=== PATIENT | female | born 1945 | race Caucasian/White ===

== ENCOUNTER 2020-10-12 06:35 | Emergency (ER) | payer MEDICARE, SELFPAY ==
--- NOTE | ~2020-10-12 | CT_ITS ---
EXAMINATION: CT OF THE HEAD WITHOUT CONTRAST CT OF THE CERVICAL SPINE WITHOUT CONTRAST CLINICAL INFORMATION: Fall.. COMPARISON: None. TECHNIQUE: Contiguous axial imaging was performed from the skullbase to vertex without intravenous administration of contrast. Coronal reformations of the head were obtained. Contiguous axial imaging was then performed from the skull base down to the thoracic inlet. Coronal and sagittal reformations of the cervical spine were obtained. DLP: CT scan of the head: 641 mGy-cm. CT scan of the neck: 309 mGy-cm. FINDINGS: CT scan of the head: There is no evidence of acute intracranial hemorrhage or territorial infarction. No abnormal mass-effect or midline shift is seen. [place] to white matter differentiation is well preserved. No extra-axial fluid collections are identified. The ventricles and sulci are mildly enlarged. There is mild periventricular and deep white matter low-attenuation seen, consistent with ischemic small vessel disease. There is a small hypodensity in the left midbrain, most consistent with a dilated CSF space versus less likely an old lacunar infarction.. Nasal septal deviation to the left side is seen. The osseous structures and soft tissues are normal. The mastoid air cells and visualized portions of the paranasal sinuses are well-aerated. CT scan of the cervical spine: Normal alignment is seen with no evidence of acute fracture or dislocation. Craniocervical junction and atlantoaxial articulations are intact with advanced degenerative spurring, sclerosis, cystic change and ligamentous calcification seen. Prevertebral soft tissues are normal in thickness. There is moderate degenerative disc disease at the C5-6 level with disc space narrowing, vertebral endplate sclerosis and spurring and small posterior disc osteophyte complex projecting into the thecal sac without causing significant spinal stenosis. Small posterior disc osteophyte complexes are also seen projecting into the thecal sac at the C3-4 and C4-5 levels without significant spinal stenosis. Mild diffuse degenerative disc disease is seen at other cervical levels. Moderate left-sided and mild right-sided facet arthropathy is seen throughout the cervical spine. The included soft tissues of the neck and lung apices are unremarkable. CT/CT cervical spine wo con IMPRESSION: CT scan of the head: No acute intracranial pathology. Mild involutional changes and findings of ischemic small vessel disease. There is likely a prominent CSF space versus an old lacunar infarction in the left midbrain. CT scan of the cervical spine: No evidence of cervical spine fracture or malalignment. Diffuse degenerative changes in the cervical spine.
--- NOTE | ~2020-10-12 | XR_ITS ---
EXAMINATION: CHEST AND RIGHT HIP WITH PELVIS CLINICAL INFORMATION: Fall. Pain. COMPARISON: None TECHNIQUE: Chest one view. AP pelvis and right hip 3 views. FINDINGS: Chest: The lungs are well-expanded and clear of acute process. The heart size and pulmonary vascularity is normal AP pelvis and right hip: There is a intramedullary femoral rae and hip nail stabilizing old healed femoral neck fracture. Hypertrophic bony changes are seen around the right hip joint. The hardware appears intact. The left hip appears unremarkable. SI joints are symmetrical and normal. No gross bony abnormality seen. No acute fracture or dislocation. XR/XR hip RT w [id number] IMPRESSION: Unremarkable chest exam. Old healed right hip fracture with intramedullary femoral rae and hip nail. No acute fractures seen. The heart is a hypertrophic bony changes adjacent to the right femoral neck and lateral to hip joint.
--- NOTE | ~2020-10-12 | XR_ITS ---
EXAMINATION: CHEST AND RIGHT HIP WITH PELVIS CLINICAL INFORMATION: Fall. Pain. COMPARISON: None TECHNIQUE: Chest one view. AP pelvis and right hip 3 views. FINDINGS: Chest: The lungs are well-expanded and clear of acute process. The heart size and pulmonary vascularity is normal AP pelvis and right hip: There is a intramedullary femoral rae and hip nail stabilizing old healed femoral neck fracture. Hypertrophic bony changes are seen around the right hip joint. The hardware appears intact. The left hip appears unremarkable. SI joints are symmetrical and normal. No gross bony abnormality seen. No acute fracture or dislocation. XR/XR chest 1V IMPRESSION: Unremarkable chest exam. Old healed right hip fracture with intramedullary femoral rae and hip nail. No acute fractures seen. The heart is a hypertrophic bony changes adjacent to the right femoral neck and lateral to hip joint.
--- NOTE | 2020-10-12 06:40 | ECG_ITS ---
Test Reason : FALL Blood Pressure : / mmHG Vent. Rate : 068 BPM Atrial Rate : 068 BPM P-R Int : 128 ms QRS Dur : 118 ms QT Int : 438 ms P-R-T Axes : 025 -42 032 degrees QTc Int : 465 ms Normal sinus rhythm Left axis deviation Incomplete right bundle branch block Septal infarct , age undetermined Abnormal ECG No previous ECGs available Referred By: Tyesha Morris Electronically Signed By:Maximilian Lizarraga
[2020-10-12 06:41] VITALS: BP 177/53; PULSE 80; RESP 22; TEMP 36.4; O2SAT 99; BMI 28.8
--- NOTE | 2020-10-12 06:41 | ED.FALL ---
HPI - Fall General Chief Complaint: Fall Stated Complaint: FALL W/RIGHT LEG PAIN Time Seen by Provider: 10/12/20 06:40 Source: patient and EMS Mode of arrival: EMS Limitations: other (dementia - some slight confusion) History of Present Illness HPI Narrative: 75 yo female with hx of HTN, dementia, overactive bladder, chronic L leg wounds, PE on eliquis comes from assisted living facility after being found down by staff - she c/o R hip pain (hx of prior fx) no other injuries, states thinks she was dreaming about being in a spooky house running away from it with her friend. complaint: fall Onset (ago): unknown Fall from: standing Fall witnessed: no Place fall occurred: [facility] Loss of consciousness: unsure Prolonged down time: unclear Symptoms prior to fall: none Context: other (unsure) Location of injury - extremities: right: lower leg Severity: mild Quality: dull and aching Associated symptoms (after fall): denies Related Data Home Medications Medication Instructions Recorded Confirmed acetaminophen 650 mg PO Q6H PRN 10/12/20 10/12/20 apixaban [Eliquis] 5 mg PO BID 10/12/20 10/12/20 atorvastatin 20 mg PO BEDTIME 10/12/20 10/12/20 cholecalciferol (vitamin D3) 25 mcg PO DAILY 10/12/20 10/12/20 [Vitamin D3] donepezil 10 mg PO BEDTIME 10/12/20 10/12/20 gabapentin 100 mg PO BEDTIME 10/12/20 10/12/20 insulin glargine [Lantus Solostar 43 unit SUBCUT DAILY 10/12/20 10/12/20 U-100 Insulin] lidocaine HCl 1 appl TOPICAL QID 10/12/20 10/12/20 lisinopril 1 tab PO DAILY 10/12/20 10/12/20 metformin 1,000 mg PO DAILY@1700 10/12/20 10/12/20 oxybutynin chloride 1 tab PO DAILY 10/12/20 10/12/20 pioglitazone 1 tab PO DAILY 10/12/20 10/12/20 polyethylene glycol 3350 17 g PO DAILY 10/12/20 10/12/20 sennosides [senna] 17.2 mg PO BEDTIME 10/12/20 10/12/20 Allergies Allergy/AdvReac Type Severity Reaction Status Date / Time aluminum sulfate Allergy Unknown Uncoded 10/12/20 06:41 Review of Systems Review of Systems: Constitutional : No Fever, No Chills ENT/Mouth : No Ear Pain, No Hoarseness, No sore throat Eyes: No Eye Pain, No Swelling, No Redness, No Foreign Body Cardiovascular : No Chest Pain, No SOB Respiratory : No Cough, No Dyspnea Gastrointestinal : No Nausea, No Vomiting, No Diarrhea, No abdominal Pain Genitourinary : No Dysuria, No Hematuria Musculoskeletal : positive joint pain, No Myalgias, No Joint Swelling Skin : No Skin lacerations, No rash Neuro : No Weakness, No Numbness, No Loss of Consciousness, No Dizziness, No Headache Psych : No Anxiety/Panic, No Depression Heme/Lymph: no easy bruising, no Lymphadenopathy Endocrine : No Polyuria, No Polydipsia All other systems reviewed and are negative [facility] Past Medical History Attestation statement: The following information was validated with the patient. Medical History Dementia HTN (hypertension) Overactive bladder Pulmonary embolism with acute cor pulmonale Social History Social History (Updated 10/12/20 @ 06:48 by Tyesha Morris DO) Housing: Assisted Living Facility Patient Tobacco Use Status: Former Tobacco user Use of substances other than those prescribed or required for medical reasons: No Advance Directives: Yes Advance Directives on File: Yes Advance Directives Date on File: 10/12/20 Physical Exam Vital Signs: Vital Signs: Last Vital Signs Temp 97.6 F 10/12/20 06:41 Pulse 78 10/12/20 13:00 Resp 16 10/12/20 13:00 BP 136/43 L 10/12/20 07:52 Pulse Ox 96 10/12/20 13:00 Body Mass Index 28.8 Appearance: Alert. Oriented X2. No acute distress. Eyes: Pupils equal, round and reactive to light. ENT: Pharynx normal. Neck: Normal inspection. Neck supple. CVS: Normal heart rate and rhythm. Pulses normal. Respiratory: No respiratory distress. Breath sounds normal. Abdomen: Soft and non-tender. : superficial shallow ulcer no abscess noted on left inner labia Skin: Skin warm and dry. Normal skin color. Normal skin turgor. Extremities: trace to 1+ pitting lower extremity edema. No calf ttp . L calf chronic healing ulcer dressings are unkempt no signs of infection, pain with ROM of R hip Neuro: Oriented X 2. No motor deficit. No sensory deficit. Course Course Course Narrative: baseline H 9.0 from [facility] records repeat trop flat, will ordered PT/CM for patient given safety concerns for fall risk Patient placed in physician observation at 1150am. The indication for observation is that the patient needs more time to see PT/CM for safe discharge. At this time the patient is well developed well nourished, lungs clear, CV RRR, abd nontender, neuro is intac at baseline. signed out overnight pending placement MDM - Fall MDM Narrative Medical decision making narrative: 75 yo female with hx of HTN, dementia, overactive bladder, chronic L leg wounds, PE on eliquis comes from assisted living facility after being found down by staff - she c/o R hip pain (hx of prior fx) no other injuries at this time, labs, UA, CXR, CT head/neck given eliquis, unsure etiology of fall may need repeat troponins as well and discussion with CM given she is in [facility]. Dispo per results and findings. Lab Data Result diagrams: 10/12/20 08:02 10/12/20 08:02 Labs: Lab Results 10/12/20 10/12/20 10/12/20 Range/Units 06:54 06:55 08:02 WBC 6.8 (4.8-10.8) X10*3/uL RBC 3.17 L (4.20-5.50) X10*6/uL Hgb 9.0 L (12.0-16.0) g/dl Hct 27.9 L (37-47) % MCV 88.0 (80-98) fL MCH 28.4 (27.0-33.0) pg MCHC 32.3 (31.0-35.0) g/dl RDW 14.5 (11.0-16.0) % Plt Count 229 (160-400) X10*3/uL MPV 9.8 (9.4-12.3) fL Immature Gran % (Auto) 0.3 (0.0-0.4) % Neut % (Auto) 76.4 H (45-73) % Lymph % (Auto) 11.3 L (20-40) % [place] % (Auto) 10.4 (2-11) % Eos % (Auto) 1.2 (0-4) % Baso % (Auto) 0.4 (0-2) % Lymph # (Auto) 0.8 L (1.2-4.9) X10*3/uL [place] # (Auto) 0.7 (0.1-1.2) X10*3/uL Eos # (Auto) 0.1 (0.0-0.4) X10*3/uL Baso # (Auto) 0.0 (0.0-0.2) X10*3/uL Abs Immat Gran (auto) 0.02 (0.00-0.03) X10*3/uL Absolute Neuts (auto) 5.2 (2.0-8.3) X10*3/uL Absolute Nucleated RBC 0.000 (0.0-0.012) X10*3/uL Nucleated RBC % (auto) 0.0 (0.0-0.2) /100WBC PT (9.9-13.0) SEC INR (0.9-1.1) APTT (24.1-38.0) SEC Sodium (135-145) mmol/L Potassium (3.3-5.1) mmol/L Chloride (96-108) mmol/L Carbon Dioxide (22-29) mmol/L Anion Gap (12-20) BUN (9-16) mg/dL Creatinine (0.5-1.4) mg/dL Estim Creat Clear Calc Estimated GFR Random Glucose (60-115) mg/dL Calcium (8.4-10.2) mg/dL Magnesium (1.6-2.6) mg/dL Total Bilirubin (0.0-1.0) mg/dL Direct Bilirubin (0.0-0.5) mg/dL AST (5-31) U/L ALT (0-31) U/L Alkaline Phosphatase (39-117) U/L Total Creatine Kinase (26-140) U/L Troponin I High Sens (<3.5-17.0) ng/L Total Protein (6.5-8.0) g/dL Albumin (3.5-5.0) g/dL Lipase (8-78) U/L Urine Color YELLOW Urine Appearance CLEAR Urine pH 6.5 (5.0-8.0) Ur Specific [place] 1.010 (1.005-1.025) Urine Protein NEG (NEG-TRACE) MG/DL Urine Glucose (UA) NEG (NEG) MG/DL Urine Ketones NEG (NEG) MG/DL Urine Blood NEG (NEG) Urine Nitrite NEG (NEG) Ur Leukocyte Esterase NEG (NEG) COVID-19 ([facility]) Negative (Negative) COVID-19 Clin Com See Note 10/12/20 10/12/20 10/12/20 Range/Units 08:02 08:02 08:02 WBC (4.8-10.8) X10*3/uL RBC (4.20-5.50) X10*6/uL Hgb (12.0-16.0) g/dl Hct (37-47) % MCV (80-98) fL MCH (27.0-33.0) pg MCHC (31.0-35.0) g/dl RDW (11.0-16.0) % Plt Count (160-400) X10*3/uL MPV (9.4-12.3) fL Immature Gran % (Auto) (0.0-0.4) % Neut % (Auto) (45-73) % Lymph % (Auto) (20-40) % [place] % (Auto) (2-11) % Eos % (Auto) (0-4) % Baso % (Auto) (0-2) % Lymph # (Auto) (1.2-4.9) X10*3/uL [place] # (Auto) (0.1-1.2) X10*3/uL Eos # (Auto) (0.0-0.4) X10*3/uL Baso # (Auto) (0.0-0.2) X10*3/uL Abs Immat Gran (auto) (0.00-0.03) X10*3/uL Absolute Neuts (auto) (2.0-8.3) X10*3/uL Absolute Nucleated RBC (0.0-0.012) X10*3/uL Nucleated RBC % (auto) (0.0-0.2) /100WBC PT 14.0 H (9.9-13.0) SEC INR 1.2 H (0.9-1.1) APTT 37.8 (24.1-38.0) SEC Sodium 142 (135-145) mmol/L Potassium 4.6 (3.3-5.1) mmol/L Chloride 106 (96-108) mmol/L Carbon Dioxide 26 (22-29) mmol/L Anion Gap 15 (12-20) BUN 20 H (9-16) mg/dL Creatinine 1.07 (0.5-1.4) mg/dL Estim Creat Clear Calc 42.7 Estimated GFR 50 Random Glucose 102 (60-115) mg/dL Calcium 9.4 (8.4-10.2) mg/dL Magnesium 2.0 (1.6-2.6) mg/dL Total Bilirubin 0.5 (0.0-1.0) mg/dL Direct Bilirubin 0.2 (0.0-0.5) mg/dL AST 14 (5-31) U/L ALT 7 (0-31) U/L Alkaline Phosphatase 149 H (39-117) U/L Total Creatine Kinase 95 (26-140) U/L Troponin I High Sens 8.2 (<3.5-17.0) ng/L Total Protein 6.8 (6.5-8.0) g/dL Albumin 3.8 (3.5-5.0) g/dL Lipase 24 (8-78) U/L Urine Color Urine Appearance Urine pH (5.0-8.0) Ur Specific [place] (1.005-1.025) Urine Protein (NEG-TRACE) MG/DL Urine Glucose (UA) (NEG) MG/DL Urine Ketones (NEG) MG/DL Urine Blood (NEG) Urine Nitrite (NEG) Ur Leukocyte Esterase (NEG) COVID-19 ([facility]) (Negative) COVID-19 Clin Com 10/12/20 Range/Units 11:20 WBC (4.8-10.8) X10*3/uL RBC (4.20-5.50) X10*6/uL Hgb (12.0-16.0) g/dl Hct (37-47) % MCV (80-98) fL MCH (27.0-33.0) pg MCHC (31.0-35.0) g/dl RDW (11.0-16.0) % Plt Count (160-400) X10*3/uL MPV (9.4-12.3) fL Immature Gran % (Auto) (0.0-0.4) % Neut % (Auto) (45-73) % Lymph % (Auto) (20-40) % [place] % (Auto) (2-11) % Eos % (Auto) (0-4) % Baso % (Auto) (0-2) % Lymph # (Auto) (1.2-4.9) X10*3/uL [place] # (Auto) (0.1-1.2) X10*3/uL Eos # (Auto) (0.0-0.4) X10*3/uL Baso # (Auto) (0.0-0.2) X10*3/uL Abs Immat Gran (auto) (0.00-0.03) X10*3/uL Absolute Neuts (auto) (2.0-8.3) X10*3/uL Absolute Nucleated RBC (0.0-0.012) X10*3/uL Nucleated RBC % (auto) (0.0-0.2) /100WBC PT (9.9-13.0) SEC INR (0.9-1.1) APTT (24.1-38.0) SEC Sodium (135-145) mmol/L Potassium (3.3-5.1) mmol/L Chloride (96-108) mmol/L Carbon Dioxide (22-29) mmol/L Anion Gap (12-20) BUN (9-16) mg/dL Creatinine (0.5-1.4) mg/dL Estim Creat Clear Calc Estimated GFR Random Glucose (60-115) mg/dL Calcium (8.4-10.2) mg/dL Magnesium (1.6-2.6) mg/dL Total Bilirubin (0.0-1.0) mg/dL Direct Bilirubin (0.0-0.5) mg/dL AST (5-31) U/L ALT (0-31) U/L Alkaline Phosphatase (39-117) U/L Total Creatine Kinase (26-140) U/L Troponin I High Sens 10.9 (<3.5-17.0) ng/L Total Protein (6.5-8.0) g/dL Albumin (3.5-5.0) g/dL Lipase (8-78) U/L Urine Color Urine Appearance Urine pH (5.0-8.0) Ur Specific [place] (1.005-1.025) Urine Protein (NEG-TRACE) MG/DL Urine Glucose (UA) (NEG) MG/DL Urine Ketones (NEG) MG/DL Urine Blood (NEG) Urine Nitrite (NEG) Ur Leukocyte Esterase (NEG) COVID-19 ([facility]) (Negative) COVID-19 Clin Com ECG Data Attestation: I personally reviewed and interpreted this ECG as follows: ECG interpretation date: 10/12/20 ECG interpretation time: 06:57 Interpretation: Rate: 68 Rhythm: NSR [place]: left Normal P waves. Normal RAFFAELE. incomplete RBBB. ST T wave : no BETTY, normal qTC: normal prior studies: none available, no acute ischemia The study has been interpreted contemporaneously by me. . Discharge Plan Discharge Clinical Impression: Fall Qualifiers: Encounter type: initial encounter Qualified Code(s): W19.XXXA - Unspecified fall, initial encounter Acute hip pain Qualifiers: Laterality: right Qualified Code(s): M25.551 - Pain in right hip Prescriptions: No [facility] atorvastatin 20 mg Tablet 20 mg PO BEDTIME RF: 0 oxybutynin chloride 10 mg tablet extended release 24hr 1 tab PO DAILY RF: 0 donepezil 10 mg Tablet 10 mg PO BEDTIME RF: 0 lisinopril 10 mg tablet 1 tab PO DAILY RF: 0 pioglitazone 30 mg tablet 1 tab PO DAILY RF: 0 cholecalciferol (vitamin D3) [Vitamin D3] 25 mcg (1,000 unit) Capsule 25 mcg PO DAILY RF: 0 Lantus Solostar U-100 Insulin 100 unit/mL (3 mL) insulin pen 43 unit subcut DAILY RF: 0 Eliquis 5 mg Tablet 5 mg PO BID RF: 0 metformin 500 mg Tablet 1,000 mg PO DAILY@1700 RF: 0 sennosides [senna] 8.6 mg Tablet 17.2 mg PO BEDTIME RF: 0 acetaminophen 325 mg Tablet 650 mg PO Q6H PRN (Reason: Pain (Scale Score 1-3)) RF: 0 lidocaine HCl 2 % Jelly 1 appl TOPICAL QID RF: 0 gabapentin 100 mg Capsule 100 mg PO BEDTIME RF: 0 polyethylene glycol 3350 17 gram/dose Powder 17 g PO DAILY RF: 0
[2020-10-12 07:05] LABS: Glucose Urine UA NEG (NEG); Leukocyte Esterase Urine NEG (NEG); Nitrite Urine NEG (NEG); PH 6.5 (5.0-8.0); Urine Blood NEG (NEG); Urine Ketones NEG (NEG); Urine Protein NEG (NEG-TRACE)
[2020-10-12 07:07] LABS: Appearance Urine CLEAR; Color Urine YELLOW
--- NOTE | 2020-10-12 07:16 | PC.NURSE ---
pt resting in the stretcher, skin pwd, respirations even and unlabored. pt hx of dementia, pt is alert to self and knows she is in the hospital but not sure why she is at the hospital for. [facility] is coming [facility], left lower leg appears to have some skin tears looks like new skin tears, no shorting or rotations of the extremities noticed. pt denies pain at this time-will hold the Tylenol for now. ns on the monitor
[2020-10-12 07:25] LABS: COVID-19 Test Negative (Negative)
--- NOTE | 2020-10-12 07:25 | PC.NURSE ---
Pt denying pain at this time, tylenol held. Pt resting quietly in bed, small skin tear noted to left lower extremity, lateral calf. No shortening or rotation noted, VSS.
[2020-10-12 07:52] VITALS: BP 136/43; PULSE 74; RESP 15; O2SAT 100
[2020-10-12 08:08] LABS: MANUAL DIFF FLAG NO
[2020-10-12 08:09] LABS: Basophils Percent Auto 0.4 % (0-2); Eosinophils Absolute Auto 0.1 X10*3/uL (0.0-0.4); Eosinophils Percent Auto 1.2 % (0-4); Hematocrit 27.9 % (37-47); Imm Gran Abs Auto 0.02 X10*3/uL (0.00-0.03); Imm Gran Pct Auto 0.3 % (0.0-0.4); Lymphocytes Absolute Auto 0.8 X10*3/uL (1.2-4.9); Lymphocytes Percent Auto 11.3 % (20-40); Mean Corpuscular HGB Conc 32.3 g/dl (31.0-35.0); Mean Corpuscular Hemoglobin 28.4 pg (27.0-33.0); Mean Platelet Volume 9.8 fL (9.4-12.3); Monocytes Absolute Auto 0.7 X10*3/uL (0.1-1.2); Monocytes Percent Auto 10.4 % (2-11); Neutrophils Absolute Auto 5.2 X10*3/uL (2.0-8.3); Neutrophils Percent Auto 76.4 % (45-73); Platelet Count 229 X10*3/uL (160-400); Red Blood Count 3.17 X10*6/uL (4.20-5.50); Red Cell Distribution Width 14.5 % (11.0-16.0); White Blood Count 6.8 X10*3/uL (4.8-10.8)
[2020-10-12 08:15] LABS: INTERNATIONAL NORM RATIO 1.2 (0.9-1.1)
[2020-10-12 08:17] LABS: Partial Thromboplastin Time 37.8 SEC (24.1-38.0)
[2020-10-12 08:34] LABS: Troponin-I High Sensitivity 8.2 ng/L (<3.5-17.0)
[2020-10-12 08:42] LABS: Alanine Aminotransferase 7 U/L (0-31); Albumin Level 3.8 g/dL (3.5-5.0); Alkaline Phosphatase 149 U/L (39-117); Anion Gap 15 (12-20); Aspartate Amino Transferase 14 U/L (5-31); Bilirubin Direct 0.2 mg/dL (0.0-0.5); Bilirubin Total 0.5 mg/dL (0.0-1.0); Blood Urea Nitrogen 20 mg/dL (9-16); Calcium 9.4 mg/dL (8.4-10.2); Carbon Dioxide 26 mmol/L (22-29); Chloride 106 mmol/L (96-108); Creatinine Clr Calc Pharmacy 42.7; Estimated Glomerular Filt Rate 50; Glucose Random 102 mg/dL (60-115); Lipase 24 U/L (8-78); Potassium 4.6 mmol/L (3.3-5.1); Sodium 142 mmol/L (135-145); Total Protein 6.8 g/dL (6.5-8.0)
[2020-10-12 11:48] LABS: Troponin-I High Sensitivity 10.9 ng/L (<3.5-17.0)
--- NOTE | 2020-10-12 12:42 | MHC.CM.ED ---
Received case management consult from Dr Morris. Patient came to the ER after a fall at her assisted living facility. Work up essentially negative. Physical therapy eval is pending. Patient has a history of dementia. Unable to obtain information from patient. Attempted to reach patient's POA Jo Swift via telephone at [phone]. Left message requesting return telephone call. Copy of HCP obtained from [facility]. Patient recently at [facility] for STR. Continue to monitor for d/c needs.
--- NOTE | 2020-10-12 12:50 | PC.NURSE ---
Per Case Mngment staff to do a trial ambulation with the pt.
[2020-10-12 13:00] VITALS: PULSE 78; RESP 16; O2SAT 96
--- NOTE | 2020-10-12 13:01 | PC.NURSE ---
Pt had large, soft bowel movement to bedpan.
--- NOTE | 2020-10-12 13:35 | MHC.CM.ED ---
Received return telephone call from Jo Swift. Jo Swift aware patient will stay in the ER until physical therapy eval can be completed tomorrow. Jo Swift is agreeable to referral to [facility]. Referral made via [employer]. Continue to monitor for d/c needs.
[2020-10-12 16:49] VITALS: BP 152/58; PULSE 72; RESP 18; TEMP 36.8; O2SAT 99
[2020-10-12] MEDS: metFORMIN HCl ER 500 MG TAB.ER.24H 1000 MG PO (16:57)
--- NOTE | 2020-10-12 17:39 | PC.NURSE ---
Patient is resting quietly in recliner chair with eyes closed in no distress
--- NOTE | 2020-10-12 19:30 | PC.NURSE ---
PT NOT INTERESTED IN DINNER, DID ACCEPT DESSERT FROM [facility]. PT'S BED CHANGED TO A HOSPITAL BED FOR COMFORT.
[2020-10-12 20:33] VITALS: BP 137/47; PULSE 80; RESP 16; O2SAT 98
[2020-10-12] MEDS: Acetaminophen 325 MG TABLET 650 MG PO (20:40)
[2020-10-12] MEDS: Gabapentin 100 MG CAPSULE PO (20:40)
[2020-10-12] MEDS: Atorvastatin Calcium 20 MG TABLET PO (20:40)
[2020-10-12] MEDS: Donepezil HCl 10 MG TABLET PO (20:40)
[2020-10-12] MEDS: Apixaban 5 MG TABLET PO (20:40)
--- NOTE | 2020-10-12 21:03 | PC.NURSE ---
PT AMBULATORY TO BATHROOM WITH WALKER, HAD LARGE BM IN TOILET. PT ASSISTED CLEANING UP WITH WIPES.
--- NOTE | 2020-10-12 22:49 | PC.NURSE ---
PT HAS PINK PADDED BANDAGE ON COCCYX, PLACED BEFORE CARE BY THIS RN.
[2020-10-13] VITALS (7 sets, daily range): BP systolic 136–148; BP diastolic 44–54; PULSE 68–75; RESP 16; TEMP 36.6–37; O2SAT 99–100
--- NOTE | 2020-10-13 04:06 | PC.NURSE ---
pt was incontinent of stool, walked to bathroom and experienced 3-4 bouts of diarrhea.
[2020-10-13 06:32] LABS: Glucose, Whole Blood 149 mg/dL (60-115)
--- NOTE | 2020-10-13 08:32 | PC.NURSE ---
physical therapy at bedside. pt aware of plan of care.
--- NOTE | 2020-10-13 09:39 | PC.NURSE ---
PT IS A/O X 1 DOES NOT REMEMBER THE YR OR WHERE SHE IS. PT WAS VERBALLY REDIRECTED/.
[2020-10-13] MEDS: Cholecalciferol (Vitamin D3) 25 MCG TABLET PO (09:40)
[2020-10-13] MEDS: lisinopriL 10 MG TABLET PO (09:40)
[2020-10-13] MEDS: Pioglitazone HCL 30 MG TABLET PO (09:40)
[2020-10-13] MEDS: Apixaban 5 MG TABLET PO (09:41)
--- NOTE | 2020-10-13 12:42 | MHC.CM.ED ---
Physical therapy eval completed. 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 Patient lives at [facility]. Spoke with patient's POA/friend, Jo Swift via telephone. Jo Swift agreeable to patient returning to the [facility] with resumption of [facility]. [facility] booked for 130pm. [facility] with chart. Patient, Jo Swift, Valerie PA and Pastora RN aware. Continue to monitor for d/c needs.
--- NOTE | 2020-10-13 13:39 | PC.NURSE ---
dressing change to l lower leg, cleansed with ns, xeroform followed by telfa and c/d/d. this rn called the [facility] left message on voice mail for cinthya bird ([phone]) that pt will be returning to facility.
== END 2020-10-13 13:43 | disposition skilled nursing facility (03) ==
PROVIDERS: Emergency Provider Emergency Medicine; PCP Internal Medicine
DX: S89.91XA Unspecified injury of right lower leg, initial encounter (principal); M25.551 Pain in right hip; F03.90 Unspecified dementia, unspecified severity, without behavioral disturbance, psychotic disturbance, mood disturbance, and anxiety; G44.309 Post-traumatic headache, unspecified, not intractable; M54.2 Cervicalgia; I10 Essential (primary) hypertension; W01.0XXA Fall on same level from slipping, tripping and stumbling without subsequent striking against object, initial encounter; Y93.9 Activity, unspecified; Y92.129 Unspecified place in nursing home as the place of occurrence of the external cause; Y99.9 Unspecified external cause status; Z20.822 Contact with and (suspected) exposure to COVID-19; Z79.01 Long term (current) use of anticoagulants; Z86.711 Personal history of pulmonary embolism; Z87.891 Personal history of nicotine dependence; Z79.899 Other long term (current) drug therapy
CPT/HCPCS: 36415; 70450; 71045; 72125; 73502; 80048; 80076; 81003; 82550; 82947; 83690; 83735; 84484; 85025; 85610; 85730; 87635; 93005; 97161; 99285

== ENCOUNTER 2021-02-17 10:19 | Outpatient (REF) | payer MEDICARE, SELFPAY ==
[2021-02-17 11:40] LABS: Anion Gap 12 (12-20); Blood Urea Nitrogen 24 mg/dL (9-16); Carbon Dioxide 29 mmol/L (22-29); Chloride 105 mmol/L (96-108); Estimated Glomerular Filt Rate 47; Glucose Random 133 mg/dL (60-115); Sodium 142 mmol/L (135-145)
== END 2021-02-17 10:20 | disposition home or self-care (01) ==
LOC: HO.HMGCLNP 10:19
PROVIDERS: Visit Provider Internal Medicine
DX: E11.9 Type 2 diabetes mellitus without complications (principal); I10 Essential (primary) hypertension
CPT/HCPCS: 80048

== ENCOUNTER 2021-05-25 10:57 | Outpatient (REF) | payer MEDICARE, SELFPAY ==
[2021-05-25 13:57] LABS: MANUAL DIFF FLAG NO
[2021-05-25 14:05] LABS: Basophils Percent Auto 0.8 % (0-2); Eosinophils Absolute Auto 0.3 X10*3/uL (0.0-0.4); Hematocrit 29.4 % (37.0-47.0); Hemoglobin 9.3 g/dl (12.0-16.0); Imm Gran Abs Auto 0.01 X10*3/uL (0.00-0.03); Imm Gran Pct Auto 0.2 % (0.0-0.4); Lymphocytes Absolute Auto 0.8 X10*3/uL (1.2-4.9); Lymphocytes Percent Auto 15.6 % (20-40); Mean Corpuscular HGB Conc 31.6 g/dl (31.0-35.0); Mean Corpuscular Hemoglobin 29.4 pg (27.0-33.0); Mean Platelet Volume 11.7 fL (9.4-12.3); Monocytes Absolute Auto 0.4 X10*3/uL (0.1-1.2); Monocytes Percent Auto 8.4 % (2-11); Neutrophils Absolute Auto 3.5 x10*3/uL (2.0-8.3); Platelet Count 216 X10*3/uL (160-400); Red Blood Count 3.16 X10*6/uL (4.20-5.50); Red Cell Distribution Width 13.5 % (11.0-16.0); White Blood Count 5.1 X10*3/uL (4.8-10.8)
[2021-05-25 14:20] LABS: Alanine Aminotransferase 7 U/L (0-31); Albumin Level 3.9 g/dL (3.5-5.0); Alkaline Phosphatase 146 U/L (39-117); Anion Gap 12 (12-20); Aspartate Amino Transferase 11 U/L (5-31); Bilirubin Total 0.6 mg/dL (0.0-1.0); Blood Urea Nitrogen 21 mg/dL (9-16); Calcium 9.2 mg/dL (8.4-10.2); Carbon Dioxide 28 mmol/L (22-29); Chloride 103 mmol/L (96-108); Estimated Glomerular Filt Rate 52; Glucose Random 205 mg/dL (60-115); Potassium 4.1 mmol/L (3.3-5.1); Sodium 139 mmol/L (135-145); Total Protein 7.1 g/dL (6.5-8.0)
[2021-05-25 14:37] LABS: Thyroid Stimulating Hormone 1.48 uIU/mL (0.32-4.0)
== END 2021-05-25 10:58 | disposition home or self-care (01) ==
LOC: HO.HMGCLNP 10:57
PROVIDERS: Visit Provider Internal Medicine
DX: I10 Essential (primary) hypertension (principal); E11.9 Type 2 diabetes mellitus without complications
CPT/HCPCS: 80053; 84443; 85025

== ENCOUNTER 2022-01-07 20:52 | Inpatient (IN) | payer MEDICARE, SELFPAY ==
--- NOTE | ~2022-01-07 | XR_ITS ---
EXAMINATION: PELVIS AND RIGHT FEMUR X-RAY CLINICAL INFORMATION: Right hip replacement. Right femoral fracture COMPARISON: Previous x-rays from December 2021 TECHNIQUE: 2 views of the pelvis. AP and lateral view of the right femur. FINDINGS: There is a new right hip replacement. This has a long femoral stem. There is a plate and screws and cerclage wires in the mid and distal shaft of the right femur. There is an oblique fracture of the mid femoral shaft. There is also a fracture of the posterior distal femoral shaft. There is arthritis at the right knee joint. There is evidence of atherosclerotic. No pelvic fracture. Arthritis at the left hip joint. Degenerative changes of the lumbar spine. XR/XR femur RT 2V IMPRESSION: New right hip replacement and ORIF of right femoral shaft fractures.
--- NOTE | ~2022-01-07 | US_ITS ---
EXAMINATION: US VENOUS ULTRASOUND WITH DOPPLER LOWER EXTREMITY, RIGHT CLINICAL INFORMATION: Right lower extremity pain COMPARISON: None TECHNIQUE: Ultrasound of the deep veins is performed from the hip to the calf with compression sonography and color and pulse Doppler assessment. Spectral analysis with color-flow imaging is performed. FINDINGS: There is normal venous compression and respiratory variation and augmented flow. The visualized common femoral vein, superficial femoral vein, profunda femoral vein, popliteal vein, and the trifurcation region shows no evidence of deep venous thrombosis. There is no significant popliteal fossa cyst. If the patient's symptoms persist, followup ultrasound in 5 days 7 days might be of value to exclude proximal propagation from a non-visualized calf vein. US/US venous duplex LE RT IMPRESSION: No DVT demonstrated in the right lower extremity.
--- NOTE | ~2022-01-07 | XR_ITS ---
EXAMINATION: PELVIS AND RIGHT FEMUR X-RAY CLINICAL INFORMATION: Right hip replacement. Right femoral fracture COMPARISON: Previous x-rays from December 2021 TECHNIQUE: 2 views of the pelvis. AP and lateral view of the right femur. FINDINGS: There is a new right hip replacement. This has a long femoral stem. There is a plate and screws and cerclage wires in the mid and distal shaft of the right femur. There is an oblique fracture of the mid femoral shaft. There is also a fracture of the posterior distal femoral shaft. There is arthritis at the right knee joint. There is evidence of atherosclerotic. No pelvic fracture. Arthritis at the left hip joint. Degenerative changes of the lumbar spine. XR/XR pelvis 1-2V IMPRESSION: New right hip replacement and ORIF of right femoral shaft fractures.
--- NOTE | ~2022-01-07 | FL_ITS ---
EXAMINATION: FL guidance in OR INDICATION: Reason for Exam HIP FX COMPARISON: Hip and pelvis radiographs TECHNIQUE: Multiple fluoroscopic OR images were provided. FLUOROSCOPY TIME: 0.3 minutes DOSE AREA PRODUCT: 0.12 Gy-cm2 FINDINGS: Intraoperative fluoroscopy was obtained. No radiologist was in attendance. Obliquely oriented fracture of the distal femur with hip arthroplasty and ORIF of the femoral fracture. Postprocedural subcutaneous gas. Soft tissue surgical sugey. Atherosclerotic vascular calcification. Mild degenerative changes of the left hip. Please refer to operative report for complete evaluation. FL/FL guidance in OR IMPRESSION: Intraoperative fluoroscopy was obtained. No radiologist was in attendance. Please refer to operative report for complete evaluation.
--- NOTE | ~2022-01-07 | XR_ITS ---
EXAMINATION: XR HIP, RIGHT CLINICAL INFORMATION: Question fracture right femoral head COMPARISON: CT 01/07/2022, x-ray 10/12/2020 TECHNIQUE: Two views of the right hip. FINDINGS: Right femoral intramedullary nail and fixation screws appear intact. There is a fracture of the right femoral neck which is new from 10/12/2020 and suspicious for an acute fracture when viewed in conjunction with recent CT. Remaining osseous structures in the pelvis appear intact. Redemonstrated degenerative changes of the hips. Sacroiliac joints and pubic symphysis appear intact. Extensive vascular calcification noted. XR/XR hip RT w PEL1V IMPRESSION: Redemonstrated right femoral neck fracture, new from 10/12/2020 and suspicious for an acute finding.
--- NOTE | ~2022-01-07 | CT_ITS ---
EXAMINATION: CT ABDOMEN AND PELVIS WITHOUT CONTRAST CLINICAL INFORMATION: Right right hip pain. No fall. COMPARISON: None TECHNIQUE: Multidetector volumetric imaging was performed from the superior aspect of the liver through the pubic symphysis. Sagittal and coronal reformatted images were obtained on the technologist's workstation. This CT examination was performed using dose optimization techniques as appropriate, variously including the following: *Automated exposure control *Adjustment of mA and/or kV according to patient size (this includes techniques or standardized protocols for targeted exams where dose is matched to indication/reason for exam; i.e. extremities or head) *Use of iterative reconstruction technique DLP: 596 mGy-cm FINDINGS: LUNG BASES: The lung bases are clear. Heart size is normal. There are coronary artery calcifications present. LIVER, GALLBLADDER, AND BILIARY TREE: The liver is normal in size, shape, and attenuation. No focal hepatic lesion or biliary ductal dilatation is present. There are multiple radiopaque gallstones without wall thickening. PANCREAS: Unremarkable. SPLEEN: Unremarkable. ADRENAL GLANDS: Unremarkable. KIDNEYS AND URETERS: The kidneys are normal in size, shape, and attenuation. No hydronephrosis, hydroureter, or calculi seen. No perinephric stranding. BLADDER: Unremarkable. GASTROINTESTINAL TRACT: There is scattered stool and gas seen throughout the colon without significant distention. The small bowel loops are normal caliber. The stomach is nondistended ABDOMINAL WALL: No significant hernia is appreciated. LYMPH NODES: Normal. VASCULAR: There is atherosclerotic calcification abdominal aorta without aneurysmal dilatation. PELVIC VISCERA: The uterus is anteverted and appears unremarkable. No adnexal mass or free fluid seen. Small shotty inguinal lymph nodes seen. OSSEOUS STRUCTURES: There is a right femoral intramedullary rae and a compression nail stabilizing old fracture. There is now new acute fractures seen extending into the femoral head. It is best visualized on coronal projection 47/6 and 48/6. Hypertrophic bony changes seen along the right greater trochanter from old injury. There are degenerative disc changes and vacuum disc phenomena L3-L4, L4-L5 and L5-S1 disc levels. No compression fracture seen. CT/CT abdomen pelvis wo IV con IMPRESSION: New right femoral neck and head fracture. There is intramedullary femoral rae and compression nail for an old the healed right femoral neck fracture. Gallstones without wall thickening. Fleischner guidelines were followed.
--- NOTE | 2022-01-07 21:01 | ECG_ITS ---
Test Reason : PAIN Blood Pressure : / mmHG Vent. Rate : 068 BPM Atrial Rate : 068 BPM P-R Int : 176 ms QRS Dur : 126 ms QT Int : 438 ms P-R-T Axes : 045 -49 025 degrees QTc Int : 465 ms Normal sinus rhythm Right bundle branch block Left anterior fascicular block Bifascicular block Abnormal ECG When compared with ECG of 12-OCT-2020 06:55, No significant changes seen Referred By: Alex Cross Electronically Signed By:SHAWANDA KELLEY MD
[2022-01-07 21:18] VITALS: BP 118/62; PULSE 88; O2SAT 100
[2022-01-07 21:21] VITALS: BMI 27.3
--- NOTE | 2022-01-07 21:55 | PC.NURSE ---
attempted to draw blood x 2-pt remains in imaging.
--- NOTE | 2022-01-07 22:23 | ED_ITS ---
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 complaining of pain in the right hip area for last 3 - 4 months has history of ORIF right hip years ago no fall, pain gets worse when she ambulates no other injuries also patient has pain in the calf area patient on Eliquis Related Data Home Medications Medication Instructions Recorded Confirmed acetaminophen 325 mg tablet 650 mg PO Q6H PRN Pain (Scale 10/12/20 01/08/22 Score 1-3) apixaban 5 mg tablet (Eliquis) 5 mg PO BID 10/12/20 01/08/22 atorvastatin 20 mg tablet 20 mg PO BEDTIME 10/12/20 01/08/22 cholecalciferol (vitamin D3) 25 25 mcg PO DAILY 10/12/20 01/08/22 mcg (1,000 unit) capsule (Vitamin D3) donepezil 10 mg tablet 10 mg PO BEDTIME 10/12/20 01/08/22 gabapentin 100 mg capsule 100 mg PO BEDTIME 10/12/20 01/08/22 insulin glargine 100 unit/mL (3 43 unit subcut DAILY@0730 10/12/20 01/08/22 mL) subcutaneous pen (Lantus Solostar U-100 Insulin) lidocaine HCl 2 % mucosal jelly 1 appl topical QID 10/12/20 01/08/22 metformin 500 mg tablet 1,000 mg PO DAILY@1700 10/12/20 01/08/22 oxybutynin chloride 10 mg 1 tab PO DAILY 10/12/20 01/08/22 tablet,extended release 24 hr pioglitazone 30 mg tablet 1 tab PO DAILY 10/12/20 01/08/22 polyethylene glycol 3350 17 17 g PO DAILY 10/12/20 01/08/22 gram/dose oral powder sennosides 8.6 mg tablet (senna) 17.2 mg PO BEDTIME 10/12/20 01/08/22 amlodipine 5 mg tablet 1 tab PO DAILY 01/08/22 01/08/22 insulin lispro 100 unit/mL See Rx Instructions .Route .COMPLEX 01/08/22 01/08/22 subcutaneous pen (Humalog KwikPen (U-100) Insulin) Allergies Allergy/AdvReac Type Severity Reaction Status Date / Time aluminum Allergy Unknown Verified 01/08/22 01:30 Review of Systems Review of Systems: Yes all other systems are reviewed and are negative [facility] Past Medical History Medical History (Updated 01/08/22 @ 02:46 by Denzel Flores MD) Dementia HTN (hypertension) Overactive bladder Pulmonary embolism with acute cor pulmonale Social History Social History Household Members: None Housing: Assisted Living Facility Patient Tobacco Use Status: Former Tobacco user Tobacco use type: Cigar Second Hand Smoke Exposure: No Advance Directives Date on File: 10/12/20 Physical Exam Vital Signs: Vital Signs: Last Vital Signs Temp 97.8 F 01/08/22 03:50 Pulse 60 01/08/22 03:50 Resp 16 01/08/22 03:50 BP 169/74 H 01/08/22 03:50 Pulse Ox 100 01/08/22 03:50 O2 Del Method 01/08/22 03:50 BMI result Body Mass Index 27.3 Appearance: Alert. Oriented X3. No acute distress. Eyes: PERRLA, No Nystagmus ENT: Pharynx normal. Oral Mucosa moist Neck: Normal inspection. Neck supple. CVS: Normal heart rate and rhythm. Pulses normal. Respiratory: No respiratory distress. Equal air entry bilateral, no wheezing/rales/rhonchi Abdomen: Soft and nontender. Bowel sounds are present, no mass palpable, no CVA tenderness Skin: Skin warm and dry. Normal skin color. Normal skin turgor. Extremities: No lower extremity edema. Slight tenderness in the right calf area, tenderness right hip upper and area good range of movement: Neurovascular intact Neuro: Oriented X 3. No motor deficit. No sensory deficit.No cerebellar signs , cranial nerves II-XII intact MDM - Extremity (Nontraumatic) MDM Narrative Medical decision making narrative: Patient with right hip periprosthetic fracture no history of fall. Case discussed Dr. Jiang orthopedic would like patient to be admitted to medical service will consult patient tomorrow and decide next course of action Lab Data Attestation: I reviewed the patient's lab results. Result diagrams: 01/07/22 23:00 01/07/22 23:44 Labs: Lab Results 01/07/22 01/07/22 01/07/22 Range/Units 23:00 23:00 23:00 WBC 6.8 (4.8-10.8) X10*3/uL RBC 3.42 L (4.20-5.50) X10*6/uL Hgb 9.8 L (12.0-16.0) g/dl Hct 30.1 L (37.0-47.0) % MCV 88.0 (80.0-98.0) fL MCH 28.7 (27.0-33.0) pg MCHC 32.6 (31.0-35.0) g/dl RDW 13.4 (11.0-16.0) % Plt Count 245 (160-400) X10*3/uL MPV 10.7 (9.4-12.3) fL Immature Gran % (Auto) 0.1 (0.0-0.4) % Neut % (Auto) 72.5 (45-73) % Lymph % (Auto) 12.6 L (20-40) % [place] % (Auto) 9.5 (2-11) % Eos % (Auto) 4.6 H (0-4) % Baso % (Auto) 0.7 (0-2) % Lymph # (Auto) 0.9 L (1.2-4.9) X10*3/uL [place] # (Auto) 0.6 (0.1-1.2) X10*3/uL Eos # (Auto) 0.3 (0.0-0.4) X10*3/uL Baso # (Auto) 0.1 (0.0-0.2) X10*3/uL Abs Immat Gran (auto) 0.01 (0.00-0.03) X10*3/uL Absolute Neuts (auto) 4.9 (2.0-8.3) x10*3/uL Absolute Nucleated RBC 0.000 (0.0-0.012) X10*3/uL Nucleated RBC % (auto) 0.0 (0.0-0.2) /100WBC Sodium (135-145) mmol/L Potassium (3.3-5.1) mmol/L Chloride (96-108) mmol/L Carbon Dioxide (22-29) mmol/L Anion Gap (12-20) BUN (9-16) mg/dL Creatinine (0.5-1.4) mg/dL Estim Creat Clear Calc Estimated GFR Random Glucose (60-115) mg/dL Lactic Acid 2.2 H* (0.5-2.0) mmol/L Calcium (8.4-10.2) mg/dL Magnesium (1.6-2.6) mg/dL Total Bilirubin (0.0-1.0) mg/dL AST (5-31) U/L ALT (0-31) U/L Alkaline Phosphatase (39-117) U/L Total Protein (6.5-8.0) g/dL Albumin (3.5-5.0) g/dL COVID-19 ([facility]) Negative (Negative) COVID-19 Clin Com See Note 01/07/22 Range/Units 23:44 WBC (4.8-10.8) X10*3/uL RBC (4.20-5.50) X10*6/uL Hgb (12.0-16.0) g/dl Hct (37.0-47.0) % MCV (80.0-98.0) fL MCH (27.0-33.0) pg MCHC (31.0-35.0) g/dl RDW (11.0-16.0) % Plt Count (160-400) X10*3/uL MPV (9.4-12.3) fL Immature Gran % (Auto) (0.0-0.4) % Neut % (Auto) (45-73) % Lymph % (Auto) (20-40) % [place] % (Auto) (2-11) % Eos % (Auto) (0-4) % Baso % (Auto) (0-2) % Lymph # (Auto) (1.2-4.9) X10*3/uL [place] # (Auto) (0.1-1.2) X10*3/uL Eos # (Auto) (0.0-0.4) X10*3/uL Baso # (Auto) (0.0-0.2) X10*3/uL Abs Immat Gran (auto) (0.00-0.03) X10*3/uL Absolute Neuts (auto) (2.0-8.3) x10*3/uL Absolute Nucleated RBC (0.0-0.012) X10*3/uL Nucleated RBC % (auto) (0.0-0.2) /100WBC Sodium 143 (135-145) mmol/L Potassium 3.5 (3.3-5.1) mmol/L Chloride 102 (96-108) mmol/L Carbon Dioxide 29 (22-29) mmol/L Anion Gap 16 (12-20) BUN 32 H D (9-16) mg/dL Creatinine 1.25 (0.5-1.4) mg/dL Estim Creat Clear Calc 32.3 Estimated GFR 42 Random Glucose 83 (60-115) mg/dL Lactic Acid (0.5-2.0) mmol/L Calcium 9.0 (8.4-10.2) mg/dL Magnesium 1.9 (1.6-2.6) mg/dL Total Bilirubin 0.4 (0.0-1.0) mg/dL AST 16 D (5-31) U/L ALT 7 (0-31) U/L Alkaline Phosphatase 115 D (39-117) U/L Total Protein 6.9 (6.5-8.0) g/dL Albumin 3.8 (3.5-5.0) g/dL COVID-19 ([facility]) (Negative) COVID-19 Clin Com Imaging Data r hip: Attestation: I personally reviewed and interpreted this imaging study as follows: Radiologist's impression: [address] [address] XRay Report Signed Patient: Sierra Smith MR#: [id number] : 1945 Acct:[id number] Age/Sex: 76 / F ADM Date: 01/07/22 Loc: HO.ED Attending Dr: Ordering Physician: Denzel Flores MD Date of Service: 01/07/22 Procedure(s): XR hip RT w PEL1V Accession Number(s): [id number] cc: Denzel Flores MD~ EXAMINATION: XR HIP, RIGHT CLINICAL INFORMATION: Question fracture right femoral head COMPARISON: CT 01/07/2022, x-ray 10/12/2020 TECHNIQUE: Two views of the right hip. FINDINGS: Right femoral intramedullary nail and fixation screws appear intact. There is a fracture of the right femoral neck which is new from 10/12/2020 and suspicious for an acute fracture when viewed in conjunction with recent CT. Remaining osseous structures in the pelvis appear intact. Redemonstrated degenerative changes of the hips. Sacroiliac joints and pubic symphysis appear intact. Extensive vascular calcification noted. XR/XR hip RT w PEL1V IMPRESSION: Redemonstrated right femoral neck fracture, new from 10/12/2020 and suspicious for an acute finding. Discharge Plan Discharge Clinical Impression: Fracture of femoral neck, right Patient Disposition: Admitted As Inpatient Interventions: Admission Worksheet (ED) Last Done: 01/08/22 02:47 Discharge Date/Time: 01/08/22 03:26
[2022-01-07 23:07] LABS: MANUAL DIFF FLAG NO
[2022-01-07 23:08] LABS: Basophils Absolute Auto 0.1 X10*3/uL (0.0-0.2); Basophils Percent Auto 0.7 % (0-2); Eosinophils Absolute Auto 0.3 X10*3/uL (0.0-0.4); Eosinophils Percent Auto 4.6 % (0-4); Hematocrit 30.1 % (37.0-47.0); Hemoglobin 9.8 g/dl (12.0-16.0); Imm Gran Abs Auto 0.01 X10*3/uL (0.00-0.03); Imm Gran Pct Auto 0.1 % (0.0-0.4); Lymphocytes Absolute Auto 0.9 X10*3/uL (1.2-4.9); Lymphocytes Percent Auto 12.6 % (20-40); Mean Corpuscular HGB Conc 32.6 g/dl (31.0-35.0); Mean Corpuscular Hemoglobin 28.7 pg (27.0-33.0); Mean Platelet Volume 10.7 fL (9.4-12.3); Monocytes Absolute Auto 0.6 X10*3/uL (0.1-1.2); Monocytes Percent Auto 9.5 % (2-11); Neutrophils Absolute Auto 4.9 x10*3/uL (2.0-8.3); Neutrophils Percent Auto 72.5 % (45-73); Platelet Count 245 X10*3/uL (160-400); Red Blood Count 3.42 X10*6/uL (4.20-5.50); Red Cell Distribution Width 13.4 % (11.0-16.0); White Blood Count 6.8 X10*3/uL (4.8-10.8)
[2022-01-07] MEDS: traMADoL HCL 50 MG TABLET PO (23:14)
[2022-01-07 23:21] LABS: COVID-19 Test Negative (Negative)
[2022-01-07 23:26] LABS: Lactic Acid 2.2 mmol/L (0.5-2.0)
[2022-01-08] VITALS (7 sets, daily range): BP systolic 126–169; BP diastolic 60–84; PULSE 58–88; RESP 16–19; TEMP 36.1–36.9; O2SAT 94–100; BMI 33.0
[2022-01-08 00:19] LABS: Alanine Aminotransferase 7 U/L (0-31); Albumin Level 3.8 g/dL (3.5-5.0); Alkaline Phosphatase 115 U/L (39-117); Anion Gap 16 (12-20); Aspartate Amino Transferase 16 U/L (5-31); Bilirubin Total 0.4 mg/dL (0.0-1.0); Blood Urea Nitrogen 32 mg/dL (9-16); Carbon Dioxide 29 mmol/L (22-29); Chloride 102 mmol/L (96-108); Creatinine Clr Calc Pharmacy 32.3; Estimated Glomerular Filt Rate 42; Glucose Random 83 mg/dL (60-115); Magnesium 1.9 mg/dL (1.6-2.6); Potassium 3.5 mmol/L (3.3-5.1); Sodium 143 mmol/L (135-145); Total Protein 6.9 g/dL (6.5-8.0)
[2022-01-08 01:06] LABS: Reflex Lactate? Lactic Acid Added
--- NOTE | 2022-01-08 02:16 | P.HPHOSP_ITS ---
History of Present Illness Date of Service: 01/08/22 Chief Complaint: Right hip pain This is a 76-year-old female who is a resident of assisted living facility and with pertinent history of essential hypertension, mixed hyperlipidemia, insulin- dependent diabetes mellitus,urinary incontinence, dementia was brought to the emergency department for evaluation of right hip pain. Patient is a very poor historian and history was obtained from chart review. Patient states that she has been having right hip pain but is unable to elaborate further. On review of records, patient has been having pain for the last 3-4 months, progressive and worse with ambulation. Patient is not able to provide any details and no family at bedside. Unclear if patient had a fall. In the emergency department, CT scan revealed new right femoral neck and head fracture. Orthopedic surgery was consulted from the ER who recommended admission by [facility] group and will evaluate the patient in a.m.. Review of Systems Review of Systems: Unable to obtain [facility] Medical History (Updated 01/08/22 @ 02:26 by Tee Pearson MD) Dementia HTN (hypertension) Overactive bladder Pulmonary embolism with acute cor pulmonale Social History Housing: Assisted Living Facility Patient Tobacco Use Status: Former Tobacco user Advance Directives: Yes Advance Directives on File: Yes Advance Directives Date on File: 10/12/20 Meds Allergies Allergy/AdvReac Type Severity Reaction Status Date / Time aluminum Allergy Unknown Verified 01/08/22 01:30 Active Medications: Current Medications Pharmacy Consult (Consult Rx Perform Med Rec) 1 each MISCELLANE ONCE STA Stop: 01/08/22 01:30 Home Medications Medication Instructions Recorded Confirmed Last Taken Type acetaminophen 325 mg tablet 650 mg PO Q6H PRN Pain (Scale 10/12/20 01/08/22 Unknown History Score 1-3) apixaban 5 mg tablet (Eliquis) 5 mg PO BID 10/12/20 01/08/22 Unknown History atorvastatin 20 mg tablet 20 mg PO BEDTIME 10/12/20 01/08/22 Unknown History cholecalciferol (vitamin D3) 25 25 mcg PO DAILY 10/12/20 01/08/22 Unknown History mcg (1,000 unit) capsule (Vitamin D3) donepezil 10 mg tablet 10 mg PO BEDTIME 10/12/20 01/08/22 Unknown History gabapentin 100 mg capsule 100 mg PO BEDTIME 10/12/20 01/08/22 Unknown History insulin glargine 100 unit/mL (3 43 unit subcut DAILY@0730 10/12/20 01/08/22 Unknown History mL) subcutaneous pen (Lantus Solostar U-100 Insulin) lidocaine HCl 2 % mucosal jelly 1 appl topical QID 10/12/20 01/08/22 Unknown History metformin 500 mg tablet 1,000 mg PO DAILY@1700 10/12/20 01/08/22 Unknown History oxybutynin chloride 10 mg 1 tab PO DAILY 10/12/20 01/08/22 Unknown History tablet,extended release 24 hr pioglitazone 30 mg tablet 1 tab PO DAILY 10/12/20 01/08/22 Unknown History polyethylene glycol 3350 17 17 g PO DAILY 10/12/20 01/08/22 Unknown History gram/dose oral powder sennosides 8.6 mg tablet (senna) 17.2 mg PO BEDTIME 10/12/20 01/08/22 Unknown History amlodipine 5 mg tablet 1 tab PO DAILY 01/08/22 01/08/22 Unknown History insulin lispro 100 unit/mL See Rx Instructions .Route .COMPLEX 01/08/22 01/08/22 Unknown History subcutaneous pen (Humalog KwikPen (U-100) Insulin) Physical Exam Vital Signs and Narrative: Vital Signs: Last Vital Signs Temp 97.6 F 01/08/22 00:00 Pulse 88 01/08/22 02:12 Resp 19 01/08/22 02:12 BP 139/73 01/08/22 02:12 Pulse Ox 98 01/08/22 02:12 O2 Del Method 01/08/22 02:12 BMI result Body Mass Index 27.3 Elderly female lying in bed in no distress Neck supple, no JVD Regular rate and rhythm, S1-S2 heard Regular breath sounds bilaterally, no wheezing or crackles appreciated Abdomen soft nontender, no guarding, no rigidity Patient is awake, alert and oriented to self, disoriented to place, time and person ; no focal motor deficit Extremity: Right hip tenderness present Psych: Normal mood No pedal edema Results Labs CBC and Chem 7: 01/07/22 23:00 01/07/22 23:44 Labs: Laboratory Results - last 24 hr 01/07/22 01/07/22 01/07/22 23:00 23:00 23:00 MCV 88.0 MCH 28.7 MCHC 32.6 RDW 13.4 Plt Count 245 MPV 10.7 Immature Gran % (Auto) 0.1 Neut % (Auto) 72.5 Lymph % (Auto) 12.6 L [place] % (Auto) 9.5 Eos % (Auto) 4.6 H Baso % (Auto) 0.7 Lymph # (Auto) 0.9 L [place] # (Auto) 0.6 Eos # (Auto) 0.3 Baso # (Auto) 0.1 Abs Immat Gran (auto) 0.01 Absolute Neuts (auto) 4.9 Absolute Nucleated RBC 0.000 Nucleated RBC % (auto) 0.0 Anion Gap Estim Creat Clear Calc Estimated GFR Random Glucose Lactic Acid 2.2 H* Calcium Magnesium Total Bilirubin AST ALT Alkaline Phosphatase Total Protein Albumin COVID-19 ([facility]) Negative COVID-19 Clin Com See Note 01/07/22 23:44 MCV MCH MCHC RDW Plt Count MPV Immature Gran % (Auto) Neut % (Auto) Lymph % (Auto) [place] % (Auto) Eos % (Auto) Baso % (Auto) Lymph # (Auto) [place] # (Auto) Eos # (Auto) Baso # (Auto) Abs Immat Gran (auto) Absolute Neuts (auto) Absolute Nucleated RBC Nucleated RBC % (auto) Anion Gap 16 Estim Creat Clear Calc 32.3 Estimated GFR 42 Random Glucose 83 Lactic Acid Calcium 9.0 Magnesium 1.9 Total Bilirubin 0.4 AST 16 D ALT 7 Alkaline Phosphatase 115 D Total Protein 6.9 Albumin 3.8 COVID-19 ([facility]) COVID-19 Clin Com Imaging Radiologist's Impressions: Impressions Abdomen/Pelvis CT 01/07/22 21:34 IMPRESSION: New right femoral neck and head fracture. There is intramedullary femoral rae and compression nail for an old the healed right femoral neck fracture. Gallstones without wall thickening. Fleischner guidelines were followed. Venous Duplex 01/07/22 22:15 IMPRESSION: No DVT demonstrated in the right lower extremity. Hip/Pelvis X-Ray 01/08/22 00:02 IMPRESSION: Redemonstrated right femoral neck fracture, new from 10/12/2020 and suspicious for an acute finding. Assessment and Plan (1) Fracture of femoral neck, right: Status: Acute (2) Insulin dependent type 2 diabetes mellitus: Status: Acute (3) Dementia: Status: Acute (4) HTN (hypertension): Status: Acute (5) Overactive bladder: Status: Acute Plan This is a 76-year-old female who is a resident of assisted living facility and with pertinent history of essential hypertension, mixed hyperlipidemia, insulin- dependent diabetes mellitus, urinary incontinence, dementia was brought to the emergency department for evaluation of right hip pain. #. Right femoral head and neck fracture, ?acute and traumatic -will admit patient to surgical floor. Orthopedic surgery was consulted from the ER who will evaluate the patient in a.m.. Unclear if patient had a fall and if the fracture is traumatic. Patient is on vitamin D3 supplementation, however check vitamin-D levels. May benefit from outpatient DEXA scan. Preoperative risk, RCRI: 1. #. Insulin-dependent type 2 diabetes mellitus -hold anti hyperglycemics. Initiate sliding scale insulin and reduce home basal regimen while in the hospital #. Essential hypertension -on amlodipine #. Urinary incontinence -on oxybutynin #. Dementia, unspecified -on donepezil #. Chronic normocytic anemia -Hb above transfusion threshold #. History of pulmonary embolism on Eliquis -hold until surgical evaluation DVT prophylaxis: Holding Eliquis until surgical evaluation Diet: Diabetic diet Full code Patient will require two night minimum hospital stay for evaluation and management of right femoral head and neck fracture. Pending surgical evaluation Quality Stroke Does the patient have a stroke diagnosis?: No VTE Prior VTE?: Yes VTE Risk Level:: Medical - moderate - high VTE Device Contraindication: Treatment Not Indicated VTE Drug Contraindication: Treatment Not Indicated
[2022-01-08] MEDS: Morphine Sulfate 4 MG/ML CARTRIDGE IVPUSH (02:45)
[2022-01-08] MEDS: ondansetron HCL 4 MG/2 ML VIAL IVPUSH (02:45)
[2022-01-08 03:18] LABS: ~Lactic Acid-LAB USE ONLY 1.4 mmol/L (0.5-2.0)
[2022-01-08] MEDS: 0.9 % Sodium Chloride 1,000 ML 100 ML IVCONT ×3 (03:30→21:00)
[2022-01-08 03:34] LABS: Vitamin D 25-OH Total 23.8 ng/mL (>30)
[2022-01-08 07:24] LABS: Anion Gap 16 (12-20); Blood Urea Nitrogen 26 mg/dL (9-16); Calcium 8.6 mg/dL (8.4-10.2); Carbon Dioxide 27 mmol/L (22-29); Chloride 103 mmol/L (96-108); Creatinine Clr Calc Pharmacy 45.8; Estimated Glomerular Filt Rate 56; Glucose Random 54 mg/dL (60-115); Potassium 3.5 mmol/L (3.3-5.1); Sodium 142 mmol/L (135-145)
[2022-01-08 07:35] LABS: Glucose, Whole Blood 52 mg/dL (60-115)
[2022-01-08 08:01] LABS: Estimated Average Glucose 126 mg/dL
[2022-01-08] MEDS: polyethylene glycoL 3350 17 GM POWD.PACK PO (08:05)
[2022-01-08] MEDS: amLODIPine Besylate 5 MG TABLET PO (08:06)
[2022-01-08] MEDS: traMADoL HCL 50 MG TABLET PO (08:06)
[2022-01-08] MEDS: Cholecalciferol (Vitamin D3) 25 MCG TABLET PO (08:06)
--- NOTE | 2022-01-08 08:11 | PHA.MEDREC ---
Pharmacy Consult ? Medication Reconciliation Pharmacy has reviewed the medication reconciliation completed by Madina. Ferrous gluconate and lasix were missed. Metformin was enter incorrectly as IR instead of ER. Provider notfied about updated list. Hilaria May, PharmD
--- NOTE | 2022-01-08 08:46 | PM.EVENT ---
Event Note Date of Service: 01/08/22 Event Note: pt seen/examined. Hip fx possible subacute vs acute, pt on eliquis so surgery could not be done imidiately. Ortho assessing for definitive treatment plan
--- NOTE | 2022-01-08 08:47 | MHC.CM.PN ---
PATIENT TOO LETHARGIC TO PARTICIPATE IN ASSESSMENT SHE ASKS THAT T/W CALL HCP/[facility] [phone]. HCP ON FILE AND VERIFIED MESSAGE LEFT FOR [facility]ME[facility] EXPLAINING IMM AND DELIVERY PER REVIEW OF CHART, PATIENT IS FROM THE [facility]. PCP IS DR RONALDO NGUYEN. PAPER CHART REVEALS AN INVOKED HCP. IMM 01/08 IN CHART AND TO BE MAILED CERTIFIED
[2022-01-08 09:29] LABS: Glucose, Whole Blood 119 mg/dL (60-115)
[2022-01-08] MEDS: Insulin Glargine,Hum.rec.anlog 100 UNIT/ML 10 ML VIAL 34 UNIT SUBCUT (09:30)
--- NOTE | 2022-01-08 11:12 | P.CONOP_ITS ---
History of Present Illness HPI Consult date: 01/08/22 Chief complaint: Right Hip Pain Narrative: 76 yo female who was admitted to the medical service for right hip pain x3-4 months. The patient is a poor historian, but information gathered from ED records and her primary contact, she has had frequent falls. She has been ambulating with a walker and is pretty active with getting around. She lives at the [facility] in an assisted living facility. On exam in the ED, she was found to have a femoral neck fracture through the current IMN with migration of the screw. Due to worening pain and inability to ambulate she was admitted and orthopedics was consulted for further recommendations. She is on Eliquis for h/o dvt Review of Systems 2 Review of Systems: per [facility] Past Medical History Medical History (Updated 01/08/22 @ 02:46 by Denzel Flores MD) Dementia HTN (hypertension) Overactive bladder Pulmonary embolism with acute cor pulmonale Social History Social History Household Members: None Housing: Assisted Living Facility Patient Tobacco Use Status: Former Tobacco user Tobacco use type: Cigar Second Hand Smoke Exposure: No Advance Directives Date on File: 10/12/20 service: No Current occupational status: retired Meds Allergies Allergy/AdvReac Type Severity Reaction Status Date / Time aluminum Allergy Unknown Verified 01/08/22 01:30 Active Medications: Current Medications Acetaminophen (Acetaminophen 325 Mg Tablet) 650 mg PO Q6H PRN PRN Reason: Pain, Mild (Pain Scale 1-3) Amlodipine Besylate (Amlodipine Besylate 5 Mg Tablet) 5 mg PO DAILY [facility]; Protocol Last Admin: 01/08/22 08:06 Dose: 5 mg Atorvastatin Calcium (Atorvastatin Calcium 20 Mg Tablet) 20 mg PO BEDTIME [facility] Dextrose (Dextrose 50 % 25 Gm/50 Ml Syringe) 25 gm IVPUSH Q15M PRN; Protocol PRN Reason: per Hypoglycemia Standing Ord. Donepezil HCl (Donepezil Hcl 10 Mg Tablet) 10 mg PO BEDTIME [facility] Gabapentin (Gabapentin 100 Mg Capsule) 100 mg PO BEDTIME [facility] Glucose (Glucose Gel 15 Gm Gel..Gram.) 15 gm PO Q15M PRN; Protocol PRN Reason: per Hypoglycemia Standing Ord. Sodium Chloride (Ns) 1,000 mls @ 100 mls/hr IVCONT .Q10H [facility] Last Admin: 01/08/22 03:30 Dose: 100 mls/hr Insulin Glargine (Insulin Glargine,Hum.Rec.Anlog 100 Unit/Ml 10 Ml Vial) 34 unit SUBCUT DAILY@0730 [facility] Last Admin: 01/08/22 09:30 Dose: 34 unit Insulin Human Lispro (Insulin Lispro 100 Unit/Ml 3 Ml Vial) 0 unit SUBCUT QIDACHS [facility]; Protocol Stop: 01/09/22 02:37 Last Admin: 01/08/22 07:37 Dose: Not Given Melatonin (Melatonin 3 Mg Tablet) 6 mg PO BEDTIME PRN PRN Reason: Insomnia Morphine Sulfate (Morphine Sulfate 2 Mg/Ml Cartridge) 2 mg IVPUSH Q4H PRN; Protocol PRN Reason: Pain, Severe (Pain Scale 7-10) Ondansetron HCl (Ondansetron Hcl 4 Mg/2 Ml Vial) 4 mg IVPUSH Q8H PRN PRN Reason: Nausea and Vomiting Oxybutynin Chloride (Oxybutynin Chloride Er 5 Mg Tab.Er.24) 10 mg PO DAILY [facility] Last Admin: 01/08/22 08:05 Dose: 10 mg Polyethylene Glycol (Polyethylene Glycol 3350 17 Gm Powd.Pack) 17 gm PO DAILY [facility] Last Admin: 01/08/22 08:05 Dose: 17 gm Senna (Sennosides 8.6 Mg Tablet) 17.2 mg PO BEDTIME [facility] Sodium Chloride (0.9 % Sodium Chloride Flush 3 Ml Syringe) 3 ml IVFLUSH QSHIFT [facility] Last Admin: 01/08/22 08:06 Dose: Not Given Tramadol HCl (Tramadol Hcl 50 Mg Tablet) 50 mg PO Q6H PRN PRN Reason: Pain, Moderate (Pain Scale 4-6 Last Admin: 01/08/22 08:06 Dose: 50 mg Vitamin D (Cholecalciferol (Vitamin D3) 25 Mcg Tablet) 25 mcg PO DAILY [facility] Last Admin: 01/08/22 08:06 Dose: 25 mcg Home Medications Medication Instructions Recorded Confirmed Last Taken Type acetaminophen 325 mg tablet 650 mg PO Q6H PRN Pain (Scale 10/12/20 01/08/22 Unknown History Score 1-3) apixaban 5 mg tablet (Eliquis) 5 mg PO BID@0900,1800 10/12/20 01/08/22 Unknown History atorvastatin 20 mg tablet 20 mg PO BEDTIME 10/12/20 01/08/22 Unknown History cholecalciferol (vitamin D3) 25 25 mcg PO DAILY 10/12/20 01/08/22 Unknown History mcg (1,000 unit) capsule (Vitamin D3) donepezil 10 mg tablet 10 mg PO BEDTIME 10/12/20 01/08/22 Unknown History gabapentin 100 mg capsule 100 mg PO BEDTIME 10/12/20 01/08/22 Unknown History insulin glargine 100 unit/mL (3 40 unit subcut DAILY 10/12/20 01/08/22 Unknown History mL) subcutaneous pen (Lantus Solostar U-100 Insulin) oxybutynin chloride 10 mg 1 tab PO DAILY 10/12/20 01/08/22 Unknown History tablet,extended release 24 hr pioglitazone 30 mg tablet 1 tab PO DAILY 10/12/20 01/08/22 Unknown History polyethylene glycol 3350 17 17 g PO DAILY 10/12/20 01/08/22 Unknown History gram/dose oral powder sennosides 8.6 mg tablet (senna) 17.2 mg PO BEDTIME 10/12/20 01/08/22 Unknown History amlodipine 5 mg tablet 1 tab PO DAILY 01/08/22 01/08/22 Unknown History bacitracin 500 unit/gram topical 1 appl topical DAILY@2020 01/08/22 01/08/22 Unknown History ointment ferrous gluconate 324 mg (37.5 mg 324 mg PO DAILY 01/08/22 01/08/22 Unknown History iron) tablet furosemide 20 mg tablet 1 tab PO DAILY 01/08/22 01/08/22 Unknown History insulin lispro 100 unit/mL See Protocol subcut TIDAC 01/08/22 01/08/22 Unknown History subcutaneous pen (Humalog KwikPen (U-100) Insulin) metformin 500 mg tablet,extended 1,000 mg PO DAILY@1700 01/08/22 01/08/22 Unknown History release 24hr Physical Exam Vital Signs: Vital Signs: Last Vital Signs Temp 97.0 F 01/08/22 07:28 Pulse 58 01/08/22 07:28 Resp 18 01/08/22 07:28 BP 138/63 01/08/22 07:28 Pulse Ox 98 01/08/22 07:28 O2 Del Method 01/08/22 07:28 BMI result Body Mass Index 33.0 Const: General: cooperative, healthy appearing, comfortable and no acute distress Extrem: Other: Right lower extremity skin intact , sensation intact. There is pain with log roll and is unable to SLR. Pulses present. Results Labs Result Diagrams: 01/07/22 23:00 01/08/22 05:52 Labs: Abnormal lab results 01/07/22 01/07/22 01/07/22 Range/Units 23:00 23:00 23:44 RBC 3.42 L (4.20-5.50) X10*6/uL Hgb 9.8 L (12.0-16.0) g/dl Hct 30.1 L (37.0-47.0) % Lymph % (Auto) 12.6 L (20-40) % Eos % (Auto) 4.6 H (0-4) % Lymph # (Auto) 0.9 L (1.2-4.9) X10*3/uL BUN 32 H D (9-16) mg/dL POC Glucose (60-115) mg/dL Random Glucose (60-115) mg/dL Lactic Acid 2.2 H* (0.5-2.0) mmol/L 01/08/22 01/08/22 01/08/22 Range/Units 05:52 07:30 09:23 RBC (4.20-5.50) X10*6/uL Hgb (12.0-16.0) g/dl Hct (37.0-47.0) % Lymph % (Auto) (20-40) % Eos % (Auto) (0-4) % Lymph # (Auto) (1.2-4.9) X10*3/uL BUN 26 H (9-16) mg/dL POC Glucose 52 L* 119 H (60-115) mg/dL Random Glucose 54 L* (60-115) mg/dL Lactic Acid (0.5-2.0) mmol/L H & H 01/07/22 Range/Units 23:00 Hgb 9.8 L (12.0-16.0) g/dl Hct 30.1 L (37.0-47.0) % All other labs normal. Assessment and Plan (1) Fracture of femoral neck, right: Status: Acute Plan I discussed the case with Dr Singletary and explained the extent of the injury to the patient and her contact, Jo Swift who mentions the patient is quite active with ambulating and would like her to have the procedure I explained the procedure in detail along with the length of recovery and rehab course. I explained the risk, benefits and alternatives. Risk including, but not limited to infection, blood clots, bleeding, non union or malunion and nerve/tissue damage to surrounding areas. I answered all their questions and with their understanding they have consented to move forward with Operative Fixation of the right hip. The patient will be T&S, med clearance obtained and NPO after midnight. Procedures Date of Service Date of Service: 01/09/22
[2022-01-08 11:32] LABS: Glucose, Whole Blood 88 mg/dL (60-115)
--- NOTE | 2022-01-08 14:12 | MHC.CM.PN ---
Addendum entered by Jade Evans 01/08/22 14:56: PT IS COVID-19 VACCINATED AND BOOSTED X 2 Addendum entered by Jade Evans 01/08/22 14:14: PATIENT AND PIERCE DARNELL ALSO ASK THAT PIERCE DARNELL BE UPDATED PRN Original Note: CM MET WITH PT AND FRIEND PIERCE DARNELL AT BEDSIDE THEY REPORT THE PT WAS AT THE [facility] AND USING A WALKER TO AMBULATE THEY REPORT THE PT HAS BEEN TO [facility] [place] IN THE PAST FOR STR AND THAT WOULD BE THE PREFERRED SNF IF SHE NEEDS IT AGAIN. PT IS AGREEABLE TO STR BUT ALSO TO HOME WITH SERVICES PER [facility] REGULATIONS, SHE WOULD NEED TO BE ABLE TO GET HERSELF TO [facility]ALS TO RETURN DIRECTLY HOME DC PLAN TBD REFERRAL TO [facility]
[2022-01-08 15:44] LABS: Glucose, Whole Blood 67 mg/dL (60-115)
[2022-01-08 17:05] LABS: Glucose, Whole Blood 88 mg/dL (60-115)
[2022-01-08 20:18] LABS: Glucose, Whole Blood 65 mg/dL (60-115)
[2022-01-08 20:57] LABS: Glucose, Whole Blood 103 mg/dL (60-115)
[2022-01-08] MEDS: Sennosides 8.6 MG TABLET 17.2 MG PO (20:59)
[2022-01-08] MEDS: Donepezil HCl 10 MG TABLET PO (20:59)
[2022-01-08] MEDS: Atorvastatin Calcium 20 MG TABLET PO (21:00)
[2022-01-08] MEDS: Gabapentin 100 MG CAPSULE PO (21:00)
[2022-01-09] VITALS: BP 152/60; PULSE 65; RESP 16; TEMP 36.7; O2SAT 99
[2022-01-09] MEDS: Morphine Sulfate 2 MG/ML CARTRIDGE IVPUSH ×4 (03:45→22:23)
[2022-01-09 03:50] VITALS: BP 162/88; PULSE 60; RESP 16; TEMP 36.3; O2SAT 98
[2022-01-09 07:38] VITALS: BP 171/74; PULSE 70; RESP 17; TEMP 37.2; O2SAT 100
[2022-01-09 07:43] LABS: Glucose, Whole Blood 80 mg/dL (60-115)
--- NOTE | 2022-01-09 07:56 | P.PNIM_ITS ---
Subjective Subjective Date of Service: 01/09/22 Interval History: F/u on hip fracture anticipating surgery interval history: painis controlled, pain with movement, surgery planed for tomorrow Review of Systems no fever some hip pain with movement Physical Exam Vital Signs: Vital Signs: Last Vital Signs Temp 98.9 F 01/09/22 07:38 Pulse 70 01/09/22 07:38 Resp 17 01/09/22 07:38 BP 171/74 H 01/09/22 07:38 Pulse Ox 100 01/09/22 07:38 O2 Del Method 01/09/22 07:38 BMI result Body Mass Index 33.0 Const: Other: General: AO X 3, no acute distress Resp: CTA bilateral CVS: S1,S2,RRR GI: +BS, NT, no distention Skin: No rash Neuro: motor grossly intact Psych: appropriate affect Objective Data Active Medications Acetaminophen (Acetaminophen 325 Mg Tablet) 650 mg PO Q6H PRN PRN Reason: Pain, Mild (Pain Scale 1-3) Amlodipine Besylate (Amlodipine Besylate 5 Mg Tablet) 5 mg PO DAILY [facility]; Protocol Last Admin: 01/08/22 08:06 Dose: 5 mg Documented By: MELQUIADES Atorvastatin Calcium (Atorvastatin Calcium 20 Mg Tablet) 20 mg PO BEDTIME [facility] Last Admin: 01/08/22 21:00 Dose: 20 mg Documented By: SONJA Dextrose (Dextrose 50 % 25 Gm/50 Ml Syringe) 25 gm IVPUSH Q15M PRN; Protocol PRN Reason: per Hypoglycemia Standing Ord. Donepezil HCl (Donepezil Hcl 10 Mg Tablet) 10 mg PO BEDTIME [facility] Last Admin: 01/08/22 20:59 Dose: 10 mg Documented By: SONJA Gabapentin (Gabapentin 100 Mg Capsule) 100 mg PO BEDTIME [facility] Last Admin: 01/08/22 21:00 Dose: 100 mg Documented By: SONJA Glucose (Glucose Gel 15 Gm Gel..Gram.) 15 gm PO Q15M PRN; Protocol PRN Reason: per Hypoglycemia Standing Ord. Sodium Chloride (Ns) 1,000 mls @ 100 mls/hr IVCONT .Q10H [facility] Last Admin: 01/08/22 21:00 Dose: 100 mls/hr Documented By: SONJA Insulin Glargine (Insulin Glargine,Hum.Rec.Anlog 100 Unit/Ml 10 Ml Vial) 34 unit SUBCUT DAILY@0730 [facility] Last Admin: 01/08/22 09:30 Dose: 34 unit Documented By: MELQUIADES Melatonin (Melatonin 3 Mg Tablet) 6 mg PO BEDTIME PRN PRN Reason: Insomnia Morphine Sulfate (Morphine Sulfate 2 Mg/Ml Cartridge) 2 mg IVPUSH Q4H PRN; Protocol PRN Reason: Pain, Severe (Pain Scale 7-10) Last Admin: 01/09/22 03:45 Dose: 2 mg Documented By: SONJA Ondansetron HCl (Ondansetron Hcl 4 Mg/2 Ml Vial) 4 mg IVPUSH Q8H PRN PRN Reason: Nausea and Vomiting Oxybutynin Chloride (Oxybutynin Chloride Er 5 Mg Tab.Er.24) 10 mg PO DAILY [facility] Last Admin: 01/08/22 08:05 Dose: 10 mg Documented By: MELQUIADES Polyethylene Glycol (Polyethylene Glycol 3350 17 Gm Powd.Pack) 17 gm PO DAILY [facility] Last Admin: 01/08/22 08:05 Dose: 17 gm Documented By: MELQUIADES Senna (Sennosides 8.6 Mg Tablet) 17.2 mg PO BEDTIME [facility] Last Admin: 01/08/22 20:59 Dose: 17.2 mg Documented By: SONJA Sodium Chloride (0.9 % Sodium Chloride Flush 3 Ml Syringe) [facility] Admin: 01/09/22 01:16 Dose: Not Given Documented By: SONJA Non-Admin Reason: IV Running Tramadol HCl (Tramadol Hcl 50 Mg Tablet) 50 mg PO Q6H PRN PRN Reason: Pain, Moderate (Pain Scale 4-6 Last Admin: 01/08/22 08:06 Dose: 50 mg Documented By: MELQUIADES Vitamin D (Cholecalciferol (Vitamin D3) 25 Mcg Tablet) 25 mcg PO DAILY [facility] Last Admin: 01/08/22 08:06 Dose: 25 mcg Documented By: MELQUIADES Labs CBC & Chem 7: 01/07/22 23:00 01/08/22 05:52 Labs: Laboratory Results - last 24 hr 01/08/22 01/08/22 01/08/22 02:50 09:23 11:25 POC Glucose 119 H 88 Estimat Average Glucose 126 Hemoglobin A1c % 6.0 01/08/22 01/08/22 01/08/22 15:31 17:01 19:56 POC Glucose 67 88 65 Estimat Average Glucose Hemoglobin A1c % 01/08/22 01/09/22 20:52 07:35 POC Glucose 103 80 Estimat Average Glucose Hemoglobin A1c % Microbiology Microbiology Results: Microbiology 01/07/22 23:00 Blood Culture - Preliminary Blood - Venous No growth after 24 hours. 01/07/22 23:00 Blood Culture - Preliminary Blood - Venous No growth after 24 hours. Assessment and Plan (1) Fracture of femoral neck, right: Status: Acute (2) Insulin dependent type 2 diabetes mellitus: Status: Acute Plan 76-year-old female who is a resident of assisted living facility and with pertinent history of essential hypertension, mixed hyperlipidemia, insulin- dependent diabetes mellitus, urinary incontinence, dementia was brought to the emergency department for evaluation of right hip pain. #.? Right femoral head and neck fracture, ?acute and traumatic -will admit patient to surgical floor.? Orthopedic surgery was consulted from the ER who will evaluate the patient in a.m..? Unclear if patient had a fall and if the fracture is traumatic.? Patient is on vitamin D3 supplementation, however check vitamin-D levels.? May benefit from outpatient DEXA scan.? Preoperative risk, The Revised Cardiac Risk Index (RCRI), class I no further testing at this time. Surgery planned for 01/10 #.? Insulin-dependent type 2 diabetes mellitus -hold anti hyperglycemics.? Initiate sliding scale insulin and reduce home basal regimen while in the hospital #.? Essential hypertension, BP high -on amlodipine 5, increase to 10 #.? Urinary incontinence -on oxybutynin #.? Dementia, unspecified -on donepezil #.? Chronic normocytic anemia -Hb above transfusion threshold #.? History of pulmonary embolism on Eliquis -hold until surgical evaluation DVT prophylaxis:? Holding Eliquis until surgical evaluation Diet:? Diabetic diet Full code Need for inaptient: Hip fracture and needs surgery Quality Stroke Does the patient have a stroke diagnosis?: No VTE Prior VTE?: Yes VTE Risk Level:: Medical - moderate - high VTE Device Contraindication: Treatment Not Indicated VTE Drug Contraindication: Treatment Not Indicated
[2022-01-09] MEDS: Cholecalciferol (Vitamin D3) 25 MCG TABLET PO (08:01)
[2022-01-09] MEDS: polyethylene glycoL 3350 17 GM POWD.PACK PO (08:03)
[2022-01-09] MEDS: amLODIPine Besylate 5 MG TABLET PO (08:03)
[2022-01-09] MEDS: 0.9 % Sodium Chloride Flush 3 ML SYRINGE IVFLUSH ×2 (08:06→21:40)
[2022-01-09] MEDS: Insulin Glargine,Hum.rec.anlog 100 UNIT/ML 10 ML VIAL 34 UNIT SUBCUT (10:13)
[2022-01-09 11:19] VITALS: BP 166/70; PULSE 71; RESP 17; TEMP 37.3; O2SAT 94
[2022-01-09 11:25] LABS: Glucose, Whole Blood 296 mg/dL (60-115)
[2022-01-09] MEDS: Insulin Lispro 100 UNIT/ML 3 ML VIAL SUBCUT (12:22)
[2022-01-09] MEDS: 0.9 % Sodium Chloride 1,000 ML 100 ML IVCONT (14:39)
[2022-01-09 15:53] VITALS: BP 149/69; PULSE 63; RESP 18; TEMP 36.5; O2SAT 95
[2022-01-09 16:17] LABS: Glucose, Whole Blood 66 mg/dL (60-115)
[2022-01-09 16:50] LABS: Glucose, Whole Blood 77 mg/dL (60-115)
[2022-01-09 19:35] VITALS: BP 144/66; PULSE 69; RESP 13; TEMP 36.8; O2SAT 95
[2022-01-09] MEDS: Dextrose 5 % 1,000 ML 75 ML IVCONT (19:46)
[2022-01-09 20:01] LABS: Glucose, Whole Blood 131 mg/dL (60-115)
[2022-01-09] MEDS: Donepezil HCl 10 MG TABLET PO (21:40)
[2022-01-09] MEDS: Sennosides 8.6 MG TABLET 17.2 MG PO (21:40)
[2022-01-09] MEDS: Atorvastatin Calcium 20 MG TABLET PO (21:40)
[2022-01-09] MEDS: Gabapentin 100 MG CAPSULE PO (21:40)
[2022-01-10] VITALS (23 sets, daily range): BP systolic 91–158; BP diastolic 41–69; PULSE 61–96; RESP 14–20; TEMP 35.9–37.2; O2SAT 95–100
[2022-01-10] MEDS: traMADoL HCL 50 MG TABLET PO (00:52)
[2022-01-10] MEDS: Morphine Sulfate 2 MG/ML CARTRIDGE IVPUSH ×3 (04:40→22:12)
[2022-01-10 07:36] LABS: Glucose, Whole Blood 107 mg/dL (60-115)
[2022-01-10] MEDS: Cholecalciferol (Vitamin D3) 25 MCG TABLET PO (07:51)
[2022-01-10] MEDS: amLODIPine Besylate 5 MG TABLET PO (07:52)
[2022-01-10] MEDS: 0.9 % Sodium Chloride Flush 3 ML SYRINGE IVFLUSH ×2 (07:54→22:13)
--- NOTE | 2022-01-10 08:44 | P.PNIM_ITS ---
Subjective Subjective Date of Service: 01/10/22 Interval History: F/u on hip fracture anticipating surgery interval history: pain is controlled, pain with movement, surgery planed for today Review of Systems no fever some hip pain with movement Physical Exam Vital Signs: Vital Signs: Last Vital Signs Temp 99.0 F 01/10/22 07:54 Pulse 61 01/10/22 07:54 Resp 16 01/10/22 07:54 BP 155/69 H 01/10/22 07:54 Pulse Ox 95 01/10/22 07:54 O2 Del Method 01/10/22 07:54 BMI result Body Mass Index 33.0 Const: Other: General: AO X 3, no acute distress Resp: CTA bilateral CVS: S1,S2,RRR GI: +BS, NT, no distention Skin: No rash Neuro: motor grossly intact Psych: appropriate affect Objective Data Active Medications Acetaminophen (Acetaminophen 325 Mg Tablet) 650 mg PO Q6H PRN PRN Reason: Pain, Mild (Pain Scale 1-3) Amlodipine Besylate (Amlodipine Besylate 5 Mg Tablet) 5 mg PO DAILY [facility]; Protocol Last Admin: 01/10/22 07:52 Dose: 5 mg Documented By: POLY Atorvastatin Calcium (Atorvastatin Calcium 20 Mg Tablet) 20 mg PO BEDTIME [facility] Last Admin: 01/09/22 21:40 Dose: 20 mg Documented By: ELMER Dextrose (Dextrose 50 % 25 Gm/50 Ml Syringe) 25 gm IVPUSH Q15M PRN; Protocol PRN Reason: per Hypoglycemia Standing Ord. Donepezil HCl (Donepezil Hcl 10 Mg Tablet) 10 mg PO BEDTIME [facility] Last Admin: 01/09/22 21:40 Dose: 10 mg Documented By: ELMER Gabapentin (Gabapentin 100 Mg Capsule) 100 mg PO BEDTIME [facility] Last Admin: 01/09/22 21:40 Dose: 100 mg Documented By: ELMER Glucose (Glucose Gel 15 Gm Gel..Gram.) 15 gm PO Q15M PRN; Protocol PRN Reason: per Hypoglycemia Standing Ord. Dextrose (D5w) 1,000 mls @ 75 mls/hr IVCONT .[id number] [facility] Last Admin: 01/09/22 19:46 Dose: 75 mls/hr Documented By: ELMER Insulin Glargine (Insulin Glargine,Hum.Rec.Anlog 100 Unit/Ml 10 Ml Vial) 34 unit SUBCUT DAILY@0730 [facility] Last Admin: 01/10/22 07:45 Dose: Not Given Documented By: POLY Non-Admin Reason: NPO Insulin Human Lispro (Insulin Lispro 100 Unit/Ml 3 Ml Vial) 0 unit SUBCUT QIDACHS [facility]; Protocol Last Admin: 01/10/22 07:27 Dose: Not Given Documented By: POLY Non-Admin Reason: No Insulin Coverage Melatonin (Melatonin 3 Mg Tablet) 6 mg PO BEDTIME PRN PRN Reason: Insomnia Morphine Sulfate (Morphine Sulfate 2 Mg/Ml Cartridge) 2 mg IVPUSH Q4H PRN; Protocol PRN Reason: Pain, Severe (Pain Scale 7-10) Last Admin: 01/10/22 04:40 Dose: 2 mg Documented By: ELMER Ondansetron HCl (Ondansetron Hcl 4 Mg/2 Ml Vial) 4 mg IVPUSH Q8H PRN PRN Reason: Nausea and Vomiting Oxybutynin Chloride (Oxybutynin Chloride Er 5 Mg Tab.Er.24) 10 mg PO DAILY [facility] Last Admin: 01/10/22 07:52 Dose: 10 mg Documented By: POLY Polyethylene Glycol (Polyethylene Glycol 3350 17 Gm Powd.Pack) 17 gm PO DAILY [facility] Last Admin: 01/09/22 08:03 Dose: 17 gm Documented By: POLY Senna (Sennosides 8.6 Mg Tablet) 17.2 mg PO BEDTIME [facility] Last Admin: 01/09/22 21:40 Dose: 17.2 mg Documented By: ELMER Sodium Chloride (0.9 % Sodium Chloride Flush 3 Ml Syringe) 3 ml IVFLUSH QSHIFT [facility] Last Admin: 01/10/22 07:54 Dose: 3 ml Documented By: POLY Tramadol HCl (Tramadol Hcl 50 Mg Tablet) 50 mg PO Q6H PRN PRN Reason: Pain, Moderate (Pain Scale 4-6 Last Admin: 01/10/22 00:52 Dose: 50 mg Documented By: ELMER Vitamin D (Cholecalciferol (Vitamin D3) 25 Mcg Tablet) 25 mcg PO DAILY [facility] Last Admin: 01/10/22 07:51 Dose: 25 mcg Documented By: POLY Labs CBC & Chem 7: 01/07/22 23:00 01/08/22 05:52 Labs: Laboratory Results - last 24 hr 01/09/22 01/09/22 01/09/22 11:18 15:56 16:45 POC Glucose 296 H 66 77 01/09/22 01/10/22 19:37 07:25 POC Glucose 131 H 107 Microbiology Microbiology Results: Microbiology 01/07/22 23:00 Blood Culture - Preliminary Blood - Venous No growth after 48 hours. 01/07/22 23:00 Blood Culture - Preliminary Blood - Venous No growth after 48 hours. Assessment and Plan (1) Fracture of femoral neck, right: Status: Acute (2) Insulin dependent type 2 diabetes mellitus: Status: Acute Plan 76-year-old female who is a resident of assisted living facility and with pertinent history of essential hypertension, mixed hyperlipidemia, insulin- dependent diabetes mellitus, urinary incontinence, dementia was brought to the e mergency department for evaluation of right hip pain. #.? Right femoral head and neck fracture -Ortho to operate today - Preoperative risk, The Revised Cardiac Risk Index (RCRI), class I no further testing at this time. Surgery planned for 01/10 #.? Insulin-dependent type 2 diabetes mellitus -hold anti hyperglycemics.? Initiate sliding scale insulin and reduce home basal regimen while in the hospital (hold lantus) #.? Essential hypertension, BP high -on amlodipine 5, increase to 10 #.? Urinary incontinence -on oxybutynin #.? Dementia, unspecified -on donepezil #.? Chronic normocytic anemia -Hb above transfusion threshold #.? History of pulmonary embolism on Eliquis -hold until surgical evaluation DVT prophylaxis:? Holding Eliquis until surgical evaluation Diet:? Diabetic diet Full code Need for inaptient: Hip fracture and needs surgery Quality Stroke Does the patient have a stroke diagnosis?: No VTE Prior VTE?: Yes VTE Risk Level:: Medical - moderate - high VTE Device Contraindication: Treatment Not Indicated VTE Drug Contraindication: Treatment Not Indicated
--- NOTE | 2022-01-10 09:16 | HO.ANESPROP2 ---
[facility] Active Problems Active Problems: All Active Problems (Updated 01/08/22 @ 02:46 by Denzel Flores MD) Fracture of femoral neck, right (Acute) Insulin dependent type 2 diabetes mellitus (Acute) Dementia (Acute) HTN (hypertension) (Acute) Overactive bladder (Acute) Past Medical History Medical History (Updated 01/08/22 @ 02:46 by Denzel Flores MD) Dementia HTN (hypertension) Overactive bladder Pulmonary embolism with acute cor pulmonale Family History Family history of problems with anesthesia: No Surgical History History of Problems with Anesthesia: No Social History Social History Household Members: None Housing: Assisted Living Facility Patient Tobacco Use Status: Former Tobacco user Tobacco use type: Cigar Second Hand Smoke Exposure: No Advance Directives Date on File: 10/12/20 service: No Current occupational status: retired Meds Allergies Allergy/AdvReac Type Severity Reaction Status Date / Time aluminum Allergy Unknown Verified 01/08/22 01:30 Active Medications: Current Medications Acetaminophen (Acetaminophen 325 Mg Tablet) 650 mg PO Q6H PRN PRN Reason: Pain, Mild (Pain Scale 1-3) Amlodipine Besylate (Amlodipine Besylate 5 Mg Tablet) 5 mg PO DAILY [facility]; Protocol Last Admin: 01/10/22 07:52 Dose: 5 mg Atorvastatin Calcium (Atorvastatin Calcium 20 Mg Tablet) 20 mg PO BEDTIME [facility] Last Admin: 01/09/22 21:40 Dose: 20 mg Dextrose (Dextrose 50 % 25 Gm/50 Ml Syringe) 25 gm IVPUSH Q15M PRN; Protocol PRN Reason: per Hypoglycemia Standing Ord. Donepezil HCl (Donepezil Hcl 10 Mg Tablet) 10 mg PO BEDTIME [facility] Last Admin: 01/09/22 21:40 Dose: 10 mg Gabapentin (Gabapentin 100 Mg Capsule) 100 mg PO BEDTIME [facility] Last Admin: 01/09/22 21:40 Dose: 100 mg Glucose (Glucose Gel 15 Gm Gel..Gram.) 15 gm PO Q15M PRN; Protocol PRN Reason: per Hypoglycemia Standing Ord. Dextrose (D5w) 1,000 mls @ 75 mls/hr IVCONT .[id number] [facility] Last Admin: 01/09/22 19:46 Dose: 75 mls/hr Insulin Glargine (Insulin Glargine,Hum.Rec.Anlog 100 Unit/Ml 10 Ml Vial) 34 unit SUBCUT DAILY@0730 [facility] Last Admin: 01/10/22 07:45 Dose: Not Given Insulin Human Lispro (Insulin Lispro 100 Unit/Ml 3 Ml Vial) 0 unit SUBCUT QIDACHS [facility]; Protocol Last Admin: 01/10/22 07:27 Dose: Not Given Melatonin (Melatonin 3 Mg Tablet) 6 mg PO BEDTIME PRN PRN Reason: Insomnia Morphine Sulfate (Morphine Sulfate 2 Mg/Ml Cartridge) 2 mg IVPUSH Q4H PRN; Protocol PRN Reason: Pain, Severe (Pain Scale 7-10) Last Admin: 01/10/22 04:40 Dose: 2 mg Ondansetron HCl (Ondansetron Hcl 4 Mg/2 Ml Vial) 4 mg IVPUSH Q8H PRN PRN Reason: Nausea and Vomiting Oxybutynin Chloride (Oxybutynin Chloride Er 5 Mg Tab.Er.24) 10 mg PO DAILY [facility] Last Admin: 01/10/22 07:52 Dose: 10 mg Polyethylene Glycol (Polyethylene Glycol 3350 17 Gm Powd.Pack) 17 gm PO DAILY [facility] Last Admin: 01/09/22 08:03 Dose: 17 gm Senna (Sennosides 8.6 Mg Tablet) 17.2 mg PO BEDTIME [facility] Last Admin: 01/09/22 21:40 Dose: 17.2 mg Sodium Chloride (0.9 % Sodium Chloride Flush 3 Ml Syringe) [facility] Last Admin: 01/10/22 07:54 Dose: 3 ml Tramadol HCl (Tramadol Hcl 50 Mg Tablet) 50 mg PO Q6H PRN PRN Reason: Pain, Moderate (Pain Scale 4-6 Last Admin: 01/10/22 00:52 Dose: 50 mg Vitamin D (Cholecalciferol (Vitamin D3) 25 Mcg Tablet) 25 mcg PO DAILY [facility] Last Admin: 01/10/22 07:51 Dose: 25 mcg Home Medications Medication Instructions Recorded Confirmed Last Taken Type acetaminophen 325 mg tablet 650 mg PO Q6H PRN Pain (Scale 10/12/20 01/08/22 Unknown History Score 1-3) apixaban 5 mg tablet (Eliquis) 5 mg PO BID@0900,1800 10/12/20 01/08/22 Unknown History atorvastatin 20 mg tablet 20 mg PO BEDTIME 10/12/20 01/08/22 Unknown History cholecalciferol (vitamin D3) 25 25 mcg PO DAILY 10/12/20 01/08/22 Unknown History mcg (1,000 unit) capsule (Vitamin D3) donepezil 10 mg tablet 10 mg PO BEDTIME 10/12/20 01/08/22 Unknown History gabapentin 100 mg capsule 100 mg PO BEDTIME 10/12/20 01/08/22 Unknown History insulin glargine 100 unit/mL (3 40 unit subcut DAILY 10/12/20 01/08/22 Unknown History mL) subcutaneous pen (Lantus Solostar U-100 Insulin) oxybutynin chloride 10 mg 1 tab PO DAILY 10/12/20 01/08/22 Unknown History tablet,extended release 24 hr pioglitazone 30 mg tablet 1 tab PO DAILY 10/12/20 01/08/22 Unknown History polyethylene glycol 3350 17 17 g PO DAILY 10/12/20 01/08/22 Unknown History gram/dose oral powder sennosides 8.6 mg tablet (senna) 17.2 mg PO BEDTIME 10/12/20 01/08/22 Unknown History amlodipine 5 mg tablet 1 tab PO DAILY 01/08/22 01/08/22 Unknown History bacitracin 500 unit/gram topical 1 appl topical DAILY@201901/08/22 01/08/22 Unknown History ointment ferrous gluconate 324 mg (37.5 mg 324 mg PO DAILY 01/08/22 01/08/22 Unknown History iron) tablet furosemide 20 mg tablet 1 tab PO DAILY 01/08/22 01/08/22 Unknown History insulin lispro 100 unit/mL See Protocol subcut TIDAC 01/08/22 01/08/22 Unknown History subcutaneous pen (Humalog KwikPen (U-100) Insulin) metformin 500 mg tablet,extended 1,000 mg PO DAILY@1700 01/08/22 01/08/22 Unknown History release 24hr Exam Exam Date and Time: January 10, 2022 0916 Height,Weight and Vital Signs: Height 5 ft Weight 76.721 kg Last Vital Signs Temp 99.0 F 01/10/22 07:54 Pulse 61 01/10/22 07:54 Resp 16 01/10/22 07:54 BP 155/69 H 01/10/22 07:54 Pulse Ox 95 01/10/22 07:54 O2 Del Method 01/10/22 07:54 Pertinent Lab Results Pertinent Lab Results: Laboratory Tests 01/07/22 01/07/22 01/07/22 23:00 23:00 23:00 WBC 6.8 RBC 3.42 L Hgb 9.8 L Hct 30.1 L MCV 88.0 MCH 28.7 MCHC 32.6 RDW 13.4 Plt Count 245 MPV 10.7 Immature Gran % (Auto) 0.1 Neut % (Auto) 72.5 Lymph % (Auto) 12.6 L Will % (Auto) 9.5 Eos % (Auto) 4.6 H Baso % (Auto) 0.7 Lymph # (Auto) 0.9 L Will # (Auto) 0.6 Eos # (Auto) 0.3 Baso # (Auto) 0.1 Abs Immat Gran (auto) 0.01 Absolute Neuts (auto) 4.9 Absolute Nucleated RBC 0.000 Nucleated RBC % (auto) 0.0 Sodium Potassium Chloride Carbon Dioxide Anion Gap BUN Creatinine Estim Creat Clear Calc Estimated GFR POC Glucose Random Glucose Estimat Average Glucose Hemoglobin A1c % Lactic Acid 2.2 H* Lactic Acid F/U @ 2Hr Calcium Magnesium Total Bilirubin AST ALT Alkaline Phosphatase Total Protein Albumin 25-OH Vitamin D Total COVID-19 ([facility]) Negative COVID-19 Clin Com See Note 01/07/22 01/08/22 01/08/22 23:44 02:50 02:50 WBC RBC Hgb Hct MCV MCH MCHC RDW Plt Count MPV Immature Gran % (Auto) Neut % (Auto) Lymph % (Auto) Will % (Auto) Eos % (Auto) Baso % (Auto) Lymph # (Auto) Will # (Auto) Eos # (Auto) Baso # (Auto) Abs Immat Gran (auto) Absolute Neuts (auto) Absolute Nucleated RBC Nucleated RBC % (auto) Sodium 143 Potassium 3.5 Chloride 102 Carbon Dioxide 29 Anion Gap 16 BUN 32 H D Creatinine 1.25 Estim Creat Clear Calc 32.3 Estimated GFR 42 POC Glucose Random Glucose 83 Estimat Average Glucose Hemoglobin A1c % Lactic Acid Lactic Acid F/U @ 2Hr 1.4 Calcium 9.0 Magnesium 1.9 Total Bilirubin 0.4 AST 16 D ALT 7 Alkaline Phosphatase 115 D Total Protein 6.9 Albumin 3.8 25-OH Vitamin D Total 23.8 COVID-19 ([facility]) COVID-19 [employer] 01/08/22 01/08/22 01/08/22 02:50 05:52 07:30 WBC RBC Hgb Hct MCV MCH MCHC RDW Plt Count MPV Immature Gran % (Auto) Neut % (Auto) Lymph % (Auto) Will % (Auto) Eos % (Auto) Baso % (Auto) Lymph # (Auto) Will # (Auto) Eos # (Auto) Baso # (Auto) Abs Immat Gran (auto) Absolute Neuts (auto) Absolute Nucleated RBC Nucleated RBC % (auto) Sodium 142 Potassium 3.5 Chloride 103 Carbon Dioxide 27 Anion Gap 16 BUN 26 H Creatinine 0.97 Estim Creat Clear Calc 45.8 Estimated GFR 56 POC Glucose 52 L* Random Glucose 54 L* Estimat Average Glucose 126 Hemoglobin A1c % 6.0 Lactic Acid Lactic Acid F/U @ 2Hr Calcium 8.6 Magnesium Total Bilirubin AST ALT Alkaline Phosphatase Total Protein Albumin 25-OH Vitamin D Total COVID-19 ([facility]) COVID-19 [employer] 01/08/22 01/08/22 01/08/22 09:23 11:25 15:31 WBC RBC Hgb Hct MCV MCH MCHC RDW Plt Count MPV Immature Gran % (Auto) Neut % (Auto) Lymph % (Auto) Will % (Auto) Eos % (Auto) Baso % (Auto) Lymph # (Auto) Will # (Auto) Eos # (Auto) Baso # (Auto) Abs Immat Gran (auto) Absolute Neuts (auto) Absolute Nucleated RBC Nucleated RBC % (auto) Sodium Potassium Chloride Carbon Dioxide Anion Gap BUN Creatinine Estim Creat Clear Calc Estimated GFR POC Glucose 119 H 88 67 Random Glucose Estimat Average Glucose Hemoglobin A1c % Lactic Acid Lactic Acid F/U @ 2Hr Calcium Magnesium Total Bilirubin AST ALT Alkaline Phosphatase Total Protein Albumin 25-OH Vitamin D Total COVID-19 ([facility]) COVID-19 [employer] 01/08/22 01/08/22 01/08/22 17:01 19:56 20:52 WBC RBC Hgb Hct MCV MCH MCHC RDW Plt Count MPV Immature Gran % (Auto) Neut % (Auto) Lymph % (Auto) Will % (Auto) Eos % (Auto) Baso % (Auto) Lymph # (Auto) Will # (Auto) Eos # (Auto) Baso # (Auto) Abs Immat Gran (auto) Absolute Neuts (auto) Absolute Nucleated RBC Nucleated RBC % (auto) Sodium Potassium Chloride Carbon Dioxide Anion Gap BUN Creatinine Estim Creat Clear Calc Estimated GFR POC Glucose 88 65 103 Random Glucose Estimat Average Glucose Hemoglobin A1c % Lactic Acid Lactic Acid F/U @ 2Hr Calcium Magnesium Total Bilirubin AST ALT Alkaline Phosphatase Total Protein Albumin 25-OH Vitamin D Total COVID-19 ([facility]) COVID-19 [employer] 01/09/22 01/09/22 01/09/22 07:35 11:18 15:56 WBC RBC Hgb Hct MCV MCH MCHC RDW Plt Count MPV Immature Gran % (Auto) Neut % (Auto) Lymph % (Auto) Will % (Auto) Eos % (Auto) Baso % (Auto) Lymph # (Auto) Will # (Auto) Eos # (Auto) Baso # (Auto) Abs Immat Gran (auto) Absolute Neuts (auto) Absolute Nucleated RBC Nucleated RBC % (auto) Sodium Potassium Chloride Carbon Dioxide Anion Gap BUN Creatinine Estim Creat Clear Calc Estimated GFR POC Glucose 80 296 H 66 Random Glucose Estimat Average Glucose Hemoglobin A1c % Lactic Acid Lactic Acid F/U @ 2Hr Calcium Magnesium Total Bilirubin AST ALT Alkaline Phosphatase Total Protein Albumin 25-OH Vitamin D Total COVID-19 ([facility]) [employer] 01/09/22 01/09/22 01/10/22 16:45 19:37 07:25 WBC RBC Hgb Hct MCV MCH MCHC RDW Plt Count MPV Immature Gran % (Auto) Neut % (Auto) Lymph % (Auto) Will % (Auto) Eos % (Auto) Baso % (Auto) Lymph # (Auto) Will # (Auto) Eos # (Auto) Baso # (Auto) Abs Immat Gran (auto) Absolute Neuts (auto) Absolute Nucleated RBC Nucleated RBC % (auto) Sodium Potassium Chloride Carbon Dioxide Anion Gap BUN Creatinine Estim Creat Clear Calc Estimated GFR POC Glucose 77 131 H 107 Random Glucose Estimat Average Glucose Hemoglobin A1c % Lactic Acid Lactic Acid F/U @ 2Hr Calcium Magnesium Total Bilirubin AST ALT Alkaline Phosphatase Total Protein Albumin 25-OH Vitamin D Total COVID-19 ([facility]) COVID-19 [employer] Airway Mallampati Class: III TM Dist: >3cm Neck ROM: Full Denture: Upper and Lower Assessment and Plan Assessment Anesthesia Assessment: Anesthesia Plan Discussed and Chart Reviewed Final Anesthetic Review Family History of Problems with Anesthesia: No History of Problems with Anesthesia: No NPO: Yes ASA Class: III and Emergency Final Preanesthetic Review: No Changes in Pt Med Stat, Meds/Allgs Chart Reviewed, Consent Obtained/Reviewed and Anes Risks/Benef Reviewed Patient Risk: Intermediate Procedure Risk: Intermediate Anesthetic Plan Anesthetic Plan: GA Disposition: Standard PACU
--- NOTE | 2022-01-10 09:22 | PM.EVENT ---
Event Note Date of Service: 01/10/22 Event Note: Spoke with Jo Swift
--- NOTE | 2022-01-10 09:27 | MHC.SHP ---
Pre-Procedural Eval Section A Date of Service: 01/10/22 The patient is an INPATIENT: No Changes since office visit: Yes Patient answered all questions; No Cold of Flu in the past 2 weeks, No New Medical Problems and No Changes in Medication The History & Physical has been completed within 30 days and I have reviewed it.: Yes Section B Chief Complaint: Right Hip Pain Allergies: Allergies Allergy/AdvReac Type Severity Reaction Status Date / Time aluminum Allergy Unknown Verified 01/08/22 01:30 Plan I have reviewed the history and physical and performed a pertinent physical examination on my patient. No changes have occurred unless specified.
--- NOTE | 2022-01-10 15:11 | PM.OP ---
Brief Operative Note Date of Service: 01/10/22 Pre-op diagnosis: right femoral neck fracture Post-op diagnosis: other (right femoral neck fracture and right periprosthetic femur fracture) Procedure: 1) ORIF right femur 2) right hip hemiarthroplasty 3) MIKE right hip Implants: [place] revision 0/ bipolar Synthes 14 hole locking plate Cerclage cable x 6 (kevin) Surgeon: Molina Singletary MD Anesthesia: GETA and local Was an Chemical Process Engineer used for this Procedure?: Yes Chemical Process Engineer: Xiang Siddiqi Estimated blood loss (mL): 500 IV fluids (mL): 1,800 Pathology: none sent Condition: stable Disposition: PACU
[2022-01-10] MEDS: fentaNYL citrate/PF 100 MCG/2 ML VIAL 50 MCG IVPUSH ×4 (15:28→16:02)
[2022-01-10 16:46] LABS: Glucose, Whole Blood 271 mg/dL (60-115)
[2022-01-10] MEDS: Insulin Lispro 100 UNIT/ML 3 ML VIAL SUBCUT ×2 (18:43→22:11)
[2022-01-10 20:09] LABS: Glucose, Whole Blood 253 mg/dL (60-115)
[2022-01-10] MEDS: Gabapentin 100 MG CAPSULE PO (22:11)
[2022-01-10] MEDS: Donepezil HCl 10 MG TABLET PO (22:11)
[2022-01-10] MEDS: Sennosides 8.6 MG TABLET 17.2 MG PO (22:11)
[2022-01-10] MEDS: Atorvastatin Calcium 20 MG TABLET PO (22:11)
[2022-01-10] MEDS: Dextrose 5 % 1,000 ML 50 ML IVCONT (22:47)
[2022-01-11] VITALS (9 sets, daily range): BP systolic 92–127; BP diastolic 44–69; PULSE 77–102; RESP 18–20; TEMP 36–36.9; O2SAT 95–98
[2022-01-11] MEDS: oxyCODONE HCl Immed Release 5 MG TABLET 10 MG PO (04:53)
[2022-01-11] MEDS: Morphine Sulfate 2 MG/ML CARTRIDGE IVPUSH (05:33)
[2022-01-11 07:16] LABS: Glucose, Whole Blood 263 mg/dL (60-115)
[2022-01-11] MEDS: Cholecalciferol (Vitamin D3) 25 MCG TABLET PO (08:12)
[2022-01-11] MEDS: amLODIPine Besylate 5 MG TABLET PO (08:12)
[2022-01-11] MEDS: Insulin Glargine,Hum.rec.anlog 100 UNIT/ML 10 ML VIAL 34 UNIT SUBCUT (08:13)
[2022-01-11] MEDS: Insulin Lispro 100 UNIT/ML 3 ML VIAL SUBCUT ×3 (08:13→20:17)
--- NOTE | 2022-01-11 08:29 | P.PNOP_ITS ---
Subjective Subjective Date of Service: 01/11/22 Interval history: POD 1 s/p Right hip hemiarthroplasty with ORIF distal femur No overnight events pain is uncontrolled resting in bed with abduction pillow in place Physical Exam Vital Signs: Vital Signs: Last Vital Signs Temp 97.9 F 01/11/22 06:55 Pulse 102 H 01/11/22 06:55 Resp 18 01/11/22 06:55 BP 121/69 01/11/22 06:55 Pulse Ox 98 01/11/22 06:55 O2 Del Method 01/11/22 06:55 O2 Flow Rate 2 01/10/22 16:34 BMI result Body Mass Index 33.0 Const: General: cooperative, healthy appearing and no acute distress Resp: Effort & Inspection: normal respiratory effort and able to speak in complete sentences Cardio: Rate: regular rate Peripheral pulses: Peripheral pulses 2+ throughout GI: Palpation (GI): Soft to palpation Skin: General skin exam: no rashes or lesions noted Extrem: Other: bandage clean dry and intact. [place] intact. No erythema or effusion. Calf supple nontender. She is able to move ankle, foot and toes. Neurovascularly intact. Procedures Date of Service Date of Service: 01/11/22 Progress Note: A&P Assessment and plan (1) Fracture of femoral neck, right: Status: Acute Assessment and Plan: * Continue pain mgmnt * Begin Lovenox for dvt ppx --resume eliquis 48 hrs post op * begin PT /OT for Right hip hemir/ORIF distal femur--NWB RLE * Dispo planning-Pending PT eval, pain mgmnt (2) Fracture of distal end of femur: Status: Acute Time Spent With Patient Time: Total time spent is greater than 50% in coordination of care (as documented) at patient's floor/unit and/or counseling patient: Quality Stroke Does the patient have a stroke diagnosis?: No VTE Prior VTE?: Yes VTE Risk Level:: Medical - moderate - high VTE Device Contraindication: Treatment Not Indicated VTE Drug Contraindication: Treatment Not Indicated
[2022-01-11] MEDS: oxyCODONE HCl ER 10 MG TAB.ER.12H PO ×2 (09:03→19:32)
[2022-01-11] MEDS: Celecoxib 200 MG CAPSULE PO ×2 (09:03→19:32)
--- NOTE | 2022-01-11 10:00 | HO.PM.IMPN ---
Subjective Subjective Date of Service: 01/11/22 Physical Exam Vital Signs: Vital Signs: Last Vital Signs Temp 97.9 F 01/11/22 06:55 Pulse 102 H 01/11/22 06:55 Resp 18 01/11/22 06:55 BP 121/69 01/11/22 06:55 Pulse Ox 98 01/11/22 06:55 O2 Del Method 01/11/22 06:55 O2 Flow Rate 2 01/10/22 16:34 BMI result Body Mass Index 33.0 Objective Data Active Medications Amlodipine Besylate (Amlodipine Besylate 5 Mg Tablet) 5 mg PO DAILY [facility]; Protocol Last Admin: 01/11/22 08:12 Dose: 5 mg Documented By: IVA Atorvastatin Calcium (Atorvastatin Calcium 20 Mg Tablet) 20 mg PO BEDTIME [facility] Last Admin: 01/10/22 22:11 Dose: 20 mg Documented By: ELMER Celecoxib (Celecoxib 200 Mg Capsule) 200 mg PO BID [facility] Last Admin: 01/11/22 09:03 Dose: 200 mg Documented By: IVA Dextrose (Dextrose 50 % 25 Gm/50 Ml Syringe) 25 gm IVPUSH Q15M PRN; Protocol PRN Reason: per Hypoglycemia Standing Ord. Donepezil HCl (Donepezil Hcl 10 Mg Tablet) 10 mg PO BEDTIME [facility] Last Admin: 01/10/22 22:11 Dose: 10 mg Documented By: ELMER Enoxaparin Sodium (Enoxaparin Sodium 40 Mg/0.4 Ml Syringe) 40 mg SUBCUT Q24H [facility] Gabapentin (Gabapentin 100 Mg Capsule) 100 mg PO BEDTIME [facility] Last Admin: 01/10/22 22:11 Dose: 100 mg Documented By: ELMER Glucose (Glucose Gel 15 Gm Gel..Gram.) 15 gm PO Q15M PRN; Protocol PRN Reason: per Hypoglycemia Standing Ord. Hydromorphone HCl (Hydromorphone Hcl 0.5 Mg/0.5 Ml Syringe) 0.5 mg IVPUSH Q3H PRN; Protocol PRN Reason: Pain, Severe (Pain Scale 7-10) Dextrose (D5w) 1,000 mls @ 50 mls/hr IVCONT .Q20H [facility] Last Admin: 01/10/22 22:47 Dose: 50 mls/hr Documented By: ELMER Cefazolin Sodium/Dextrose (Ancef) 2 gm in 50 mls @ 100 mls/hr IV POSTOP [facility] Acetaminophen (Ofirmev) 1,000 mg in 100 mls @ 400 mls/hr IV Q6H [facility] Last Infusion: 01/11/22 09:51 Dose: 0 mls/hr Documented By: IVA Insulin Glargine (Insulin Glargine,Hum.Rec.Anlog 100 Unit/Ml 10 Ml Vial) 34 unit SUBCUT DAILY@0730 [facility] Last Admin: 01/11/22 08:13 Dose: 34 unit Documented By: IVA Insulin Human Lispro (Insulin Lispro 100 Unit/Ml 3 Ml Vial) 0 unit SUBCUT QIDACHS [facility]; Protocol Last Admin: 01/11/22 08:13 Dose: 6 unit Documented By: IVA Melatonin (Melatonin 3 Mg Tablet) 6 mg PO BEDTIME PRN PRN Reason: Insomnia Ondansetron HCl (Ondansetron Hcl 4 Mg/2 Ml Vial) 4 mg IVPUSH Q8H PRN PRN Reason: Nausea and Vomiting Oxybutynin Chloride (Oxybutynin Chloride Er 5 Mg Tab.Er.24) 10 mg PO DAILY [facility] Last Admin: 01/11/22 08:12 Dose: 10 mg Documented By: IVA Oxycodone HCl (Oxycodone Hcl Er 10 Mg Tab.Er.12h) 10 mg PO BID [facility] Last Admin: 01/11/22 09:03 Dose: 10 mg Documented By: IVA Oxycodone HCl (Oxycodone Hcl Immed Release 5 Mg Tablet) 10 mg PO Q4H PRN PRN Reason: Pain, Moderate (Pain Scale 4-6 Polyethylene Glycol (Polyethylene Glycol 3350 17 Gm Powd.Pack) 17 gm PO DAILY [facility] Last Admin: 01/11/22 08:24 Dose: Not Given Documented By: IVA Non-Admin Reason: Patient Refused Senna (Sennosides 8.6 Mg Tablet) 17.2 mg PO BEDTIME [facility] Last Admin: 01/10/22 22:11 Dose: 17.2 mg Documented By: ELMER Sodium Chloride (0.9 % Sodium Chloride Flush 3 Ml Syringe) 3 ml IVFLUSH QSHIFT [facility] Last Admin: 01/11/22 08:24 Dose: Not Given Documented By: IVA Non-Admin Reason: IV Running Vitamin D (Cholecalciferol (Vitamin D3) 25 Mcg Tablet) 25 mcg PO DAILY [facility] Last Admin: 01/11/22 08:12 Dose: 25 mcg Documented By: IVA Labs CBC & Chem 7: 01/11/22 05:21 01/08/22 05:52 Labs: Laboratory Results - last 24 hr 01/10/22 01/10/22 01/10/22 12:21 16:41 19:33 POC Glucose 271 H 253 H Blood Type B Positive Antibody Screen NEGATIVE Crossmatch See Detail 01/11/22 06:55 POC Glucose 263 H Blood Type Antibody Screen Crossmatch Assessment and Plan (1) Fracture of femoral neck, right: Status: Acute (2) Insulin dependent type 2 diabetes mellitus: Status: Acute Plan 76-year-old female who is a resident of assisted living facility and with pertinent history of essential hypertension, mixed hyperlipidemia, insulin-dependent diabetes mellitus, urinary incontinence, dementia was brought to the emergency department for evaluation of right hip pain. #.? Right femoral head and neck fracture -s/p 1) ORIF right femur 2) right hip hemiarthroplasty 3) MIKE right hip on 01/10 -pain control with morphine, IV tyelenol, PT oT, Lovenox for DVT prophylaxis and restart Eliquis tomorrow 48 hrs after operation #.? Insulin-dependent type 2 diabetes mellitus--stop IVF with dexrose, resume insulin, montor glucose #.? Essential hypertension, continue Norvasc at 5/daily #.? Urinary incontinence -on oxybutynin #.? Dementia, unspecified -on donepezil #.? Chronic normocytic anemia, Hgb 11, s/p 1unit of RBC 01/10 after surgery #.? History of pulmonary embolism--has been on hold, resume tomorrow on DVT prophylaxis:?see above Lovneox today, eliquis starting tomorrow Full code Need for inaptient: Hip fracture and needs surgery Quality Stroke Does the patient have a stroke diagnosis?: No VTE Prior VTE?: Yes VTE Risk Level:: Medical - moderate - high VTE Device Contraindication: Treatment Not Indicated VTE Drug Contraindication: Treatment Not Indicated
[2022-01-11 11:28] LABS: Glucose, Whole Blood 216 mg/dL (60-115)
--- NOTE | 2022-01-11 11:46 | HO.POSTANES ---
Post Anesthesia Evaluation Post Anesthesia Evaluation Vital Signs: Vital Signs Temp Pulse Resp BP Pulse Ox O2 Del Method 01/11/22 11:08 96.8 F 89 20 113/54 L 95 Room Air 01/11/22 06:55 97.9 F 102 H 18 121/69 98 Room Air 01/11/22 03:24 97.2 F 93 18 119/56 L 98 Room Air 01/10/22 23:48 97.8 F 78 16 138/60 99 Room Air Anesthesia: General Mental Status: Awake Pain Control: Satisfactory (uncontrolled pain) Nausea/Vomiting: Mild Hydration: Adequate Anesthesia-Related Issues: No Anes. Related Issues
--- NOTE | 2022-01-11 12:52 | MHC.CM.PN ---
Per MD rounds, patient continues w/ post-op pain. Plan will be for STR @ D/C. CM will continue to follow for discharge planning needs.
[2022-01-11] MEDS: Enoxaparin Sodium 40 MG/0.4 ML SYRINGE SUBCUT (13:50)
[2022-01-11 16:17] LABS: Glucose, Whole Blood 211 mg/dL (60-115)
[2022-01-11] MEDS: Dextrose 5 % 1,000 ML 50 ML IVCONT (16:38)
--- NOTE | 2022-01-11 16:52 | PC.NURSE ---
Patient resting throughout the day. Very poor PO intake.
[2022-01-11] MEDS: Atorvastatin Calcium 20 MG TABLET PO (19:32)
[2022-01-11] MEDS: Donepezil HCl 10 MG TABLET PO (19:32)
[2022-01-11] MEDS: Gabapentin 100 MG CAPSULE PO (19:32)
[2022-01-11] MEDS: Sennosides 8.6 MG TABLET 17.2 MG PO (19:32)
[2022-01-11 20:09] LABS: Glucose, Whole Blood 188 mg/dL (60-115)
[2022-01-12] VITALS (12 sets, daily range): BP systolic 103–141; BP diastolic 48–68; PULSE 68–84; RESP 16–18; TEMP 36.2–37; O2SAT 94–98
[2022-01-12] MEDS: HYDROmorphone HCl 0.5 MG/0.5 ML SYRINGE IVPUSH ×2 (04:59→15:07)
[2022-01-12 07:09] LABS: Glucose, Whole Blood 224 mg/dL (60-115)
--- NOTE | 2022-01-12 07:38 | P.PNOP_ITS ---
Subjective Subjective Date of Service: 01/12/22 Interval history: POD 2 s/p Right hip hemiarthroplasty with ORIF distal femur No overnight events pain is more controlled resting in bed with abduction pillow in place Physical Exam Vital Signs: Vital Signs: Last Vital Signs Temp 97.9 F 01/12/22 06:55 Pulse 78 01/12/22 06:55 Resp 18 01/12/22 06:55 BP 132/63 01/12/22 06:55 Pulse Ox 94 01/12/22 06:55 O2 Del Method 01/12/22 06:55 O2 Flow Rate 2 01/10/22 16:34 BMI result Body Mass Index 33.0 Const: General: cooperative, healthy appearing and no acute distress Resp: Effort & Inspection: normal respiratory effort and able to speak in complete sentences Cardio: Rate: regular rate Peripheral pulses: Peripheral pulses 2+ throughout GI: Palpation (GI): Soft to palpation Skin: General skin exam: no rashes or lesions noted Extrem: Other: bandage clean dry and intact. [place] intact. No erythema or effusion. Calf supple nontender. She is able to move ankle, foot and toes. Neurovascularly intact. Procedures Date of Service Date of Service: 01/12/22 Progress Note: A&P Assessment and plan (1) Fracture of distal end of femur: Status: Acute (2) Fracture of femoral neck, right: Status: Acute Assessment and Plan: * Continue pain mgmnt * continue Lovenox for dvt ppx --resume eliquis 48 hrs post op * begin PT /OT for Right hip hemir/ORIF distal femur--NWB RLE * Dispo planning-Pending PT eval, pain mgmnt Time Spent With Patient Time: Total time spent is greater than 50% in coordination of care (as documented) at patient's floor/unit and/or counseling patient: Quality Stroke Does the patient have a stroke diagnosis?: No VTE Prior VTE?: Yes VTE Risk Level:: Medical - moderate - high VTE Device Contraindication: Treatment Not Indicated VTE Drug Contraindication: Treatment Not Indicated
[2022-01-12] MEDS: Cholecalciferol (Vitamin D3) 25 MCG TABLET PO (08:13)
[2022-01-12] MEDS: Celecoxib 200 MG CAPSULE PO (08:13)
[2022-01-12] MEDS: oxyCODONE HCl ER 10 MG TAB.ER.12H PO ×2 (08:13→19:56)
[2022-01-12] MEDS: amLODIPine Besylate 5 MG TABLET PO (08:14)
[2022-01-12] MEDS: Insulin Glargine,Hum.rec.anlog 100 UNIT/ML 10 ML VIAL 34 UNIT SUBCUT (08:14)
[2022-01-12] MEDS: polyethylene glycoL 3350 17 GM POWD.PACK PO (08:15)
[2022-01-12 08:43] LABS: MANUAL DIFF FLAG NO
[2022-01-12 08:46] LABS: Basophils Absolute Auto 0.1 X10*3/uL (0.0-0.2); Basophils Percent Auto 0.4 % (0-2); Eosinophils Absolute Auto 0.2 X10*3/uL (0.0-0.4); Eosinophils Percent Auto 1.3 % (0-4); Hemoglobin 8.3 g/dl (12.0-16.0); Imm Gran Abs Auto 0.05 X10*3/uL (0.00-0.03); Imm Gran Pct Auto 0.4 % (0.0-0.4); Lymphocytes Absolute Auto 0.8 X10*3/uL (1.2-4.9); Lymphocytes Percent Auto 6.4 % (20-40); Mean Corpuscular HGB Conc 34.6 g/dl (31.0-35.0); Mean Corpuscular Hemoglobin 30.1 pg (27.0-33.0); Mean Platelet Volume 10.6 fL (9.4-12.3); Monocytes Absolute Auto 0.9 X10*3/uL (0.1-1.2); Monocytes Percent Auto 7.9 % (2-11); Neutrophils Absolute Auto 9.8 x10*3/uL (2.0-8.3); Neutrophils Percent Auto 83.6 % (45-73); Platelet Count 150 X10*3/uL (160-400); Red Blood Count 2.76 X10*6/uL (4.20-5.50); Red Cell Distribution Width 13.9 % (11.0-16.0); White Blood Count 11.8 X10*3/uL (4.8-10.8)
[2022-01-12] MEDS: Insulin Lispro 100 UNIT/ML 3 ML VIAL SUBCUT ×3 (09:31→19:58)
[2022-01-12 11:12] LABS: Glucose, Whole Blood 200 mg/dL (60-115)
[2022-01-12] MEDS: Enoxaparin Sodium 40 MG/0.4 ML SYRINGE SUBCUT (13:41)
[2022-01-12] MEDS: 0.9 % Sodium Chloride Flush 3 ML SYRINGE IVFLUSH ×2 (15:07→19:54)
[2022-01-12 15:34] LABS: Glucose, Whole Blood 166 mg/dL (60-115)
--- NOTE | 2022-01-12 15:41 | HO.PM.IMPN ---
Subjective Subjective Date of Service: 01/12/22 Interval History: anemia ,Right femoral head and neck fracture Review of Systems h/h trending down , patient denies any chest pain or sob or abd pain Physical Exam Vital Signs: Vital Signs: Last Vital Signs Temp 98.2 F 01/12/22 15:29 Pulse 74 01/12/22 15:29 Resp 18 01/12/22 15:29 BP 103/49 L 01/12/22 15:29 Pulse Ox 97 01/12/22 15:29 O2 Del Method 01/12/22 15:29 O2 Flow Rate 2 01/10/22 16:34 BMI result Body Mass Index 33.0 Appearance: Alert.? Oriented X3.? not in distress.? cvs: [id number], [id number] res: clear to auscultation ,no rhonchii or wheezing abd: no rebound or guarding ,nt, bs present. neuro: axo3 , nonfocal. right leg: bandage clean dry and intact.?? No erythema or? effusion.? Calf supple nontender.? She is able to move ankle, foot and toes. Objective Data Active Medications Amlodipine Besylate (Amlodipine Besylate 5 Mg Tablet) 5 mg PO DAILY [facility]; Protocol Last Admin: 01/12/22 08:14 Dose: 5 mg Documented By: IVA Atorvastatin Calcium (Atorvastatin Calcium 20 Mg Tablet) 20 mg PO BEDTIME [facility] Last Admin: 01/11/22 19:32 Dose: 20 mg Documented By: YOSSI Celecoxib (Celecoxib 200 Mg Capsule) 200 mg PO BID [facility] Last Admin: 01/12/22 08:13 Dose: 200 mg Documented By: IVA Dextrose (Dextrose 50 % 25 Gm/50 Ml Syringe) 25 gm IVPUSH Q15M PRN; Protocol PRN Reason: per Hypoglycemia Standing Ord. Donepezil HCl (Donepezil Hcl 10 Mg Tablet) 10 mg PO BEDTIME [facility] Last Admin: 01/11/22 19:32 Dose: 10 mg Documented By: YOSSI Enoxaparin Sodium (Enoxaparin Sodium 40 Mg/0.4 Ml Syringe) 40 mg SUBCUT Q24H [facility] Last Admin: 01/12/22 13:41 Dose: 40 mg Documented By: IVA Gabapentin (Gabapentin 100 Mg Capsule) 100 mg PO BEDTIME [facility] Last Admin: 01/11/22 19:32 Dose: 100 mg Documented By: CASTILM Glucose (Glucose Gel 15 Gm Gel..Gram.) 15 gm PO Q15M PRN; Protocol PRN Reason: per Hypoglycemia Standing Ord. Hydromorphone HCl (Hydromorphone Hcl 0.5 Mg/0.5 Ml Syringe) 0.5 mg IVPUSH Q3H PRN; Protocol PRN Reason: Pain, Severe (Pain Scale 7-10) Last Admin: 01/12/22 15:07 Dose: 0.5 mg Documented By: IVA Cefazolin Sodium/Dextrose (Ancef) 2 gm in 50 mls @ 100 mls/hr IV POSTOP [facility] Acetaminophen (Ofirmev) 1,000 mg in 100 mls @ 400 mls/hr IV Q6H [facility] Last Infusion: 01/12/22 15:11 Dose: 400 mls/hr Documented By: IVA Insulin Glargine (Insulin Glargine,Hum.Rec.Anlog 100 Unit/Ml 10 Ml Vial) 34 unit SUBCUT DAILY@0730 [facility] Last Admin: 01/12/22 08:14 Dose: 34 unit Documented By: IVA Insulin Human Lispro (Insulin Lispro 100 Unit/Ml 3 Ml Vial) 0 unit SUBCUT QIDACHS [facility]; Protocol Last Admin: 01/12/22 11:31 Dose: 2 unit Documented By: IVA Melatonin (Melatonin 3 Mg Tablet) 6 mg PO BEDTIME PRN PRN Reason: Insomnia Omeprazole (Omeprazole 20 Mg Capsule.Dr) 20 mg PO BID@0630,1630 [facility] Ondansetron HCl (Ondansetron Hcl 4 Mg/2 Ml Vial) 4 mg IVPUSH Q8H PRN PRN Reason: Nausea and Vomiting Oxybutynin Chloride (Oxybutynin Chloride Er 5 Mg Tab.Er.24) 10 mg PO DAILY [facility] Last Admin: 01/12/22 08:13 Dose: 10 mg Documented By: IVA Oxycodone HCl (Oxycodone Hcl Er 10 Mg Tab.Er.12h) 10 mg PO BID [facility] Last Admin: 01/12/22 08:13 Dose: 10 mg Documented By: IVA Oxycodone HCl (Oxycodone Hcl Immed Release 5 Mg Tablet) 10 mg PO Q4H PRN PRN Reason: Pain, Moderate (Pain Scale 4-6 Polyethylene Glycol (Polyethylene Glycol 3350 17 Gm Powd.Pack) 17 gm PO DAILY [facility] Last Admin: 01/12/22 08:15 Dose: 17 gm Documented By: IVA Senna (Sennosides 8.6 Mg Tablet) 17.2 mg PO BEDTIME [facility] Last Admin: 01/11/22 19:32 Dose: 17.2 mg Documented By: CASTAMANDEEP Sodium Chloride (0.9 % Sodium Chloride Flush 3 Ml Syringe) 3 ml IVFLUSH QSHIFT [facility] Last Admin: 01/12/22 15:07 Dose: 3 ml Documented By: IVA Vitamin D (Cholecalciferol (Vitamin D3) 25 Mcg Tablet) 25 mcg PO DAILY [facility] Last Admin: 01/12/22 08:13 Dose: 25 mcg Documented By: IVA Labs CBC & Chem 7: 01/12/22 08:28 01/08/22 05:52 Labs: Laboratory Results - last 24 hr 01/10/22 01/11/22 01/11/22 12:21 15:47 19:18 MCV MCH MCHC RDW Plt Count MPV Immature Gran % (Auto) Neut % (Auto) Lymph % (Auto) [place] % (Auto) Eos % (Auto) Baso % (Auto) Lymph # (Auto) [place] # (Auto) Eos # (Auto) Baso # (Auto) Abs Immat Gran (auto) Absolute Neuts (auto) Absolute Nucleated RBC Nucleated RBC % (auto) POC Glucose 211 H 188 H Crossmatch See Detail 01/12/22 01/12/22 01/12/22 06:55 08:28 10:57 MCV 87.0 MCH 30.1 MCHC 34.6 RDW 13.9 Plt Count 150 L D MPV 10.6 Immature Gran % (Auto) 0.4 Neut % (Auto) 83.6 H Lymph % (Auto) 6.4 L [place] % (Auto) 7.9 Eos % (Auto) 1.3 Baso % (Auto) 0.4 Lymph # (Auto) 0.8 L [place] # (Auto) 0.9 Eos # (Auto) 0.2 Baso # (Auto) 0.1 Abs Immat Gran (auto) 0.05 H Absolute Neuts (auto) 9.8 H Absolute Nucleated RBC 0.000 Nucleated RBC % (auto) 0.0 POC Glucose 224 H 200 H Crossmatch 01/12/22 15:24 MCV MCH MCHC RDW Plt Count MPV Immature Gran % (Auto) Neut % (Auto) Lymph % (Auto) [place] % (Auto) Eos % (Auto) Baso % (Auto) Lymph # (Auto) [place] # (Auto) Eos # (Auto) Baso # (Auto) Abs Immat Gran (auto) Absolute Neuts (auto) Absolute Nucleated RBC Nucleated RBC % (auto) POC Glucose 166 H Crossmatch Assessment and Plan (1) Fracture of distal end of femur: Status: Acute (2) Anemia: Status: Acute Plan 76-year-old female who is a resident of assisted living facility and with pertinent history of essential hypertension, mixed hyperlipidemia, insulin-dependent diabetes mellitus, urinary incontinence, dementia was brought to the emergency department for evaluation of right hip pain. #Right femoral head and neck fracture -s/p 1) ORIF right femur 2) right hip hemiarthroplasty 3) MIKE right hip on 01/10 -pain control with morphine, IV tyelenol, PT oT, Lovenox for DVT prophylaxis and restart Eliquis tomorrow 48 hrs after operation # Insulin-dependent type 2 diabetes mellitus--stop IVF with dexrose, resume insulin, montor glucose #Essential hypertension-boerline blood pressure , hold norvasc, diurtics. ? #Urinary incontinence-on oxybutynin. #.? Dementia, unspecified-on donepezil #.? Chronic normocytic anemia: s/p 1unit of RBC 01/10 after surgery, h/h still drop in 8.3 24 ( possible postop anemia )- d/w surgery -added 1 prbc today moniter h/h # History of pulmonary embolism--has been on hold, resume tomorrow eliquis ,how due o low h/h. currently patient denies any chest pain or shortness of breath or palpitations or any leg pains. DVT prophylaxis:?see above Lovneox today, eliquis starting tomorrow once h/h improves. Full code Need for inaptient: Hip fracture and needs surgery Quality Stroke Does the patient have a stroke diagnosis?: No VTE Prior VTE?: Yes VTE Risk Level:: Medical - moderate - high VTE Device Contraindication: Treatment Not Indicated VTE Drug Contraindication: Treatment Not Indicated
--- NOTE | 2022-01-12 16:51 | PC.NURSE ---
Patient repositioned throughout shift, pain is still an issue. IV Dilaudid and scheduled oxycodone given. Patient has decreased PO intake, and is drowsy. Responds to verbal stimuli. Encouraging patient to eat and drink, She is a 1:1 feed.
[2022-01-12 19:22] LABS: Glucose, Whole Blood 164 mg/dL (60-115)
[2022-01-12] MEDS: Donepezil HCl 10 MG TABLET PO (19:56)
[2022-01-12] MEDS: Gabapentin 100 MG CAPSULE PO (19:56)
[2022-01-12] MEDS: Sennosides 8.6 MG TABLET 17.2 MG PO (19:58)
[2022-01-12] MEDS: Atorvastatin Calcium 20 MG TABLET PO (19:58)
[2022-01-13 03:27] VITALS: BP 106/53; PULSE 65; RESP 16; TEMP 36.4; O2SAT 95
[2022-01-13] MEDS: HYDROmorphone HCl 0.5 MG/0.5 ML SYRINGE IVPUSH (05:22)
[2022-01-13] MEDS: Omeprazole 20 MG CAPSULE.DR PO (05:23)
[2022-01-13 07:16] VITALS: BP 119/59; PULSE 71; RESP 18; TEMP 36.5; O2SAT 99
[2022-01-13 07:37] LABS: Glucose, Whole Blood 139 mg/dL (60-115)
--- NOTE | 2022-01-13 07:56 | P.PNOP_ITS ---
Subjective Subjective Date of Service: 01/13/22 Interval history: POD 3 s/p Right hip hemiarthroplasty with ORIF distal femur No overnight events pain is more controlled resting in bed with abduction pillow in place Physical Exam Vital Signs: Vital Signs: Last Vital Signs Temp 97.7 F 01/13/22 07:16 Pulse 71 01/13/22 07:16 Resp 18 01/13/22 07:16 BP 119/59 L 01/13/22 07:16 Pulse Ox 99 01/13/22 07:16 O2 Del Method 01/13/22 07:16 O2 Flow Rate 2 01/10/22 16:34 BMI result Body Mass Index 33.0 Appearance: Alert.? Oriented X3.? not in distress.? cvs: rrr, [id number] res: clear to auscultation ,no rhonchii or wheezing abd: no rebound or guarding ,nt, bs present. neuro: axo3 , nonfocal. right leg: bandage clean dry and intact.?? No erythema or? effusion.? Calf supple nontender.? She is able to move ankle, foot and toes. Const: General: cooperative, healthy appearing and no acute distress Resp: Effort & Inspection: normal respiratory effort and able to speak in complete sentences Cardio: Rate: regular rate Peripheral pulses: Peripheral pulses 2+ throughout GI: Palpation (GI): Soft to palpation Skin: General skin exam: no rashes or lesions noted Extrem: Other: bandage clean dry and intact. [place] intact. No erythema or effusion. Calf supple nontender. She is able to move ankle, foot and toes. Neurovascularly intact. Procedures Date of Service Date of Service: 01/13/22 Progress Note: A&P Assessment and plan (1) Fracture of distal end of femur: Status: Acute (2) Fracture of femoral neck, right: Status: Acute Assessment and Plan: * Continue pain mgmnt * resume eliquis * begin PT /OT for Right hip hemir/ORIF distal femur--NWB RLE * Dispo planning-Pending PT eval, pain mgmnt Time Spent With Patient Time: Total time spent is greater than 50% in coordination of care (as documented) at patient's floor/unit and/or counseling patient: Quality Stroke Does the patient have a stroke diagnosis?: No VTE Prior VTE?: Yes VTE Risk Level:: Medical - moderate - high VTE Device Contraindication: Treatment Not Indicated VTE Drug Contraindication: Treatment Not Indicated
--- NOTE | 2022-01-13 12:49 | P.PNIM_ITS ---
Subjective Subjective Date of Service: 01/13/22 Interval History: anemia ,Right femoral head and neck fracture Review of Systems As per staff was very agitated this morning and removed her IV lines. Went to see her but patient does want to talk. Physical Exam Vital Signs: Vital Signs: Last Vital Signs Temp 97.7 F 01/13/22 07:16 Pulse 71 01/13/22 07:16 Resp 18 01/13/22 07:16 BP 119/59 L 01/13/22 07:16 Pulse Ox 99 01/13/22 07:16 O2 Del Method 01/13/22 07:16 O2 Flow Rate 2 01/10/22 16:34 BMI result Body Mass Index 33.0 Refused Otherwise seems comfortable lying in the bed Objective Data Active Medications Amlodipine Besylate (Amlodipine Besylate 5 Mg Tablet) 5 mg PO DAILY [facility]S [facility]CLUDE 234 BEDS AT THE [facility]; Protocol Last Admin: 01/12/22 08:14 Dose: 5 mg Documented By: IVA Apixaban (Apixaban 5 Mg Tablet) 5 mg PO BID@0900,1800 COUNTS INCLUDE 234 BEDS AT THE [facility] Last Admin: 01/13/22 09:32 Dose: Not Given Documented By: ADRIANA Non-Admin Reason: Patient Refused Atorvastatin Calcium (Atorvastatin Calcium 20 Mg Tablet) 20 mg PO BEDTIME COUNTS INCLUDE 234 BEDS AT THE [facility] Last Admin: 01/12/22 19:58 Dose: 20 mg Documented By: YOSSI Celecoxib (Celecoxib 200 Mg Capsule) 200 mg PO BID COUNTS INCLUDE 234 BEDS AT THE [facility] Last Admin: 01/12/22 08:13 Dose: 200 mg Documented By: IVA Dextrose (Dextrose 50 % 25 Gm/50 Ml Syringe) 25 gm IVPUSH Q15M PRN; Protocol PRN Reason: per Hypoglycemia Standing Ord. Donepezil HCl (Donepezil Hcl 10 Mg Tablet) 10 mg PO BEDTIME COUNTS INCLUDE 234 BEDS AT THE [facility] Last Admin: 01/12/22 19:56 Dose: 10 mg Documented By: YOSSI Gabapentin (Gabapentin 100 Mg Capsule) 100 mg PO BEDTIME COUNTS INCLUDE 234 BEDS AT THE [facility] Last Admin: 01/12/22 19:56 Dose: 100 mg Documented By: YOSSI Glucose (Glucose Gel 15 Gm Gel..Gram.) 15 gm PO Q15M PRN; Protocol PRN Reason: per Hypoglycemia Standing Ord. Hydromorphone HCl (Hydromorphone Hcl 0.5 Mg/0.5 Ml Syringe) 1 mg IVPUSH Q3H PRN; Protocol PRN Reason: Pain, Severe (Pain Scale 7-10) Cefazolin Sodium/Dextrose (Ancef) 2 gm in 50 mls @ 100 mls/hr IV POSTOP [facility] Acetaminophen (Ofirmev) 1,000 mg in 100 mls @ 400 mls/hr IV Q6H COUNTS INCLUDE 234 BEDS AT THE [facility] Last Admin: 01/13/22 09:42 Dose: Not Given Documented By: ADRIANA Non-Admin Reason: Patient Refused Insulin Glargine (Insulin Glargine,Hum.Rec.Anlog 100 Unit/Ml 10 Ml Vial) 34 unit SUBCUT DAILY@0730 COUNTS INCLUDE 234 BEDS AT THE [facility] Last Admin: 01/13/22 09:32 Dose: Not Given Documented By: ADRIANA Non-Admin Reason: Patient Refused Insulin Human Lispro (Insulin Lispro 100 Unit/Ml 3 Ml Vial) 0 unit SUBCUT Q IDACHS COUNTS INCLUDE 234 BEDS AT THE [facility]; Protocol Last Admin: 01/13/22 11:52 Dose: Not Given Documented By: ADRIANA Non-Admin Reason: Patient Refused Melatonin (Melatonin 3 Mg Tablet) 6 mg PO BEDTIME PRN PRN Reason: Insomnia Omeprazole (Omeprazole 20 Mg Capsule.Dr) 20 mg PO BID@0630,1630 COUNTS INCLUDE 234 BEDS AT THE [facility] Last Admin: 01/13/22 05:23 Dose: 20 mg Documented By: YOSSI Ondansetron HCl (Ondansetron Hcl 4 Mg/2 Ml Vial) 4 mg IVPUSH Q8H PRN PRN Reason: Nausea and Vomiting Oxybutynin Chloride (Oxybutynin Chloride Er 5 Mg Tab.Er.24) 10 mg PO DAILY COUNTS INCLUDE 234 BEDS AT THE [facility] Last Admin: 01/13/22 09:32 Dose: Not Given Documented By: ADRIANA Non-Admin Reason: Patient Refused Oxycodone HCl (Oxycodone Hcl Er 10 Mg Tab.Er.12h) 10 mg PO BID COUNTS INCLUDE 234 BEDS AT THE [facility] Last Admin: 01/13/22 09:33 Dose: Not Given Documented By: ADRIANA Non-Admin Reason: Patient Refused Oxycodone HCl (Oxycodone Hcl Immed Release 5 Mg Tablet) 10 mg PO Q4H PRN PRN Reason: Pain, Moderate (Pain Scale 4-6 Polyethylene Glycol (Polyethylene Glycol 3350 17 Gm Powd.Pack) 17 gm PO DAILY COUNTS INCLUDE 234 BEDS AT THE [facility] Last Admin: 01/13/22 09:33 Dose: Not Given Documented By: ADRIANA Non-Admin Reason: Patient Refused Senna (Sennosides 8.6 Mg Tablet) 17.2 mg PO BEDTIME COUNTS INCLUDE 234 BEDS AT THE [facility] Last Admin: 01/12/22 19:58 Dose: 17.2 mg Documented By: CASTILGeeta Sodium Chloride (0.9 % Sodium Chloride Flush 3 Ml Syringe) 3 ml IVFLUSH QSHIFT COUNTS INCLUDE 234 BEDS AT THE [facility] Last Admin: 01/13/22 09:32 Dose: Not Given Documented By: ADRIANA Non-Admin Reason: No Access Vitamin D (Cholecalciferol (Vitamin D3) 25 Mcg Tablet) 25 mcg PO DAILY COUNTS INCLUDE 234 BEDS AT THE [facility] Last Admin: 01/13/22 09:32 Dose: Not Given Documented By: ADRIANA Non-Admin Reason: Patient Refused Labs CBC & Chem 7: 01/12/22 08:28 01/08/22 05:52 Labs: Laboratory Results - last 24 hr 01/10/22 01/12/22 01/12/22 12:21 15:24 19:13 POC Glucose 166 H 164 H Blood Type B Positive Antibody Screen NEGATIVE Crossmatch See Detail 01/13/22 07:13 POC Glucose 139 H Blood Type Antibody Screen Crossmatch Microbiology Microbiology Results: Microbiology 01/07/22 23:00 Blood Culture - Final Blood - Venous No growth after 5 days. 01/07/22 23:00 Blood Culture - Final Blood - Venous No growth after 5 days. Assessment and Plan (1) Fracture of distal end of femur: Status: Acute (2) Anemia: Status: Acute Plan 76-year-old female who is a resident of assisted living facility and with pertinent history of essential hypertension, mixed hyperlipidemia, insulin- dependent diabetes mellitus, urinary incontinence, dementia was brought to the emergency department for evaluation of right hip pain. #Right femoral head and neck fracture -s/p 1) ORIF right femur 2) right hip hemiarthroplasty 3) MIKE right hip on 01/10 -pain control with morphine, IV tyelenol, PT oT,. postop anemia: received prbc yesterday refusing labs , # Insulin-dependent type 2 diabetes mellitus--stop IVF with dexrose, resume i nsulin, montor glucose #Essential hypertension-boerline blood pressure , hold norvasc, diurtics. ? #Urinary incontinence-on oxybutynin. #.? Dementia, unspecified-on donepezil #.? Chronic normocytic anemia: s/p 1unit of RBC 01/10 after surgery, h/h still drop in 8. ( possible postop anemia )- d/w surgery -added 1 prbc today moniter h/h # History of pulmonary embolism--has been on hold, resume tomorrow eliquis ,how due o low h/h. currently patient denies any chest pain or shortness of breath or palpitations or any leg pains. DVT prophylaxis:?started eliquis starting tomorrow once h/h improves. Full code Need for inaptient: Hip fracture and needs surgery Quality Stroke Does the patient have a stroke diagnosis?: No VTE Prior VTE?: Yes VTE Risk Level:: Medical - moderate - high VTE Device Contraindication: Treatment Not Indicated VTE Drug Contraindication: Treatment Not Indicated
[2022-01-13] MEDS: oxyCODONE HCl Immed Release 5 MG TABLET 10 MG PO (13:05)
[2022-01-13 13:37] LABS: Hematocrit 26.6 % (37.0-47.0); Mean Corpuscular HGB Conc 33.8 g/dl (31.0-35.0); Mean Corpuscular Hemoglobin 29.6 pg (27.0-33.0); Mean Corpuscular Volume 87.5 fL (80.0-98.0); Mean Platelet Volume 10.1 fL (9.4-12.3); Platelet Count 154 X10*3/uL (160-400); Red Blood Count 3.04 X10*6/uL (4.20-5.50); Red Cell Distribution Width 13.8 % (11.0-16.0); White Blood Count 10.9 X10*3/uL (4.8-10.8)
[2022-01-13 15:00] VITALS: O2SAT 99
[2022-01-13 15:18] VITALS: BP 113/53; PULSE 83; RESP 18; TEMP 36.8; O2SAT 99
[2022-01-13 16:06] LABS: Glucose, Whole Blood 194 mg/dL (60-115)
--- NOTE | 2022-01-13 16:50 | MHC.CM.PN ---
PATIENT PAIN LEVELS DECREASING. FRANCES[facility] SPENCER REFERRAL UPDATED IN [facility]. CASE MANAGEMENT CONTINUING TO FOLLOW
[2022-01-13] MEDS: HYDROmorphone HCl 0.5 MG/0.5 ML SYRINGE 1 MG IVPUSH (18:53)
[2022-01-13 20:00] VITALS: BP 139/63; PULSE 88; RESP 18; TEMP 36.8; O2SAT 95
[2022-01-13] MEDS: Atorvastatin Calcium 20 MG TABLET PO (20:13)
[2022-01-13] MEDS: oxyCODONE HCl ER 10 MG TAB.ER.12H PO (20:13)
[2022-01-13] MEDS: Sennosides 8.6 MG TABLET 17.2 MG PO (20:14)
[2022-01-13] MEDS: Donepezil HCl 10 MG TABLET PO (20:14)
[2022-01-13] MEDS: Gabapentin 100 MG CAPSULE PO (20:16)
[2022-01-13] MEDS: QUEtiapine Fumarate 25 MG TABLET PO (20:16)
[2022-01-13 20:20] LABS: Glucose, Whole Blood 178 mg/dL (60-115)
[2022-01-13] MEDS: Insulin Lispro 100 UNIT/ML 3 ML VIAL SUBCUT (20:33)
[2022-01-13] MEDS: 0.9 % Sodium Chloride Flush 3 ML SYRINGE IVFLUSH (20:34)
[2022-01-13 23:19] VITALS: BP 124/56; PULSE 77; RESP 18; TEMP 36.8; O2SAT 94
[2022-01-14] VITALS (9 sets, daily range): BP systolic 99–154; BP diastolic 55–67; PULSE 72–90; RESP 16–19; TEMP 36.5–37.3; O2SAT 92–97
[2022-01-14] MEDS: HYDROmorphone HCl 0.5 MG/0.5 ML SYRINGE 1 MG IVPUSH (02:58)
[2022-01-14 07:55] LABS: Glucose, Whole Blood 158 mg/dL (60-115)
[2022-01-14] MEDS: oxyCODONE HCl ER 10 MG TAB.ER.12H PO (08:26)
[2022-01-14] MEDS: polyethylene glycoL 3350 17 GM POWD.PACK PO ×2 (08:26→20:03)
[2022-01-14] MEDS: Cholecalciferol (Vitamin D3) 25 MCG TABLET PO (08:26)
[2022-01-14] MEDS: Apixaban 5 MG TABLET PO (08:27)
[2022-01-14] MEDS: Insulin Lispro 100 UNIT/ML 3 ML VIAL SUBCUT (08:28)
[2022-01-14] MEDS: 0.9 % Sodium Chloride Flush 3 ML SYRINGE IVFLUSH ×2 (08:28→20:03)
[2022-01-14] MEDS: Insulin Glargine,Hum.rec.anlog 100 UNIT/ML 10 ML VIAL 34 UNIT SUBCUT (08:28)
--- NOTE | 2022-01-14 08:31 | P.PNOP_ITS ---
Subjective Subjective Date of Service: 01/14/22 Interval history: POD 4 s/p Right hip hemiarthroplasty with ORIF distal femur No overnight events resting in bed with abduction pillow in place Physical Exam Vital Signs: Vital Signs: Last Vital Signs Temp 99.1 F 01/14/22 07:50 Pulse 79 01/14/22 07:50 Resp 18 01/14/22 07:50 BP 140/63 H 01/14/22 07:50 Pulse Ox 97 01/14/22 07:50 O2 Del Method 01/14/22 04:00 O2 Flow Rate 2 01/10/22 16:34 BMI result Body Mass Index 33.0 Const: General: cooperative, healthy appearing and no acute distress Resp: Effort & Inspection: normal respiratory effort and able to speak in complete sentences Cardio: Rate: regular rate Peripheral pulses: Peripheral pulses 2+ throughout GI: Palpation (GI): Soft to palpation Skin: General skin exam: no rashes or lesions noted Extrem: Other: bandage clean dry and intact. [place] intact. No erythema or effusion. Calf supple nontender. She is able to move ankle, foot and toes. Neurovascularly intact. Procedures Date of Service Date of Service: 01/14/22 Progress Note: A&P Assessment and plan (1) Fracture of distal end of femur: Status: Acute (2) Fracture of femoral neck, right: Status: Acute Assessment and Plan: * Continue pain mgmnt * resume eliquis * begin PT /OT for Right hip hemir/ORIF distal femur--NWB RLE * Dispo planning- cleared from ortho standpoint Time Spent With Patient Time: Total time spent is greater than 50% in coordination of care (as documented) at patient's floor/unit and/or counseling patient: Quality Stroke Does the patient have a stroke diagnosis?: No VTE Prior VTE?: Yes VTE Risk Level:: Medical - moderate - high VTE Device Contraindication: Treatment Not Indicated VTE Drug Contraindication: Treatment Not Indicated
[2022-01-14 10:29] LABS: Hematocrit 24.6 % (37.0-47.0); Hemoglobin 8.1 g/dl (12.0-16.0)
[2022-01-14 10:55] LABS: Anion Gap 13 (12-20); Blood Urea Nitrogen 30 mg/dL (9-16); Calcium 7.7 mg/dL (8.4-10.2); Carbon Dioxide 27 mmol/L (22-29); Chloride 104 mmol/L (96-108); Creatinine Clr Calc Pharmacy 43.2; Estimated Glomerular Filt Rate 52; Glucose Random 185 mg/dL (60-115); Potassium 4.3 mmol/L (3.3-5.1); Sodium 140 mmol/L (135-145)
[2022-01-14 11:56] LABS: Glucose, Whole Blood 146 mg/dL (60-115)
[2022-01-14 13:33] LABS: Alanine Aminotransferase 10 U/L (0-31); Albumin Level 2.5 g/dL (3.5-5.0); Alkaline Phosphatase 150 U/L (39-117); Aspartate Amino Transferase 45 U/L (5-31); Bilirubin Direct 0.4 mg/dL (0.0-0.5); Bilirubin Total 0.7 mg/dL (0.0-1.0)
--- NOTE | 2022-01-14 13:38 | P.PNIM_ITS ---
Subjective Subjective Date of Service: 01/14/22 Interval History: sundowning,anemia Review of Systems very agitated last eveenin,and removed her IV lines. says feeling somewhat better,stillhas pain h/h drop Physical Exam Vital Signs: Vital Signs: Last Vital Signs Temp 98.8 F 01/14/22 11:56 Pulse 72 01/14/22 11:56 Resp 18 01/14/22 11:56 BP 119/55 L 01/14/22 11:56 Pulse Ox 96 01/14/22 11:56 O2 Del Method 01/14/22 11:56 O2 Flow Rate 2 01/10/22 16:34 BMI result Body Mass Index 33.0 Appearance: Alert.? Oriented .?somewhat pain -geeting iv pain med? cvs: rrr, [id number] res: clear to auscultation ,no rhonchii or wheezing abd: no rebound or guarding ,nt, bs present. neuro: axo3 , nonfocal. right leg: bandage clean dry and intact.?? No erythema or? effusion.? Calf supple nonte nder.? She is able to move ankle, foot and toes. still has hip area pain Objective Data Active Medications Amlodipine Besylate (Amlodipine Besylate 5 Mg Tablet) 5 mg PO DAILY [facility]; Protocol Last Admin: 01/12/22 08:14 Dose: 5 mg Documented By: IVA Apixaban (Apixaban 5 Mg Tablet) 5 mg PO BID@0900,1800 [facility] Last Admin: 01/14/22 08:27 Dose: 5 mg Documented By: CLAUDY Artificial Tears (Artificial Tears 15 Ml Drops) 2 drop EYE-BOTH Q4H PRN PRN Reason: Dry Eyes Atorvastatin Calcium (Atorvastatin Calcium 20 Mg Tablet) 20 mg PO BEDTIME [facility] Last Admin: 01/13/22 20:13 Dose: 20 mg Documented By: MARLENE Celecoxib (Celecoxib 200 Mg Capsule) 200 mg PO BID [facility] Last Admin: 01/12/22 08:13 Dose: 200 mg Documented By: IVA Dextrose (Dextrose 50 % 25 Gm/50 Ml Syringe) 25 gm IVPUSH Q15M PRN; Protocol PRN Reason: per Hypoglycemia Standing Ord. Donepezil HCl (Donepezil Hcl 10 Mg Tablet) 10 mg PO BEDTIME [facility] Last Admin: 01/13/22 20:14 Dose: 10 mg Documented By: MARLENE Gabapentin (Gabapentin 100 Mg Capsule) 100 mg PO BEDTIME [facility] Last Admin: 01/13/22 20:16 Dose: 100 mg Documented By: MARLENE Glucose (Glucose Gel 15 Gm Gel..Gram.) 15 gm PO Q15M PRN; Protocol PRN Reason: per Hypoglycemia Standing Ord. Hydromorphone HCl (Hydromorphone Hcl 0.5 Mg/0.5 Ml Syringe) 0.5 mg IVPUSH Q3H P RN; Protocol PRN Reason: Pain, Severe (Pain Scale 7-10) Cefazolin Sodium/Dextrose (Ancef) 2 gm in 50 mls @ 100 mls/hr IV POSTOP [facility] Insulin Glargine (Insulin Glargine,Hum.Rec.Anlog 100 Unit/Ml 10 Ml Vial) 34 unit SUBCUT DAILY@0730 [facility] Last Admin: 01/14/22 08:28 Dose: 34 unit Documented By: CLAUDY Insulin Human Lispro (Insulin Lispro 100 Unit/Ml 3 Ml Vial) 0 unit SUBCUT QIDACHS [facility]; Protocol Last Admin: 01/14/22 12:02 Dose: Not Given Documented By: CLAUDY Non-Admin Reason: No Insulin Coverage Melatonin (Melatonin 3 Mg Tablet) 6 mg PO BEDTIME PRN PRN Reason: Insomnia Midazolam HCl (Midazolam Hcl/Pf 2 Mg/2 Ml Vial) 1 mg IVPUSH ONCE PRN PRN Reason: anxiety/restlessness Omeprazole (Omeprazole 20 Mg Capsule.Dr) 20 mg PO BID@0630,1630 [facility] Last Admin: 01/14/22 05:56 Dose: Not Given Documented By: MARLENE Non-Admin Reason: pt too sleepy Ondansetron HCl (Ondansetron Hcl 4 Mg/2 Ml Vial) 4 mg IVPUSH Q8H PRN PRN Reason: Nausea and Vomiting Oxybutynin Chloride (Oxybutynin Chloride Er 5 Mg Tab.Er.24) 10 mg PO DAILY [facility] Last Admin: 01/14/22 08:26 Dose: 10 mg Documented By: CLAUDY Oxycodone HCl (Oxycodone Hcl Er 10 Mg Tab.Er.12h) 10 mg PO BID [facility] Last Admin: 01/14/22 08:26 Dose: 10 mg Documented By: CLAUDY Oxycodone HCl (Oxycodone Hcl Immed Release 5 Mg Tablet) 10 mg PO Q4H PRN PRN Reason: Pain, Moderate (Pain Scale 4-6 Last Admin: 01/13/22 13:05 Dose: 10 mg Polyethylene Glycol (Polyethylene Glycol 3350 17 Gm Powd.Pack) 17 gm PO DAILY [facility] Last Admin: 01/14/22 08:26 Dose: 17 gm Documented By: CLAUDY Senna (Sennosides 8.6 Mg Tablet) 17.2 mg PO BEDTIME [facility] Last Admin: 01/13/22 20:14 Dose: 17.2 mg Documented By: MARLENE Sodium Chloride (0.9 % Sodium Chloride Flush 3 Ml Syringe) 3 ml IVFLUSH QSHIFT [facility] Last Admin: 01/14/22 08:28 Dose: 3 ml Documented By: CLAUDY Vitamin D (Cholecalciferol (Vitamin D3) 25 Mcg Tablet) 25 mcg PO DAILY [facility] Last Admin: 01/14/22 08:26 Dose: 25 mcg Documented By: CLAUDY Labs CBC & Chem 7: 01/14/22 10:08 01/14/22 10:08 Labs: Laboratory Results - last 24 hr 01/13/22 01/13/22 01/14/22 15:13 20:01 07:49 Anion Gap Estim Creat Clear Calc Estimated GFR POC Glucose 194 H 178 H 158 H Random Glucose Calcium Total Bilirubin Direct Bilirubin AST ALT Alkaline Phosphatase Total Protein Albumin Crossmatch 01/14/22 01/14/22 01/14/22 10:08 11:48 13:12 Anion Gap 13 Estim Creat Clear Calc 43.2 Estimated GFR 52 POC Glucose 146 H Random Glucose 185 H Calcium 7.7 L D Total Bilirubin 0.7 Direct Bilirubin 0.4 AST 45 H D ALT 10 Alkaline Phosphatase 150 H D Total Protein 5.0 L D Albumin 2.5 L D Crossmatch See Detail Assessment and Plan (1) Anemia: Status: Acute (2) Fracture of distal end of femur: Status: Acute (3) Dementia: Status: Acute Plan 76-year-old female who is a resident of assisted living facility and with pertinent history of essential hypertension, mixed hyperlipidemia, insulin-depen dent diabetes mellitus, urinary incontinence, dementia was brought to the emergency department for evaluation of right hip pain. #Right femoral head and neck fracture -s/p 1) ORIF right femur 2) right hip hemiarthroplasty 3) MIKE right hip on 01/10 -pain control with morphine, IV tyelenol, PT oT, Lovenox for DVT prophylaxis and restart Eliquis tomorrow 48 hrs after operation adjusted bowel regimen. # Insulin-dependent type 2 diabetes mellitus--stop IVF with dexrose, resume insulin, montor glucose #Essential hypertension-boerline blood pressure , hold norvasc, diurtics. ? #Urinary incontinence-on oxybutynin. #.? Dementia with behavior disturbances-on continue donepezil, added Seroquel sm all dose also made adjustment in pain meds -might be contributing to above. has sitter psych eval #.? Chronic normocytic anemia: s/p 1unit of RBC 01/10 after surgery, h/h still drop in 8. ( possible postop anemia ): h/h flactuating added 1 prbc ,moniter h/h.added iron suppl Otherwise night denies any bleeding, hip area has big could dressing but no oozing of blood around it # History of pulmonary embolism--has been on hold, resume tomorrow eliquis ,how due o low h/h. currently patient denies any chest pain or shortness of breath or palpitations or any leg pains. Possible malnutrition: Added Ensure, nutrition consult. Frequent turning, incentive spirometry, chest physio. d/w staff in detail. DVT prophylaxis:? Eliquis Full code Above management discussed with patient's son in detail length. He understand and in agreement the above plan. Need for inaptient: Hip fracture and needs surgery,anemia needs transfusion,dementia with behavioural disturbances. Quality Stroke Does the patient have a stroke diagnosis?: No VTE Prior VTE?: Yes VTE Risk Level:: Medical - moderate - high VTE Device Contraindication: Treatment Not Indicated VTE Drug Contraindication: Treatment Not Indicated
[2022-01-14 14:24] LABS: Iron 13 mcg/dL (30-160); Percent Iron Saturation 8 % (15-50); Total Iron Binding Capacity 158 mcg/dL (228-428); Unsaturated Iron Binding 145 ug/dL
[2022-01-14 14:38] LABS: Ferritin 1042 ng/mL (10-250)
[2022-01-14 15:02] LABS: Folate 7.6 ng/mL (> or = 4.0); Vitamin B12 479 pg/mL (200-900)
--- NOTE | 2022-01-14 15:31 | MHC.CM.PN ---
PER TIGER TEXT COMMUNICATION WITH P.T., PATIENT IS NOW BEING RECOMMENDED FOR LTC SECONDARY TO PAIN AND COGNITION. WILL NEED TO DISCUSS OPTIONS WITH HCP
[2022-01-14 16:30] LABS: Glucose, Whole Blood 130 mg/dL (60-115)
[2022-01-14] MEDS: Omeprazole 20 MG CAPSULE.DR PO (16:45)
[2022-01-14] MEDS: HYDROmorphone HCl 0.5 MG/0.5 ML SYRINGE IVPUSH ×2 (17:23→22:01)
--- NOTE | 2022-01-14 17:33 | P.CNPS_ITS ---
History of Present Illness Date of Service: 01/14/2022 Chief Complaint: Right Hip Pain Reason for Consult: Medication as pt is drowsy and intermittently agitated Requesting physician: Deanne Alvarez Sources of Information: chart reviewed HPI Narrative: 76-year-old female who is a resident of assisted living facility and with pertinent history of essential hypertension, mixed hyperlipidemia, insulin- dependent diabetes mellitus, urinary incontinence, dementia was brought to the emergency department for evaluation of right hip pain. Chart reviewed. Spoke with pt's team, she has been agitated 2xs, attempting to pull out IVs, confused. Seroquel 25 mg was utilized with good effect, however pt has been overly sedated. She is on donepezil for dementia. Pt's son was in the room and provided collateral info, as pt was asleep, difficult to rouse. Per her son, pt has been dosing, groaning in pain. At baseline she is pretty bad with her memory and resides at the [facility] assisted [facility] due to needing full care. Per son, she has good days and bad days, does better when she is around other people and tends to be more agitated when she is alone in her room. Medical Evaluation Reviewed: Yes [facility] Medical History (Updated 01/15/22 @ 06:48 by Shannan Brooke NP) Dementia Fracture of distal end of femur HTN (hypertension) Overactive bladder Pulmonary embolism with acute cor pulmonale Diagnostics Vital Signs (24Hr): Vital Signs - 24 hr 01/13/22 20:00 01/13/22 23:19 01/14/22 04:00 Temperature 98.2 F 98.2 F 98.0 F Pulse Rate 88 77 74 Respiratory Rate 18 18 19 Blood Pressure 139/63 124/56 L 99/58 L Pulse Oximetry 95 94 92 Oxygen Delivery Method Room Air Room Air Room Air 01/14/22 07:50 01/14/22 11:56 01/14/22 14:42 Temperature 99.1 F 98.8 F 98.0 F Pulse Rate 79 72 90 Respiratory Rate 18 18 16 Blood Pressure 140/63 H 119/55 L 154/65 H Pulse Oximetry 97 96 Oxygen Delivery Method Room Air 01/14/22 14:59 01/14/22 15:00 01/14/22 16:00 Temperature 98.2 F 98.3 F Pulse Rate 84 87 Respiratory Rate 16 16 Blood Pressure 144/58 H 148/67 H Pulse Oximetry 96 94 Oxygen Delivery Method Room Air Room Air BMI result Body Mass Index 33.0 Labs Results: 01/14/22 10:08 01/14/22 10:08 Labs: Laboratory Results - last 48 hr 01/10/22 01/12/22 01/13/22 12:21 19:13 07:13 WBC RBC Hgb Hct MCV MCH MCHC RDW Plt Count MPV Absolute Nucleated RBC Nucleated RBC % (auto) Sodium Potassium Chloride Carbon Dioxide Anion Gap BUN Creatinine Estim Creat Clear Calc Estimated GFR POC Glucose 164 H 139 H Random Glucose Calcium Iron TIBC % Saturation Unsat Iron Binding Ferritin Total Bilirubin Direct Bilirubin AST ALT Alkaline Phosphatase Total Protein Albumin Vitamin B12 Folate Blood Type Antibody Screen Crossmatch See Detail 01/13/22 01/13/22 01/13/22 13:17 15:13 20:01 WBC 10.9 H RBC 3.04 L Hgb 9.0 L Hct 26.6 L MCV 87.5 MCH 29.6 MCHC 33.8 RDW 13.8 Plt Count 154 L MPV 10.1 Absolute Nucleated RBC 0.000 Nucleated RBC % (auto) 0.0 Sodium Potassium Chloride Carbon Dioxide Anion Gap BUN Creatinine Estim Creat Clear Calc Estimated GFR POC Glucose 194 H 178 H Random Glucose Calcium Iron TIBC % Saturation Unsat Iron Binding Ferritin Total Bilirubin Direct Bilirubin AST ALT Alkaline Phosphatase Total Protein Albumin Vitamin B12 Folate Blood Type Antibody Screen Crossmatch 01/14/22 01/14/22 01/14/22 07:49 10:08 10:08 WBC RBC Hgb 8.1 L Hct 24.6 L MCV MCH MCHC RDW Plt Count MPV Absolute Nucleated RBC Nucleated RBC % (auto) Sodium 140 Potassium 4.3 D Chloride 104 Carbon Dioxide 27 Anion Gap 13 BUN 30 H Creatinine 1.03 Estim Creat Clear Calc 43.2 Estimated GFR 52 POC Glucose 158 H Random Glucose 185 H Calcium 7.7 L D Iron 13 L TIBC 158 L % Saturation 8 L Unsat Iron Binding 145 Ferritin 1042 H Total Bilirubin 0.7 Direct Bilirubin 0.4 AST 45 H D ALT 10 Alkaline Phosphatase 150 H D Total Protein 5.0 L D Albumin 2.5 L D Vitamin B12 Folate Blood Type Antibody Screen Crossmatch 01/14/22 01/14/22 01/14/22 10:08 11:48 13:12 WBC RBC Hgb Hct MCV MCH MCHC RDW Plt Count MPV Absolute Nucleated RBC Nucleated RBC % (auto) Sodium Potassium Chloride Carbon Dioxide Anion Gap BUN Creatinine Estim Creat Clear Calc Estimated GFR POC Glucose 146 H Random Glucose Calcium Iron TIBC % Saturation Unsat Iron Binding Ferritin Total Bilirubin Direct Bilirubin AST ALT Alkaline Phosphatase Total Protein Albumin Vitamin B12 479 Folate 7.6 Blood Type B Positive Antibody Screen NEGATIVE Crossmatch See Detail 01/14/22 16:04 WBC RBC Hgb Hct MCV MCH MCHC RDW Plt Count MPV Absolute Nucleated RBC Nucleated RBC % (auto) Sodium Potassium Chloride Carbon Dioxide Anion Gap BUN Creatinine Estim Creat Clear Calc Estimated GFR POC Glucose 130 H Random Glucose Calcium Iron TIBC % Saturation Unsat Iron Binding Ferritin Total Bilirubin Direct Bilirubin AST ALT Alkaline Phosphatase Total Protein Albumin Vitamin B12 Folate Blood Type Antibody Screen Crossmatch Imaging Radiology Impressions: ITS Impressions Abdomen/Pelvis CT 01/07/22 21:34 IMPRESSION: New right femoral neck and head fracture. There is intramedullary femoral rae and compression nail for an old the healed right femoral neck fracture. Gallstones without wall thickening. Fleischner guidelines were followed. Venous Duplex 01/07/22 22:15 IMPRESSION: No DVT demonstrated in the right lower extremity. Hip/Pelvis X-Ray 01/08/22 00:02 IMPRESSION: Redemonstrated right femoral neck fracture, new from 10/12/2020 and suspicious for an acute finding. Guidance Fluoroscopy 01/10/22 15:35 IMPRESSION: Intraoperative fluoroscopy was obtained. No radiologist was in attendance. Please refer to operative report for complete evaluation. Mental Status Exam Mental Status Exam Narrative: Pt is in hospital attire, asleep, frail elder. Medications Medications Current Medications Amlodipine Besylate (Amlodipine Besylate 5 Mg Tablet) 5 mg PO DAILY [facility]; Protocol Last Admin: 01/12/22 08:14 Dose: 5 mg Apixaban (Apixaban 5 Mg Tablet) 5 mg PO BID@0900,1800 [facility] Last Admin: 01/14/22 08:27 Dose: 5 mg Artificial Tears (Artificial Tears 15 Ml Drops) 2 drop EYE-BOTH Q4H PRN PRN Reason: Dry Eyes Atorvastatin Calcium (Atorvastatin Calcium 20 Mg Tablet) 20 mg PO BEDTIME [facility] Last Admin: 01/13/22 20:13 Dose: 20 mg Celecoxib (Celecoxib 200 Mg Capsule) 200 mg PO BID [facility] Last Admin: 01/12/22 08:13 Dose: 200 mg Dextrose (Dextrose 50 % 25 Gm/50 Ml Syringe) 25 gm IVPUSH Q15M PRN; Protocol PRN Reason: per Hypoglycemia Standing Ord. Docusate Sodium (Docusate Sodium 100 Mg Capsule) 100 mg PO BEDTIME [facility] Donepezil HCl (Donepezil Hcl 10 Mg Tablet) 10 mg PO BEDTIME [facility] Last Admin: 01/13/22 20:14 Dose: 10 mg Ferrous Sulfate (Ferrous Sulfate 300 Mg/5 Ml Liquid) 300 mg PO BIDWM [facility] Last Admin: 01/14/22 16:54 Dose: Not Given Gabapentin (Gabapentin 100 Mg Capsule) 100 mg PO BEDTIME [facility] Last Admin: 01/13/22 20:16 Dose: 100 mg Glucose (Glucose Gel 15 Gm Gel..Gram.) 15 gm PO Q15M PRN; Protocol PRN Reason: per Hypoglycemia Standing Ord. Hydromorphone HCl (Hydromorphone Hcl 0.5 Mg/0.5 Ml Syringe) 0.5 mg IVPUSH Q3H PRN; Protocol PRN Reason: Pain, Severe (Pain Scale 7-10) Last Admin: 01/14/22 17:23 Dose: 0.5 mg Cefazolin Sodium/Dextrose (Ancef) 2 gm in 50 mls @ 100 mls/hr IV POSTOP [facility] Insulin Glargine (Insulin Glargine,Hum.Rec.Anlog 100 Unit/Ml 10 Ml Vial) 34 unit SUBCUT DAILY@0730 [facility] Last Admin: 01/14/22 08:28 Dose: 34 unit Insulin Human Lispro (Insulin Lispro 100 Unit/Ml 3 Ml Vial) 0 unit SUBCUT QIDACHS [facility]; Protocol Last Admin: 01/14/22 16:32 Dose: Not Given Melatonin (Melatonin 3 Mg Tablet) 6 mg PO BEDTIME [facility] Midazolam HCl (Midazolam Hcl/Pf 2 Mg/2 Ml Vial) 1 mg IVPUSH ONCE PRN PRN Reason: anxiety/restlessness Omeprazole (Omeprazole 20 Mg Capsule.Dr) 20 mg PO BID@0630,1630 [facility] Last Admin: 01/14/22 16:45 Dose: 20 mg Ondansetron HCl (Ondansetron Hcl 4 Mg/2 Ml Vial) 4 mg IVPUSH Q8H PRN PRN Reason: Nausea and Vomiting Oxybutynin Chloride (Oxybutynin Chloride Er 5 Mg Tab.Er.24) 10 mg PO DAILY [facility] Last Admin: 01/14/22 08:26 Dose: 10 mg Oxycodone HCl (Oxycodone Hcl Er 10 Mg Tab.Er.12h) 10 mg PO BID [facility] Last Admin: 01/14/22 08:26 Dose: 10 mg Oxycodone HCl (Oxycodone Hcl Immed Release 5 Mg Tablet) 10 mg PO Q4H PRN PRN Reason: Pain, Moderate (Pain Scale 4-6 Last Admin: 01/13/22 13:05 Dose: 10 mg Polyethylene Glycol (Polyethylene Glycol 3350 17 Gm Powd.Pack) 17 gm PO BID [facility] Senna (Sennosides 8.6 Mg Tablet) 17.2 mg PO BEDTIME [facility] Last Admin: 01/13/22 20:14 Dose: 17.2 mg Sodium Chloride (0.9 % Sodium Chloride Flush 3 Ml Syringe) 3 ml IVFLUSH QSHIFT [facility] Last Admin: 01/14/22 15:45 Dose: Not Given Vitamin D (Cholecalciferol (Vitamin D3) 25 Mcg Tablet) 25 mcg PO DAILY [facility] Last Admin: 01/14/22 08:26 Dose: 25 mcg Allergies Allergies Allergy/AdvReac Type Severity Reaction Status Date / Time aluminum Allergy Unknown Verified 01/08/22 01:30 Assessment & Plan Assessment & Plan (1) Dementia with behavioral disturbance: Status: Acute Code(s): F03.918 - Unspecified dementia, unspecified severity, with other behavioral disturbance Plan Plan: Will discontinue gabapentin 100 mg at bedtime, as this has unclear benefit for pain and may be contributing to sedation. Will discontinue melatonin, as pt is already drowsy at night. Will add seroquel 12.5 mg Q6H PRN for agitation, as she may benefit from a lower dose than 25 mg and monitor for benefit. Consider low dose depakote sprinkles in place of seroquel if seroquel is too sedating/ ineffective and pt becomes agitated on consistent daily basis. May re-consult with psych as needed. Thank you for this consultation. If you have any questions or concerns, please do not hesitate to contact psychiatry service. I spent minutes with the patient and/or on the patient floor today, greater than?50% of which was spent counseling/coordinating care. Patient educated on: diagnosis, medication risk/benefits and therapeutic strategies
[2022-01-14 19:36] LABS: Glucose, Whole Blood 129 mg/dL (60-115)
[2022-01-14] MEDS: Sennosides 8.6 MG TABLET 17.2 MG PO (20:03)
[2022-01-14] MEDS: Docusate Sodium 100 MG CAPSULE PO (20:03)
[2022-01-14] MEDS: Donepezil HCl 10 MG TABLET PO (20:03)
[2022-01-14] MEDS: Atorvastatin Calcium 20 MG TABLET PO (20:03)
[2022-01-14] MEDS: QUEtiapine Fumarate 25 MG TABLET PO (20:07)
[2022-01-15] MEDS: HYDROmorphone HCl 0.5 MG/0.5 ML SYRINGE IVPUSH ×2 (01:47→05:09)
[2022-01-15 04:00] VITALS: BP 142/65; PULSE 85; RESP 18; TEMP 36.7; O2SAT 95
[2022-01-15] MEDS: Omeprazole 20 MG CAPSULE.DR PO ×2 (06:06→18:13)
[2022-01-15 07:34] VITALS: BP 155/69; PULSE 84; RESP 18; TEMP 37.2; O2SAT 94
[2022-01-15 07:41] LABS: Glucose, Whole Blood 153 mg/dL (60-115)
[2022-01-15] MEDS: Insulin Glargine,Hum.rec.anlog 100 UNIT/ML 10 ML VIAL 34 UNIT SUBCUT (08:01)
[2022-01-15] MEDS: Insulin Lispro 100 UNIT/ML 3 ML VIAL SUBCUT (08:01)
[2022-01-15] MEDS: Ferrous Sulfate 300 MG/5 ML LIQUID PO ×2 (08:02→18:13)
[2022-01-15] MEDS: Cholecalciferol (Vitamin D3) 25 MCG TABLET PO (08:02)
[2022-01-15] MEDS: 0.9 % Sodium Chloride Flush 3 ML SYRINGE IVFLUSH ×2 (08:03→22:29)
[2022-01-15] MEDS: polyethylene glycoL 3350 17 GM POWD.PACK PO ×2 (08:03→22:29)
--- NOTE | 2022-01-15 08:12 | P.PNIM_ITS ---
Subjective Subjective Date of Service: 01/15/22 Interval History: decreased po inatke,somewhat in pain answer few questions but need lot of encouragement po inatke similar to yesterday Get drowsy with pain medications Review of Systems No fevers, denies abdominal pain or chest pain or shortness ofbretah. Physical Exam Vital Signs: Vital Signs: Last Vital Signs Temp 98.9 F 01/15/22 07:34 Pulse 84 01/15/22 07:34 Resp 18 01/15/22 07:34 BP 155/69 H 01/15/22 07:34 Pulse Ox 94 01/15/22 07:34 O2 Del Method 01/15/22 07:34 O2 Flow Rate 2 01/10/22 16:34 BMI result Body Mass Index 33.0 Appearance: Alert.? Oriented .?somewhat pain -geeting iv pain med? cvs: rrr, [id number] res: clear to auscultation ,no rhonchii or wheezing abd: no rebound or guarding ,nt, bs present. neuro: axo3 , nonfocal. right leg:bandage clean dry and intact.?? No erythema or? effusion.? Calf supple nontender.? She is able to move ankle, foot and toes. still has hip area pain Objective Data Active Medications Amlodipine Besylate (Amlodipine Besylate 5 Mg Tablet) 5 mg PO DAILY [facility]; Protocol Last Admin: 01/12/22 08:14 Dose: 5 mg Documented By: IVA Apixaban (Apixaban 5 Mg Tablet) 5 mg PO BID@0900,1800 [facility] Last Admin: 01/14/22 08:27 Dose: 5 mg Documented By: CLAUDY Artificial Tears (Artificial Tears 15 Ml Drops) 2 drop EYE-BOTH Q4H PRN PRN Reason: Dry Eyes Atorvastatin Calcium (Atorvastatin Calcium 20 Mg Tablet) 20 mg PO BEDTIME [facility] Last Admin: 01/14/22 20:03 Dose: 20 mg Documented By: MARLENE Celecoxib (Celecoxib 200 Mg Capsule) 200 mg PO BID [facility] Last Admin: 01/12/22 08:13 Dose: 200 mg Documented By: IVA Dextrose (Dextrose 50 % 25 Gm/50 Ml Syringe) 25 gm IVPUSH Q15M PRN; Protocol PRN Reason: per Hypoglycemia Standing Ord. Docusate Sodium (Docusate Sodium 100 Mg Capsule) 100 mg PO BEDTIME [facility] Last Admin: 01/14/22 20:03 Dose: 100 mg Documented By: MARLENE Donepezil HCl (Donepezil Hcl 10 Mg Tablet) 10 mg PO BEDTIME [facility] Last Admin: 01/14/22 20:03 Dose: 10 mg Documented By: MARLENE Ferrous Sulfate (Ferrous Sulfate 300 Mg/5 Ml Liquid) 300 mg PO BIDWM [facility] Last Admin: 01/15/22 08:02 Dose: 300 mg Documented By: POLY Glucose (Glucose Gel 15 Gm Gel..Gram.) 15 gm PO Q15M PRN; Protocol PRN Reason: per Hypoglycemia Standing Ord. Hydromorphone HCl (Hydromorphone Hcl 0.5 Mg/0.5 Ml Syringe) 0.5 mg IVPUSH Q3H PRN; Protocol PRN Reason: Pain, Severe (Pain Scale 7-10) Last Admin: 01/15/22 05:09 Dose: 0.5 mg Documented By: MARLENE Cefazolin Sodium/Dextrose (Ancef) 2 gm in 50 mls @ 100 mls/hr IV POSTOP [facility] Insulin Glargine (Insulin Glargine,Hum.Rec.Anlog 100 Unit/Ml 10 Ml Vial) 34 unit SUBCUT DAILY@0730 [facility] Last Admin: 01/15/22 08:01 Dose: 34 unit Documented By: POLY Insulin Human Lispro (Insulin Lispro 100 Unit/Ml 3 Ml Vial) 0 unit SUBCUT QIDACHS [facility]; Protocol Last Admin: 01/15/22 08:01 Dose: 2 unit Documented By: POLY Midazolam HCl (Midazolam Hcl/Pf 2 Mg/2 Ml Vial) 1 mg IVPUSH ONCE PRN PRN Reason: anxiety/restlessness Omeprazole (Omeprazole 20 Mg Capsule.Dr) 20 mg PO BID@0630,1630 [facility] Last Admin: 01/15/22 06:06 Dose: 20 mg Documented By: MARLENE Ondansetron HCl (Ondansetron Hcl 4 Mg/2 Ml Vial) 4 mg IVPUSH Q8H PRN PRN Reason: Nausea and Vomiting Oxybutynin Chloride (Oxybutynin Chloride Er 5 Mg Tab.Er.24) 10 mg PO DAILY [facility] Last Admin: 01/15/22 08:02 Dose: 10 mg Documented By: POLY Oxycodone HCl (Oxycodone Hcl Er 10 Mg Tab.Er.12h) 10 mg PO BID [facility] Last Admin: 01/14/22 08:26 Dose: 10 mg Documented By: CLAUDY Oxycodone HCl (Oxycodone Hcl Immed Release 5 Mg Tablet) 10 mg PO Q4H PRN PRN Reason: Pain, Moderate (Pain Scale 4-6 Last Admin: 01/13/22 13:05 Dose: 10 mg Polyethylene Glycol (Polyethylene Glycol 3350 17 Gm Powd.Pack) 17 gm PO BID [facility] Last Admin: 01/15/22 08:03 Dose: 17 gm Documented By: POLY Quetiapine Fumarate (Quetiapine Fumarate 25 Mg Tablet) 12.5 mg PO Q6H PRN PRN Reason: agitation Senna (Sennosides 8.6 Mg Tablet) 17.2 mg PO BEDTIME [facility] Last Admin: 01/14/22 20:03 Dose: 17.2 mg Documented By: MARLENE Sodium Chloride (0.9 % Sodium Chloride Flush 3 Ml Syringe) 3 ml IVFLUSH QSHIFT [facility] Last Admin: 01/15/22 08:03 Dose: 3 ml Documented By: POLY Vitamin D (Cholecalciferol (Vitamin D3) 25 Mcg Tablet) 25 mcg PO DAILY [facility] Last Admin: 01/15/22 08:02 Dose: 25 mcg Documented By: POLY Labs CBC & Chem 7: 01/15/22 08:21 01/14/22 10:08 Labs: Laboratory Results - last 24 hr 01/10/22 01/14/22 01/14/22 12:21 10:08 10:08 Anion Gap 13 Estim Creat Clear Calc 43.2 Estimated GFR 52 POC Glucose Random Glucose 185 H Calcium 7.7 L D Iron 13 L TIBC 158 L % Saturation 8 L Unsat Iron Binding 145 Ferritin 1042 H Total Bilirubin 0.7 Direct Bilirubin 0.4 AST 45 H D ALT 10 Alkaline Phosphatase 150 H D Total Protein 5.0 L D Albumin 2.5 L D Vitamin B12 479 Folate 7.6 Blood Type Antibody Screen Crossmatch See Detail 01/14/22 01/14/22 01/14/22 11:48 13:12 16:04 Anion Gap Estim Creat Clear Calc Estimated GFR POC Glucose 146 H 130 H Random Glucose Calcium Iron TIBC % Saturation Unsat Iron Binding Ferritin Total Bilirubin Direct Bilirubin AST ALT Alkaline Phosphatase Total Protein Albumin Vitamin B12 Folate Blood Type B Positive Antibody Screen NEGATIVE Crossmatch See Detail 01/14/22 01/15/22 19:22 07:33 Anion Gap Estim Creat Clear Calc Estimated GFR POC Glucose 129 H 153 H Random Glucose Calcium Iron TIBC % Saturation Unsat Iron Binding Ferritin Total Bilirubin Direct Bilirubin AST ALT Alkaline Phosphatase Total Protein Albumin Vitamin B12 Folate Blood Type Antibody Screen Crossmatch Assessment and Plan (1) Anemia: Status: Acute (2) Fracture of distal end of femur: Status: Acute (3) Dementia: Status: Acute Plan 76-year-old female who is a resident of assisted living facility and with pertinent history of essential hypertension, mixed hyperlipidemia, insulin- dependent diabetes mellitus, urinary incontinence, dementia was brought to the emergency department for evaluation of right hip pain. #Right femoral head and neck fracture -s/p 1) ORIF right femur 2) right hip hemiarthroplasty 3) MIKE right hip on 01/10 -pain control with morphine, IV tyelenol, PT oT, Lovenox for DVT prophylaxis and restart Eliquis tomorrow 48 hrs after operation adjusted bowel regimen. # Insulin-dependent type 2 diabetes mellitus- resume insulin, montor glucose oral intake is low ,encouraged #Essential hypertension-boerline blood pressure , hold norvasc, diurtics. ? #Urinary incontinence-on oxybutynin. #? Dementia with behavior disturbances-on continue donepezil, added Seroquel small dose prn also made adjustment in pain meds because patient gets drowsy with oxycontin/high dose dilaudid -might be contributing to above. has sitter psych eval noted #.? Chronic normocytic anemia: s/p 1unit of RBC 01/10 after surgery, h/h still drop in 8. ( possible postop anemia ): h/h flactuating added 1 prbc ,moniter h/h: around 10. added iron suppl Otherwise night denies any bleeding, hip area has big could dressing but no oozing of blood around it # History of pulmonary embolism--has been on hold, resume tomorrow eliquis ,how due o low h/h. currently patient denies any chest pain or shortness of breath or palpitations or any leg pains. Possible malnutrition: Added Ensure, nutrition consult. Frequent turning, incentive spirometry, chest physio. d/w staff in detail. DVT prophylaxis:? Nigel Full code Above management discussed with patient's son in detail length. He understand and in agreement the above plan. Need for inaptient: Hip fracture and needs surgery,anemia needs transfusion,dementia with behavioural disturbances. Quality Stroke Does the patient have a stroke diagnosis?: No VTE Prior VTE?: Yes VTE Risk Level:: Medical - moderate - high VTE Device Contraindication: Treatment Not Indicated VTE Drug Contraindication: Treatment Not Indicated
[2022-01-15] MEDS: Mirtazapine 7.5 MG TABLET PO (08:24)
--- NOTE | 2022-01-15 08:31 | P.PNOP_ITS ---
Subjective Subjective Date of Service: 01/15/22 Interval history: POD 5 s/p Right hip hemiarthroplasty with ORIF distal femur No overnight events resting in bed with abduction pillow in place Physical Exam Vital Signs: Vital Signs: Last Vital Signs Temp 98.9 F 01/15/22 07:34 Pulse 84 01/15/22 07:34 Resp 18 01/15/22 07:34 BP 155/69 H 01/15/22 07:34 Pulse Ox 94 01/15/22 07:34 O2 Del Method 01/15/22 07:34 O2 Flow Rate 2 01/10/22 16:34 BMI result Body Mass Index 33.0 Const: General: cooperative, healthy appearing and no acute distress Resp: Effort & Inspection: normal respiratory effort and able to speak in complete sentences Cardio: Rate: regular rate Peripheral pulses: Peripheral pulses 2+ throughout GI: Palpation (GI): Soft to palpation Skin: General skin exam: no rashes or lesions noted Extrem: Other: bandage clean dry and intact. No evidence of bleeding. Latosha intact. No erythema or effusion. Calf supple nontender. She is able to move ankle, foot and toes. Neurovascularly intact. Procedures Date of Service Date of Service: 01/15/22 Progress Note: A&P Assessment and plan (1) Fracture of distal end of femur: Status: Acute (2) Fracture of femoral neck, right: Status: Acute Assessment and Plan: * Continue pain mgmnt * continue eliquis * begin PT /OT for Right hip hemir/ORIF distal femur--NWB RLE * Dispo planning- cleared from ortho standpoint Time Spent With Patient Time: Total time spent is greater than 50% in coordination of care (as documented) at patient's floor/unit and/or counseling patient: Quality Stroke Does the patient have a stroke diagnosis?: No VTE Prior VTE?: Yes VTE Risk Level:: Medical - moderate - high VTE Device Contraindication: Treatment Not Indicated VTE Drug Contraindication: Treatment Not Indicated
[2022-01-15 08:34] LABS: Hematocrit 32.6 % (37.0-47.0); Hemoglobin 10.7 g/dl (12.0-16.0)
[2022-01-15 11:22] VITALS: BP 117/58; PULSE 91; RESP 17; TEMP 37.6; O2SAT 99
[2022-01-15 12:10] LABS: Glucose, Whole Blood 123 mg/dL (60-115)
--- NOTE | 2022-01-15 12:26 | MHC.CM.PN ---
This conventional underwriter disscussed discharge planning with son/HCP. If patient has no improvements in cognition/pain and needs LTC- he would prefer pt go to local facility preferably [facility] (referral placed) If patient DOES improve and can go to [facility] he is agreeable to [facility]. CM will continue to follow for d/c planning needs.
[2022-01-15] MEDS: Lactated Ringers 1,000 ML 80 ML IVCONT (12:48)
[2022-01-15 14:19] VITALS: BMI 33.0
--- NOTE | 2022-01-15 14:28 | MHC.CLN ---
NUTRITION CONSULT CONSULT FOR DECREASED INTAKE. DIET=REGULAR. ENSURE CLEAR TID PROVIDES ADDITIONAL 720 KCALS, 24 G PROTEIN. INTAKE POOR SINCE ADMISSION, 0-25%, WITH ONE MEAL 50%. 1:1 FEEDING ASSIST. NUTRITION DX NON SEVERE MALNUTRITION IN THE CONTEXT OF ACUTE ILLNESS OR INJURY. CONTINUE CURRENT DIET AND SUPPLEMENT. PROVIDE FEEDING ASSISTANCE. ENCOURAGE INTAKE OF MEALS AND SUPPLEMENT. FOLLOW FOR INTAKE AND WEIGHT.
[2022-01-15 15:23] VITALS: BP 152/67; PULSE 83; RESP 16; TEMP 37.4; O2SAT 98
[2022-01-15 15:59] LABS: Glucose, Whole Blood 90 mg/dL (60-115)
[2022-01-15 17:42] VITALS: BP 140/61; PULSE 83; RESP 18; TEMP 37
[2022-01-15] MEDS: Apixaban 5 MG TABLET PO (18:13)
[2022-01-15 19:15] VITALS: BP 157/70; PULSE 81; RESP 16; TEMP 37.2; O2SAT 97
[2022-01-15 19:51] LABS: Glucose, Whole Blood 85 mg/dL (60-115)
[2022-01-15] MEDS: Docusate Sodium 100 MG CAPSULE PO (22:29)
[2022-01-15] MEDS: Sennosides 8.6 MG TABLET 17.2 MG PO (22:29)
[2022-01-15] MEDS: Atorvastatin Calcium 20 MG TABLET PO (22:29)
[2022-01-16] VITALS (7 sets, daily range): BP systolic 90–153; BP diastolic 40–89; PULSE 65–86; RESP 16–20; TEMP 36.7–37.2; O2SAT 96–100
--- NOTE | 2022-01-16 00:52 | PC.NURSE ---
MARKETING PROFESSOR reported that patient had not peed the whole shift. Patient was bladder scanned. Patient was retaining 350 ml. Md was ordered straight cath. Patient was straight cath and 400 ml was released.
[2022-01-16] MEDS: Lactated Ringers 1,000 ML 80 ML IVCONT ×2 (01:25→10:26)
[2022-01-16] MEDS: Omeprazole 20 MG CAPSULE.DR PO ×2 (06:45→16:45)
[2022-01-16 08:10] LABS: Glucose, Whole Blood 124 mg/dL (60-115)
[2022-01-16 08:56] LABS: Anion Gap 13 (12-20); Blood Urea Nitrogen 18 mg/dL (9-16); Carbon Dioxide 28 mmol/L (22-29); Chloride 107 mmol/L (96-108); Creatinine Clr Calc Pharmacy 57.7; Estimated Glomerular Filt Rate > 60; Glucose Random 138 mg/dL (60-115); Potassium 4.3 mmol/L (3.3-5.1); Sodium 144 mmol/L (135-145)
[2022-01-16] MEDS: 0.9 % Sodium Chloride Flush 3 ML SYRINGE IVFLUSH ×2 (08:56→20:26)
[2022-01-16] MEDS: Apixaban 5 MG TABLET PO ×2 (08:56→16:46)
[2022-01-16] MEDS: Cholecalciferol (Vitamin D3) 25 MCG TABLET PO (08:56)
[2022-01-16] MEDS: Ferrous Sulfate 300 MG/5 ML LIQUID PO ×2 (08:56→16:45)
[2022-01-16] MEDS: polyethylene glycoL 3350 17 GM POWD.PACK PO (08:56)
[2022-01-16] MEDS: Acetaminophen 1,000 MG/100 ML PIGGYBACK 400 MG IV (09:44)
[2022-01-16 11:50] LABS: Glucose, Whole Blood 152 mg/dL (60-115)
[2022-01-16] MEDS: 0.9 % Sodium Chloride 1,000 ML 100 ML IVCONT ×2 (13:39→20:27)
--- NOTE | 2022-01-16 14:15 | HO.PM.IMPN ---
Subjective Subjective Date of Service: 01/16/22 Interval History: Dementia, vulvar lining sloughing?/erosion vs rash Urinary retention. Review of Systems Oral intake is somewhat better today, denies any chest pain or shortness of breath or abdominal pain seems more awake Physical Exam Vital Signs: Vital Signs: Last Vital Signs Temp 99 F 01/16/22 08:00 Pulse 79 01/16/22 08:00 Resp 17 01/16/22 08:00 BP 94/48 L 01/16/22 12:33 Pulse Ox 100 01/16/22 08:00 O2 Del Method 01/16/22 08:00 O2 Flow Rate 2 01/10/22 16:34 BMI result Body Mass Index 33.0 Appearance: Alert.? Oriented .?somewhat pain -geeting iv pain med? cvs: rrr, [id number] res: clear to auscultation ,no rhonchii or wheezing abd: no rebound or guarding ,nt, bs present. neuro: axo3 , nonfocal. right leg:bandage clean dry and intact.?? No erythema or? effusion.? Calf supple nontender.? She is able to move ankle, foot and toes. :? inner vulvar wall sloughing vs rash still has hip area pain Objective Data Active Medications Amlodipine Besylate (Amlodipine Besylate 5 Mg Tablet) 5 mg PO DAILY [facility]; Protocol Last Admin: 01/12/22 08:14 Dose: 5 mg Documented By: IVA Apixaban (Apixaban 5 Mg Tablet) 5 mg PO BID@0900,1800 [facility] Last Admin: 01/16/22 08:56 Dose: 5 mg Documented By: RAKEL Artificial Tears (Artificial Tears 15 Ml Drops) 2 drop EYE-BOTH Q4H PRN PRN Reason: Dry Eyes Atorvastatin Calcium (Atorvastatin Calcium 20 Mg Tablet) 20 mg PO BEDTIME [facility] Last Admin: 01/15/22 22:29 Dose: 20 mg Documented By: ASHLEY Dextrose (Dextrose 50 % 25 Gm/50 Ml Syringe) 25 gm IVPUSH Q15M PRN; Protocol PRN Reason: per Hypoglycemia Standing Ord. Docusate Sodium (Docusate Sodium 100 Mg Capsule) 100 mg PO BEDTIME [facility] Last Admin: 01/15/22 22:29 Dose: 100 mg Documented By: ASHLEY Donepezil HCl (Donepezil Hcl 10 Mg Tablet) 10 mg PO BEDTIME [facility] Last Admin: 01/14/22 20:03 Dose: 10 mg Documented By: MARLENE Ferrous Sulfate (Ferrous Sulfate 300 Mg/5 Ml Liquid) 300 mg PO BIDWM [facility] Last Admin: 01/16/22 08:56 Dose: 300 mg Documented By: RAKEL Glucose (Glucose Gel 15 Gm Gel..Gram.) 15 gm PO Q15M PRN; Protocol PRN Reason: per Hypoglycemia Standing Ord. Hydromorphone HCl (Hydromorphone Hcl 0.5 Mg/0.5 Ml Syringe) 0.5 mg IVPUSH Q3H PRN; Protocol PRN Reason: Pain, Severe (Pain Scale 7-10) Last Admin: 01/15/22 05:09 Dose: 0.5 mg Documented By: MARLENE Cefazolin Sodium/Dextrose (Ancef) 2 gm in 50 mls @ 100 mls/hr IV POSTOP DIGNA Lactated Ringer's (Lr) 1,000 mls @ 80 mls/hr IVCONT .[id number] [facility] Last Infusion: 01/16/22 13:41 Dose: 0 mls/hr Documented By: RAKEL Acetaminophen (Ofirmev) 1,000 mg in 100 mls @ 400 mls/hr IV Q6H PRN PRN Reason: Pain, Moderate (Pain Scale 4-6 Last Infusion: 01/16/22 10:27 Dose: 400 mls/hr Documented By: RAKEL Sodium Chloride (Ns) 1,000 mls @ 100 mls/hr IVCONT .Q10H [facility] Last Admin: 01/16/22 13:39 Dose: 100 mls/hr Documented By: RAKEL Insulin Glargine (Insulin Glargine,Hum.Rec.Anlog 100 Unit/Ml 10 Ml Vial) 34 unit SUBCUT DAILY@0730 [facility] Last Admin: 01/15/22 08:01 Dose: 34 unit Documented By: POLY Insulin Human Lispro (Insulin Lispro 100 Unit/Ml 3 Ml Vial) 0 unit SUBCUT QIDACHS [facility]; Protocol Last Admin: 01/16/22 12:38 Dose: Not Given Documented By: RAKEL Non-Admin Reason: No Insulin Coverage Omeprazole (Omeprazole 20 Mg Capsule.) 20 mg PO BID@0630,1630 [facility] Last Admin: 01/16/22 06:45 Dose: 20 mg Documented By: ASHLEY Ondansetron HCl (Ondansetron Hcl 4 Mg/2 Ml Vial) 4 mg IVPUSH Q8H PRN PRN Reason: Nausea and Vomiting Oxybutynin Chloride (Oxybutynin Chloride Er 5 Mg Tab.Er.24) 10 mg PO DAILY [facility] Last Admin: 01/15/22 08:02 Dose: 10 mg Documented By: POLY Oxycodone HCl (Oxycodone Hcl Er 10 Mg Tab.Er.12h) 10 mg PO BID [facility] Last Admin: 01/14/22 08:26 Dose: 10 mg Documented By: CLAUDY Oxycodone HCl (Oxycodone Hcl Immed Release 5 Mg Tablet) 5 mg PO Q4H PRN PRN Reason: Pain, Moderate (Pain Scale 4-6 Polyethylene Glycol (Polyethylene Glycol 3350 17 Gm Powd.Pack) 17 gm PO BID [facility] Last Admin: 01/16/22 08:56 Dose: 17 gm Documented By: RAKEL Quetiapine Fumarate (Quetiapine Fumarate 25 Mg Tablet) 12.5 mg PO Q6H PRN PRN Reason: agitation Senna (Sennosides 8.6 Mg Tablet) 17.2 mg PO BEDTIME [facility] Last Admin: 01/15/22 22:29 Dose: 17.2 mg Documented By: ASHLEY Sodium Chloride (0.9 % Sodium Chloride Flush 3 Ml Syringe) 3 ml IVFLUSH QSHIFT [facility] Last Admin: 01/16/22 08:56 Dose: 3 ml Documented By: RAKEL Vitamin D (Cholecalciferol (Vitamin D3) 25 Mcg Tablet) 25 mcg PO DAILY [facility] Last Admin: 01/16/22 08:56 Dose: 25 mcg Documented By: RAKEL Labs CBC & Chem 7: 01/15/22 08:21 01/16/22 08:16 Labs: Laboratory Results - last 24 hr 01/14/22 01/15/22 01/15/22 13:12 15:29 19:20 Anion Gap Estim Creat Clear Calc Estimated GFR POC Glucose 90 85 Random Glucose Calcium Crossmatch See Detail 01/16/22 01/16/22 01/16/22 07:49 08:16 11:22 Anion Gap 13 Estim Creat Clear Calc 57.7 Estimated GFR > 60 POC Glucose 124 H 152 H Random Glucose 138 H Calcium 8.0 L Crossmatch Assessment and Plan (1) Dementia with behavioral disturbance: Status: Acute (2) Anemia: Status: Acute (3) Urinary retention: Status: Acute Plan 76-year-old female who is a resident of assisted living facility and with pertinent history of essential hypertension, mixed hyperlipidemia, insulin-dependent diabetes mellitus, urinary incontinence, dementia was brought to the emergency department for evaluation of right hip pain. #Right femoral head and neck fracture -s/p 1) ORIF right femur 2) right hip hemiarthroplasty 3) MIKE right hip on 01/10 -pain control with morphine, IV tyelenol, PT oT, Lovenox for DVT prophylaxis and restart Eliquis tomorrow 48 hrs after operation adjusted bowel regimen. # Insulin-dependent type 2 diabetes mellitus- resume insulin, montor glucose oral intake is low ,encouraged #Essential hypertension-boderline blood pressure , hold norvasc, diurtics. added iv fluids ? #Urinary incontinence-hold oxybutynin due to drowsiness . #? Dementia with behavior disturbances-on continue donepezil, added Seroquel small dose prn also made adjustment in pain meds because patient gets drowsy with oxycontin/high dose dilaudid? -might be contributing to above. mental status seems improvin has sitter psych eval noted. #.? Chronic normocytic anemia: s/p 1unit of RBC 01/10 after surgery, h/h still drop in 8. ( possible postop anemia ): h/h flactuating added 1 prbc ,moniter h/h: around 10. added iron suppl Otherwise night denies any bleeding, hip area has big could dressing but no oozing of blood around it # History of pulmonary embolism--has been on hold, resume tomorrow eliquis ,how due o low h/h. currently patient denies any chest pain or shortness of breath or palpitations or any leg pains. Possible malnutrition:? Added Ensure, nutrition consult. Frequent turning, incentive spirometry, chest physio. urinary retenion/vulvar area sloughing vs rash : to avoid further sloughing -will placed [facility] eval -for above . d/w staff in detail. DVT prophylaxis:? Nigel Full code Above management discussed with patient's son in detail length.? He understand and in agreement the above plan. Need for inaptient: Hip fracture and needs surgery,anemia needs transfusion,dementia with behavioural disturbances. Quality Stroke Does the patient have a stroke diagnosis?: No VTE Prior VTE?: Yes VTE Risk Level:: Medical - moderate - high VTE Device Contraindication: Treatment Not Indicated VTE Drug Contraindication: Treatment Not Indicated
[2022-01-16 15:53] LABS: Glucose, Whole Blood 219 mg/dL (60-115)
--- NOTE | 2022-01-16 16:16 | PC.NURSE ---
AT START OF SHIFT PT WAS FOUND TO BE IN A RAPID A-FIB HR 140-160. SHE WAS EVALUATED BY YVONNE LAN. BP 106/66. PT WAS GIVEN IV METOPROLOL AND DIGOXIN. PT COVERTED TO SR STABLE REST OF SHIFT.
[2022-01-16] MEDS: Insulin Lispro 100 UNIT/ML 3 ML VIAL SUBCUT ×2 (16:45→20:26)
[2022-01-16 19:42] LABS: Glucose, Whole Blood 168 mg/dL (60-115)
[2022-01-16] MEDS: Sennosides 8.6 MG TABLET 17.2 MG PO (20:27)
[2022-01-16] MEDS: Atorvastatin Calcium 20 MG TABLET PO (20:27)
[2022-01-16] MEDS: Docusate Sodium 100 MG CAPSULE PO (20:27)
[2022-01-17 04:00] VITALS: BP 102/52; PULSE 70; RESP 18; TEMP 36.7; O2SAT 96
[2022-01-17] MEDS: 0.9 % Sodium Chloride 1,000 ML 100 ML IVCONT (05:19)
[2022-01-17] MEDS: Omeprazole 20 MG CAPSULE.DR PO ×2 (05:19→17:39)
[2022-01-17 07:43] VITALS: BP 137/62; PULSE 70; RESP 18; TEMP 36.9; O2SAT 95
[2022-01-17 08:18] LABS: Glucose, Whole Blood 186 mg/dL (60-115)
[2022-01-17 08:45] LABS: Hematocrit 27.3 % (37.0-47.0)
[2022-01-17] MEDS: Cholecalciferol (Vitamin D3) 25 MCG TABLET PO (09:00)
[2022-01-17] MEDS: Ferrous Sulfate 300 MG/5 ML LIQUID PO ×2 (09:00→17:39)
[2022-01-17] MEDS: Insulin Lispro 100 UNIT/ML 3 ML VIAL SUBCUT ×3 (09:00→20:53)
[2022-01-17] MEDS: 0.9 % Sodium Chloride Flush 3 ML SYRINGE IVFLUSH (09:00)
[2022-01-17] MEDS: Apixaban 5 MG TABLET PO ×2 (09:00→17:39)
--- NOTE | 2022-01-17 09:13 | P.CNUR_ITS ---
History of Present Illness Consult details Consult date: 01/17/22 Narrative: 76-year-old female who is a resident of assisted living facility and with pertinent history of essential hypertension, mixed hyperlipidemia, insulin- dependent diabetes mellitus,urinary incontinence, dementia was brought to the emergency department for evaluation of right hip pain.? Patient is a very poor historian and history was obtained from chart review.? In the emergency department, CT scan revealed new right femoral neck and head fracture.?The patient is s/p Right hip hemiarthroplasty with ORIF distal femur 01/10/22. Urology consult called for urinary retention and excoriation external genitalia. Paula currently in place. The patient has comorbidity dementia, home meds include oxybutynin for OAB symptoms. Review of Systems Review of Systems: 10 point ROS negative other than stated in [facility] Past Medical History Medical History Dementia Fracture of distal end of femur HTN (hypertension) Overactive bladder Pulmonary embolism with acute cor pulmonale Social History Social History Household Members: None Housing: Assisted Living Facility Patient Tobacco Use Status: Former Tobacco user Tobacco use type: Cigar Second Hand Smoke Exposure: No Advance Directives Date on File: 10/12/20 service: No Current occupational status: retired Meds Allergies Allergy/AdvReac Type Severity Reaction Status Date / Time aluminum Allergy Unknown Verified 01/08/22 01:30 Active Medications: Current Medications Amlodipine Besylate (Amlodipine Besylate 5 Mg Tablet) 5 mg PO DAILY DIGNA; Protocol Last Admin: 01/12/22 08:14 Dose: 5 mg Apixaban (Apixaban 5 Mg Tablet) 5 mg PO BID@0900,1800 [facility] Last Admin: 01/17/22 09:00 Dose: 5 mg Artificial Tears (Artificial Tears 15 Ml Drops) 2 drop EYE-BOTH Q4H PRN PRN Reason: Dry Eyes Atorvastatin Calcium (Atorvastatin Calcium 20 Mg Tablet) [address] [facility] Last Admin: 01/16/22 20:27 Dose: 20 mg Dextrose (Dextrose 50 % 25 Gm/50 Ml Syringe) 25 gm IVPUSH Q15M PRN; Protocol PRN Reason: per Hypoglycemia Standing Ord. Docusate Sodium (Docusate Sodium 100 Mg Capsule) [address] [facility] Last Admin: 01/16/22 20:27 Dose: 100 mg Donepezil HCl (Donepezil Hcl 10 Mg Tablet) [address] [facility] Last Admin: 01/14/22 20:03 Dose: 10 mg Ferrous Sulfate (Ferrous Sulfate 300 Mg/5 Ml Liquid) [address] [facility] Last Admin: 01/17/22 09:00 Dose: 300 mg Glucose (Glucose Gel 15 Gm Gel..Gram.) 15 gm PO Q15M PRN; Protocol PRN Reason: per Hypoglycemia Standing Ord. Hydromorphone HCl (Hydromorphone Hcl 0.5 Mg/0.5 Ml Syringe) 0.5 mg IVPUSH Q3H PRN; Protocol PRN Reason: Pain, Severe (Pain Scale 7-10) Last Admin: 01/15/22 05:09 Dose: 0.5 mg Cefazolin Sodium/Dextrose (Ancef) 2 gm in 50 mls @ 100 mls/hr IV POSTOP [facility] Lactated Ringer's (Lr) 1,000 mls @ 80 mls/hr IVCONT .[id number] [facility] Last Admin: 01/17/22 00:23 Dose: Not Given Acetaminophen (Ofirmev) 1,000 mg in 100 mls @ 400 mls/hr IV Q6H PRN PRN Reason: Pain, Moderate (Pain Scale 4-6 Last Infusion: 01/16/22 10:27 Dose: Infused Insulin Glargine (Insulin Glargine,Hum.Rec.Anlog 100 Unit/Ml 10 Ml Vial) 34 unit SUBCUT DAILY@0730 [facility] Last Admin: 01/15/22 08:01 Dose: 34 unit Insulin Human Lispro (Insulin Lispro 100 Unit/Ml 3 Ml Vial) [address] [facility]; Protocol Last Admin: 01/17/22 09:00 Dose: 2 unit Omeprazole (Omeprazole 20 Mg Capsule.Dr) 20 mg PO BID@0630,1630 [facility] Last Admin: 01/17/22 05:19 Dose: 20 mg Ondansetron HCl (Ondansetron Hcl 4 Mg/2 Ml Vial) 4 mg IVPUSH Q8H PRN PRN Reason: Nausea and Vomiting Oxybutynin Chloride (Oxybutynin Chloride Er 5 Mg Tab.Er.24) [address] [facility] Last Admin: 01/15/22 08:02 Dose: 10 mg Oxycodone HCl (Oxycodone Hcl Er 10 Mg Tab.Er.12h) [address] [facility] Last Admin: 01/14/22 08:26 Dose: 10 mg Oxycodone HCl (Oxycodone Hcl Immed Release 5 Mg Tablet) 5 mg PO Q4H PRN PRN Reason: Pain, Moderate (Pain Scale 4-6 Polyethylene Glycol (Polyethylene Glycol 3350 17 Gm Powd.Pack) [address] [facility] Last Admin: 01/16/22 20:27 Dose: Not Given Quetiapine Fumarate (Quetiapine Fumarate 25 Mg Tablet) 12.5 mg PO Q6H PRN PRN Reason: agitation Senna (Sennosides 8.6 Mg Tablet) 17.[address] [facility] Last Admin: 01/16/22 20:27 Dose: 17.2 mg Sodium Chloride (0.9 % Sodium Chloride Flush 3 Ml Syringe) [address] [facility] Last Admin: 01/17/22 09:00 Dose: 3 ml Vitamin D (Cholecalciferol (Vitamin D3) 25 Mcg Tablet) [address] [facility] Last Admin: 01/17/22 09:00 Dose: 25 mcg Home Medications Medication Instructions Recorded Confirmed Last Taken Type acetaminophen 325 mg tablet 650 mg PO Q6H PRN Pain (Scale 10/12/20 01/08/22 Unknown History Score 1-3) apixaban 5 mg tablet (Eliquis) 5 mg PO BID@0900,1800 10/12/20 01/08/22 Unknown History atorvastatin 20 mg tablet 20 mg PO BEDTIME 10/12/20 01/08/22 Unknown History cholecalciferol (vitamin D3) 25 25 mcg PO DAILY 10/12/20 01/08/22 Unknown History mcg (1,000 unit) capsule (Vitamin D3) donepezil 10 mg tablet 10 mg PO BEDTIME 10/12/20 01/08/22 Unknown History gabapentin 100 mg capsule 100 mg PO BEDTIME 10/12/20 01/08/22 Unknown History insulin glargine 100 unit/mL (3 40 unit subcut DAILY 10/12/20 01/08/22 Unknown History mL) subcutaneous pen (Lantus Solostar U-100 Insulin) oxybutynin chloride 10 mg 1 tab PO DAILY 10/12/20 01/08/22 Unknown History tablet,extended release 24 hr pioglitazone 30 mg tablet 1 tab PO DAILY 10/12/20 01/08/22 Unknown History polyethylene glycol 3350 17 17 g PO DAILY 10/12/20 01/08/22 Unknown History gram/dose oral powder sennosides 8.6 mg tablet (senna) 17.2 mg PO BEDTIME 10/12/20 01/08/22 Unknown History amlodipine 5 mg tablet 1 tab PO DAILY 01/08/22 01/08/22 Unknown History bacitracin 500 unit/gram topical 1 appl topical DAILY@2020 01/08/22 01/08/22 Unknown History ointment ferrous gluconate 324 mg (37.5 mg 324 mg PO DAILY 01/08/22 01/08/22 Unknown History iron) tablet furosemide 20 mg tablet 1 tab PO DAILY 01/08/22 01/08/22 Unknown History insulin lispro 100 unit/mL See Protocol subcut TIDAC 01/08/22 01/08/22 Unknown History subcutaneous pen (Humalog KwikPen (U-100) Insulin) metformin 500 mg tablet,extended 1,000 mg PO DAILY@1700 01/08/22 01/08/22 Unknown History release 24hr Physical Exam Vital Signs: Vital Signs: Last Vital Signs Temp 98.5 F 01/17/22 07:43 Pulse 70 01/17/22 07:43 Resp 18 01/17/22 07:43 BP 137/62 01/17/22 07:43 Pulse Ox 95 01/17/22 07:43 O2 Del Method 01/17/22 07:43 O2 Flow Rate 2 01/10/22 16:34 BMI result Body Mass Index 33.0 Const: General: cooperative and no acute distress HEENT: Head: Yes normal to inspection, Yes normocephalic and Yes atraumatic Eyes: Conjunctivae: conjunctivae normal Neck: Neck: Yes normal visual inspection and Yes trachea midline Chest: Chest palpation & inspection: normal inspection of the chest Resp: Effort & Inspection: normal respiratory effort Cardio: Rate: regular rate GI: Inspection: Yes normal to inspection Palpation (GI): Soft to palpation : Other: limited pelvic exam, inspection of external genitalia only. paula in place - yellow urine return General: No no CVA tenderness External Female Exam: other (Labia minora, left side erythematous excoriation, very tender to touch) Back/Spine/Pelvis: Back: No no CVA tenderness Skin: General skin exam: no rashes or lesions noted Extrem: General: No edema Psych: Other: slightly confused Appearance: grossly normal Results Labs Result diagrams: 01/17/22 08:30 01/16/22 08:16 Labs: Abnormal lab results 01/16/22 01/16/22 01/16/22 Range/Units 11:22 15:44 19:35 Hgb (12.0-16.0) g/dl Hct (37.0-47.0) % POC Glucose 152 H 219 H 168 H (60-115) mg/dL 01/17/22 01/17/22 Range/Units 07:48 08:30 Hgb 9.0 L (12.0-16.0) g/dl Hct 27.3 L (37.0-47.0) % POC Glucose 186 H (60-115) mg/dL Short CBC 01/17/22 Range/Units 08:30 Hgb 9.0 L (12.0-16.0) g/dl Hct 27.3 L (37.0-47.0) % Assessment and Plan (1) Urinary retention: Status: Acute (2) OAB (overactive bladder): Status: Acute (3) Dementia with behavioral disturbance: Status: Acute (4) Urinary incontinence: Status: Acute Plan Sierra is a 76 y/o female with dementia and h/o OAB symptoms home meds oxyb utynin, which may increase confusion in the elderly. Pt noted to have excoriation of external genitalia, may be aggravated by urinary leakage, paula in place and Oxybutynin has been held, agree with zinc barrier cream but if the superficial ulcerated skin is not improving, recommend evaluation by ECHOCARDIOGRAPHY TECHNOLOGIST. Procedures Date of Service Date of Service: 01/17/22
[2022-01-17] MEDS: Lactated Ringers 1,000 ML 80 ML IVCONT (09:23)
[2022-01-17 11:18] LABS: Glucose, Whole Blood 152 mg/dL (60-115)
--- NOTE | 2022-01-17 11:25 | PC.NURSE ---
Patient resting in NAD, pain with movement, repositioned for comfort. Patient having visual and auditory hallucinations with eyes closed. Patient reports Look at that blonde kid run across the [place] . Patient reassured and oriented to place and time. Patient redirectable and able to follow commands. LR running at 80ml/hr.
[2022-01-17 11:39] VITALS: BP 168/70; PULSE 71; RESP 18; TEMP 37.5; O2SAT 97
--- NOTE | 2022-01-17 11:59 | HO.PM.IMPN ---
Subjective Subjective Date of Service: 01/17/22 Interval History: Dementia, vulvar? lining sloughing?/erosion vs rash Urinary retention. anemia Review of Systems Oral intake is somewhat better today, denies any chest pain or shortness of breath or abdominal pain seems more awake Physical Exam Vital Signs: Vital Signs: Last Vital Signs Temp 99.5 F 01/17/22 11:39 Pulse 71 01/17/22 11:39 Resp 18 01/17/22 11:39 BP 168/70 H 01/17/22 11:39 Pulse Ox 97 01/17/22 11:39 O2 Del Method 01/17/22 11:39 O2 Flow Rate 2 01/10/22 16:34 BMI result Body Mass Index 33.0 Appearance: Alert.? Oriented .?somewhat pain -geeting iv pain med? cvs: rrr, [id number] res: clear to auscultation ,no rhonchii or wheezing abd: no rebound or guarding ,nt, bs present. neuro: axo3 , nonfocal. right leg:bandage clean dry and intact.?? No erythema or? effusion.? Calf supple nontender.? She is able to move ankle, foot and toes. :? inner vulvar wall sloughing vs rash still has hip area pain Objective Data Active Medications Amlodipine Besylate (Amlodipine Besylate 5 Mg Tablet) 5 mg PO DAILY [facility]IG[facility]; Protocol Last Admin: 01/12/22 08:14 Dose: 5 mg Documented By: IVA Apixaban (Apixaban 5 Mg Tablet) 5 mg PO BID@0900,1800 [facility] Last Admin: 01/17/22 09:00 Dose: 5 mg Documented By: IVA Artificial Tears (Artificial Tears 15 Ml Drops) 2 drop EYE-BOTH Q4H PRN PRN Reason: Dry Eyes Atorvastatin Calcium (Atorvastatin Calcium 20 Mg Tablet) 20 mg PO BEDTIME [facility] Last Admin: 01/16/22 20:27 Dose: 20 mg Documented By: BURTON Dextrose (Dextrose 50 % 25 Gm/50 Ml Syringe) 25 gm IVPUSH Q15M PRN; Protocol PRN Reason: per Hypoglycemia Standing Ord. Docusate Sodium (Docusate Sodium 100 Mg Capsule) 100 mg PO BEDTIME [facility] Last Admin: 01/16/22 20:27 Dose: 100 mg Documented By: BURTON Donepezil HCl (Donepezil Hcl 10 Mg Tablet) 10 mg PO BEDTIME [facility] Last Admin: 01/14/22 20:03 Dose: 10 mg Documented By: MARLENE Ferrous Sulfate (Ferrous Sulfate 300 Mg/5 Ml Liquid) 300 mg PO BIDWM [facility] Last Admin: 01/17/22 09:00 Dose: 300 mg Documented By: IVA Glucose (Glucose Gel 15 Gm Gel..Gram.) 15 gm PO Q15M PRN; Protocol PRN Reason: per Hypoglycemia Standing Ord. Hydromorphone HCl (Hydromorphone Hcl 0.5 Mg/0.5 Ml Syringe) 0.5 mg IVPUSH Q3H PRN; Protocol PRN Reason: Pain, Severe (Pain Scale 7-10) Last Admin: 01/15/22 05:09 Dose: 0.5 mg Documented By: MARLENE Cefazolin Sodium/Dextrose (Ancef) 2 gm in 50 mls @ 100 mls/hr IV POSTOP [facility] Lactated Ringer's (Lr) 1,000 mls @ 80 mls/hr IVCONT .[id number] [facility] Last Admin: 01/17/22 09:23 Dose: 80 mls/hr Documented By: IVA Acetaminophen (Ofirmev) 1,000 mg in 100 mls @ 400 mls/hr IV Q6H PRN PRN Reason: Pain, Moderate (Pain Scale 4-6 Last Infusion: 01/16/22 10:27 Dose: 400 mls/hr Documented By: RAKEL Insulin Glargine (Insulin Glargine,Hum.Rec.Anlog 100 Unit/Ml 10 Ml Vial) 34 unit SUBCUT DAILY@0730 [facility] Last Admin: 01/15/22 08:01 Dose: 34 unit Documented By: POLY Insulin Human Lispro (Insulin Lispro 100 Unit/Ml 3 Ml Vial) 0 unit SUBCUT QIDACHS [facility]; Protocol Last Admin: 01/17/22 09:00 Dose: 2 unit Documented By: IVA Omeprazole (Omeprazole 20 Mg Capsule.) 20 mg PO BID@0630,1630 [facility] Last Admin: 01/17/22 05:19 Dose: 20 mg Documented By: BURTON Ondansetron HCl (Ondansetron Hcl 4 Mg/2 Ml Vial) 4 mg IVPUSH Q8H PRN PRN Reason: Nausea and Vomiting Oxybutynin Chloride (Oxybutynin Chloride Er 5 Mg Tab.Er.24) 10 mg PO DAILY [facility] Last Admin: 01/15/22 08:02 Dose: 10 mg Documented By: POLY Oxycodone HCl (Oxycodone Hcl Er 10 Mg Tab.Er.12h) 10 mg PO BID [facility] Last Admin: 01/14/22 08:26 Dose: 10 mg Documented By: CLAUDY Oxycodone HCl (Oxycodone Hcl Immed Release 5 Mg Tablet) 5 mg PO Q4H PRN PRN Reason: Pain, Moderate (Pain Scale 4-6 Polyethylene Glycol (Polyethylene Glycol 3350 17 Gm Powd.Pack) 17 gm PO BID [facility] Last Admin: 01/17/22 09:13 Dose: Not Given Documented By: IVA Non-Admin Reason: BM Quetiapine Fumarate (Quetiapine Fumarate 25 Mg Tablet) 12.5 mg PO Q6H PRN PRN Reason: agitation Senna (Sennosides 8.6 Mg Tablet) 17.2 mg PO BEDTIME [facility] Last Admin: 01/16/22 20:27 Dose: 17.2 mg Documented By: BURTON Sodium Chloride (0.9 % Sodium Chloride Flush 3 Ml Syringe) 3 ml IVFLUSH QSHIFT [facility] Last Admin: 01/17/22 09:00 Dose: 3 ml Documented By: IVA Vitamin D (Cholecalciferol (Vitamin D3) 25 Mcg Tablet) 25 mcg PO DAILY [facility] Last Admin: 01/17/22 09:00 Dose: 25 mcg Documented By: IVA Labs CBC & Chem 7: 01/17/22 08:30 01/16/22 08:16 Labs: Laboratory Results - last 24 hr 01/16/22 01/16/22 01/17/22 15:44 19:35 07:48 POC Glucose 219 H 168 H 186 H 01/17/22 11:05 POC Glucose 152 H Assessment and Plan (1) Dementia with behavioral disturbance: Status: Acute (2) Anemia: Status: Acute (3) Urinary retention: Status: Acute Plan 76-year-old female who is a resident of assisted living facility and with pertinent history of essential hypertension, mixed hyperlipidemia, insulin-dependent diabetes mellitus, urinary incontinence, dementia was brought to the emergency department for evaluation of right hip pain. #Right femoral head and neck fracture -s/p 1) ORIF right femur 2) right hip hemiarthroplasty 3) MIKE right hip on 01/10 -pain control with morphine, IV tyelenol, PT oT, Lovenox for DVT prophylaxis and restart Eliquis tomorrow 48 hrs after operation adjusted bowel regimen. # Insulin-dependent type 2 diabetes mellitus- resume insulin, montor glucose oral intake is low ,encouraged #Essential hypertension-boderline blood pressure , hold norvasc, diurtics. blood pressure improved , moniter closely ? #Urinary incontinence-hold oxybutynin due to drowsiness . #? Dementia with behavior disturbances-on continue donepezil, added Seroquel small dose prn also made adjustment in pain meds because patient gets drowsy with oxycontin/high dose dilaudid? -might be contributing to above. mental status seems improvin has sitter psych eval noted. #.? Chronic normocytic anemia: s/p 1unit of RBC 01/10 after surgery, h/h still drop in 8. ( possible postop anemia ): h/h flactuating added 1 prbc ,moniter h/h: 9-10. added iron supplements Otherwise night denies any bleeding, hip area has big could dressing but no oozing of blood around it # History of pulmonary embolism--has been on hold, resume tomorrow eliquis ,how due o low h/h. currently patient denies any chest pain or shortness of breath or palpitations or any leg pains. Possible malnutrition:? Added Ensure, nutrition consult. Frequent turning, incentive spirometry, chest physio. urinary retenion/vulvar area sloughing vs rash : to avoid further sloughing -will placed paula urology eval -for above . d/w staff in detail. DVT prophylaxis:? Eliquis Full code Above management discussed with patient's son in detail length.? He understand and in agreement the above plan. Need for inaptient: Hip fracture and needs surgery,anemia needs transfusion,dementia with behavioural disturbances. Quality Stroke Does the patient have a stroke diagnosis?: No VTE Prior VTE?: Yes VTE Risk Level:: Medical - moderate - high VTE Device Contraindication: Treatment Not Indicated VTE Drug Contraindication: Treatment Not Indicated
[2022-01-17] MEDS: QUEtiapine Fumarate 25 MG TABLET 12.5 MG PO (12:51)
[2022-01-17 15:18] VITALS: BP 118/57; PULSE 70; RESP 18; TEMP 37.2; O2SAT 97
--- NOTE | 2022-01-17 15:46 | P.CNPS_ITS ---
History of Present Illness Date of Service: 01/17/2022 Chief Complaint: Right Hip Pain Reason for Consult: Medication Requesting physician: Deanne Alvarez Sources of Information: patient interviewed and chart reviewed HPI Narrative: Discussed with pt's team. Pt has been agitated, pulling at her paula cath and IV, now has a bedside sitter. The low dose seroquel didnt help. She eventually f ell asleep for 4 hours, now doing better than she was. Per RN, pt is delirious i.e. talking to her son and other people who are not there. She is making gestures as if she is dealing cards. However, she can be re-oriented when talking with the RN, otherwise goes back to hallucinating. Pt is yelling out at times but not assaultive. [facility] Medical History Dementia Fracture of distal end of femur HTN (hypertension) Overactive bladder Pulmonary embolism with acute cor pulmonale Diagnostics Vital Signs (24Hr): Vital Signs - 24 hr 01/16/22 19:15 01/17/22 04:00 01/17/22 00:00 Temperature 99.0 F 98.1 F Pulse Rate 65 70 Respiratory Rate 19 18 Blood Pressure 106/52 L 102/52 L Pulse Oximetry 96 96 Oxygen Delivery Method Room Air Room Air Room Air 01/17/22 07:43 01/17/22 11:39 01/17/22 15:18 Temperature 98.5 F 99.5 F 99.0 F Pulse Rate 70 71 70 Respiratory Rate 18 18 18 Blood Pressure 137/62 168/70 H 118/57 L Pulse Oximetry 95 97 97 Oxygen Delivery Method Room Air Room Air Room Air BMI result Body Mass Index 33.0 Labs Results: 01/17/22 08:30 01/16/22 08:16 Labs: Laboratory Results - last 48 hr 01/14/22 01/15/22 01/15/22 13:12 15:29 19:20 Hgb Hct Sodium Potassium Chloride Carbon Dioxide Anion Gap BUN Creatinine Estim Creat Clear Calc Estimated GFR POC Glucose 90 85 Random Glucose Calcium Crossmatch See Detail 01/16/22 01/16/22 01/16/22 07:49 08:16 11:22 Hgb Hct Sodium 144 Potassium 4.3 Chloride 107 Carbon Dioxide 28 Anion Gap 13 BUN 18 H Creatinine 0.77 Estim Creat Clear Calc 57.7 Estimated GFR > 60 POC Glucose 124 H 152 H Random Glucose 138 H Calcium 8.0 L Crossmatch 01/16/22 01/16/22 01/17/22 15:44 19:35 07:48 Hgb Hct Sodium Potassium Chloride Carbon Dioxide Anion Gap BUN Creatinine Estim Creat Clear Calc Estimated GFR POC Glucose 219 H 168 H 186 H Random Glucose Calcium Crossmatch 01/17/22 01/17/22 08:30 11:05 Hgb 9.0 L Hct 27.3 L Sodium Potassium Chloride Carbon Dioxide Anion Gap BUN Creatinine Estim Creat Clear Calc Estimated GFR POC Glucose 152 H Random Glucose Calcium Crossmatch Imaging Radiology Impressions: ITS Impressions Abdomen/Pelvis CT 01/07/22 21:34 IMPRESSION: New right femoral neck and head fracture. There is intramedullary femoral rae and compression nail for an old the healed right femoral neck fracture. Gallstones without wall thickening. Fleischner guidelines were followed. Venous Duplex 01/07/22 22:15 IMPRESSION: No DVT demonstrated in the right lower extremity. Hip/Pelvis X-Ray 01/08/22 00:02 IMPRESSION: Redemonstrated right femoral neck fracture, new from 10/12/2020 and suspicious for an acute finding. Guidance Fluoroscopy 01/10/22 15:35 IMPRESSION: Intraoperative fluoroscopy was obtained. No radiologist was in attendance. Please refer to operative report for complete evaluation. Mental Status Exam Mental Status Exam Narrative: Pt is in hospital attire, asleep, frail elder. Medications Medications Current Medications Amlodipine Besylate (Amlodipine Besylate 5 Mg Tablet) 5 mg PO DAILY [facility]; Protocol Last Admin: 01/12/22 08:14 Dose: 5 mg Apixaban (Apixaban 5 Mg Tablet) 5 mg PO BID@0900,1800 [facility] Last Admin: 01/17/22 09:00 Dose: 5 mg Artificial Tears (Artificial Tears 15 Ml Drops) 2 drop EYE-BOTH Q4H PRN PRN Reason: Dry Eyes Atorvastatin Calcium (Atorvastatin Calcium 20 Mg Tablet) 20 mg PO BEDTIME [facility] Last Admin: 01/16/22 20:27 Dose: 20 mg Dextrose (Dextrose 50 % 25 Gm/50 Ml Syringe) 25 gm IVPUSH Q15M PRN; Protocol PRN Reason: per Hypoglycemia Standing Ord. Docusate Sodium (Docusate Sodium 100 Mg Capsule) 100 mg PO BEDTIME [facility] Last Admin: 01/16/22 20:27 Dose: 100 mg Donepezil HCl (Donepezil Hcl 10 Mg Tablet) 10 mg PO BEDTIME [facility] Last Admin: 01/14/22 20:03 Dose: 10 mg Ferrous Sulfate (Ferrous Sulfate 300 Mg/5 Ml Liquid) 300 mg PO BIDWM [facility] Last Admin: 01/17/22 09:00 Dose: 300 mg Glucose (Glucose Gel 15 Gm Gel..Gram.) 15 gm PO Q15M PRN; Protocol PRN Reason: per Hypoglycemia Standing Ord. Hydromorphone HCl (Hydromorphone Hcl 0.5 Mg/0.5 Ml Syringe) 0.5 mg IVPUSH Q3H PRN; Protocol PRN Reason: Pain, Severe (Pain Scale 7-10) Last Admin: 01/15/22 05:09 Dose: 0.5 mg Cefazolin Sodium/Dextrose (Ancef) 2 gm in 50 mls @ 100 mls/hr IV POSTOP [facility] Acetaminophen (Ofirmev) 1,000 mg in 100 mls @ 400 mls/hr IV Q6H PRN PRN Reason: Pain, Moderate (Pain Scale 4-6 Last Infusion: 01/16/22 10:27 Dose: Infused Insulin Glargine (Insulin Glargine,Hum.Rec.Anlog 100 Unit/Ml 10 Ml Vial) 34 unit SUBCUT DAILY@0730 [facility] Last Admin: 01/15/22 08:01 Dose: 34 unit Insulin Human Lispro (Insulin Lispro 100 Unit/Ml 3 Ml Vial) 0 unit SUBCUT QIDACHS [facility]; Protocol Last Admin: 01/17/22 11:59 Dose: 2 unit Omeprazole (Omeprazole 20 Mg Capsule.Dr) 20 mg PO BID@0630,1630 [facility] Last Admin: 01/17/22 05:19 Dose: 20 mg Ondansetron HCl (Ondansetron Hcl 4 Mg/2 Ml Vial) 4 mg IVPUSH Q8H PRN PRN Reason: Nausea and Vomiting Oxybutynin Chloride (Oxybutynin Chloride Er 5 Mg Tab.Er.24) 10 mg PO DAILY [facility] Last Admin: 01/15/22 08:02 Dose: 10 mg Oxycodone HCl (Oxycodone Hcl Er 10 Mg Tab.Er.12h) 10 mg PO BID [facility] Last Admin: 10/20/22 08:26 Dose: 10 mg Oxycodone HCl (Oxycodone Hcl Immed Release 5 Mg Tablet) 5 mg PO Q4H PRN PRN Reason: Pain, Moderate (Pain Scale 4-6 Polyethylene Glycol (Polyethylene Glycol 3350 17 Gm Powd.Pack) 17 gm PO BID [facility] Last Admin: 01/17/22 09:13 Dose: Not Given Quetiapine Fumarate (Quetiapine Fumarate 25 Mg Tablet) 12.5 mg PO Q6H PRN PRN Reason: agitation Last Admin: 01/17/22 12:51 Dose: 12.5 mg Senna (Sennosides 8.6 Mg Tablet) 17.2 mg PO BEDTIME [facility] Last Admin: 01/16/22 20:27 Dose: 17.2 mg Sodium Chloride (0.9 % Sodium Chloride Flush 3 Ml Syringe) 3 ml IVFLUSH QSHIFT [facility] Last Admin: 01/17/22 14:35 Dose: Not Given Vitamin D (Cholecalciferol (Vitamin D3) 25 Mcg Tablet) 25 mcg PO DAILY [facility] Last Admin: 01/17/22 09:00 Dose: 25 mcg Allergies Allergies Allergy/AdvReac Type Severity Reaction Status Date / Time aluminum Allergy Unknown Verified 01/08/22 01:30 Assessment & Plan Assessment & Plan (1) Dementia with behavioral disturbance: Status: Acute Code(s): F03.918 - Unspecified dementia, unspecified severity, with other behavioral disturbance Plan Plan: Will increase seroquel to 25 mg Q6H PRN for moderate agitation due to lack of benefit on 12.5 mg. Will start haldol 2 mg Q6H PRN for severe agitation i.e. physically assaultive or violent and non-redirectable. I have shared this with Dr. Alvarez Thank you for this consultation. If you have any questions or concerns, please do not hesitate to contact psychiatry service. I spent minutes with the patient and/or on the patient floor today, greater than?50% of which was spent counseling/coordinating care. Patient educated on: diagnosis, medication risk/benefits and therapeutic strategies
[2022-01-17 16:16] LABS: Glucose, Whole Blood 142 mg/dL (60-115)
[2022-01-17 19:12] VITALS: BP 103/59; PULSE 75; RESP 18; TEMP 37.1; O2SAT 98
[2022-01-17 19:46] LABS: Glucose, Whole Blood 181 mg/dL (60-115)
[2022-01-17] MEDS: Atorvastatin Calcium 20 MG TABLET PO (20:52)
[2022-01-17] MEDS: Donepezil HCl 10 MG TABLET PO (20:52)
[2022-01-17] MEDS: Docusate Sodium 100 MG CAPSULE PO (20:52)
[2022-01-17] MEDS: Sennosides 8.6 MG TABLET 17.2 MG PO (20:52)
[2022-01-17 23:44] VITALS: BP 148/67; PULSE 55; RESP 18; TEMP 37.1; O2SAT 98
[2022-01-18 04:00] VITALS: BP 162/69; PULSE 73; RESP 17; TEMP 36.2; O2SAT 95
[2022-01-18] MEDS: Omeprazole 20 MG CAPSULE.DR PO (05:50)
[2022-01-18 07:32] LABS: Glucose, Whole Blood 186 mg/dL (60-115)
[2022-01-18 07:36] VITALS: BP 130/63; PULSE 70; RESP 18; TEMP 37.4; O2SAT 97
[2022-01-18] MEDS: Insulin Lispro 100 UNIT/ML 3 ML VIAL SUBCUT ×3 (08:17→21:11)
[2022-01-18] MEDS: Cholecalciferol (Vitamin D3) 25 MCG TABLET PO (08:17)
[2022-01-18] MEDS: Apixaban 5 MG TABLET PO ×2 (08:17→21:11)
[2022-01-18] MEDS: Ferrous Sulfate 300 MG/5 ML LIQUID PO (08:17)
[2022-01-18 11:23] VITALS: BP 106/55; PULSE 69; RESP 18; TEMP 37.6; O2SAT 97
[2022-01-18 11:29] LABS: Glucose, Whole Blood 159 mg/dL (60-115)
--- NOTE | 2022-01-18 11:35 | HO.PM.IMPN ---
Subjective Subjective Date of Service: 01/26/22 Interval History: Dementia with behavioral disturbances Review of Systems Seems more calmer than yesterday Denies any chest pain or shortness of breath or abdominal pain Physical Exam Vital Signs: Vital Signs: Last Vital Signs Temp 99.6 F 01/18/22 11:23 Pulse 69 01/18/22 11:23 Resp 18 01/18/22 11:23 BP 106/55 L 01/18/22 11:23 Pulse Ox 97 01/18/22 11:23 O2 Del Method 01/18/22 11:23 O2 Flow Rate 2 01/10/22 16:34 BMI result Body Mass Index 33.0 Appearance: Alert.? Oriented .?little calmer than yesterday cvs: rrr, [id number] res: clear to auscultation ,no rhonchii or wheezing abd: no rebound or guarding ,nt, bs present. neuro: axo3 , nonfocal. right leg:bandage clean dry and intact.?? No erythema or? effusion.? Calf supple nontender.? She is able to move ankle, foot and toes. :vulvar area exmained urology-excoration. still has hip area pain Objective Data Active Medications Amlodipine Besylate (Amlodipine Besylate 5 Mg Tablet) 5 mg PO DAILY [facility]; Protocol Last Admin: 01/12/22 08:14 Dose: 5 mg Documented By: IVA Apixaban (Apixaban 5 Mg Tablet) 5 mg PO BID@0900,1800 [facility] Last Admin: 01/18/22 08:17 Dose: 5 mg Documented By: ADRIANA Artificial Tears (Artificial Tears 15 Ml Drops) 2 drop EYE-BOTH Q4H PRN PRN Reason: Dry Eyes Atorvastatin Calcium (Atorvastatin Calcium 20 Mg Tablet) 20 mg PO BEDTIME [facility] Last Admin: 01/17/22 20:52 Dose: 20 mg Documented By: MARIXA Dextrose (Dextrose 50 % 25 Gm/50 Ml Syringe) 25 gm IVPUSH Q15M PRN; Protocol PRN Reason: per Hypoglycemia Standing Ord. Docusate Sodium (Docusate Sodium 100 Mg Capsule) 100 mg PO BEDTIME [facility] Last Admin: 01/17/22 20:52 Dose: 100 mg Documented By: MARIXA Donepezil HCl (Donepezil Hcl 10 Mg Tablet) 10 mg PO BEDTIME [facility] Last Admin: 01/17/22 20:52 Dose: 10 mg Documented By: MARIXA Ferrous Sulfate (Ferrous Sulfate 300 Mg/5 Ml Liquid) 300 mg PO BIDWM [facility] Last Admin: 01/18/22 08:17 Dose: 300 mg Documented By: ADRIANA Glucose (Glucose Gel 15 Gm Gel..Gram.) 15 gm PO Q15M PRN; Protocol PRN Reason: per Hypoglycemia Standing Ord. Haloperidol (Haloperidol 1 Mg Tablet) 2 mg PO Q6H PRN PRN Reason: severe agitation Hydromorphone HCl (Hydromorphone Hcl 0.5 Mg/0.5 Ml Syringe) 0.5 mg IVPUSH Q3H PRN; Protocol PRN Reason: Pain, Severe (Pain Scale 7-10) Last Admin: 01/15/22 05:09 Dose: 0.5 mg Documented By: MARLENE Cefazolin Sodium/Dextrose (Ancef) 2 gm in 50 mls @ 100 mls/hr IV POSTOP [facility] Acetaminophen (Ofirmev) 1,000 mg in 100 mls @ 400 mls/hr IV Q6H PRN PRN Reason: Pain, Moderate (Pain Scale 4-6 Last Infusion: 01/16/22 10:27 Dose: 400 mls/hr Documented By: RAKEL Insulin Glargine (Insulin Glargine,Hum.Rec.Anlog 100 Unit/Ml 10 Ml Vial) 34 unit SUBCUT DAILY@0730 [facility] Last Admin: 01/15/22 08:01 Dose: 34 unit Documented By: POLY Insulin Human Lispro (Insulin Lispro 100 Unit/Ml 3 Ml Vial) 0 unit SUBCUT QIDACHS [facility]; Protocol Last Admin: 01/18/22 08:17 Dose: 2 unit Documented By: ADRIANA Omeprazole (Omeprazole 20 Mg Capsule.) 20 mg PO BID@0630,1630 [facility] Last Admin: 01/18/22 05:50 Dose: 20 mg Documented By: MARIXA Ondansetron HCl (Ondansetron Hcl 4 Mg/2 Ml Vial) 4 mg IVPUSH Q8H PRN PRN Reason: Nausea and Vomiting Oxybutynin Chloride (Oxybutynin Chloride Er 5 Mg Tab.Er.24) 10 mg PO DAILY [facility] Last Admin: 01/15/22 08:02 Dose: 10 mg Documented By: POLY Oxycodone HCl (Oxycodone Hcl Er 10 Mg Tab.Er.12h) 10 mg PO BID [facility] Last Admin: 01/14/22 08:26 Dose: 10 mg Documented By: CLAUDY Oxycodone HCl (Oxycodone Hcl Immed Release 5 Mg Tablet) 5 mg PO Q4H PRN PRN Reason: Pain, Moderate (Pain Scale 4-6 Polyethylene Glycol (Polyethylene Glycol 3350 17 Gm Powd.Pack) 17 gm PO BID [facility] Last Admin: 01/18/22 08:09 Dose: Not Given Documented By: ADRIANA Non-Admin Reason: loose stools X2 Quetiapine Fumarate (Quetiapine Fumarate 25 Mg Tablet) 25 mg PO Q6H PRN PRN Reason: agitation Senna (Sennosides 8.6 Mg Tablet) 17.2 mg PO BEDTIME [facility] Last Admin: 01/17/22 20:52 Dose: 17.2 mg Documented By: MARIXA Sodium Chloride (0.9 % Sodium Chloride Flush 3 Ml Syringe) 3 ml IVFLUSH QSHIFT [facility] Last Admin: 01/18/22 08:07 Dose: Not Given Documented By: ADRIANA Non-Admin Reason: No Access Vitamin D (Cholecalciferol (Vitamin D3) 25 Mcg Tablet) 25 mcg PO DAILY [facility] Last Admin: 01/18/22 08:17 Dose: 25 mcg Documented By: ADRIANA Labs CBC & Chem 7: 01/17/22 08:30 01/16/22 08:16 Labs: Laboratory Results - last 24 hr 01/17/22 01/17/22 01/18/22 15:20 18:56 07:13 POC Glucose 142 H 181 H 186 H 01/18/22 11:25 POC Glucose 159 H Assessment and Plan (1) Dementia with behavioral disturbance: Status: Acute (2) Anemia: Status: Acute (3) Urinary retention: Status: Acute Plan 76-year-old female who is a resident of assisted living facility and with pertinent history of essential hypertension, mixed hyperlipidemia, insulin-dependent diabetes mellitus, urinary incontinence, dementia was brought to the emergency department for evaluation of right hip pain. #Right femoral head and neck fracture -s/p 1) ORIF right femur 2) right hip hemiarthroplasty 3) MIKE right hip on 01/10 -pain control with morphine, IV tyelenol, PT oT, Lovenox for DVT prophylaxis and restart Eliquis tomorrow 48 hrs after operation adjusted bowel regimen. # Insulin-dependent type 2 diabetes mellitus- resume insulin, montor glucose oral intake is low ,encouraged #Essential hypertension-boderline blood pressure , hold norvasc, diurtics. blood pressure improved , moniter closely ? #Urinary incontinence-hold oxybutynin due to drowsiness . #? Dementia with behavior disturbances-on continue donepezil, added Seroquel small dose prn also made adjustment in pain meds because patient gets drowsy with oxycontin/high dose dilaudid? -might be contributing to above. mental status seems improvin psych eval noted. will dc sitter #.? Chronic normocytic anemia: s/p 1unit of RBC 01/10 after surgery, h/h still drop in 8. ( possible postop anemia ): h/h flactuating added 1 prbc ,moniter h/h: 9-10. added iron supplements Otherwise night denies any bleeding, hip area has big could dressing but no oozing of blood around it # History of pulmonary embolism--has been on hold, resume tomorrow eliquis ,how due o low h/h. currently patient denies any chest pain or shortness of breath or palpitations or any leg pains. Possible malnutrition:?continue Ensure, nutrition consult. Frequent turning, incentive spirometry, chest physio. urinary retenion/vulvar area excoriation : to avoid further sloughing -will placed paula urology eval -for above . d/w staff in detail. DVT prophylaxis:? Eliquis Full code Above management discussed with patient's son in detail length.? He understand and in agreement the above plan. Need for inaptient: Hip fracture and needs surgery,anemia needs transfusion,dementia with behavioural disturbances. Quality Stroke Does the patient have a stroke diagnosis?: No VTE Prior VTE?: Yes VTE Risk Level:: Medical - moderate - high VTE Device Contraindication: Treatment Not Indicated VTE Drug Contraindication: Treatment Not Indicated
--- NOTE | 2022-01-18 13:08 | MHC.CM.PN ---
Patient continues with 1:1 sitter, no bed offer for LTC @ this time. Referral expanded in [facility].
[2022-01-18] MEDS: oxyCODONE HCl Immed Release 5 MG TABLET PO (14:34)
[2022-01-18] MEDS: QUEtiapine Fumarate 25 MG TABLET PO (15:36)
--- NOTE | 2022-01-18 15:54 | MHC.CLN ---
F/U DIET=REGULAR. ENSURE CLEAR TID PROVIDES ADDITIONAL 720 KCALS, 24 G PROTEIN. OVERALL INTAKE APPEARS IMPROVED, 25-100%. CONTINUE CURRENT DIET AND SUPPLEMENT. PROVIDE FEEDING ASSISTANCE. ENCOURAGE INTAKE OF MEALS AND SUPPLEMENT. FOLLOW FOR INTAKE AND WEIGHT.
[2022-01-18 15:59] VITALS: BP 172/69; PULSE 81; RESP 16; TEMP 37.3; O2SAT 96
[2022-01-18 17:11] LABS: Glucose, Whole Blood 215 mg/dL (60-115)
[2022-01-18 19:58] VITALS: BP 114/46; PULSE 81; RESP 18; TEMP 36.2; O2SAT 99
[2022-01-18 20:34] LABS: Glucose, Whole Blood 172 mg/dL (60-115)
[2022-01-18] MEDS: Sennosides 8.6 MG TABLET 17.2 MG PO (21:10)
[2022-01-18] MEDS: Docusate Sodium 100 MG CAPSULE PO (21:11)
[2022-01-18] MEDS: Donepezil HCl 10 MG TABLET PO (21:11)
[2022-01-18] MEDS: polyethylene glycoL 3350 17 GM POWD.PACK PO (21:11)
[2022-01-18] MEDS: Atorvastatin Calcium 20 MG TABLET PO (21:11)
[2022-01-19] VITALS (7 sets, daily range): BP systolic 97–164; BP diastolic 53–70; PULSE 66–82; RESP 16–20; TEMP 36–37.6; O2SAT 96–99
[2022-01-19] MEDS: Omeprazole 20 MG CAPSULE.DR PO ×2 (05:33→15:27)
[2022-01-19] MEDS: oxyCODONE HCl Immed Release 5 MG TABLET PO ×2 (05:38→16:39)
--- NOTE | 2022-01-19 06:44 | PC.NURSE ---
Patient was sleeping for the most part of the shift. Encouraged fluids in between. Tolerated all her scheduled meds well. Alert verbal follows instruction. No s/s of agitation. Encouraged use of incentive spirometer, Oxycodone administered for reporting back pain
[2022-01-19 07:32] LABS: Glucose, Whole Blood 234 mg/dL (60-115)
[2022-01-19] MEDS: Cholecalciferol (Vitamin D3) 25 MCG TABLET PO (08:07)
[2022-01-19] MEDS: Ferrous Sulfate 300 MG/5 ML LIQUID PO ×2 (08:07→15:27)
[2022-01-19] MEDS: Apixaban 5 MG TABLET PO (08:07)
[2022-01-19] MEDS: Insulin Lispro 100 UNIT/ML 3 ML VIAL SUBCUT ×3 (08:07→20:07)
--- NOTE | 2022-01-19 09:48 | W.PM.OPN ---
Operative Note Operative Note Date of Service: 01/10/22 Narrative: Date of Service: 01/10/22 Pre-op diagnosis: right femoral neck fracture Post-op diagnosis: other (right femoral neck fracture and right periprosthetic femur fracture) Procedure: 1) ORIF right femur 2) right hip hemiarthroplasty 3) MIKE right hip Implants: [place] revision 19/+0/+4/46 bipolar Synthes 14 hole locking plate Cerclage cable x 6 (kevin) Surgeon: Molina Singletary MD Anesthesia: GETA and local Was an Western Philosophy Professor used for this Procedure?: Yes Western Philosophy Professor: Xiang Siddiqi Estimated blood loss (mL): 500 IV fluids (mL): 1,800 Pathology: none sent Condition: stable Disposition: PACU Procedure in detail: Patient was brought into the operating room and placed in the left lateral decubitus position. All bony prominences were well padded and the limb was prepped and draped in standard sterile fashion. Time-out was called to identify proper site procedure proper surgeon IV antibiotics and 1 g of transaxemic acid were administered. I began by making a curvilinear incision over the posterolateral aspect of the greater trochanter. Prior inscisions were used to place a screwdriver laterally into the hip screw. I was able to remove this without removing the set screw. The distal interlocking screw was then also removed and then, thorugh the hip incision, the nail was back-slapped and removed. Dissection was then taken down to the tensor fascia which was incised in line with the incision and a Charnley retractor was placed. Cautery was used to maintain hemostasis. A werewolf device was also used. The hip was internally rotated and the external rotators were identified. They were scarred and the anatomy was irregular. A capsulotomy was performed revealing a displaced femoral neck fracture. A dull Hohmann retractor was placed underneath the neck in the hip was dislocated. The hip was tight and required soft tissue releases and was difficult to dislocate. A neck cut was made 1 cm proximal to the lesser trochanter. . I lateralized with a Flexiant cutter and sequentially reamed up to a size 19 and impacted a revision porous coated 19mm stem. Using a +4 bipolar head and the modular + 0 neck maxaimally anteverted I was able to reduce the head but on testing stability there was a change in the rotational stability of the implant. I obtained an xray at this point and there was a spiral fracture distal to the stem. The stem appeared stable however. I therefore extended my incision laterally along the course of the femur. The tensor fascia was incised and I examined the fracture. A 14 hold 4.5 compression plate was selected and using biplanar fluro and a reduction clamp to reduce the spiral fracture. Bicortical screws were used distal to the stem and 6 cerclage wires were used. I was satisfied with the stability opf the construct. The hip stability was rte-examined and it was stable although FADIR > 40Deg it was not. Unfortuantely I was unable to antervert the neck further or add additional length. I then irrigated for 3 minutes with iodine and placed 1 g of local tranaxemic acid. I then performed a capsular closure with 2.0 fiberwire, Quill was used for the Tensor and Fercho's fascia with 0 Vicryl, subcuticular with 2-0 Vicryl and the skin with sugey. Patient was placed into a sterile dressing. Radiographs were obtained at the completion of the case and I was satisfied with the component position. Patient was extubated brought to the recovery room in stable condition.
--- NOTE | 2022-01-19 10:10 | HO.PM.IMPN ---
Subjective Subjective Date of Service: 01/19/22 Physical Exam Vital Signs: Vital Signs: Last Vital Signs Temp 97.8 F 01/19/22 07:16 Pulse 66 01/19/22 07:16 Resp 20 01/19/22 07:16 BP 119/57 L 01/19/22 07:16 Pulse Ox 96 01/19/22 07:16 O2 Del Method 01/19/22 07:16 O2 Flow Rate 2 01/10/22 16:34 BMI result Body Mass Index 33.0 Appearance: Alert.? Oriented .?little calmer than yesterday cvs: rrr, [id number] res: clear to auscultation ,no rhonchii or wheezing abd: no rebound or guarding ,nt, bs present. neuro: axo3 , nonfocal. right leg:bandage clean dry and intact.?? No erythema or? effusion.? Calf supple nontender.? She is able to move ankle, foot and toes. :vulvar area exmained urology-excoration. still has hip area pain Objective Data Active Medications Amlodipine Besylate (Amlodipine Besylate 5 Mg Tablet) 5 mg PO DAILY DIGNA; Protocol Last Admin: 01/12/22 08:14 Dose: 5 mg Documented By: IVA Apixaban (Apixaban 5 Mg Tablet) 5 mg PO BID@0900,1800 [facility] Last Admin: 01/19/22 08:07 Dose: 5 mg Documented By: ADRIANA Artificial Tears (Artificial Tears 15 Ml Drops) 2 drop EYE-BOTH Q4H PRN PRN Reason: Dry Eyes Atorvastatin Calcium (Atorvastatin Calcium 20 Mg Tablet) 20 mg PO BEDTIME [facility] Last Admin: 01/18/22 21:11 Dose: 20 mg Documented By: CASIE Dextrose (Dextrose 50 % 25 Gm/50 Ml Syringe) 25 gm IVPUSH Q15M PRN; Protocol PRN Reason: per Hypoglycemia Standing Ord. Docusate Sodium (Docusate Sodium 100 Mg Capsule) 100 mg PO BEDTIME [facility] Last Admin: 01/18/22 21:11 Dose: 100 mg Documented By: CASIE Donepezil HCl (Donepezil Hcl 10 Mg Tablet) 10 mg PO BEDTIME [facility] Last Admin: 01/18/22 21:11 Dose: 10 mg Documented By: CASIE Ferrous Sulfate (Ferrous Sulfate 300 Mg/5 Ml Liquid) 300 mg PO BIDWM [facility] Last Admin: 01/19/22 08:07 Dose: 300 mg Documented By: ADRIANA Glucose (Glucose Gel 15 Gm Gel..Gram.) 15 gm PO Q15M PRN; Protocol PRN Reason: per Hypoglycemia Standing Ord. Haloperidol (Haloperidol 1 Mg Tablet) 2 mg PO Q6H PRN PRN Reason: severe agitation Hydromorphone HCl (Hydromorphone Hcl 0.5 Mg/0.5 Ml Syringe) 0.5 mg IVPUSH Q3H PRN; Protocol PRN Reason: Pain, Severe (Pain Scale 7-10) Last Admin: 01/15/22 05:09 Dose: 0.5 mg Documented By: MARLENE Cefazolin Sodium/Dextrose (Ancef) 2 gm in 50 mls @ 100 mls/hr IV POSTOP DIGNA Acetaminophen (Ofirmev) 1,000 mg in 100 mls @ 400 mls/hr IV Q6H PRN PRN Reason: Pain, Moderate (Pain Scale 4-6 Last Infusion: 01/16/22 10:27 Dose: 400 mls/hr Documented By: RAKEL Insulin Glargine (Insulin Glargine,Hum.Rec.Anlog 100 Unit/Ml 10 Ml Vial) 34 unit SUBCUT DAILY@0730 [facility] Last Admin: 01/15/22 08:01 Dose: 34 unit Documented By: POLY Insulin Human Lispro (Insulin Lispro 100 Unit/Ml 3 Ml Vial) 0 unit SUBCUT QIDACHS [facility]; Protocol Last Admin: 01/19/22 08:07 Dose: 4 unit Documented By: ADRIANA Omeprazole (Omeprazole 20 Mg Capsule.Dr) 20 mg PO BID@0630,1630 [facility] Last Admin: 01/19/22 05:33 Dose: 20 mg Documented By: CASIE Ondansetron HCl (Ondansetron Hcl 4 Mg/2 Ml Vial) 4 mg IVPUSH Q8H PRN PRN Reason: Nausea and Vomiting Oxybutynin Chloride (Oxybutynin Chloride Er 5 Mg Tab.Er.24) 10 mg PO DAILY [facility] Last Admin: 01/15/22 08:02 Dose: 10 mg Documented By: POLY Oxycodone HCl (Oxycodone Hcl Er 10 Mg Tab.Er.12h) 10 mg PO BID [facility] Last Admin: 01/14/22 08:26 Dose: 10 mg Documented By: CLAUDY Oxycodone HCl (Oxycodone Hcl Immed Release 5 Mg Tablet) 5 mg PO Q4H PRN PRN Reason: Pain, Moderate (Pain Scale 4-6 Last Admin: 01/19/22 05:38 Dose: 5 mg Documented By: CASIE Polyethylene Glycol (Polyethylene Glycol 3350 17 Gm Powd.Pack) 17 gm PO BID [facility] Last Admin: 01/19/22 09:56 Dose: Not Given Documented By: ADRIANA Non-Admin Reason: loose stools Quetiapine Fumarate (Quetiapine Fumarate 25 Mg Tablet) 25 mg PO Q6H PRN PRN Reason: agitation Last Admin: 01/18/22 15:36 Dose: 25 mg Documented By: ADRIANA Senna (Sennosides 8.6 Mg Tablet) 17.2 mg PO BEDTIME [facility] Last Admin: 01/18/22 21:10 Dose: 17.2 mg Documented By: CASIE Sodium Chloride (0.9 % Sodium Chloride Flush 3 Ml Syringe) 3 ml IVFLUSH QSHIFT [facility] Last Admin: 01/19/22 08:12 Dose: Not Given Documented By: ADRIANA Non-Admin Reason: No Access Vitamin D (Cholecalciferol (Vitamin D3) 25 Mcg Tablet) 25 mcg PO DAILY [facility] Last Admin: 01/19/22 08:07 Dose: 25 mcg Documented By: ADRIANA Labs CBC & Chem 7: 01/17/22 08:30 01/16/22 08:16 Labs: Laboratory Results - last 24 hr 01/18/22 01/18/22 01/18/22 11:25 17:06 20:20 POC Glucose 159 H 215 H 172 H 01/19/22 07:15 POC Glucose 234 H Assessment and Plan (1) Dementia with behavioral disturbance: Status: Acute (2) Anemia: Status: Acute (3) Urinary retention: Status: Acute Plan 76-year-old female who is a resident of assisted living facility and with pertinent history of essential hypertension, mixed hyperlipidemia, insulin-dependent diabetes mellitus, urinary incontinence, dementia was brought to the emergency department for evaluation of right hip pain. #Right femoral head and neck fracture -s/p 1) ORIF right femur 2) right hip hemiarthroplasty 3) MIKE right hip on 01/10 -pain control with morphine, IV tyelenol, PT oT, Eliquis for DVT prophylaxis # Insulin-dependent type 2 diabetes mellitus-insulin and monitor glucose #Essential hypertension--continue Norvasc ? #Urinary incontinence- oxybutynin #? Dementia with behavior disturbances-on continue donepezil, Seroquel small dose prn Presently calm, cooperative, DC sitter #.? Chronic normocytic anemia: s/p 1unit of RBC 01/10 after surgery, h/h still drop in 8. ( possible postop anemia ): h/h flactuating added 1 prbc ,moniter h/h: 9-10. continue iron supplements # History of pulmonary embolism--Eliquis Possible malnutrition:?continue Ensure, nutrition consult. Frequent turning, incentive spirometry, chest physio. urinary retenion/vulvar area excoriation : to avoid further sloughing -will placed [facility] urology eval -for above . DVT prophylaxis:? Eliquis Full code Above management discussed with patient's son in detail length.? He understand and in agreement the above plan. Need for inaptient: post surgery care, and need for placement Quality Stroke Does the patient have a stroke diagnosis?: No VTE Prior VTE?: Yes VTE Risk Level:: Medical - moderate - high VTE Device Contraindication: Treatment Not Indicated VTE Drug Contraindication: Treatment Not Indicated
[2022-01-19 11:21] LABS: Glucose, Whole Blood 258 mg/dL (60-115)
--- NOTE | 2022-01-19 12:49 | MHC.CM.PN ---
Addendum entered by Nelly Us RN 01/19/22 13:14: PRN SEROQUEL WILL ALSO BE A BARRIER TO BED OFFER Original Note: PATIENT STILL WITH SITTER. SNF REFERRALS UPDATED WITH CLINICAL
[2022-01-19] MEDS: QUEtiapine Fumarate 25 MG TABLET PO (15:27)
[2022-01-19 16:04] LABS: Glucose, Whole Blood 123 mg/dL (60-115)
[2022-01-19] MEDS: Docusate Sodium 100 MG CAPSULE PO (19:43)
[2022-01-19] MEDS: Sennosides 8.6 MG TABLET 17.2 MG PO (19:43)
[2022-01-19] MEDS: Donepezil HCl 10 MG TABLET PO (19:43)
[2022-01-19] MEDS: Atorvastatin Calcium 20 MG TABLET PO (19:44)
[2022-01-19 20:06] LABS: Glucose, Whole Blood 172 mg/dL (60-115)
[2022-01-19] MEDS: polyethylene glycoL 3350 17 GM POWD.PACK PO (22:54)
[2022-01-20] MEDS: oxyCODONE HCl Immed Release 5 MG TABLET PO ×2 (00:22→13:36)
[2022-01-20 02:51] VITALS: BP 155/64; PULSE 74; RESP 18; TEMP 37.4; O2SAT 98
[2022-01-20] MEDS: Omeprazole 20 MG CAPSULE.DR PO ×2 (05:37→16:55)
[2022-01-20 07:29] LABS: Glucose, Whole Blood 189 mg/dL (60-115)
[2022-01-20 07:48] VITALS: BP 133/61; PULSE 73; RESP 16; TEMP 37.5; O2SAT 98
[2022-01-20] MEDS: Insulin Lispro 100 UNIT/ML 3 ML VIAL SUBCUT ×2 (08:03→11:38)
[2022-01-20] MEDS: Cholecalciferol (Vitamin D3) 25 MCG TABLET PO (09:24)
[2022-01-20] MEDS: polyethylene glycoL 3350 17 GM POWD.PACK PO ×2 (09:24→22:01)
[2022-01-20] MEDS: Apixaban 5 MG TABLET PO ×2 (09:24→16:56)
[2022-01-20] MEDS: Ferrous Sulfate 300 MG/5 ML LIQUID PO ×2 (09:24→16:56)
[2022-01-20 11:08] LABS: Glucose, Whole Blood 197 mg/dL (60-115)
[2022-01-20 11:15] VITALS: BP 98/49; PULSE 76; RESP 17; TEMP 38.3; O2SAT 95
--- NOTE | 2022-01-20 11:31 | HO.PM.IMPN ---
Subjective Subjective Date of Service: 01/20/22 Interval History: F/u on hip fracture anticipating surgery interval history: pain is controlled, baseline confusion, no agiation this morning, Review of Systems no fever some hip pain with movement Physical Exam Vital Signs: Vital Signs: Last Vital Signs Temp 101.0 F H 01/20/22 11:15 Pulse 76 01/20/22 11:15 Resp 17 01/20/22 11:15 BP 98/49 L 01/20/22 11:15 Pulse Ox 95 01/20/22 11:15 O2 Del Method 01/20/22 11:15 O2 Flow Rate 2 01/10/22 16:34 BMI result Body Mass Index 33.0 Const: Other: General: AO X 3, no acute distress Resp: CTA bilateral CVS: S1,S2,RRR GI: +BS, NT, no distention Skin: No rash Neuro: motor grossly intact Psych: appropriate affect Objective Data Active Medications Amlodipine Besylate (Amlodipine Besylate 5 Mg Tablet) 5 mg PO DAILY DIGNA; Protocol Last Admin: 01/12/22 08:14 Dose: 5 mg Documented By: IVA Apixaban (Apixaban 5 Mg Tablet) 5 mg PO BID@0900,1800 [facility] Last Admin: 01/20/22 09:24 Dose: 5 mg Documented By: ADRIANA Artificial Tears (Artificial Tears 15 Ml Drops) 2 drop EYE-BOTH Q4H PRN PRN Reason: Dry Eyes Atorvastatin Calcium (Atorvastatin Calcium 20 Mg Tablet) 20 mg PO BEDTIME [facility] Last Admin: 01/19/22 19:44 Dose: 20 mg Documented By: CASIE Dextrose (Dextrose 50 % 25 Gm/50 Ml Syringe) 25 gm IVPUSH Q15M PRN; Protocol PRN Reason: per Hypoglycemia Standing Ord. Docusate Sodium (Docusate Sodium 100 Mg Capsule) 100 mg PO BEDTIME [facility] Last Admin: 01/19/22 19:43 Dose: 100 mg Documented By: CASIE Donepezil HCl (Donepezil Hcl 10 Mg Tablet) 10 mg PO BEDTIME [facility] Last Admin: 01/19/22 19:43 Dose: 10 mg Documented By: CASIE Ferrous Sulfate (Ferrous Sulfate 300 Mg/5 Ml Liquid) 300 mg PO BIDWM [facility] Last Admin: 01/20/22 09:24 Dose: 300 mg Documented By: ADRIANA Glucose (Glucose Gel 15 Gm Gel..Gram.) 15 gm PO Q15M PRN; Protocol PRN Reason: per Hypoglycemia Standing Ord. Haloperidol (Haloperidol 1 Mg Tablet) 2 mg PO Q6H PRN PRN Reason: severe agitation Hydromorphone HCl (Hydromorphone Hcl 0.5 Mg/0.5 Ml Syringe) 0.5 mg IVPUSH Q3H PRN; Protocol PRN Reason: Pain, Severe (Pain Scale 7-10) Last Admin: 01/15/22 05:09 Dose: 0.5 mg Documented By: MARLENE Cefazolin Sodium/Dextrose (Ancef) 2 gm in 50 mls @ 100 mls/hr IV POSTOP [facility]IGNA Acetaminophen (Ofirmev) 1,000 mg in 100 mls @ 400 mls/hr IV Q6H PRN PRN Reason: Pain, Moderate (Pain Scale 4-6 Last Infusion: 01/16/22 10:27 Dose: 400 mls/hr Documented By: RAKEL Insulin Glargine (Insulin Glargine,Hum.Rec.Anlog 100 Unit/Ml 10 Ml Vial) 34 unit SUBCUT DAILY@0730 [facility] Last Admin: 01/15/22 08:01 Dose: 34 unit Documented By: POLY Insulin Human Lispro (Insulin Lispro 100 Unit/Ml 3 Ml Vial) 0 unit SUBCUT QIDACHS [facility]; Protocol Last Admin: 01/20/22 08:03 Dose: 2 unit Documented By: DESTINY Omeprazole (Omeprazole 20 Mg Capsule.) 20 mg PO BID@0630,1630 [facility] Last Admin: 01/20/22 05:37 Dose: 20 mg Documented By: TIERAAWUNI Ondansetron HCl (Ondansetron Hcl 4 Mg/2 Ml Vial) 4 mg IVPUSH Q8H PRN PRN Reason: Nausea and Vomiting Oxybutynin Chloride (Oxybutynin Chloride Er 5 Mg Tab.Er.24) 10 mg PO DAILY [facility] Last Admin: 01/15/22 08:02 Dose: 10 mg Documented By: POLY Oxycodone HCl (Oxycodone Hcl Er 10 Mg Tab.Er.12h) 10 mg PO BID [facility] Last Admin: 01/14/22 08:26 Dose: 10 mg Documented By: CLAUDY Oxycodone HCl (Oxycodone Hcl Immed Release 5 Mg Tablet) 5 mg PO Q4H PRN PRN Reason: Pain, Moderate (Pain Scale 4-6 Last Admin: 01/20/22 00:22 Dose: 5 mg Documented By: CASIE Polyethylene Glycol (Polyethylene Glycol 3350 17 Gm Powd.Pack) 17 gm PO BID [facility] Last Admin: 01/20/22 09:24 Dose: 17 gm Documented By: ADRIANA Quetiapine Fumarate (Quetiapine Fumarate 25 Mg Tablet) 25 mg PO Q6H PRN PRN Reason: agitation Last Admin: 01/19/22 15:27 Dose: 25 mg Documented By: ADRIANA Senna (Sennosides 8.6 Mg Tablet) 17.2 mg PO BEDTIME [facility] Last Admin: 01/19/22 19:43 Dose: 17.2 mg Documented By: CASIE Sodium Chloride (0.9 % Sodium Chloride Flush 3 Ml Syringe) 3 ml IVFLUSH QSHIFT [facility] Last Admin: 01/20/22 08:04 Dose: Not Given Documented By: DESTINY Non-Admin Reason: No Access Vitamin D (Cholecalciferol (Vitamin D3) 25 Mcg Tablet) 25 mcg PO DAILY [facility] Last Admin: 01/20/22 09:24 Dose: 25 mcg Documented By: ADRIANA Labs CBC & Chem 7: 01/17/22 08:30 01/16/22 08:16 Labs: Laboratory Results - last 24 hr 01/19/22 01/19/22 01/20/22 15:28 20:00 07:18 POC Glucose 123 H 172 H 189 H 01/20/22 10:58 POC Glucose 197 H Assessment and Plan (1) Dementia with behavioral disturbance: Status: Acute (2) Anemia: Status: Acute (3) Urinary retention: Status: Acute Plan 76-year-old female who is a resident of assisted living facility and with pertinent history of essential hypertension, mixed hyperlipidemia, insulin-dependent diabetes mellitus, urinary incontinence, dementia was brought to the emergency department for evaluation of right hip pain. #Right femoral head and neck fracture -s/p 1) ORIF right femur 2) right hip hemiarthroplasty 3) MIKE right hip on 01/10 -pain control with morphine, IV tyelenol, PT oT, Eliquis for DVT prophylaxis # Insulin-dependent type 2 diabetes mellitus-insulin and monitor glucose #Essential hypertension--continue Norvasc ? #Urinary incontinence- oxybutynin #? Dementia with behavior disturbances-on continue donepezil, Seroquel small dose prn Presently calm, cooperative, DC sitter #.? Chronic normocytic anemia: s/p 1unit of RBC 01/10 after surgery, h/h still drop in 8. ( possible postop anemia ): h/h flactuating added 1 prbc ,moniter h/h: 9-10. continue iron supplements # History of pulmonary embolism--Eliquis Possible malnutrition:?continue Ensure, nutrition consult. Frequent turning, incentive spirometry, chest physio. urinary retenion/vulvar area excoriation : to avoid further sloughing -will placed [facility] urology eval -for above . DVT prophylaxis:? Eliquis Full code Above management discussed with patient's son in detail length.? He understand and in agreement the above plan. Need for inaptient: post surgery care, and need for placement Quality Stroke Does the patient have a stroke diagnosis?: No VTE Prior VTE?: Yes VTE Risk Level:: Medical - moderate - high VTE Device Contraindication: Treatment Not Indicated VTE Drug Contraindication: Treatment Not Indicated
--- NOTE | 2022-01-20 11:34 | MHC.CM.PN ---
FRANCESCA SPENCER STILL FOLLOWING. PRN SEROQUEL NEEDS TO BE DC. CASE MANAGEMENT FOLLOWING
--- NOTE | 2022-01-20 13:17 | P.CDIC_ITS ---
CDI Concurrent Query Documentation Clarification: PHYSICIAN'S DOCUMENTATION REQUEST Date of Query: 01/20/22 1317 Patient Name: Sierra Smith Admit Date: 01/08/22 Dear Doctor, A review of the medical record indicates additional documentation may be needed. Please review below and update the documentation accordingly. Clinical Indicators: Risk Factors/Clinical Indicators/Treatments per MD progress note 01/20/22: Dementia with behavior disturbances- on continue donepezil,? Seroquel small dose prn Based on the above, could you clarify in the Progress Notes which, if any of the following, is the most likely etiology of the confusion/altered mental status? * Dementia - indicate type, such as Alzheimer's, senile, vascular, Lewy body, etc., and any associated behavioral disturbances (aggressive, combative, or violent behavior) * Unable to determine * Other etiology (please specify) Use of terms such as suspected, likely, concern for, or probable (associated with a specific diagnosis that is being evaluated, monitored, or treated as if it exists) are acceptable and can be coded in the inpatient setting, when documented at the time of discharge. Thank you, Dianne Davis RN Extension: [phone] Please use your independent medical judgment in providing your response. THIS QUERY IS PART OF THE PERMANENT MEDICAL RECORD Provider Response: Other Other Diagnosis: seen note
--- NOTE | 2022-01-20 13:19 | MHC.CLN ---
F/U DIET=REGULAR. ENSURE CLEAR TID. TAKING LANTUS AND HUMALOG WITH POC GLUCOSE X 2 DAYS [phone]. CHANGING DIET TO DIABETIC 1800 KCALS, GLUCERNA BID (474 KCALS, 20 G PROTEIN). INTAKE CONTINUES 25-100%, WITH MOST 50-100%. PROVIDE FEEDING ASSISTANCE. ENCOURAGE INTAKE OF MEALS AND SUPPLEMENT. FOLLOW FOR INTAKE, LABS, AND WEIGHT.
--- NOTE | 2022-01-20 13:29 | MHC.CDI.CONC ---
CDI Concurrent Query Documentation Clarification: PHYSICIAN'S DOCUMENTATION REQUEST Date of Query: 01/20/22 1329 Patient Name: Sierra Smith Admit Date: 01/08/22 Dear Doctor, A review of the medical record indicates additional documentation may be needed. Please review below and update the documentation accordingly. Clinical Indicators: Documentation includes the diagnosis of malnutrition. Additional clinical indicators from the record include: Risk Factors/Clinical Indicators/Treatments Nutrition note 01/15/22: Malnutrition Inadequate oral intake Energy intake less than 75% greater than 7 days mild depletion of muscle mass in temples progress note 01/20/22: Possible malnutrition:?continue? Ensure ASPEN Criteria* Acute Illness Chronic Illness Clinical Characteristic Non-Severe (2 or more criteria present) Severe (2 or more criteria present) Non-Severe (2 or more criteria present) Severe (2 or more criteria present) Energy Intake <75% for >7 days <=50% for >=5 days <75% for >=1 month <=75% for >=1 month Weight Loss 1 week 1 ? 2% >2% N/A N/A 1 month 5% >5% 5% >5% 3 months 7.5 % >7.5% 7.5% >7.5% 6 months N/A N/A 10% >10% 1 year N/A N/A 20% >20% Body Fat Mild Moderate Mild Severe Muscle Mass Mild Moderate Mild Severe Fluid Accumulation Mild Moderate to Severe Mild Severe Reduced [employer] Professional Strength N/A Measurably Reduced N/A Measurably Reduced *[facility] Hospitalist, 2017 If possible, please provide in your progress notes, additional specificity regarding the severity of the malnutrition using the above information: Mild Moderate Severe Other (please specify) Unable to determine Use of terms such as suspected, likely, concern for, or probable (associated with a specific diagnosis that is being evaluated, monitored, or treated as if it exists) are acceptable and can be coded in the inpatient setting, when documented at the time of discharge. Thank you, Dianne Davis RN Extension: [phone] Please use your independent medical judgment in providing your response. THIS QUERY IS PART OF THE PERMANENT MEDICAL RECORD Provider Response: Other Other Diagnosis: there is no malnutrition
[2022-01-20] MEDS: QUEtiapine Fumarate 25 MG TABLET PO (13:36)
[2022-01-20 15:09] VITALS: BP 121/55; PULSE 78; RESP 18; TEMP 37.4; O2SAT 95
[2022-01-20 15:56] LABS: Glucose, Whole Blood 161 mg/dL (60-115)
--- NOTE | 2022-01-20 17:17 | PC.NURSE ---
Cleaned and applied barrier cream to perineal area. Pt still guarding, c/o pain
[2022-01-20 19:22] VITALS: BP 124/58; PULSE 69; RESP 18; TEMP 37.1; O2SAT 95
[2022-01-20 20:43] LABS: Glucose, Whole Blood 136 mg/dL (60-115)
[2022-01-20] MEDS: Docusate Sodium 100 MG CAPSULE PO (22:00)
[2022-01-20] MEDS: Atorvastatin Calcium 20 MG TABLET PO (22:01)
[2022-01-20] MEDS: Donepezil HCl 10 MG TABLET PO (22:01)
[2022-01-20] MEDS: Sennosides 8.6 MG TABLET 17.2 MG PO (22:01)
[2022-01-20] MEDS: traMADoL HCL 50 MG TABLET PO (23:31)
[2022-01-20 23:37] VITALS: BP 124/59; PULSE 70; RESP 18; TEMP 37.3; O2SAT 94
[2022-01-21 03:12] VITALS: BP 112/63; PULSE 75; RESP 16; TEMP 37; O2SAT 95
[2022-01-21] MEDS: Omeprazole 20 MG CAPSULE.DR PO ×2 (06:26→17:27)
[2022-01-21 07:24] VITALS: BP 119/71; PULSE 63; RESP 17; TEMP 36.5; O2SAT 98
[2022-01-21 07:25] LABS: Glucose, Whole Blood 182 mg/dL (60-115)
[2022-01-21] MEDS: Ferrous Sulfate 300 MG/5 ML LIQUID PO ×2 (07:45→17:27)
[2022-01-21] MEDS: polyethylene glycoL 3350 17 GM POWD.PACK PO ×2 (07:46→21:32)
[2022-01-21] MEDS: Cholecalciferol (Vitamin D3) 25 MCG TABLET PO (07:46)
[2022-01-21] MEDS: Apixaban 5 MG TABLET PO ×2 (07:47→17:27)
[2022-01-21] MEDS: traMADoL HCL 50 MG TABLET PO ×2 (07:48→21:32)
[2022-01-21] MEDS: Insulin Lispro 100 UNIT/ML 3 ML VIAL SUBCUT ×3 (07:49→17:26)
[2022-01-21] MEDS: QUEtiapine Fumarate 25 MG TABLET PO ×2 (07:49→21:33)
--- NOTE | 2022-01-21 09:16 | P.PNIM_ITS ---
Subjective Subjective Date of Service: 01/21/22 Interval History: F/u on hip fracture s/p surgery, confusion and agiation post interval history: No pain, no agitation, no sitter at this time Review of Systems no fever some hip pain with movement Physical Exam Vital Signs: Vital Signs: Last Vital Signs Temp 97.7 F 01/21/22 07:24 Pulse 63 01/21/22 07:24 Resp 17 01/21/22 07:24 BP 119/71 01/21/22 07:24 Pulse Ox 98 01/21/22 07:24 O2 Del Method 01/21/22 07:24 O2 Flow Rate 2 01/10/22 16:34 BMI result Body Mass Index 33.0 Const: Other: General: AO X 3, no acute distress Resp: CTA bilateral CVS: S1,S2,RRR GI: +BS, NT, no distention Skin: No rash Neuro: motor grossly intact Psych: appropriate affect Objective Data Active Medications Amlodipine Besylate (Amlodipine Besylate 5 Mg Tablet) 5 mg PO DAILY [facility]; Protocol Last Admin: 01/12/22 08:14 Dose: 5 mg Documented By: IVA Apixaban (Apixaban 5 Mg Tablet) 5 mg PO BID@0900,1800 [facility] Last Admin: 01/21/22 07:47 Dose: 5 mg Documented By: URIAH Artificial Tears (Artificial Tears 15 Ml Drops) 2 drop EYE-BOTH Q4H PRN PRN Reason: Dry Eyes Atorvastatin Calcium (Atorvastatin Calcium 20 Mg Tablet) 20 mg PO BEDTIME [facility] Last Admin: 01/20/22 22:01 Dose: 20 mg Documented By: MARIXA Dextrose (Dextrose 50 % 25 Gm/50 Ml Syringe) 25 gm IVPUSH Q15M PRN; Protocol PRN Reason: per Hypoglycemia Standing Ord. Docusate Sodium (Docusate Sodium 100 Mg Capsule) 100 mg PO BEDTIME [facility] Last Admin: 01/20/22 22:00 Dose: 100 mg Documented By: MARIXA Donepezil HCl (Donepezil Hcl 10 Mg Tablet) 10 mg PO BEDTIME [facility] Last Admin: 01/20/22 22:01 Dose: 10 mg Documented By: MARIXA Ferrous Sulfate (Ferrous Sulfate 300 Mg/5 Ml Liquid) 300 mg PO BIDWM [facility] Last Admin: 01/21/22 07:45 Dose: 300 mg Documented By: URIAH Glucose (Glucose Gel 15 Gm Gel..Gram.) 15 gm PO Q15M PRN; Protocol PRN Reason: per Hypoglycemia Standing Ord. Hydromorphone HCl (Hydromorphone Hcl 0.5 Mg/0.5 Ml Syringe) 0.5 mg IVPUSH Q3H PRN; Protocol PRN Reason: Pain, Severe (Pain Scale 7-10) Last Admin: 01/15/22 05:09 Dose: 0.5 mg Documented By: MARLENE Acetaminophen (Ofirmev) 1,000 mg in 100 mls @ 400 mls/hr IV Q6H PRN PRN Reason: Pain, Moderate (Pain Scale 4-6 Last Infusion: 01/16/22 10:27 Dose: 400 mls/hr Documented By: RAKEL Insulin Glargine (Insulin Glargine,Hum.Rec.Anlog 100 Unit/Ml 10 Ml Vial) 34 unit SUBCUT DAILY@0730 [facility] Last Admin: 01/15/22 08:01 Dose: 34 unit Documented By: POYL Insulin Human Lispro (Insulin Lispro 100 Unit/Ml 3 Ml Vial) 0 unit SUBCUT QIDACHS [facility]; Protocol Last Admin: 01/21/22 07:49 Dose: 2 unit Documented By: URIAH Omeprazole (Omeprazole 20 Mg Capsule.Dr) 20 mg PO BID@0630,1630 [facility] Last Admin: 01/21/22 06:26 Dose: 20 mg Documented By: MARIXA Ondansetron HCl (Ondansetron Hcl 4 Mg/2 Ml Vial) 4 mg IVPUSH Q8H PRN PRN Reason: Nausea and Vomiting Oxybutynin Chloride (Oxybutynin Chloride Er 5 Mg Tab.Er.24) 10 mg PO DAILY [facility] Last Admin: 01/15/22 08:02 Dose: 10 mg Documented By: POLY Oxycodone HCl (Oxycodone Hcl Er 10 Mg Tab.Er.12h) 10 mg PO BID [facility] Last Admin: 01/14/22 08:26 Dose: 10 mg Documented By: CLAUDY Polyethylene Glycol (Polyethylene Glycol 3350 17 Gm Powd.Pack) 17 gm PO BID [facility] Last Admin: 01/21/22 07:46 Dose: 17 gm Documented By: URIAH Quetiapine Fumarate (Quetiapine Fumarate 25 Mg Tablet) 25 mg PO BID [facility] Last Admin: 01/21/22 07:59 Dose: Not Given Documented By: URIAH Non-Admin Reason: Previously Administered Senna (Sennosides 8.6 Mg Tablet) 17.2 mg PO BEDTIME [facility] Last Admin: 01/20/22 22:01 Dose: 17.2 mg Documented By: MARIXA Sodium Chloride (0.9 % Sodium Chloride Flush 3 Ml Syringe) 3 ml IVFLUSH QSHIFT [facility] Last Admin: 01/21/22 07:11 Dose: Not Given Documented By: COTEMA Non-Admin Reason: No Access Tramadol HCl (Tramadol Hcl 50 Mg Tablet) 50 mg PO Q6H PRN PRN Reason: Pain, Moderate (Pain Scale 4-6 Last Admin: 01/21/22 07:48 Dose: 50 mg Documented By: URIAH Vitamin D (Cholecalciferol (Vitamin D3) 25 Mcg Tablet) 25 mcg PO DAILY [facility] Last Admin: 01/21/22 07:46 Dose: 25 mcg Documented By: URIAH Labs CBC & Chem 7: 01/17/22 08:30 01/16/22 08:16 Labs: Laboratory Results - last 24 hr 01/20/22 01/20/22 01/20/22 10:58 15:12 19:28 POC Glucose 197 H 161 H 136 H 01/21/22 07:22 POC Glucose 182 H Assessment and Plan (1) Dementia with behavioral disturbance: Status: Acute (2) Anemia: Status: Acute (3) Urinary retention: Status: Acute Plan 76-year-old female who is a resident of assisted living facility and with pertinent history of essential hypertension, mixed hyperlipidemia, insulin- dependent diabetes mellitus, urinary incontinence, dementia was brought to the emergency department for evaluation of right hip pain. #Right femoral head and neck fracture -s/p 1) ORIF right femur 2) right hip hemiarthroplasty 3) MIKE right hip on 01/10 -pain control with morphine, IV tyelenol, PT OT, Eliquis for DVT prophylaxis # Insulin-dependent type 2 diabetes mellitus-insulin and monitor glucose #Essential hypertension--continue Norvasc ? #Urinary incontinence- oxybutynin #? Dementia with behavior disturbances-on continue donepezil, Seroquel small dose prn Presently calm, cooperative, DC sitter # Chronic normocytic anemia: s/p 1unit of RBC 01/10 after surgery, h/h still drop in 8. ( possible postop anemia ): h/h flactuating most recent H/H stable continue iron supplements # History of pulmonary embolism--Eliquis Possible malnutrition:? adeqauate weight and eating appropriately at this time Frequent turning, incentive spirometry, urinary retenion/vulvar area excoriation : to avoid further sloughing -paual inserted for this Uro: recommended zinc barrier cream but if the superficial ulcerated skin is not improving, recommend evaluation by LEGISLATIVE DIRECTOR DVT prophylaxis:? Eliquis Full code Above management discussed with patient's son in detail length.? He understand and in agreement the above plan. Need for inpatient: post surgery care, and need for placement Quality Stroke Does the patient have a stroke diagnosis?: No VTE Prior VTE?: Yes VTE Risk Level:: Medical - moderate - high VTE Device Contraindication: Treatment Not Indicated VTE Drug Contraindication: Treatment Not Indicated
[2022-01-21 11:08] LABS: Glucose, Whole Blood 180 mg/dL (60-115)
[2022-01-21 11:36] VITALS: BP 102/50; PULSE 88; RESP 16; TEMP 36.6; O2SAT 96
--- NOTE | 2022-01-21 13:01 | MHC.CM.PN ---
[facility] OFFERING. ERNESTO AGUILERA [phone] ACCEPTS. FACILITY ATTEMPTING AUTH. WILL NEED RAPID COVID SWAB RN AWARE OF PLANS
[2022-01-21 13:33] LABS: COVID-19 Test Positive (Negative); IDNOW Serial# 16C4AD1C
--- NOTE | 2022-01-21 14:05 | MHC.CM.PN ---
PATIENT TESTED POSITIVE FOR COVID-19 FACILITY IS UNABLE TO ACCEPT UNTIL : SHE TESTS NEGATIVE AFTER FIVE DAYS OR [facility] CAN ACCEPT ON DAY 11 PENDING BED AVAILABILITY RN, UNIT, AND SON/HCP ALE [phone] AWARE.
[2022-01-21 16:00] VITALS: BP 100/45; PULSE 78; RESP 19; TEMP 37.1
[2022-01-21 16:56] LABS: Glucose, Whole Blood 154 mg/dL (60-115)
[2022-01-21 19:16] VITALS: BP 95/45; PULSE 70; RESP 19; TEMP 36.4
[2022-01-21 19:17] VITALS: BP 95/47; PULSE 70; RESP 19; TEMP 36.4
[2022-01-21 19:47] LABS: Glucose, Whole Blood 133 mg/dL (60-115)
[2022-01-21] MEDS: Sennosides 8.6 MG TABLET 17.2 MG PO (21:32)
[2022-01-21] MEDS: Donepezil HCl 10 MG TABLET PO (21:32)
[2022-01-21] MEDS: Docusate Sodium 100 MG CAPSULE PO (21:32)
[2022-01-21] MEDS: Atorvastatin Calcium 20 MG TABLET PO (21:33)
[2022-01-21] MEDS: 0.9 % Sodium Chloride Flush 3 ML SYRINGE IVFLUSH (21:34)
[2022-01-22] VITALS (9 sets, daily range): BP systolic 101–138; BP diastolic 45–67; PULSE 63–77; RESP 15–18; TEMP 36–36.8; O2SAT 93–100
[2022-01-22] MEDS: traMADoL HCL 50 MG TABLET PO (03:54)
[2022-01-22] MEDS: Omeprazole 20 MG CAPSULE.DR PO ×2 (05:45→16:26)
[2022-01-22 08:22] LABS: Glucose, Whole Blood 196 mg/dL (60-115)
[2022-01-22] MEDS: Cholecalciferol (Vitamin D3) 25 MCG TABLET PO (08:45)
[2022-01-22] MEDS: QUEtiapine Fumarate 25 MG TABLET PO ×2 (08:45→20:39)
[2022-01-22] MEDS: Apixaban 5 MG TABLET PO ×2 (08:45→16:26)
[2022-01-22] MEDS: Insulin Lispro 100 UNIT/ML 3 ML VIAL SUBCUT ×3 (08:45→16:26)
[2022-01-22] MEDS: Ferrous Sulfate 300 MG/5 ML LIQUID PO ×2 (08:45→16:26)
[2022-01-22] MEDS: polyethylene glycoL 3350 17 GM POWD.PACK PO ×2 (08:45→20:39)
[2022-01-22 11:28] LABS: Glucose, Whole Blood 174 mg/dL (60-115)
--- NOTE | 2022-01-22 12:11 | MHC.CM.PN ---
Plan is for @ [facility] @ [facility] once considered Covid recovered on 01/31/2022; CM will follow.
--- NOTE | 2022-01-22 14:20 | MHC.CLN ---
F/U PO 50-100% DIET RX: 1800DM-APPROPRIATE PT RECEIVING 8OZ GLUCERNA BID TO INCREASE PO INTAKE SUPP PROVIDES 474KCALS, 20G PROTEIN CONTINUE TO MONITOR PO INTAKE
[2022-01-22 16:13] LABS: Glucose, Whole Blood 169 mg/dL (60-115)
[2022-01-22 19:59] LABS: Glucose, Whole Blood 134 mg/dL (60-115)
[2022-01-22] MEDS: Sennosides 8.6 MG TABLET 17.2 MG PO (20:35)
[2022-01-22] MEDS: Donepezil HCl 10 MG TABLET PO (20:39)
[2022-01-22] MEDS: Atorvastatin Calcium 20 MG TABLET PO (20:39)
[2022-01-23] VITALS (8 sets, daily range): BP systolic 99–143; BP diastolic 34–67; PULSE 59–74; RESP 16–18; TEMP 33.6–37.3; O2SAT 85–100
[2022-01-23] MEDS: traMADoL HCL 50 MG TABLET PO ×3 (00:28→23:42)
[2022-01-23 05:16] LABS: Appearance Urine Turbid; Color Urine Dark Yellow; Glucose Urine UA Negative (Negative); Leukocyte Esterase Urine Moderate (2+) (Negative); Nitrite Urine Positive (Negative); PH 5.5 (5.0-9.0); Specific Gravity - Urine 1.025 (1.005-1.025); UMIC TRIGGER UACC YES; Urine Blood Moderate (2+) (Negative); Urine Ketones 15 mg/dL (Negative); Urine Protein 30 (1+) mg/dL (Neg-Trace)
[2022-01-23] MEDS: Omeprazole 20 MG CAPSULE.DR PO ×2 (05:47→17:24)
[2022-01-23 05:57] LABS: Bacteria Urine 4+ (None Seen); Hyaline Casts Urine 0-2 /LPF (0-2); UACC Culture Trigger YES; WBC Urine 21-50 /HPF (0-5)
[2022-01-23 07:52] LABS: Glucose, Whole Blood 165 mg/dL (60-115)
[2022-01-23] MEDS: Ferrous Sulfate 300 MG/5 ML LIQUID PO ×2 (09:46→17:24)
[2022-01-23] MEDS: Apixaban 5 MG TABLET PO ×2 (09:47→17:24)
[2022-01-23] MEDS: Insulin Lispro 100 UNIT/ML 3 ML VIAL SUBCUT ×3 (09:47→21:19)
[2022-01-23] MEDS: Cholecalciferol (Vitamin D3) 25 MCG TABLET PO (09:47)
[2022-01-23] MEDS: QUEtiapine Fumarate 25 MG TABLET PO ×2 (09:47→21:19)
[2022-01-23] MEDS: polyethylene glycoL 3350 17 GM POWD.PACK PO ×2 (09:47→21:19)
--- NOTE | 2022-01-23 09:51 | HO.PM.IMPN ---
Subjective Subjective Date of Service: 01/23/22 Interval History: F/u on hip fracture s/p surgery, confusion and agiation post interval history: No pain, no agitation, no sitter at this time and normal O2 Review of Systems no fever some hip pain with movement Physical Exam Vital Signs: Vital Signs: Last Vital Signs Temp 99.2 F 01/23/22 07:13 Pulse 74 01/23/22 07:13 Resp 18 01/23/22 07:13 BP 139/50 L 01/23/22 07:13 Pulse Ox 100 01/23/22 07:13 O2 Del Method 01/23/22 07:13 O2 Flow Rate 2 01/10/22 16:34 FiO2 94 01/21/22 19:17 BMI result Body Mass Index 33.0 Const: Other: General: AO X 1, no acute distress Resp: CTA bilateral CVS: S1,S2,RRR GI: +BS, NT, no distention Skin: No rash Neuro: motor grossly intact Psych: appropriate affect Objective Data Active Medications Amlodipine Besylate (Amlodipine Besylate 5 Mg Tablet) 5 mg PO DAILY [facility]; Protocol Last Admin: 01/12/22 08:14 Dose: 5 mg Documented By: IVA Apixaban (Apixaban 5 Mg Tablet) 5 mg PO BID@0900,1800 [facility] Last Admin: 01/23/22 09:47 Dose: 5 mg Documented By: GUILLERMINA Artificial Tears (Artificial Tears 15 Ml Drops) 2 drop EYE-BOTH Q4H PRN PRN Reason: Dry Eyes Atorvastatin Calcium (Atorvastatin Calcium 20 Mg Tablet) 20 mg PO BEDTIME [facility] Last Admin: 01/22/22 20:39 Dose: 20 mg Documented By: ALEXANDRU Dextrose (Dextrose 50 % 25 Gm/50 Ml Syringe) 25 gm IVPUSH Q15M PRN; Protocol PRN Reason: per Hypoglycemia Standing Ord. Docusate Sodium (Docusate Sodium 100 Mg Capsule) 100 mg PO BEDTIME [facility] Last Admin: 01/22/22 21:26 Dose: Not Given Documented By: ALEXANDRU Non-Admin Reason: Pt refused,doesnt want med bc unable crush Donepezil HCl (Donepezil Hcl 10 Mg Tablet) 10 mg PO BEDTIME [facility] Last Admin: 01/22/22 20:39 Dose: 10 mg Documented By: ALEXANDRU Ferrous Sulfate (Ferrous Sulfate 300 Mg/5 Ml Liquid) 300 mg PO BIDWM [facility] Last Admin: 01/23/22 09:46 Dose: 300 mg Documented By: GUILLERMINA Glucose (Glucose Gel 15 Gm Gel..Gram.) 15 gm PO Q15M PRN; Protocol PRN Reason: per Hypoglycemia Standing Ord. Hydromorphone HCl (Hydromorphone Hcl 0.5 Mg/0.5 Ml Syringe) 0.5 mg IVPUSH Q3H PRN; Protocol PRN Reason: Pain, Severe (Pain Scale 7-10) Last Admin: 01/15/22 05:09 Dose: 0.5 mg Documented By: CUATERISGeeta Acetaminophen (Ofirmev) 1,000 mg in 100 mls @ 400 mls/hr IV Q6H PRN PRN Reason: Pain, Moderate (Pain Scale 4-6 Last Infusion: 01/16/22 10:27 Dose: 400 mls/hr Documented By: RAKEL Insulin Glargine (Insulin Glargine,Hum.Rec.Anlog 100 Unit/Ml 10 Ml Vial) 34 unit SUBCUT DAILY@0730 [facility] Last Admin: 01/15/22 08:01 Dose: 34 unit Documented By: POLY Insulin Human Lispro (Insulin Lispro 100 Unit/Ml 3 Ml Vial) 0 unit SUBCUT QIDACHS [facility]; Protocol Last Admin: 01/23/22 09:47 Dose: 2 unit Documented By: GUILLERMINA Omeprazole (Omeprazole 20 Mg Capsule.Dr) 20 mg PO BID@0630,1630 [facility] Last Admin: 01/23/22 05:47 Dose: 20 mg Documented By: ALEXANDRU Ondansetron HCl (Ondansetron Hcl 4 Mg/2 Ml Vial) 4 mg IVPUSH Q8H PRN PRN Reason: Nausea and Vomiting Oxybutynin Chloride (Oxybutynin Chloride Er 5 Mg Tab.Er.24) 10 mg PO DAILY [facility] Last Admin: 01/15/22 08:02 Dose: 10 mg Documented By: POLY Oxycodone HCl (Oxycodone Hcl Er 10 Mg Tab.Er.12h) 10 mg PO BID [facility] Last Admin: 01/14/22 08:26 Dose: 10 mg Documented By: CLAUDY Polyethylene Glycol (Polyethylene Glycol 3350 17 Gm Powd.Pack) 17 gm PO BID [facility] Last Admin: 01/23/22 09:47 Dose: 17 gm Documented By: GUILLERMINA Quetiapine Fumarate (Quetiapine Fumarate 25 Mg Tablet) 25 mg PO BID [facility] Last Admin: 01/23/22 09:47 Dose: 25 mg Documented By: GUILLERMINA Senna (Sennosides 8.6 Mg Tablet) 17.2 mg PO BEDTIME [facility] Last Admin: 01/22/22 20:35 Dose: 17.2 mg Documented By: ALEXANDRU Sodium Chloride (0.9 % Sodium Chloride Flush 3 Ml Syringe) 3 ml IVFLUSH QSHIFT [facility] Last Admin: 01/23/22 09:48 Dose: Not Given Documented By: GUILLERMINA Non-Admin Reason: No Access Tramadol HCl (Tramadol Hcl 50 Mg Tablet) 50 mg PO Q6H PRN PRN Reason: Pain, Moderate (Pain Scale 4-6 Last Admin: 01/23/22 00:28 Dose: 50 mg Documented By: ALEXANDRU Vitamin D (Cholecalciferol (Vitamin D3) 25 Mcg Tablet) 25 mcg PO DAILY [facility] Last Admin: 01/23/22 09:47 Dose: 25 mcg Documented By: GUILLERMINA Labs CBC & Chem 7: 01/17/22 08:30 01/16/22 08:16 Labs: Laboratory Results - last 24 hr 01/22/22 01/22/22 01/22/22 10:57 16:06 19:55 POC Glucose 174 H 169 H 134 H Urine Color Urine Appearance Urine pH Ur Specific [place] Urine Protein Urine Glucose (UA) Urine Ketones Urine Blood Urine Nitrite Ur Leukocyte Esterase Urine RBC Urine WBC Ur Squamous Epith Cells Urine Bacteria Hyaline Casts 01/23/22 01/23/22 04:30 07:15 POC Glucose 165 H Urine Color Dark Yellow Urine Appearance Turbid Urine pH 5.5 Ur Specific [place] 1.025 Urine Protein 30 (1+) H Urine Glucose (UA) Negative Urine Ketones 15 Urine Blood Moderate (2+) H Urine Nitrite Positive H Ur Leukocyte Esterase Moderate (2+) H Urine RBC 6-10 H Urine WBC 21-50 Ur Squamous Epith Cells 3-5 Urine Bacteria 4+ Hyaline Casts 0-2 Assessment and Plan (1) Dementia with behavioral disturbance: Status: Acute (2) Anemia: Status: Acute (3) Urinary retention: Status: Acute Plan 76-year-old female who is a resident of assisted living facility and with pertinent history of essential hypertension, mixed hyperlipidemia, insulin-dependent diabetes mellitus, urinary incontinence, dementia was brought to the emergency department for evaluation of right hip pain. #Right femoral head and neck fracture -s/p 1) ORIF right femur 2) right hip hemiarthroplasty 3) MIKE right hip on 01/10 -pain control with morphine, IV tyelenol, PT OT, Eliquis for DVT prophylaxis # Insulin-dependent type 2 diabetes mellitus-insulin and monitor glucose #Essential hypertension--continue Norvasc ? #Urinary incontinence- oxybutynin #? Dementia with behavior disturbances-on continue donepezil, Seroquel small dose prn Presently calm, cooperative, DC sitter # Chronic normocytic anemia: s/p 1unit of RBC 01/10 after surgery, h/h still drop in 8. ( possible postop anemia ): h/h flactuating most recent H/H stable continue iron supplements # History of pulmonary embolism--Eliquis Possible malnutrition:? adeqauate weight and eating appropriately at this time Frequent turning, incentive spirometry, urinary retenion/vulvar area excoriation : to avoid further sloughing -paula inserted for this Uro: recommended zinc barrier cream but if the superficial ulcerated skin is not improving, recommend evaluation by SPANISH TEACHER DVT prophylaxis:? Eliquis Full code Above management discussed with patient's son in detail length.? He understand and in agreement the above plan. Need for inpatient: Patient was supposed to be discharged on 01/21 and tested positive for covid screen and facility would not take until negative for covid at 5 day or under quarantine for 11 days Quality Stroke Does the patient have a stroke diagnosis?: No VTE Prior VTE?: Yes VTE Risk Level:: Medical - moderate - high VTE Device Contraindication: Treatment Not Indicated VTE Drug Contraindication: Treatment Not Indicated
[2022-01-23 11:29] LABS: Glucose, Whole Blood 188 mg/dL (60-115)
[2022-01-23 16:55] LABS: Glucose, Whole Blood 133 mg/dL (60-115)
--- NOTE | 2022-01-23 18:37 | PC.NURSE ---
pt is confused, easily agitated, irritable. Pt refused care from FARM OPERATOR, tried to offer care two more times. Pt still refused. pt is unable to feed herself.
[2022-01-23 21:09] LABS: Glucose, Whole Blood 169 mg/dL (60-115)
[2022-01-23] MEDS: Donepezil HCl 10 MG TABLET PO (21:19)
[2022-01-23] MEDS: Atorvastatin Calcium 20 MG TABLET PO (21:19)
[2022-01-23] MEDS: Sennosides 8.6 MG TABLET 17.2 MG PO (21:19)
[2022-01-23] MEDS: Docusate Sodium 100 MG CAPSULE PO (21:19)
[2022-01-24 03:54] VITALS: BP 128/58; PULSE 61; RESP 18; TEMP 36.8; O2SAT 98
[2022-01-24] MEDS: Omeprazole 20 MG CAPSULE.DR PO ×2 (06:02→17:24)
[2022-01-24 07:49] LABS: Glucose, Whole Blood 180 mg/dL (60-115)
[2022-01-24 08:00] VITALS: BP 129/58; PULSE 73; RESP 18; TEMP 36.6; O2SAT 98
--- NOTE | 2022-01-24 09:23 | P.PNIM_ITS ---
Subjective Subjective Date of Service: 01/24/22 Interval History: F/u on hip fracture s/p surgery, confusion and agiation post interval history: No pain, no agitation, no sitter at this time and normal O2, in other words no new issues Review of Systems no fever some hip pain with movement Physical Exam Vital Signs: Vital Signs: Last Vital Signs Temp 97.8 F 01/24/22 08:00 Pulse 73 01/24/22 08:00 Resp 18 01/24/22 08:00 BP 129/58 L 01/24/22 08:00 Pulse Ox 98 01/24/22 08:00 O2 Del Method 01/24/22 08:00 O2 Flow Rate 2 01/10/22 16:34 FiO2 94 01/21/22 19:17 BMI result Body Mass Index 33.0 Const: Other: General: AO X 1, no acute distress Resp: CTA bilateral CVS: S1,S2,RRR GI: +BS, NT, no distention Skin: No rash Neuro: motor grossly intact Psych: appropriate affect Objective Data Active Medications Amlodipine Besylate (Amlodipine Besylate 5 Mg Tablet) 5 mg PO DAILY [facility]; Han col Last Admin: 01/12/22 08:14 Dose: 5 mg Documented By: IVA Apixaban (Apixaban 5 Mg Tablet) 5 mg PO BID@0900,1800 [facility] Last Admin: 01/23/22 17:24 Dose: 5 mg Documented By: GUILLERMINA Artificial Tears (Artificial Tears 15 Ml Drops) 2 drop EYE-BOTH Q4H PRN PRN Reason: Dry Eyes Atorvastatin Calcium (Atorvastatin Calcium 20 Mg Tablet) 20 mg PO BEDTIME [facility] Last Admin: 01/23/22 21:19 Dose: 20 mg Documented By: ALEXANDRU Dextrose (Dextrose 50 % 25 Gm/50 Ml Syringe) 25 gm IVPUSH Q15M PRN; Protocol PRN Reason: per Hypoglycemia Standing Ord. Docusate Sodium (Docusate Sodium 100 Mg Capsule) 100 mg PO BEDTIME [facility] Last Admin: 01/23/22 21:19 Dose: 100 mg Documented By: ALEXANDRU Donepezil HCl (Donepezil Hcl 10 Mg Tablet) 10 mg PO BEDTIME [facility] Last Admin: 01/23/22 21:19 Dose: 10 mg Documented By: ALEXANDRU Ferrous Sulfate (Ferrous Sulfate 300 Mg/5 Ml Liquid) 300 mg PO BIDWM [facility] Last Admin: 01/23/22 17:24 Dose: 300 mg Documented By: GUILLERMINA Glucose (Glucose Gel 15 Gm Gel..Gram.) 15 gm PO Q15M PRN; Protocol PRN Reason: per Hypoglycemia Standing Ord. Hydromorphone HCl (Hydromorphone Hcl 0.5 Mg/0.5 Ml Syringe) 0.5 mg IVPUSH Q3H PRN; Protocol PRN Reason: Pain, Severe (Pain Scale 7-10) Last Admin: 01/15/22 05:09 Dose: 0.5 mg Documented By: ODRISGeeta Acetaminophen (Ofirmev) 1,000 mg in 100 mls @ 400 mls/hr IV Q6H PRN PRN Reason: Pain, Moderate (Pain Scale 4-6 Last Infusion: 01/16/22 10:27 Dose: 400 mls/hr Documented By: RAKEL Insulin Glargine (Insulin Glargine,Hum.Rec.Anlog 100 Unit/Ml 10 Ml Vial) 34 unit SUBCUT DAILY@0730 [facility] Last Admin: 01/15/22 08:01 Dose: 34 unit Documented By: POLY Insulin Human Lispro (Insulin Lispro 100 Unit/Ml 3 Ml Vial) 0 unit SUBCUT QIDACHS [facility]; Protocol Last Admin: 01/23/22 21:19 Dose: 2 unit Documented By: ALEXANDRU Omeprazole (Omeprazole 20 Mg Capsule.Dr) 20 mg PO BID@0630,1630 [facility] Last Admin: 01/24/22 06:02 Dose: 20 mg Documented By: ALEXANDRU Ondansetron HCl (Ondansetron Hcl 4 Mg/2 Ml Vial) 4 mg IVPUSH Q8H PRN PRN Reason: Nausea and Vomiting Oxybutynin Chloride (Oxybutynin Chloride Er 5 Mg Tab.Er.24) 10 mg PO DAILY [facility] Last Admin: 01/15/22 08:02 Dose: 10 mg Documented By: POLY Oxycodone HCl (Oxycodone Hcl Er 10 Mg Tab.Er.12h) 10 mg PO BID [facility] Last Admin: 01/14/22 08:26 Dose: 10 mg Documented By: CLAUDY Polyethylene Glycol (Polyethylene Glycol 3350 17 Gm Powd.Pack) 17 gm PO BID [facility] Last Admin: 01/23/22 21:19 Dose: 17 gm Documented By: ALEXANDRU Quetiapine Fumarate (Quetiapine Fumarate 25 Mg Tablet) 25 mg PO BID [facility] Last Admin: 01/23/22 21:19 Dose: 25 mg Documented By: ALEXANDRU Senna (Sennosides 8.6 Mg Tablet) 17.2 mg PO BEDTIME [facility] Last Admin: 01/23/22 21:19 Dose: 17.2 mg Documented By: ALEXANDRU Sodium Chloride (0.9 % Sodium Chloride Flush 3 Ml Syringe) 3 ml IVFLUSH QSHIFT [facility] Last Admin: 01/24/22 01:36 Dose: Not Given Documented By: ALEXANDRU Non-Admin Reason: No Access Tramadol HCl (Tramadol Hcl 50 Mg Tablet) 50 mg PO Q6H PRN PRN Reason: Pain, Moderate (Pain Scale 4-6 Last Admin: 01/23/22 23:42 Dose: 50 mg Documented By: ALEXANDRU Vitamin D (Cholecalciferol (Vitamin D3) 25 Mcg Tablet) 25 mcg PO DAILY [facility] Last Admin: 01/23/22 09:47 Dose: 25 mcg Documented By: GUILLERMINA Labs CBC & Chem 7: 01/17/22 08:30 01/16/22 08:16 Labs: Laboratory Results - last 24 hr 01/23/22 01/23/22 01/23/22 11:11 16:37 20:55 POC Glucose 188 H 133 H 169 H 01/24/22 07:38 POC Glucose 180 H Assessment and Plan (1) Dementia with behavioral disturbance: Status: Acute (2) Anemia: Status: Acute (3) Urinary retention: Status: Acute Plan 76-year-old female who is a resident of assisted living facility and with pertinent history of essential hypertension, mixed hyperlipidemia, insulin- dependent diabetes mellitus, urinary incontinence, dementia was brought to the emergency department for evaluation of right hip pain. #Right femoral head and neck fracture -s/p 1) ORIF right femur 2) right hip hemiarthroplasty 3) MIKE right hip on 01/10 -pain control with morphine, IV tyelenol, PT OT, Eliquis for DVT prophylaxis # Insulin-dependent type 2 diabetes mellitus-insulin and monitor glucose #Essential hypertension--continue Norvasc ? #Urinary incontinence- oxybutynin #? Dementia with behavior disturbances-on continue donepezil, Seroquel small dose prn Presently calm, cooperative, DC sitter # Chronic normocytic anemia: s/p 1unit of RBC 01/10 after surgery, h/h still drop in 8. ( possible postop anemia ): h/h flactuating most recent H/H stable continue iron supplements # History of pulmonary embolism--Eliquis #Possible malnutrition:? adeqauate weight and eating appropriately at this time #Frequent turning, incentive spirometry, #urinary retenion/vulvar area excoriation : to avoid further sloughing -paula inserted for this Uro: recommended zinc barrier cream but if the superficial ulcerated skin is not improving, recommend evaluation by MACHINIST SET UP #+Screening covid--assymptomatic and therefore no specific treatment DVT prophylaxis:? Nigel Full code Above management discussed with patient's son in detail length.? He understand and in agreement the above plan. Need for inpatient: Patient was supposed to be discharged on 01/21 and tested positive for covid screen and facility would not take until negative for covid at 5 day or under quarantine for 11 days Quality Stroke Does the patient have a stroke diagnosis?: No VTE Prior VTE?: Yes VTE Risk Level:: Medical - moderate - high VTE Device Contraindication: Treatment Not Indicated VTE Drug Contraindication: Treatment Not Indicated
[2022-01-24] MEDS: QUEtiapine Fumarate 25 MG TABLET PO ×2 (10:05→20:25)
[2022-01-24] MEDS: Ferrous Sulfate 300 MG/5 ML LIQUID PO ×2 (10:06→17:24)
[2022-01-24] MEDS: Cholecalciferol (Vitamin D3) 25 MCG TABLET PO (10:06)
[2022-01-24] MEDS: polyethylene glycoL 3350 17 GM POWD.PACK PO ×2 (10:06→20:25)
[2022-01-24] MEDS: Insulin Lispro 100 UNIT/ML 3 ML VIAL SUBCUT ×3 (10:06→20:25)
[2022-01-24] MEDS: Apixaban 5 MG TABLET PO ×2 (10:06→17:24)
[2022-01-24 11:51] VITALS: BP 126/68; PULSE 75; RESP 18; TEMP 36.6; O2SAT 98
[2022-01-24 15:39] VITALS: BP 112/71; PULSE 73; RESP 18; TEMP 37.2; O2SAT 95
[2022-01-24 16:53] LABS: Glucose, Whole Blood 245 mg/dL (60-115)
[2022-01-24 19:45] LABS: Glucose, Whole Blood 241 mg/dL (60-115)
[2022-01-24 19:48] VITALS: BP 106/56; PULSE 73; RESP 18; TEMP 37.2; O2SAT 97
[2022-01-24] MEDS: Donepezil HCl 10 MG TABLET PO (20:24)
[2022-01-24] MEDS: Docusate Sodium 100 MG CAPSULE PO (20:24)
[2022-01-24] MEDS: Atorvastatin Calcium 20 MG TABLET PO (20:24)
[2022-01-24] MEDS: Sennosides 8.6 MG TABLET 17.2 MG PO (20:25)
[2022-01-25] VITALS (7 sets, daily range): BP systolic 82–152; BP diastolic 46–71; PULSE 65–74; RESP 14–20; TEMP 35.7–37; O2SAT 95–100
[2022-01-25] MEDS: Omeprazole 20 MG CAPSULE.DR PO ×2 (05:36→17:28)
[2022-01-25 07:35] LABS: Glucose, Whole Blood 233 mg/dL (60-115)
[2022-01-25] MEDS: Cholecalciferol (Vitamin D3) 25 MCG TABLET PO (07:56)
[2022-01-25] MEDS: Apixaban 5 MG TABLET PO ×2 (07:56→17:28)
[2022-01-25] MEDS: QUEtiapine Fumarate 25 MG TABLET PO ×2 (07:56→20:42)
[2022-01-25] MEDS: polyethylene glycoL 3350 17 GM POWD.PACK PO ×2 (07:57→20:41)
[2022-01-25] MEDS: Ferrous Sulfate 300 MG/5 ML LIQUID PO ×2 (07:57→17:28)
[2022-01-25] MEDS: Insulin Lispro 100 UNIT/ML 3 ML VIAL SUBCUT ×3 (07:57→20:42)
--- NOTE | 2022-01-25 08:40 | MHC.CM.PN ---
Female 76 DX R hip pain Exit covid + DC on hold until covid recovered. [facility] is the only bed offer that the patient has received.. A clinical up has been sent. [facility] via [facility].
[2022-01-25 11:42] LABS: Glucose, Whole Blood 306 mg/dL (60-115)
--- NOTE | 2022-01-25 12:05 | HO.PM.IMPN ---
Subjective Subjective Date of Service: 01/25/22 Interval History: F/u on hip fracture s/p surgery, confusion and agiation post interval history: No new issues Review of Systems no fever some hip pain with movement Physical Exam Vital Signs: Vital Signs: Last Vital Signs Temp 97.6 F 01/25/22 11:24 Pulse 73 01/25/22 11:24 Resp 20 01/25/22 11:24 BP 112/61 01/25/22 11:24 Pulse Ox 100 01/25/22 11:24 O2 Del Method 01/25/22 11:24 O2 Flow Rate 2 01/10/22 16:34 FiO2 94 01/21/22 19:17 BMI result Body Mass Index 33.0 Const: Other: General: AO X 1, no acute distress Resp: CTA bilateral CVS: S1,S2,RRR GI: +BS, NT, no distention Skin: No rash, hip wound is healing fine, there is minimal drainage at a spot Neuro: motor grossly intact Psych: appropriate affect Objective Data Active Medications Amlodipine Besylate (Amlodipine Besylate 5 Mg Tablet) 5 mg PO DAILY [facility]; Protocol Last Admin: 01/12/22 08:14 Dose: 5 mg Documented By: IVA Apixaban (Apixaban 5 Mg Tablet) 5 mg PO BID@0900,1800 [facility] Last Admin: 01/25/22 07:56 Dose: 5 mg Documented By: TAYLOR Artificial Tears (Artificial Tears 15 Ml Drops) 2 drop EYE-BOTH Q4H PRN PRN Reason: Dry Eyes Atorvastatin Calcium (Atorvastatin Calcium 20 Mg Tablet) 20 mg PO BEDTIME [facility] Last Admin: 01/24/22 20:24 Dose: 20 mg Documented By: SONJA Dextrose (Dextrose 50 % 25 Gm/50 Ml Syringe) 25 gm IVPUSH Q15M PRN; Protocol PRN Reason: per Hypoglycemia Standing Ord. Docusate Sodium (Docusate Sodium 100 Mg Capsule) 100 mg PO BEDTIME [facility] Last Admin: 01/24/22 20:24 Dose: 100 mg Documented By: SONJA Donepezil HCl (Donepezil Hcl 10 Mg Tablet) 10 mg PO BEDTIME [facility] Last Admin: 01/24/22 20:24 Dose: 10 mg Documented By: SONJA Ferrous Sulfate (Ferrous Sulfate 300 Mg/5 Ml Liquid) 300 mg PO BIDWM [facility] Last Admin: 01/25/22 07:57 Dose: 300 mg Documented By: TAYLOR Glucose (Glucose Gel 15 Gm Gel..Gram.) 15 gm PO Q15M PRN; Protocol PRN Reason: per Hypoglycemia Standing Ord. Hydromorphone HCl (Hydromorphone Hcl 0.5 Mg/0.5 Ml Syringe) 0.5 mg IVPUSH Q3H PRN; Protocol PRN Reason: Pain, Severe (Pain Scale 7-10) Last Admin: 01/15/22 05:09 Dose: 0.5 mg Documented By: ODRISGeeta Acetaminophen (Ofirmev) 1,000 mg in 100 mls @ 400 mls/hr IV Q6H PRN PRN Reason: Pain, Moderate (Pain Scale 4-6 Last Infusion: 01/16/22 10:27 Dose: 400 mls/hr Documented By: RAKEL Insulin Glargine (Insulin Glargine,Hum.Rec.Anlog 100 Unit/Ml 10 Ml Vial) 34 unit SUBCUT DAILY@0730 [facility] Last Admin: 01/15/22 08:01 Dose: 34 unit Documented By: POLY Insulin Human Lispro (Insulin Lispro 100 Unit/Ml 3 Ml Vial) 0 unit SUBCUT QIDACHS [facility]; Protocol Last Admin: 01/25/22 07:57 Dose: 4 unit Documented By: TAYLOR Omeprazole (Omeprazole 20 Mg Capsule.Dr) 20 mg PO BID@0630,1630 [facility] Last Admin: 01/25/22 05:36 Dose: 20 mg Documented By: LOUISEJ Ondansetron HCl (Ondansetron Hcl 4 Mg/2 Ml Vial) 4 mg IVPUSH Q8H PRN PRN Reason: Nausea and Vomiting Oxybutynin Chloride (Oxybutynin Chloride Er 5 Mg Tab.Er.24) 10 mg PO DAILY [facility] Last Admin: 01/15/22 08:02 Dose: 10 mg Documented By: POLY Oxycodone HCl (Oxycodone Hcl Er 10 Mg Tab.Er.12h) 10 mg PO BID [facility] Last Admin: 01/14/22 08:26 Dose: 10 mg Documented By: CLAUDY Polyethylene Glycol (Polyethylene Glycol 3350 17 Gm Powd.Pack) 17 gm PO BID [facility] Last Admin: 01/25/22 07:57 Dose: 17 gm Documented By: TAYLOR Quetiapine Fumarate (Quetiapine Fumarate 25 Mg Tablet) 25 mg PO BID [facility] Last Admin: 01/25/22 07:56 Dose: 25 mg Documented By: TAYLOR Senna (Sennosides 8.6 Mg Tablet) 17.2 mg PO BEDTIME [facility] Last Admin: 01/24/22 20:25 Dose: 17.2 mg Documented By: SONJA Sodium Chloride (0.9 % Sodium Chloride Flush 3 Ml Syringe) 3 ml IVFLUSH QSHIFT [facility] Last Admin: 01/25/22 08:03 Dose: Not Given Documented By: TAYLOR Non-Admin Reason: No Access Tramadol HCl (Tramadol Hcl 50 Mg Tablet) 50 mg PO Q6H PRN PRN Reason: Pain, Moderate (Pain Scale 4-6 Last Admin: 01/23/22 23:42 Dose: 50 mg Documented By: ALEXANDRU Vitamin D (Cholecalciferol (Vitamin D3) 25 Mcg Tablet) 25 mcg PO DAILY [facility] Last Admin: 01/25/22 07:56 Dose: 25 mcg Documented By: TAYLOR Labs CBC & Chem 7: 01/17/22 08:30 01/16/22 08:16 Labs: Laboratory Results - last 24 hr 01/24/22 01/24/22 01/25/22 16:50 19:29 07:12 POC Glucose 245 H 241 H 233 H 01/25/22 11:23 POC Glucose 306 H Microbiology Microbiology Results: Microbiology 01/23/22 04:30 Urine Culture - Final Urine clean catch - Urine ramirez top Assessment and Plan (1) Fracture of distal end of femur: Status: Acute Plan 76-year-old female who is a resident of assisted living facility and with pertinent history of essential hypertension, mixed hyperlipidemia, insulin-dependent diabetes mellitus, urinary incontinence, dementia was brought to the emergency department for evaluation of right hip pain. #Right femoral head and neck fracture -s/p 1) ORIF right femur 2) right hip hemiarthroplasty 3) MIKE right hip on 01/10 -pain control with morphine, IV tyelenol, PT OT, Eliquis for DVT prophylaxis -have surgery look at drainage area # Insulin-dependent type 2 diabetes mellitus-insulin and monitor glucose #Essential hypertension--continue Norvasc #Urinary incontinence- oxybutynin #? Dementia with behavior disturbances-on continue donepezil, Seroquel small dose prn Presently calm, cooperative, DC sitter # Chronic normocytic anemia: s/p 1unit of RBC 01/10 after surgery, h/h still drop in 8. ( possible postop anemia ): h/h flactuating most recent H/H stable continue iron supplements # History of pulmonary embolism--Eliquis #Possible malnutrition:? adeqauate weight and eating appropriately at this time #Frequent turning, incentive spirometry, #urinary retenion/vulvar area excoriation : to avoid further sloughing -paula inserted for this Uro: recommended zinc barrier cream but if the superficial ulcerated skin is not improving, recommend evaluation by MOBILE APPLICATION DEVELOPER #+Screening covid on 01/21 -assymptomatic and therefore no specific treatment, repeat tomorrow DVT prophylaxis:? Nigel Full code Above management discussed with patient's son in detail length.? He understand and in agreement the above plan. Need for inpatient: Patient was supposed to be discharged on 01/21 and tested positive for covid screen and facility would not take until negative for covid at 5 day or under quarantine for 11 days Quality Stroke Does the patient have a stroke diagnosis?: No VTE Prior VTE?: Yes VTE Risk Level:: Medical - moderate - high VTE Device Contraindication: Treatment Not Indicated VTE Drug Contraindication: Treatment Not Indicated
--- NOTE | 2022-01-25 14:03 | MHC.CLN ---
F/U PO VARIABLE DIET RX: 1800DM-APPROPRIATE PT RECEIVING 8OZ GLUCERNA BID TO INCREASE PO INTAKE SUPP PROVIDES 474KCALS, 20G PROTEIN CONTINUE TO MONITOR PO INTAKE
[2022-01-25 16:01] LABS: Glucose, Whole Blood 135 mg/dL (60-115)
[2022-01-25] MEDS: Docusate Sodium 100 MG CAPSULE PO (20:41)
[2022-01-25] MEDS: traMADoL HCL 50 MG TABLET PO (20:42)
[2022-01-25] MEDS: Sennosides 8.6 MG TABLET 17.2 MG PO (20:42)
[2022-01-25] MEDS: Donepezil HCl 10 MG TABLET PO (20:42)
[2022-01-25] MEDS: Atorvastatin Calcium 20 MG TABLET PO (20:42)
[2022-01-25 20:56] LABS: Glucose, Whole Blood 189 mg/dL (60-115)
[2022-01-26] VITALS (7 sets, daily range): BP systolic 82–176; BP diastolic 47–80; PULSE 69–80; RESP 18–20; TEMP 36.3–36.8; O2SAT 94–98
[2022-01-26] MEDS: Omeprazole 20 MG CAPSULE.DR PO ×2 (06:09→17:51)
[2022-01-26 07:18] LABS: Glucose, Whole Blood 184 mg/dL (60-115)
--- NOTE | 2022-01-26 08:01 | P.PNOP_ITS ---
Subjective Subjective Date of Service: 01/26/22 Interval history: POD 16 s/p Right hip hemiarthroplasty with ORIF distal femur No overnight events resting in bed Physical Exam Vital Signs: Vital Signs: Last Vital Signs Temp 98 F 01/26/22 07:26 Pulse 74 01/26/22 07:26 Resp 20 01/26/22 07:26 BP 160/80 H 01/26/22 07:26 Pulse Ox 94 01/26/22 07:26 O2 Del Method 01/26/22 07:26 O2 Flow Rate 2 01/10/22 16:34 FiO2 94 01/21/22 19:17 BMI result Body Mass Index 33.0 Const: General: cooperative, healthy appearing and no acute distress Resp: Effort & Inspection: normal respiratory effort and able to speak in complete sentences Cardio: Rate: regular rate Peripheral pulses: Peripheral pulses 2+ throughout GI: Palpation (GI): Soft to palpation Skin: General skin exam: no rashes or lesions noted Extrem: Other: incision clean dry and intact. No evidence of bleeding. No erythema or effusion. Calf supple nontender. She is able to move ankle, foot and toes. Neurovascularly intact. Procedures Date of Service Date of Service: 01/26/22 Progress Note: A&P Assessment and plan (1) Fracture of distal end of femur: Status: Acute (2) Fracture of femoral neck, right: Status: Acute Assessment and Plan: * Continue pain mgmnt * sugey removed today, steri strips applied- ok to shower * continue eliquis * PT /OT for Right hip hemir/ORIF distal femur--NWB RLE * Dispo planning- cleared from ortho standpoint Time Spent With Patient Time: Total time spent is greater than 50% in coordination of care (as documented) at patient's floor/unit and/or counseling patient: Quality Stroke Does the patient have a stroke diagnosis?: No VTE Prior VTE?: Yes VTE Risk Level:: Medical - moderate - high VTE Device Contraindication: Treatment Not Indicated VTE Drug Contraindication: Treatment Not Indicated
[2022-01-26] MEDS: Ferrous Sulfate 300 MG/5 ML LIQUID PO ×2 (08:35→17:52)
[2022-01-26] MEDS: Apixaban 5 MG TABLET PO ×2 (08:35→17:51)
[2022-01-26] MEDS: polyethylene glycoL 3350 17 GM POWD.PACK PO (08:35)
[2022-01-26] MEDS: QUEtiapine Fumarate 25 MG TABLET PO ×2 (08:35→21:24)
[2022-01-26] MEDS: Insulin Glargine,Hum.rec.anlog 100 UNIT/ML 10 ML VIAL 20 UNIT SUBCUT (08:35)
[2022-01-26] MEDS: Cholecalciferol (Vitamin D3) 25 MCG TABLET PO (08:35)
[2022-01-26] MEDS: Insulin Lispro 100 UNIT/ML 3 ML VIAL SUBCUT ×3 (08:36→21:19)
[2022-01-26 11:17] LABS: Glucose, Whole Blood 237 mg/dL (60-115)
[2022-01-26 15:14] LABS: COVID-19 Test Positive (Negative)
[2022-01-26 15:32] LABS: Glucose, Whole Blood 129 mg/dL (60-115)
--- NOTE | 2022-01-26 16:29 | P.PNIM_ITS ---
Subjective Subjective Date of Service: 01/27/22 Interval History: F/u on hip fracture s/p surgery, confusion and agiation post Review of Systems no new changes Physical Exam Vital Signs: Vital Signs: Last Vital Signs Temp 97.3 F 01/26/22 15:30 Pulse 72 01/26/22 15:30 Resp 19 01/26/22 15:30 BP 82/47 L 01/26/22 15:30 Pulse Ox 96 01/26/22 11:19 O2 Del Method 01/26/22 15:30 O2 Flow Rate 2 01/10/22 16:34 FiO2 97 01/26/22 15:30 BMI result Body Mass Index 33.0 Objective Data Active Medications Amlodipine Besylate (Amlodipine Besylate 5 Mg Tablet) 5 mg PO DAILY [facility]; Protocol Last Admin: 01/12/22 08:14 Dose: 5 mg Documented By: IVA Apixaban (Apixaban 5 Mg Tablet) 5 mg PO BID@0900,1800 [facility] Last Admin: 01/26/22 08:35 Dose: 5 mg Documented By: RAD Artificial Tears (Artificial Tears 15 Ml Drops) 2 drop EYE-BOTH Q4H PRN PRN Reason: Dry Eyes Atorvastatin Calcium (Atorvastatin Calcium 20 Mg Tablet) 20 mg PO BEDTIME [facility] Last Admin: 01/25/22 20:42 Dose: 20 mg Documented By: ELMER Dextrose (Dextrose 50 % 25 Gm/50 Ml Syringe) 25 gm IVPUSH Q15M PRN; Protocol PRN Reason: per Hypoglycemia Standing Ord. Docusate Sodium (Docusate Sodium 100 Mg Capsule) 100 mg PO BEDTIME [facility] Last Admin: 01/25/22 20:41 Dose: 100 mg Documented By: ELMER Donepezil HCl (Donepezil Hcl 10 Mg Tablet) 10 mg PO BEDTIME [facility] Last Admin: 01/25/22 20:42 Dose: 10 mg Documented By: ELMER Ferrous Sulfate (Ferrous Sulfate 300 Mg/5 Ml Liquid) 300 mg PO BIDWM [facility] Last Admin: 01/26/22 08:35 Dose: 300 mg Documented By: RAD Glucose (Glucose Gel 15 Gm Gel..Gram.) 15 gm PO Q15M PRN; Protocol PRN Reason: per Hypoglycemia Standing Ord. Hydromorphone HCl (Hydromorphone Hcl 0.5 Mg/0.5 Ml Syringe) 0.5 mg IVPUSH Q3H PRN; Protocol PRN Reason: Pain, Severe (Pain Scale 7-10) Last Admin: 01/15/22 05:09 Dose: 0.5 mg Documented By: MARLENE Acetaminophen (Ofirmev) 1,000 mg in 100 mls @ 400 mls/hr IV Q6H PRN PRN Reason: Pain, Moderate (Pain Scale 4-6 Last Infusion: 01/16/22 10:27 Dose: 400 mls/hr Documented By: RAKEL Insulin Glargine (Insulin Glargine,Hum.Rec.Anlog 100 Unit/Ml 10 Ml Vial) 20 unit SUBCUT DAILY@0730 [facility] Last Admin: 01/26/22 08:35 Dose: 20 unit Documented By: RAD Insulin Human Lispro (Insulin Lispro 100 Unit/Ml 3 Ml Vial) 0 unit SUBCUT QIDACHS [facility]; Protocol Last Admin: 01/26/22 12:01 Dose: 4 unit Documented By: RAD Omeprazole (Omeprazole 20 Mg Capsule.Dr) 20 mg PO BID@0630,1630 [facility] Last Admin: 01/26/22 06:09 Dose: 20 mg Documented By: ELMER Ondansetron HCl (Ondansetron Hcl 4 Mg/2 Ml Vial) 4 mg IVPUSH Q8H PRN PRN Reason: Nausea and Vomiting Oxybutynin Chloride (Oxybutynin Chloride Er 5 Mg Tab.Er.24) 10 mg PO DAILY [facility] Last Admin: 01/15/22 08:02 Dose: 10 mg Documented By: POLY Oxycodone HCl (Oxycodone Hcl Er 10 Mg Tab.Er.12h) 10 mg PO BID [facility] Last Admin: 01/14/22 08:26 Dose: 10 mg Documented By: CLAUDY Polyethylene Glycol (Polyethylene Glycol 3350 17 Gm Powd.Pack) 17 gm PO BID [facility] Last Admin: 01/26/22 08:35 Dose: 17 gm Documented By: RAD Quetiapine Fumarate (Quetiapine Fumarate 25 Mg Tablet) 25 mg PO BID [facility] Last Admin: 01/26/22 08:35 Dose: 25 mg Documented By: RAD Senna (Sennosides 8.6 Mg Tablet) 17.2 mg PO BEDTIME [facility] Last Admin: 01/25/22 20:42 Dose: 17.2 mg Documented By: GARYLM Vitamin D (Cholecalciferol (Vitamin D3) 25 Mcg Tablet) 25 mcg PO DAILY [facility] Last Admin: 01/26/22 08:35 Dose: 25 mcg Documented By: RAD Labs CBC & Chem 7: 01/27/22 09:02 01/16/22 08:16 Labs: Laboratory Results - last 24 hr 01/25/22 01/26/22 01/26/22 20:36 07:09 11:03 POC Glucose 189 H 184 H 237 H COVID-19 ([facility]) COVID-19 Clin Com 01/26/22 01/26/22 14:54 15:24 POC Glucose 129 H COVID-19 ([facility]) Positive A COVID-19 Clin Com See Note Assessment and Plan (1) Urinary incontinence: Status: Acute (2) OAB (overactive bladder): Status: Acute (3) Urinary retention: Status: Acute (4) Dementia with behavioral disturbance: Status: Acute Plan 76-year-old female who is a resident of assisted living facility and with pertinent history of essential hypertension, mixed hyperlipidemia, insulin- dependent diabetes mellitus, urinary incontinence, dementia was brought to the emergency department for evaluation of right hip pain. #Right femoral head and neck fracture -s/p 1) ORIF right femur 2) right hip hemiarthroplasty 3) MIKE right hip on 01/10 -pain control with morphine, IV tyelenol, PT OT, Eliquis for DVT prophylaxis -have surgery look at drainage area # Insulin-dependent type 2 diabetes mellitus-insulin and monitor glucose #Essential hypertension--continue Norvasc #Urinary incontinence- oxybutynin #? Dementia with behavior disturbances-on continue donepezil,? Seroquel small dose prn ? ? Presently calm, cooperative, DC sitter # Chronic normocytic anemia: s/p 1unit of RBC 01/10 after surgery, h/h still drop in 8. ( possible postop anemia ): h/h flactuating most recent H/H stable continue iron supplements # History of pulmonary embolism--Eliquis #Possible malnutrition:? adeqauate weight and eating appropriately at this time #Frequent turning, incentive spirometry, #urinary retenion/vulvar area excoriation : to avoid further sloughing -paula inserted for this Uro: recommended zinc barrier cream but if the superficial ulcerated skin is not improving, recommend evaluation by SKATE SHOP ATTENDANT #+Screening covid on 01/21 -assymptomatic and therefore no specific treatment, repeat tomorrow DVT prophylaxis:? Jiequis Full code Above management discussed with patient's son in detail length.? He understand and in agreement the above plan. Need for inpatient: Patient was supposed to be discharged on 01/21 and tested positive for covid screen and facility would not take until negative for covid at 5 day or under quarantine for 11 days Quality Stroke Does the patient have a stroke diagnosis?: No VTE Prior VTE?: Yes VTE Risk Level:: Medical - moderate - high VTE Device Contraindication: Treatment Not Indicated VTE Drug Contraindication: Treatment Not Indicated
[2022-01-26 20:09] LABS: Glucose, Whole Blood 226 mg/dL (60-115)
[2022-01-26] MEDS: Donepezil HCl 10 MG TABLET PO (21:23)
[2022-01-26] MEDS: Atorvastatin Calcium 20 MG TABLET PO (21:24)
[2022-01-26] MEDS: Docusate Sodium 100 MG CAPSULE PO (21:32)
[2022-01-27 03:02] VITALS: BP 171/72; PULSE 88; RESP 20; TEMP 36.2; O2SAT 99
[2022-01-27] MEDS: Omeprazole 20 MG CAPSULE.DR PO ×2 (05:46→17:33)
[2022-01-27 07:06] VITALS: BP 152/67; PULSE 77; RESP 17; TEMP 36.3; O2SAT 98
[2022-01-27 07:48] LABS: Glucose, Whole Blood 192 mg/dL (60-115)
[2022-01-27] MEDS: QUEtiapine Fumarate 25 MG TABLET PO ×2 (08:30→20:30)
[2022-01-27] MEDS: Cholecalciferol (Vitamin D3) 25 MCG TABLET PO (08:30)
[2022-01-27] MEDS: polyethylene glycoL 3350 17 GM POWD.PACK PO (08:30)
[2022-01-27] MEDS: Insulin Glargine,Hum.rec.anlog 100 UNIT/ML 10 ML VIAL 20 UNIT SUBCUT (08:30)
[2022-01-27] MEDS: Ferrous Sulfate 300 MG/5 ML LIQUID PO ×2 (08:30→17:33)
[2022-01-27] MEDS: Apixaban 5 MG TABLET PO ×2 (08:30→17:33)
[2022-01-27] MEDS: Insulin Lispro 100 UNIT/ML 3 ML VIAL SUBCUT ×3 (08:31→20:31)
[2022-01-27 09:32] LABS: Hematocrit 31.5 % (37.0-47.0); Hemoglobin 9.9 g/dl (12.0-16.0)
[2022-01-27 11:12] LABS: Glucose, Whole Blood 289 mg/dL (60-115)
[2022-01-27 11:24] VITALS: BP 125/69; PULSE 85; RESP 17; TEMP 36.6; O2SAT 98
--- NOTE | 2022-01-27 12:23 | MHC.CLN ---
F/U PO INTAKE CONTINUES TO BE VARIABLE DIET RX: 1800DM-APPROPRIATE PT RECEIVING 8OZ GLUCERNA BID TO INCREASE PO INTAKE SUPP PROVIDES 474KCALS, 20G PROTEIN CONTINUE TO MONITOR PO INTAKE
--- NOTE | 2022-01-27 14:12 | HO.PM.IMPN ---
Subjective Subjective Date of Service: 01/27/22 Interval History: F/u on hip fracture s/p surgery, confusion and agiation post. mild irritation/bleeding at [facility] Review of Systems some hip soreness with movement, denies any chest pain or shortness of breath or fever Physical Exam Vital Signs: Vital Signs: Last Vital Signs Temp 97.9 F 01/27/22 11:24 Pulse 85 01/27/22 11:24 Resp 17 01/27/22 11:24 BP 125/69 01/27/22 11:24 Pulse Ox 98 01/27/22 11:24 O2 Del Method 01/27/22 11:24 O2 Flow Rate 2 01/10/22 16:34 FiO2 98 01/26/22 19:43 BMI result Body Mass Index 33.0 General: AO X 1, no acute distress Resp:? CTA bilateral CVS: S1,S2,RRR GI: +BS, NT, no distention Skin: No rash, hip wound is healing fine, there is minimal drainage at a spot Neuro:? motor grossly intact Psych: appropriate affect ? Objective Data Active Medications Amlodipine Besylate (Amlodipine Besylate 5 Mg Tablet) 5 mg PO DAILY [facility]; Protocol Last Admin: 01/12/22 08:14 Dose: 5 mg Documented By: IVA Apixaban (Apixaban 5 Mg Tablet) 5 mg PO BID@0900,1800 [facility] Last Admin: 01/27/22 08:30 Dose: 5 mg Documented By: ARASH Artificial Tears (Artificial Tears 15 Ml Drops) 2 drop EYE-BOTH Q4H PRN PRN Reason: Dry Eyes Atorvastatin Calcium (Atorvastatin Calcium 20 Mg Tablet) 20 mg PO BEDTIME [facility] Last Admin: 01/26/22 21:24 Dose: 20 mg Documented By: TASH Dextrose (Dextrose 50 % 25 Gm/50 Ml Syringe) 25 gm IVPUSH Q15M PRN; Protocol PRN Reason: per Hypoglycemia Standing Ord. Docusate Sodium (Docusate Sodium 100 Mg Capsule) 100 mg PO BEDTIME [facility] Last Admin: 01/26/22 21:32 Dose: 100 mg Documented By: TASH Donepezil HCl (Donepezil Hcl 10 Mg Tablet) 10 mg PO BEDTIME [facility] Last Admin: 01/26/22 21:23 Dose: 10 mg Documented By: TASH Ferrous Sulfate (Ferrous Sulfate 300 Mg/5 Ml Liquid) 300 mg PO BIDWM [facility] Last Admin: 01/27/22 08:30 Dose: 300 mg Documented By: ARASH Glucose (Glucose Gel 15 Gm Gel..Gram.) 15 gm PO Q15M PRN; Protocol PRN Reason: per Hypoglycemia Standing Ord. Acetaminophen (Ofirmev) 1,000 mg in 100 mls @ 400 mls/hr IV Q6H PRN PRN Reason: Pain, Moderate (Pain Scale 4-6 Last Infusion: 01/16/22 10:27 Dose: 400 mls/hr Documented By: RAKEL Insulin Glargine (Insulin Glargine,Hum.Rec.Anlog 100 Unit/Ml 10 Ml Vial) 20 unit SUBCUT DAILY@0730 [facility] Last Admin: 01/27/22 08:30 Dose: 20 unit Documented By: ARASH Insulin Human Lispro (Insulin Lispro 100 Unit/Ml 3 Ml Vial) 0 unit SUBCUT QIDACHS [facility]; Protocol Last Admin: 01/27/22 12:18 Dose: 6 unit Documented By: ARASH Omeprazole (Omeprazole 20 Mg Capsule.Dr) 20 mg PO BID@0630,1630 [facility] Last Admin: 01/27/22 05:46 Dose: 20 mg Documented By: HELIO Ondansetron HCl (Ondansetron Hcl 4 Mg/2 Ml Vial) 4 mg IVPUSH Q8H PRN PRN Reason: Nausea and Vomiting Oxybutynin Chloride (Oxybutynin Chloride Er 5 Mg Tab.Er.24) 10 mg PO DAILY [facility] Last Admin: 01/15/22 08:02 Dose: 10 mg Documented By: POLY Oxycodone HCl (Oxycodone Hcl Immed Release 5 Mg Tablet) 5 mg PO Q6H PRN PRN Reason: Pain, Mild (Pain Scale 1-3) Polyethylene Glycol (Polyethylene Glycol 3350 17 Gm Powd.Pack) 17 gm PO BID [facility] Last Admin: 01/27/22 08:30 Dose: 17 gm Documented By: ARASH Quetiapine Fumarate (Quetiapine Fumarate 25 Mg Tablet) 25 mg PO BID [facility] Last Admin: 01/27/22 08:30 Dose: 25 mg Documented By: ARASH Senna (Sennosides 8.6 Mg Tablet) 17.2 mg PO BEDTIME [facility] Last Admin: 01/26/22 21:33 Dose: Not Given Documented By: TASH Non-Admin Reason: Patient Refused Vitamin D (Cholecalciferol (Vitamin D3) 25 Mcg Tablet) 25 mcg PO DAILY [facility] Last Admin: 01/27/22 08:30 Dose: 25 mcg Documented By: ARASH Labs CBC & Chem 7: 01/27/22 09:02 01/16/22 08:16 Labs: Laboratory Results - last 24 hr 01/26/22 01/26/22 01/26/22 14:54 15:24 20:04 POC Glucose 129 H 226 H COVID-19 ([facility]) Positive A COVID-19 Clin Com See Note 01/27/22 01/27/22 07:09 10:49 POC Glucose 192 H 289 H COVID-19 ([facility]) COVID-19 Clin Com Assessment and Plan (1) Urinary incontinence: Status: Acute (2) OAB (overactive bladder): Status: Acute (3) Urinary retention: Status: Acute (4) Dementia with behavioral disturbance: Status: Acute Plan 76-year-old female who is a resident of assisted living facility and with pertinent history of essential hypertension, mixed hyperlipidemia, insulin-dependent diabetes mellitus, urinary incontinence, dementia was brought to the emergency department for evaluation of right hip pain. #Right femoral head and neck fracture -s/p 1) ORIF right femur 2) right hip hemiarthroplasty 3) MIKE right hip on 01/10 -pain control with morphine, IV tyelenol, PT OT, Eliquis for DVT prophylaxis -have surgery look at drainage area # Insulin-dependent type 2 diabetes mellitus-insulin and monitor glucose #Essential hypertension--continue Norvasc #Urinary incontinence- oxybutynin #? Dementia with behavior disturbances-on continue donepezil,? Seroquel small dose prn ? ? Presently calm, cooperative, DC sitter # Chronic normocytic anemia: s/p 1unit of RBC 01/10 after surgery, h/h still drop in 8. ( possible postop anemia ): h/h flactuating most recent H/H stable continue iron supplements # History of pulmonary embolism--Eliquis #Possible malnutrition:? adeqauate weight and eating appropriately at this time #Frequent turning, incentive spirometry, #urinary retenion/vulvar area excoriation : to avoid further sloughing -paula inserted for this Uro: recommended zinc barrier cream but if the superficial ulcerated skin is not improving, recommend evaluation by QUALITY ASSURANCE TESTER #+Screening covid on 01/21 -assymptomatic and covid repeat positive yesterday. mild hematuria possible secondary to follow irritation: monitor CBC and for the bleeding H&H stable around 9.9 range DVT prophylaxis:? Jiequis Full code Above management discussed with patient's son in detail length.? He understand and in agreement the above plan. Need for inpatient: Patient was supposed to be discharged on 01/21 and tested positive for covid screen and facility would not take until negative for covid at 5 day or under quarantine for 11 days Quality Stroke Does the patient have a stroke diagnosis?: No VTE Prior VTE?: Yes VTE Risk Level:: Medical - moderate - high VTE Device Contraindication: Treatment Not Indicated VTE Drug Contraindication: Treatment Not Indicated
--- NOTE | 2022-01-27 14:14 | MHC.CM.PN ---
Female 76 DX Covid+ S/P rt hip sx. Patient will be covid recovered 01/31/22. She was retested day 5 01/26/22 she continues to test covid+. DP STR at [facility] via BLS.
[2022-01-27 15:03] VITALS: BP 101/50; PULSE 72; RESP 18; TEMP 37.2; O2SAT 98
[2022-01-27 16:16] LABS: Glucose, Whole Blood 142 mg/dL (60-115)
[2022-01-27] MEDS: oxyCODONE HCl Immed Release 5 MG TABLET PO (17:41)
[2022-01-27 19:03] VITALS: BP 110/53; PULSE 73; RESP 16; TEMP 37.3; O2SAT 95
[2022-01-27 20:28] LABS: Glucose, Whole Blood 205 mg/dL (60-115)
[2022-01-27] MEDS: Sennosides 8.6 MG TABLET 17.2 MG PO (20:29)
[2022-01-27] MEDS: Docusate Sodium 100 MG CAPSULE PO (20:30)
[2022-01-27] MEDS: Atorvastatin Calcium 20 MG TABLET PO (20:30)
[2022-01-27] MEDS: Donepezil HCl 10 MG TABLET PO (20:30)
[2022-01-28] VITALS: BP 118/59; PULSE 71; RESP 16; TEMP 36.4; O2SAT 99
[2022-01-28 04:00] VITALS: BP 182/72; PULSE 77; RESP 16; TEMP 37.3; O2SAT 98
[2022-01-28] MEDS: Omeprazole 20 MG CAPSULE.DR PO ×2 (05:39→17:39)
[2022-01-28] MEDS: oxyCODONE HCl Immed Release 5 MG TABLET PO ×2 (05:51→17:41)
[2022-01-28 07:23] LABS: Glucose, Whole Blood 207 mg/dL (60-115)
[2022-01-28 07:28] VITALS: BP 159/61; PULSE 66; RESP 20; TEMP 36.8; O2SAT 99
[2022-01-28] MEDS: Apixaban 5 MG TABLET PO ×2 (07:53→17:39)
[2022-01-28] MEDS: QUEtiapine Fumarate 25 MG TABLET PO ×2 (07:54→20:30)
[2022-01-28] MEDS: Cholecalciferol (Vitamin D3) 25 MCG TABLET PO (07:54)
[2022-01-28] MEDS: Insulin Glargine,Hum.rec.anlog 100 UNIT/ML 10 ML VIAL 20 UNIT SUBCUT (07:55)
[2022-01-28] MEDS: polyethylene glycoL 3350 17 GM POWD.PACK PO (07:55)
[2022-01-28] MEDS: Insulin Lispro 100 UNIT/ML 3 ML VIAL SUBCUT ×3 (07:55→22:50)
[2022-01-28 09:51] LABS: Anion Gap 16 (12-20); Blood Urea Nitrogen 13 mg/dL (9-16); Calcium 8.8 mg/dL (8.4-10.2); Carbon Dioxide 28 mmol/L (22-29); Chloride 101 mmol/L (96-108); Creatinine Clr Calc Pharmacy 51.1; Estimated Glomerular Filt Rate > 60; Glucose Random 241 mg/dL (60-115); Sodium 140 mmol/L (135-145)
[2022-01-28 11:10] VITALS: BP 109/54; PULSE 70; RESP 18; TEMP 36.8; O2SAT 98
[2022-01-28 11:11] LABS: Glucose, Whole Blood 232 mg/dL (60-115)
[2022-01-28] MEDS: Acetaminophen 1,000 MG/100 ML PIGGYBACK 400 MG IV (12:04)
--- NOTE | 2022-01-28 13:04 | P.PNIM_ITS ---
Subjective Subjective Date of Service: 01/28/22 Interval History: F/u on hip fracture s/p surgery, confusion and agiation post. mild irritation/bleeding at [facility] Review of Systems some hip soreness with movement, denies any chest pain or shortness of breath or fever Physical Exam Vital Signs: Vital Signs: Last Vital Signs Temp 98.2 F 01/28/22 11:10 Pulse 70 01/28/22 11:10 Resp 18 01/28/22 11:10 BP 109/54 L 01/28/22 11:10 Pulse Ox 98 01/28/22 11:10 O2 Del Method 01/28/22 11:10 O2 Flow Rate 2 01/10/22 16:34 FiO2 98 01/26/22 19:43 BMI result Body Mass Index 33.0 General: AO X 1, no acute distress Resp:? CTA bilateral CVS: S1,S2,RRR GI: +BS, NT, no distention Skin: No rash, hip wound is healing fine, right heel pressure injury-unchanged from yesterday. Neuro:? motor grossly intact Psych: appropriate affect Objective Data Active Medications Amlodipine Besylate (Amlodipine Besylate 5 Mg Tablet) 5 mg PO DAILY [facility]; Protocol Last Admin: 01/12/22 08:14 Dose: 5 mg Documented By: IVA Apixaban (Apixaban 5 Mg Tablet) 5 mg PO BID@0900,1800 [facility] Last Admin: 01/28/22 07:53 Dose: 5 mg Documented By: SHANE Artificial Tears (Artificial Tears 15 Ml Drops) 2 drop EYE-BOTH Q4H PRN PRN Reason: Dry Eyes Atorvastatin Calcium (Atorvastatin Calcium 20 Mg Tablet) 20 mg PO BEDTIME [facility] Last Admin: 01/27/22 20:30 Dose: 20 mg Documented By: ARIADNE Dextrose (Dextrose 50 % 25 Gm/50 Ml Syringe) 25 gm IVPUSH Q15M PRN; Protocol PRN Reason: per Hypoglycemia Standing Ord. Docusate Sodium (Docusate Sodium 100 Mg Capsule) 100 mg PO BEDTIME [facility] Last Admin: 01/27/22 20:30 Dose: 100 mg Documented By: ARIADNE Donepezil HCl (Donepezil Hcl 10 Mg Tablet) 10 mg PO BEDTIME [facility] Last Admin: 01/27/22 20:30 Dose: 10 mg Documented By: ARIADNE Ferrous Sulfate (Ferrous Sulfate 300 Mg/5 Ml Liquid) 300 mg PO BIDWM [facility] Last Admin: 01/28/22 07:53 Dose: Not Given Documented By: SHANE Non-Admin Reason: M/W SCHEDULE Glucose (Glucose Gel 15 Gm Gel..Gram.) 15 gm PO Q15M PRN; Protocol PRN Reason: per Hypoglycemia Standing Ord. Acetaminophen (Ofirmev) 1,000 mg in 100 mls @ 400 mls/hr IV Q6H PRN PRN Reason: Pain, Moderate (Pain Scale 4-6 Last Infusion: 01/28/22 12:23 Dose: 0 mls/hr Documented By: SHANE Insulin Glargine (Insulin Glargine,Hum.Rec.Anlog 100 Unit/Ml 10 Ml Vial) 20 unit SUBCUT DAILY@0730 [facility] Last Admin: 01/28/22 07:55 Dose: 20 unit Documented By: SHANE Insulin Human Lispro (Insulin Lispro 100 Unit/Ml 3 Ml Vial) 0 unit SUBCUT QIDACHS [facility]; Protocol Last Admin: 01/28/22 11:40 Dose: 4 unit Documented By: SHANE Omeprazole (Omeprazole 20 Mg Capsule.Dr) 20 mg PO BID@0630,1630 [facility] Last Admin: 01/28/22 05:39 Dose: 20 mg Documented By: ARIADNE Ondansetron HCl (Ondansetron Hcl 4 Mg/2 Ml Vial) 4 mg IVPUSH Q8H PRN PRN Reason: Nausea and Vomiting Oxybutynin Chloride (Oxybutynin Chloride Er 5 Mg Tab.Er.24) 10 mg PO DAILY [facility] Last Admin: 01/28/22 12:04 Dose: 10 mg Documented By: SHANE Oxycodone HCl (Oxycodone Hcl Immed Release 5 Mg Tablet) 5 mg PO Q6H PRN PRN Reason: Pain, Mild (Pain Scale 1-3) Last Admin: 01/28/22 05:51 Dose: 5 mg Documented By: ARIADNE Polyethylene Glycol (Polyethylene Glycol 3350 17 Gm Powd.Pack) 17 gm PO BID [facility] Last Admin: 01/28/22 07:55 Dose: 17 gm Documented By: SHANE Quetiapine Fumarate (Quetiapine Fumarate 25 Mg Tablet) 25 mg PO BID [facility] Last Admin: 01/28/22 07:54 Dose: 25 mg Documented By: SHANE Senna (Sennosides 8.6 Mg Tablet) 17.2 mg PO BEDTIME [facility] Last Admin: 01/27/22 20:29 Dose: 17.2 mg Documented By: ARIADNE Vitamin D (Cholecalciferol (Vitamin D3) 25 Mcg Tablet) 25 mcg PO DAILY [facility] Last Admin: 01/28/22 07:54 Dose: 25 mcg Documented By: SHANE Labs CBC & Chem 7: 01/27/22 09:02 01/28/22 08:47 Labs: Laboratory Results - last 24 hr 01/27/22 01/27/22 01/28/22 16:05 20:11 07:15 Anion Gap Estim Creat Clear Calc Estimated GFR POC Glucose 142 H 205 H 207 H Random Glucose Calcium 01/28/22 01/28/22 08:47 11:05 Anion Gap 16 Estim Creat Clear Calc 51.1 Estimated GFR > 60 POC Glucose 232 H Random Glucose 241 H Calcium 8.8 D Assessment and Plan (1) OAB (overactive bladder): Status: Acute (2) Dementia with behavioral disturbance: Status: Acute (3) Anemia: Status: Acute Plan 76-year-old female who is a resident of assisted living facility and with pertinent history of essential hypertension, mixed hyperlipidemia, insulin- dependent diabetes mellitus, urinary incontinence, dementia was brought to the emergency department for evaluation of right hip pain. #Right femoral head and neck fracture -s/p 1) ORIF right femur 2) right hip hemiarthroplasty 3) MIKE right hip on 01/10 -pain control with morphine, IV tyelenol, PT OT, Eliquis for DVT prophylaxis -have surgery look at drainage area # Insulin-dependent type 2 diabetes mellitus-insulin and monitor glucose #Essential hypertension--continue Norvasc #Urinary incontinence- oxybutynin #? Dementia with behavior disturbances-on continue donepezil,? Seroquel small do se prn ? ? Presently calm, cooperative, DC sitter # Chronic normocytic anemia: s/p 1unit of RBC 01/10 after surgery, h/h still drop in 8.1 24 ( possible postop anemia ): h/h flactuating most recent H/H stable continue iron supplements # History of pulmonary embolism--Eliquis #Possible malnutrition:? adeqauate weight and eating appropriately at this time #Frequent turning, incentive spirometry, #urinary retenion/vulvar area excoriation : to avoid further sloughing -paula inserted for this Uro: recommended zinc barrier cream but if the superficial ulcerated skin is not improving, recommend evaluation by [facility] OPERATOR #+Screening covid on 01/21 -assymptomatic and covid repeat positive yesterday. mild hematuria possible? secondary to follow irritation:? monitor CBC and for the bleeding ?H&H stable around 9.9 range Right heel pressure injury: discussed with staff in detail, frequent turning, below below the right heel seen by surgery Dr. Newman yesterday- continue wound care and supportive management currently does not need any debridement. DVT prophylaxis:? Eliquis Full code Above management discussed with patient's son in detail length.? He understand and in agreement the above plan. Need for inpatient: Patient was supposed to be discharged on 01/21 and tested positive for covid screen and facility would not take until negative for covid at 5 day or under quarantine for 11 days Quality Stroke Does the patient have a stroke diagnosis?: No VTE Prior VTE?: Yes VTE Risk Level:: Medical - moderate - high VTE Device Contraindication: Treatment Not Indicated VTE Drug Contraindication: Treatment Not Indicated
--- NOTE | 2022-01-28 14:23 | MHC.CM.PN ---
Addendum entered by Lin Walker 01/28/22 15:28: The facility will seek auth for a Tuesday discharge. Pt is COVID RECOVERED on 01/31/22. Updated clinical info has been sent to the facility for authorization. She will transport via BLS. If [facility] denies private pay LTC is the plan. Original Note: Patient tested covid+ on discharge last week. She was scheduled for admit at [facility] that day. The discharge was cancelled due to covid + status. She will be covid recovered on Tuesday01/31/22. T/W contacted [facility] to request that they start Auth for a Tuesday discharge. Waiting for response from facility.
[2022-01-28 15:26] VITALS: BP 105/75; PULSE 59; RESP 17; TEMP 36.3; O2SAT 97
[2022-01-28 16:23] LABS: Glucose, Whole Blood 94 mg/dL (60-115)
[2022-01-28 19:41] VITALS: BP 83/48; PULSE 72; RESP 18; TEMP 36.1; O2SAT 99
[2022-01-28] MEDS: Ferrous Sulfate 300 MG/5 ML LIQUID PO (20:30)
[2022-01-28] MEDS: Atorvastatin Calcium 20 MG TABLET PO (20:30)
[2022-01-28] MEDS: Donepezil HCl 10 MG TABLET PO (20:30)
[2022-01-28 20:51] LABS: Glucose, Whole Blood 159 mg/dL (60-115)
[2022-01-29] VITALS: BP 126/60; PULSE 79; RESP 16; TEMP 37.3; O2SAT 98
[2022-01-29] MEDS: oxyCODONE HCl Immed Release 5 MG TABLET PO (00:42)
[2022-01-29 04:00] VITALS: BP 115/58; PULSE 73; RESP 16; TEMP 37.2; O2SAT 96
[2022-01-29] MEDS: Omeprazole 20 MG CAPSULE.DR PO ×2 (06:11→18:03)
[2022-01-29 07:31] LABS: Glucose, Whole Blood 149 mg/dL (60-115)
--- NOTE | 2022-01-29 08:26 | PM.CNGS ---
History of Present Illness Consult details Consult date: 01/27/22 Requesting physician: Deanne Alvarez Narrative: 76-year-old female patient presenting following right hip fracture status post repair now presenting with a right heel ulcer. The patient is confused and does not recall having surgery. She is unaware of the heel ulcer as well. Surgical consultation requested for possible debridement. Review of Systems Review of Systems: Yes Unobtainable due to mental status PMFSH Past Medical History Medical History Dementia Fracture of distal end of femur HTN (hypertension) Overactive bladder Pulmonary embolism with acute cor pulmonale Social History Social History Household Members: None Housing: Assisted Living Facility Patient Tobacco Use Status: Former Tobacco user Tobacco use type: Cigar Patient Interested in Nicotine Replacement: No Patient Given Instructions on How to Stop Smoking: No Second Hand Smoke Exposure: No Use of substances other than those prescribed or required for medical reasons: No Currently Displaying Signs/Symptoms of Drug Intoxication Withdrawal: No Have you been hit, kicked, punched, or otherwise hurt by someone within the past year? If so, by whom?: No Do you feel safe in your current relationship?: No Is there a partner from a previous relationship who is making you feel unsafe now?: No Are you made to feel afraid or neglected: No Advance Directives: Yes Advance Directives on File: Yes Advance Directives Date on File: 10/12/20 Do you have thoughts of harming others: None Do you have a plan to hurt others: No Plan Recently lost weight without trying: No How much weight loss: Not applicable Eating poorly because of decreased appetite: No Nutrition screen score: 0 Nutrition Risks: No Nutritional Risk Patient : No : No Poor oral hygiene: No service: No Current occupational status: retired Meds Allergies Allergy/AdvReac Type Severity Reaction Status Date / Time aluminum Allergy Unknown Verified 01/08/22 01:30 Active Medications: Current Medications Amlodipine Besylate (Amlodipine Besylate 5 Mg Tablet) 5 mg PO DAILY [facility]; Protocol Last Admin: 01/12/22 08:14 Dose: 5 mg Apixaban (Apixaban 5 Mg Tablet) 5 mg PO BID@0900,1800 [facility] Last Admin: 01/28/22 17:39 Dose: 5 mg Artificial Tears (Artificial Tears 15 Ml Drops) 2 drop EYE-BOTH Q4H PRN PRN Reason: Dry Eyes Atorvastatin Calcium (Atorvastatin Calcium 20 Mg Tablet) 20 mg PO BEDTIME [facility] Last Admin: 01/28/22 20:30 Dose: 20 mg Dextrose (Dextrose 50 % 25 Gm/50 Ml Syringe) 25 gm IVPUSH Q15M PRN; Protocol PRN Reason: per Hypoglycemia Standing Ord. Docusate Sodium (Docusate Sodium 100 Mg Capsule) 100 mg PO BEDTIME [facility] Last Admin: 01/27/22 20:30 Dose: 100 mg Donepezil HCl (Donepezil Hcl 10 Mg Tablet) 10 mg PO BEDTIME [facility] Last Admin: 01/28/22 20:30 Dose: 10 mg Ferrous Sulfate (Ferrous Sulfate 300 Mg/5 Ml Liquid) 300 mg PO BIDWM [facility] Last Admin: 01/28/22 20:30 Dose: 300 mg Glucose (Glucose Gel 15 Gm Gel..Gram.) 15 gm PO Q15M PRN; Protocol PRN Reason: per Hypoglycemia Standing Ord. Acetaminophen (Ofirmev) 1,000 mg in 100 mls @ 400 mls/hr IV Q6H PRN PRN Reason: Pain, Moderate (Pain Scale 4-6 Last Infusion: 01/28/22 12:23 Dose: Infused Insulin Glargine (Insulin Glargine,Hum.Rec.Anlog 100 Unit/Ml 10 Ml Vial) 20 unit SUBCUT DAILY@0730 [facility] Last Admin: 01/28/22 07:55 Dose: 20 unit Insulin Human Lispro (Insulin Lispro 100 Unit/Ml 3 Ml Vial) 0 unit SUBCUT QIDACHS [facility]; Protocol Last Admin: 01/29/22 07:34 Dose: Not Given Omeprazole (Omeprazole 20 Mg Capsule.Dr) 20 mg PO BID@0630,1630 [facility] Last Admin: 01/29/22 06:11 Dose: 20 mg Ondansetron HCl (Ondansetron Hcl 4 Mg/2 Ml Vial) 4 mg IVPUSH Q8H PRN PRN Reason: Nausea and Vomiting Oxybutynin Chloride (Oxybutynin Chloride Er 5 Mg Tab.Er.24) 10 mg PO DAILY [facility] Last Admin: 01/28/22 12:04 Dose: 10 mg Oxycodone HCl (Oxycodone Hcl Immed Release 5 Mg Tablet) 5 mg PO Q6H PRN PRN Reason: Pain, Mild (Pain Scale 1-3) Last Admin: 01/29/22 00:42 Dose: 5 mg Polyethylene Glycol (Polyethylene Glycol 3350 17 Gm Powd.Pack) 17 gm PO BID [facility] Last Admin: 01/28/22 21:05 Dose: Not Given Quetiapine Fumarate (Quetiapine Fumarate 25 Mg Tablet) 25 mg PO BID [facility] Last Admin: 01/28/22 20:30 Dose: 25 mg Senna (Sennosides 8.6 Mg Tablet) 17.2 mg PO BEDTIME [facility] Last Admin: 01/28/22 21:05 Dose: Not Given Vitamin D (Cholecalciferol (Vitamin D3) 25 Mcg Tablet) 25 mcg PO DAILY [facility] Last Admin: 01/28/22 07:54 Dose: 25 mcg Home Medications Medication Instructions Recorded Confirmed Last Taken Type acetaminophen 325 mg tablet 650 mg PO Q6H PRN Pain (Scale 10/12/20 01/08/22 Unknown History Score 1-3) apixaban 5 mg tablet (Eliquis) 5 mg PO BID@0900,1800 10/12/20 01/08/22 Unknown History atorvastatin 20 mg tablet 20 mg PO BEDTIME 10/12/20 01/08/22 Unknown History cholecalciferol (vitamin D3) 25 25 mcg PO DAILY 10/12/20 01/08/22 Unknown History mcg (1,000 unit) capsule (Vitamin D3) donepezil 10 mg tablet 10 mg PO BEDTIME 10/12/20 01/08/22 Unknown History gabapentin 100 mg capsule 100 mg PO BEDTIME 10/12/20 01/08/22 Unknown History insulin glargine 100 unit/mL (3 40 unit subcut DAILY 10/12/20 01/08/22 Unknown History mL) subcutaneous pen (Lantus Solostar U-100 Insulin) oxybutynin chloride 10 mg 1 tab PO DAILY 10/12/20 01/08/22 Unknown History tablet,extended release 24 hr pioglitazone 30 mg tablet 1 tab PO DAILY 10/12/20 01/08/22 Unknown History polyethylene glycol 3350 17 17 g PO DAILY 10/12/20 01/08/22 Unknown History gram/dose oral powder sennosides 8.6 mg tablet (senna) 17.2 mg PO BEDTIME 10/12/20 01/08/22 Unknown History amlodipine 5 mg tablet 1 tab PO DAILY 01/08/22 01/08/22 Unknown History bacitracin 500 unit/gram topical 1 appl topical DAILY@2020 01/08/22 01/08/22 Unknown History ointment ferrous gluconate 324 mg (37.5 mg 324 mg PO DAILY 01/08/22 01/08/22 Unknown History iron) tablet furosemide 20 mg tablet 1 tab PO DAILY 01/08/22 01/08/22 Unknown History insulin lispro 100 unit/mL See Protocol subcut TIDAC 01/08/22 01/08/22 Unknown History subcutaneous pen (Humalog KwikPen (U-100) Insulin) metformin 500 mg tablet,extended 1,000 mg PO DAILY@1700 01/08/22 01/08/22 Unknown History release 24hr Physical Exam Vital Signs: Vital Signs: Last Vital Signs Temp 99.0 F 01/29/22 04:00 Pulse 73 01/29/22 04:00 Resp 16 01/29/22 04:00 BP 115/58 L 01/29/22 04:00 Pulse Ox 96 01/29/22 04:00 O2 Del Method 01/29/22 04:00 O2 Flow Rate 2 01/10/22 16:34 FiO2 98 01/26/22 19:43 BMI result Body Mass Index 33.0 Const: Other: Patient awake and talking, clearly confused, oriented to person only HEENT: Head: Yes normocephalic and Yes atraumatic Resp: Effort & Inspection: normal respiratory effort Auscultation: clear to auscultation bilaterally, no crackles, no rales and no rhonchi Skin: Other: warm, dry, no rashes Extrem: Other: large lateral incision in the right leg without erythema or discharge. Healed noted to have a pink dressing applied. Dressing removed although patient complained of pain in the upper hip. Ulceration noted at the most dependent portion of the heel. No bleeding or discharge at this time. Ankle/foot/toe images: 1. Results Labs Result diagrams: 01/27/22 09:02 01/28/22 08:47 Labs: Abnormal lab results 01/28/22 01/28/22 01/28/22 Range/Units 08:47 11:05 19:42 POC Glucose 232 H 159 H (60-115) mg/dL Random Glucose 241 H (60-115) mg/dL 01/29/22 Range/Units 07:20 POC Glucose 149 H (60-115) mg/dL Random Glucose (60-115) mg/dL BMP 01/28/22 08:47 Sodium 140 Potassium 5.0 Chloride 101 Carbon Dioxide 28 BUN 13 Creatinine 0.87 Calcium 8.8 D Urine 01/23/22 Range/Units 04:30 Urine Color Dark Yellow Urine Appearance Turbid Urine pH 5.5 (5.0-9.0) Ur Specific [place] 1.025 (1.005-1.025) Urine Protein 30 (1+) H (Neg-Trace) mg/dL Urine Glucose (UA) Negative (Negative) mg/dL All other labs normal. Assessment and Plan (1) Fracture of distal end of femur: Status: Acute (2) Fracture of femoral neck, right: Status: Acute Plan 76-year-old lady presenting with a right hip fracture now with area of pressure sore in the heel. Patient found to have the heel directly on the bed surface. Would recommend keeping the right leg elevated on pillows and keep all pressure off the heel. Lesion should heal of all pressure is maintained off of the heel. No debridement recommended at this time. Procedures Date of Service Date of Service: 01/27/22
[2022-01-29] MEDS: Insulin Glargine,Hum.rec.anlog 100 UNIT/ML 10 ML VIAL 20 UNIT SUBCUT (09:48)
[2022-01-29] MEDS: Apixaban 5 MG TABLET PO ×2 (09:49→18:03)
[2022-01-29] MEDS: Cholecalciferol (Vitamin D3) 25 MCG TABLET PO (09:50)
[2022-01-29] MEDS: QUEtiapine Fumarate 25 MG TABLET PO ×2 (09:50→20:18)
[2022-01-29 11:32] LABS: Glucose, Whole Blood 169 mg/dL (60-115)
[2022-01-29 11:50] VITALS: BP 93/45; PULSE 72; RESP 16; TEMP 37.2; O2SAT 96
[2022-01-29] MEDS: Insulin Lispro 100 UNIT/ML 3 ML VIAL SUBCUT (12:14)
--- NOTE | 2022-01-29 14:32 | MHC.CLN ---
F/U PO INTAKE 50-100% DIET RX: 1800DM-APPROPRIATE PT RECEIVING 8OZ GLUCERNA BID TO INCREASE PO INTAKE SUPP PROVIDES 474KCALS, 20G PROTEIN CONTINUE TO MONITOR PO INTAKE
--- NOTE | 2022-01-29 15:20 | MHC.CM.PN ---
EMR REVIEWED. AWAITING PRE-AUTH FROM [facility] FOR 01/31 .
[2022-01-29 15:36] VITALS: BP 110/58; PULSE 83; RESP 22; TEMP 37.3; O2SAT 94
--- NOTE | 2022-01-29 15:38 | HO.PM.IMPN ---
Subjective Subjective Date of Service: 01/30/22 Interval History: F/u on hip fracture s/p surgery, confusion and agiation post. mild irritation/bleeding at [place] Review of Systems seems improving no bleedin denies any chest pain or sob Physical Exam Vital Signs: Vital Signs: Last Vital Signs Temp 99.0 F 01/29/22 11:50 Pulse 72 01/29/22 11:50 Resp 16 01/29/22 11:50 BP 93/45 L 01/29/22 11:50 Pulse Ox 96 01/29/22 11:50 O2 Del Method 01/29/22 04:00 O2 Flow Rate 2 01/10/22 16:34 FiO2 98 01/26/22 19:43 BMI result Body Mass Index 33.0 General: AO X 1, no acute distress Resp:? CTA bilateral CVS: S1,S2,RRR GI: +BS, NT, no distention Skin: No rash, hip wound is healing fine, right heel pressure injury-similar. Neuro:? motor grossly intact Psych: appropriate affect Objective Data Active Medications Amlodipine Besylate (Amlodipine Besylate 5 Mg Tablet) 5 mg PO DAILY [facility]; Protocol Last Admin: 01/12/22 08:14 Dose: 5 mg Documented By: IVA Apixaban (Apixaban 5 Mg Tablet) 5 mg PO BID@0900,1800 [facility] Last Admin: 01/29/22 09:49 Dose: 5 mg Documented By: ARIADNE Artificial Tears (Artificial Tears 15 Ml Drops) 2 drop EYE-BOTH Q4H PRN PRN Reason: Dry Eyes Atorvastatin Calcium (Atorvastatin Calcium 20 Mg Tablet) 20 mg PO BEDTIME [facility] Last Admin: 01/28/22 20:30 Dose: 20 mg Documented By: TASH Dextrose (Dextrose 50 % 25 Gm/50 Ml Syringe) 25 gm IVPUSH Q15M PRN; Protocol PRN Reason: per Hypoglycemia Standing Ord. Docusate Sodium (Docusate Sodium 100 Mg Capsule) 100 mg PO BEDTIME [facility] Last Admin: 01/27/22 20:30 Dose: 100 mg Documented By: ARIADNE Donepezil HCl (Donepezil Hcl 10 Mg Tablet) 10 mg PO BEDTIME [facility] Last Admin: 01/28/22 20:30 Dose: 10 mg Documented By: TASH Ferrous Sulfate (Ferrous Sulfate 300 Mg/5 Ml Liquid) 300 mg PO BIDWM [facility] Last Admin: 01/28/22 20:30 Dose: 300 mg Documented By: TAHS Glucose (Glucose Gel 15 Gm Gel..Gram.) 15 gm PO Q15M PRN; Protocol PRN Reason: per Hypoglycemia Standing Ord. Acetaminophen (Ofirmev) 1,000 mg in 100 mls @ 400 mls/hr IV Q6H PRN PRN Reason: Pain, Moderate (Pain Scale 4-6 Last Infusion: 01/28/22 12:23 Dose: 0 mls/hr Documented By: SHANE Insulin Glargine (Insulin Glargine,Hum.Rec.Anlog 100 Unit/Ml 10 Ml Vial) 20 unit SUBCUT DAILY@0730 [facility] Last Admin: 01/29/22 09:48 Dose: 20 unit Documented By: ARIADNE Insulin Human Lispro (Insulin Lispro 100 Unit/Ml 3 Ml Vial) 0 unit SUBCUT QIDACHS [facility]; Protocol Last Admin: 01/29/22 12:14 Dose: 2 unit Documented By: ARIADNE Omeprazole (Omeprazole 20 Mg Capsule.Dr) 20 mg PO BID@0630,1630 [facility] Last Admin: 01/29/22 06:11 Dose: 20 mg Documented By: TASH Ondansetron HCl (Ondansetron Hcl 4 Mg/2 Ml Vial) 4 mg IVPUSH Q8H PRN PRN Reason: Nausea and Vomiting Oxybutynin Chloride (Oxybutynin Chloride Er 5 Mg Tab.Er.24) 10 mg PO DAILY [facility] Last Admin: 01/29/22 09:56 Dose: 10 mg Documented By: ARIADNE Oxycodone HCl (Oxycodone Hcl Immed Release 5 Mg Tablet) 5 mg PO Q6H PRN PRN Reason: Pain, Mild (Pain Scale 1-3) Last Admin: 01/29/22 00:42 Dose: 5 mg Documented By: TASH Polyethylene Glycol (Polyethylene Glycol 3350 17 Gm Powd.Pack) 17 gm PO BID [facility] Last Admin: 01/29/22 09:50 Dose: Not Given Documented By: ARIADNE Non-Admin Reason: Patient Refused Quetiapine Fumarate (Quetiapine Fumarate 25 Mg Tablet) 25 mg PO BID [facility] Last Admin: 01/29/22 09:50 Dose: 25 mg Documented By: ARIADNE Senna (Sennosides 8.6 Mg Tablet) 17.2 mg PO BEDTIME [facility] Last Admin: 01/28/22 21:05 Dose: Not Given Documented By: TASH Non-Admin Reason: Patient Refused Vitamin D (Cholecalciferol (Vitamin D3) 25 Mcg Tablet) 25 mcg PO DAILY [facility] Last Admin: 01/29/22 09:50 Dose: 25 mcg Documented By: ARIADNE Labs CBC & Chem 7: 01/27/22 09:02 01/28/22 08:47 Labs: Laboratory Results - last 24 hr 01/28/22 01/28/22 01/29/22 15:30 19:42 07:20 POC Glucose 94 159 H 149 H 01/29/22 10:59 POC Glucose 169 H Assessment and Plan (1) OAB (overactive bladder): Status: Acute (2) Dementia with behavioral disturbance: Status: Acute (3) Anemia: Status: Acute Plan 76-year-old female who is a resident of assisted living facility and with pertinent history of essential hypertension, mixed hyperlipidemia, insulin-dependent diabetes mellitus, urinary incontinence, dementia was brought to the emergency department for evaluation of right hip pain. #Right femoral head and neck fracture -s/p 1) ORIF right femur 2) right hip hemiarthroplasty 3) MIKE right hip on 01/10 -pain control with morphine, IV tyelenol, PT OT, Eliquis for DVT prophylaxis -have surgery look at drainage area # Insulin-dependent type 2 diabetes mellitus-insulin and monitor glucose #Essential hypertension--continue Norvasc #Urinary incontinence- oxybutynin #? Dementia with behavior disturbances-on continue donepezil,? Seroquel small dose prn ? ? Presently calm, cooperative, DC sitter # Chronic normocytic anemia: s/p 1unit of RBC 01/10 after surgery, h/h still drop in 8. ( possible postop anemia ): h/h flactuating most recent H/H stable continue iron supplements # History of pulmonary embolism--Eliquis #Possible malnutrition:? adeqauate weight and eating appropriately at this time #Frequent turning, incentive spirometry, #urinary retenion/vulvar area excoriation : to avoid further sloughing -paula inserted for this Uro: recommended zinc barrier cream but if the superficial ulcerated skin is not improving, recommend evaluation by NIGHT CUSTODIAN #+Screening covid on 01/21 -assymptomatic and covid repeat positive yesterday. mild hematuria possible? secondary to follow irritation:? monitor CBC and for the bleeding ?H&H stable around 9.9 range Right heel pressure injury: discussed with staff in detail, frequent turning, below below the right heel seen by surgery Dr. Newman - continue wound care and supportive management currently does not need any debridement. d/w staff -freq turning , nutrition , keep pillow ,change dressin,wound care DVT prophylaxis:? Eliquis Full code Above management discussed with patient's son in detail length.? He understand and in agreement the above plan. Need for inpatient: Patient was supposed to be discharged on 01/21 and repeat tested positive for covid screen -discharging plan for facility 01/31 Quality Stroke Does the patient have a stroke diagnosis?: No VTE Prior VTE?: Yes VTE Risk Level:: Medical - moderate - high VTE Device Contraindication: Treatment Not Indicated VTE Drug Contraindication: Treatment Not Indicated
[2022-01-29 16:48] LABS: Glucose, Whole Blood 131 mg/dL (60-115)
[2022-01-29] MEDS: Ferrous Sulfate 300 MG/5 ML LIQUID PO (18:03)
[2022-01-29 19:42] VITALS: BP 129/61; PULSE 72; RESP 20; TEMP 36.7; O2SAT 95
[2022-01-29] MEDS: Sennosides 8.6 MG TABLET 17.2 MG PO (20:18)
[2022-01-29] MEDS: Donepezil HCl 10 MG TABLET PO (20:18)
[2022-01-29] MEDS: Atorvastatin Calcium 20 MG TABLET PO (20:18)
[2022-01-29] MEDS: polyethylene glycoL 3350 17 GM POWD.PACK PO (20:18)
[2022-01-29 20:25] LABS: Glucose, Whole Blood 147 mg/dL (60-115)
[2022-01-30 07:47] LABS: Glucose, Whole Blood 146 mg/dL (60-115)
[2022-01-30] MEDS: Ferrous Sulfate 300 MG/5 ML LIQUID PO ×2 (09:45→18:22)
[2022-01-30] MEDS: polyethylene glycoL 3350 17 GM POWD.PACK PO (09:45)
[2022-01-30] MEDS: Apixaban 5 MG TABLET PO ×2 (09:46→18:22)
[2022-01-30] MEDS: QUEtiapine Fumarate 25 MG TABLET PO ×2 (09:46→20:37)
[2022-01-30] MEDS: Cholecalciferol (Vitamin D3) 25 MCG TABLET PO (09:46)
--- NOTE | 2022-01-30 10:24 | P.PNIM_ITS ---
Subjective Subjective Date of Service: 01/30/22 Interval History: F/u on hip fracture s/p surgery, confusion and agiation post. heel pressure ulcer Review of Systems denies any chest pain or sob denies any chest pain or sob heel pressure are seems same . Physical Exam Vital Signs: Vital Signs: Last Vital Signs Temp 98.1 F 01/29/22 19:42 Pulse 72 01/29/22 19:42 Resp 20 01/29/22 19:42 BP 129/61 01/29/22 19:42 Pulse Ox 95 01/29/22 19:42 O2 Del Method 01/29/22 19:42 O2 Flow Rate 2 01/10/22 16:34 FiO2 98 01/26/22 19:43 BMI result Body Mass Index 33.0 General: AO X 1, no acute distress Resp:? CTA bilateral CVS: S1,S2,RRR GI: +BS, NT, no distention Skin: No rash, hip wound is healing fine, right heel pressure injury-similar. Neuro:? motor grossly intact Psych: appropriate affect Objective Data Active Medications Amlodipine Besylate (Amlodipine Besylate 5 Mg Tablet) 5 mg PO DAILY [facility]; Protocol Last Admin: 01/12/22 08:14 Dose: 5 mg Documented By: IVA Apixaban (Apixaban 5 Mg Tablet) 5 mg PO BID@0900,1800 [facility] Last Admin: 01/30/22 09:46 Dose: 5 mg Documented By: IVETTORRRex Artificial Tears (Artificial Tears 15 Ml Drops) 2 drop EYE-BOTH Q4H PRN PRN Reason: Dry Eyes Atorvastatin Calcium (Atorvastatin Calcium 20 Mg Tablet) 20 mg PO BEDTIME [facility] Last Admin: 01/29/22 20:18 Dose: 20 mg Documented By: COSMO Dextrose (Dextrose 50 % 25 Gm/50 Ml Syringe) 25 gm IVPUSH Q15M PRN; Protocol PRN Reason: per Hypoglycemia Standing Ord. Docusate Sodium (Docusate Sodium 100 Mg Capsule) 100 mg PO BEDTIME [facility] Last Admin: 01/29/22 20:29 Dose: Not Given Documented By: COSMO Non-Admin Reason: can not crush Donepezil HCl (Donepezil Hcl 10 Mg Tablet) 10 mg PO BEDTIME [facility] Last Admin: 01/29/22 20:18 Dose: 10 mg Documented By: COSMO Ferrous Sulfate (Ferrous Sulfate 300 Mg/5 Ml Liquid) 300 mg PO BIDWM [facility] Last Admin: 01/30/22 09:45 Dose: 300 mg Documented By: JOHANNY Glucose (Glucose Gel 15 Gm Gel..Gram.) 15 gm PO Q15M PRN; Protocol PRN Reason: per Hypoglycemia Standing Ord. Acetaminophen (Ofirmev) 1,000 mg in 100 mls @ 400 mls/hr IV Q6H PRN PRN Reason: Pain, Moderate (Pain Scale 4-6 Last Infusion: 01/28/22 12:23 Dose: 0 mls/hr Documented By: EMILY-RIVDUKE Insulin Glargine (Insulin Glargine,Hum.Rec.Anlog 100 Unit/Ml 10 Ml Vial) 20 unit SUBCUT DAILY@0730 [facility] Last Admin: 01/29/22 09:48 Dose: 20 unit Documented By: ARIADNE Insulin Human Lispro (Insulin Lispro 100 Unit/Ml 3 Ml Vial) 0 unit SUBCUT QIDACHS [facility]; Protocol Last Admin: 01/29/22 21:19 Dose: Not Given Documented By: COSMO Non-Admin Reason: No Insulin Coverage Omeprazole (Omeprazole 20 Mg Capsule.Dr) 20 mg PO BID@0630,1630 [facility] Last Admin: 01/30/22 05:42 Dose: Not Given Documented By: COSMO Non-Admin Reason: Patient Refused Ondansetron HCl (Ondansetron Hcl 4 Mg/2 Ml Vial) 4 mg IVPUSH Q8H PRN PRN Reason: Nausea and Vomiting Oxybutynin Chloride (Oxybutynin Chloride Er 5 Mg Tab.Er.24) 10 mg PO DAILY [facility] Last Admin: 01/30/22 09:45 Dose: 10 mg Documented By: JOHANNY Oxycodone HCl (Oxycodone Hcl Immed Release 5 Mg Tablet) 5 mg PO Q6H PRN PRN Reason: Pain, Mild (Pain Scale 1-3) Last Admin: 01/29/22 00:42 Dose: 5 mg Documented By: TASH Polyethylene Glycol (Polyethylene Glycol 3350 17 Gm Powd.Pack) 17 gm PO BID [facility] Last Admin: 01/30/22 09:45 Dose: 17 gm Documented By: JOHANNY Quetiapine Fumarate (Quetiapine Fumarate 25 Mg Tablet) 25 mg PO BID [facility] Last Admin: 01/30/22 09:46 Dose: 25 mg Documented By: JOHANNY Senna (Sennosides 8.6 Mg Tablet) 17.2 mg PO BEDTIME [facility] Last Admin: 01/29/22 20:18 Dose: 17.2 mg Documented By: COSMO Vitamin D (Cholecalciferol (Vitamin D3) 25 Mcg Tablet) 25 mcg PO DAILY [facility] Last Admin: 01/30/22 09:46 Dose: 25 mcg Documented By: JOHANNY Labs CBC & Chem 7: 01/27/22 09:02 01/28/22 08:47 Labs: Laboratory Results - last 24 hr 01/29/22 01/29/22 01/29/22 10:59 16:41 19:35 POC Glucose 169 H 131 H 147 H 01/30/22 07:28 POC Glucose 146 H Assessment and Plan (1) OAB (overactive bladder): Status: Acute (2) Dementia with behavioral disturbance: Status: Acute (3) Anemia: Status: Acute Plan 76-year-old female who is a resident of assisted living facility and with pertinent history of essential hypertension, mixed hyperlipidemia, insulin- dependent diabetes mellitus, urinary incontinence, dementia was brought to the emergency department for evaluation of right hip pain. #Right femoral head and neck fracture -s/p 1) ORIF right femur 2) right hip hemiarthroplasty 3) MIKE right hip on 01/10 -pain control with morphine, IV tyelenol, PT OT, Eliquis for DVT prophylaxis -have surgery look at drainage area # Insulin-dependent type 2 diabetes mellitus-insulin and monitor glucose #Essential hypertension--continue Norvasc #Urinary incontinence- oxybutynin #? Dementia with behavior disturbances-on continue donepezil,? Seroquel small dose prn ? ? Presently calm, cooperative, DC sitter # Chronic normocytic anemia: s/p 1unit of RBC 01/10 after surgery, h/h still drop in 8. ( possible postop anemia ): h/h flactuating most recent H/H stable continue iron supplements # History of pulmonary embolism--Eliquis #Possible malnutrition:? adeqauate weight and eating appropriately at this time #Frequent turning, incentive spirometry, #urinary retenion/vulvar area excoriation : to avoid further sloughing -paula inserted for this Uro: recommended zinc barrier cream but if the superficial ulcerated skin is not improving, recommend evaluation by RN RESEARCH #+Screening covid on 01/21 -assymptomatic and covid repeat positive yesterday. mild hematuria possible? secondary to follow irritation:? monitor CBC and for the bleeding ?H&H stable around 9.9 range Right heel pressure injury: discussed with staff in detail, frequent turning, below below the right heel seen by surgery Dr. Newman - continue wound care and supportive management currently does not need any debridement. d/w staff -freq turning , nutrition , keep pillow,betadine paint to heel and elevate ,change dressin,wound care DVT prophylaxis:? Eliquis Full code Above management discussed with patient's son in detail length.? He understand and in agreement the above plan. Need for inpatient: Patient was supposed to be discharged on 01/21 and repeat tested positive for covid screen -discharging plan for facility 01/31. Quality Stroke Does the patient have a stroke diagnosis?: No VTE Prior VTE?: Yes VTE Risk Level:: Medical - moderate - high VTE Device Contraindication: Treatment Not Indicated VTE Drug Contraindication: Treatment Not Indicated
[2022-01-30] MEDS: Insulin Glargine,Hum.rec.anlog 100 UNIT/ML 10 ML VIAL 20 UNIT SUBCUT (10:32)
[2022-01-30 11:34] LABS: Glucose, Whole Blood 229 mg/dL (60-115)
[2022-01-30] MEDS: Insulin Lispro 100 UNIT/ML 3 ML VIAL SUBCUT ×2 (11:59→20:37)
--- NOTE | 2022-01-30 14:42 | P.PNGS_ITS ---
Subjective Subjective Date of Service: 01/30/22 Interval history: complaining of pain in right leg/foot Physical Exam Vital Signs: Vital Signs: Last Vital Signs Temp 98.1 F 01/29/22 19:42 Pulse 72 01/29/22 19:42 Resp 20 01/29/22 19:42 BP 129/61 01/29/22 19:42 Pulse Ox 95 01/29/22 19:42 O2 Del Method 01/29/22 19:42 O2 Flow Rate 2 01/10/22 16:34 FiO2 98 01/26/22 19:43 BMI result Body Mass Index 33.0 Skin: Other: large right heel eschar but not much soft tissue necrosis or drainage palpable DP pulse Objective Data Active Medications Amlodipine Besylate (Amlodipine Besylate 5 Mg Tablet) 5 mg PO DAILY [facility]; Protocol Last Admin: 01/12/22 08:14 Dose: 5 mg Documented By: IVA Apixaban (Apixaban 5 Mg Tablet) 5 mg PO BID@0900,1800 [facility] Last Admin: 01/30/22 09:46 Dose: 5 mg Documented By: JOHANNY Artificial Tears (Artificial Tears 15 Ml Drops) 2 drop EYE-BOTH Q4H PRN PRN Reason: Dry Eyes Atorvastatin Calcium (Atorvastatin Calcium 20 Mg Tablet) 20 mg PO BEDTIME [facility] Last Admin: 01/29/22 20:18 Dose: 20 mg Documented By: COSMO Dextrose (Dextrose 50 % 25 Gm/50 Ml Syringe) 25 gm IVPUSH Q15M PRN; Protocol PRN Reason: per Hypoglycemia Standing Ord. Docusate Sodium (Docusate Sodium 100 Mg Capsule) 100 mg PO BEDTIME [facility] Last Admin: 01/29/22 20:29 Dose: Not Given Documented By: COSMO Non-Admin Reason: can not crush Donepezil HCl (Donepezil Hcl 10 Mg Tablet) 10 mg PO BEDTIME [facility] Last Admin: 01/29/22 20:18 Dose: 10 mg Documented By: COSMO Ferrous Sulfate (Ferrous Sulfate 300 Mg/5 Ml Liquid) 300 mg PO BIDWM [facility] Last Admin: 01/30/22 09:45 Dose: 300 mg Documented By: JOHANNY Glucose (Glucose Gel 15 Gm Gel..Gram.) 15 gm PO Q15M PRN; Protocol PRN Reason: per Hypoglycemia Standing Ord. Acetaminophen (Ofirmev) 1,000 mg in 100 mls @ 400 mls/hr IV Q6H PRN PRN Reason: Pain, Moderate (Pain Scale 4-6 Last Infusion: 01/28/22 12:23 Dose: 0 mls/hr Documented By: SHANE Insulin Glargine (Insulin Glargine,Hum.Rec.Anlog 100 Unit/Ml 10 Ml Vial) 20 unit SUBCUT DAILY@0730 [facility] Last Admin: 01/30/22 10:32 Dose: 20 unit Documented By: JOHANNY Insulin Human Lispro (Insulin Lispro 100 Unit/Ml 3 Ml Vial) 0 unit SUBCUT QIDACHS [facility]; Protocol Last Admin: 01/30/22 11:59 Dose: 4 unit Documented By: JOHANNY Omeprazole (Omeprazole 20 Mg Capsule.Dr) 20 mg PO BID@0630,1630 [facility] Last Admin: 01/30/22 05:42 Dose: Not Given Documented By: COSMO Non-Admin Reason: Patient Refused Ondansetron HCl (Ondansetron Hcl 4 Mg/2 Ml Vial) 4 mg IVPUSH Q8H PRN PRN Reason: Nausea and Vomiting Oxybutynin Chloride (Oxybutynin Chloride Er 5 Mg Tab.Er.24) 10 mg PO DAILY [facility] Last Admin: 01/30/22 09:45 Dose: 10 mg Documented By: JOHANNY Oxycodone HCl (Oxycodone Hcl Immed Release 5 Mg Tablet) 5 mg PO Q6H PRN PRN Reason: Pain, Mild (Pain Scale 1-3) Last Admin: 01/29/22 00:42 Dose: 5 mg Documented By: TASH Polyethylene Glycol (Polyethylene Glycol 3350 17 Gm Powd.Pack) 17 gm PO BID [facility] Last Admin: 01/30/22 09:45 Dose: 17 gm Documented By: JOHANNY Quetiapine Fumarate (Quetiapine Fumarate 25 Mg Tablet) 25 mg PO BID [facility] Last Admin: 01/30/22 09:46 Dose: 25 mg Documented By: JOHANNY Senna (Sennosides 8.6 Mg Tablet) 17.2 mg PO BEDTIME [facility] Last Admin: 01/29/22 20:18 Dose: 17.2 mg Documented By: COSMO Vitamin D (Cholecalciferol (Vitamin D3) 25 Mcg Tablet) 25 mcg PO DAILY [facility] Last Admin: 01/30/22 09:46 Dose: 25 mcg Documented By: JOHANNY Labs CBC & Chem 7: 01/27/22 09:02 01/28/22 08:47 Labs: Laboratory Results - last 24 hr 01/29/22 01/29/22 01/30/22 16:41 19:35 07:28 POC Glucose 131 H 147 H 146 H 01/30/22 11:13 POC Glucose 229 H Procedures Date of Service Date of Service: 01/30/22 Progress Note: A&P Assessment and plan (1) Pressure ulcer, heel, right, unstageable: Status: Acute Assessment and Plan: ulcer right heel unstageable - would recommend keep eschar dry with daily betadine paint. no need for antibx as not infected pt has strong DP palpable pulse encourage po protein elevate and keep pressure off can be see in [facility] when dc Time Spent With Patient Time: Total time spent is greater than 50% in coordination of care (as documented) at patient's floor/unit and/or counseling patient: Quality Stroke Does the patient have a stroke diagnosis?: No VTE Prior VTE?: Yes VTE Risk Level:: Medical - moderate - high VTE Device Contraindication: Treatment Not Indicated VTE Drug Contraindication: Treatment Not Indicated
[2022-01-30 14:57] VITALS: BP 90/51; PULSE 73; RESP 14; TEMP 36.9; O2SAT 97
[2022-01-30 16:31] LABS: Glucose, Whole Blood 132 mg/dL (60-115)
[2022-01-30] MEDS: Omeprazole 20 MG CAPSULE.DR PO (18:22)
[2022-01-30 19:09] VITALS: BP 126/58; PULSE 72; RESP 13; TEMP 36.3; O2SAT 96
[2022-01-30 20:18] LABS: Glucose, Whole Blood 157 mg/dL (60-115)
[2022-01-30] MEDS: Sennosides 8.6 MG TABLET 17.2 MG PO (20:37)
[2022-01-30] MEDS: Docusate Sodium 100 MG CAPSULE PO (20:38)
[2022-01-30] MEDS: Donepezil HCl 10 MG TABLET PO (20:38)
[2022-01-30] MEDS: Atorvastatin Calcium 20 MG TABLET PO (20:38)
[2022-01-30 23:33] VITALS: BP 126/60; PULSE 73; RESP 14; TEMP 36.7; O2SAT 96
[2022-01-31] MEDS: oxyCODONE HCl Immed Release 5 MG TABLET PO (00:25)
[2022-01-31 02:23] VITALS: BP 143/65; PULSE 67; RESP 14; TEMP 36.6; O2SAT 99
[2022-01-31] MEDS: Omeprazole 20 MG CAPSULE.DR PO ×2 (05:52→16:56)
[2022-01-31 07:27] VITALS: BP 148/67; PULSE 69; RESP 18; TEMP 36; O2SAT 97
[2022-01-31 07:45] LABS: Glucose, Whole Blood 149 mg/dL (60-115)
[2022-01-31] MEDS: polyethylene glycoL 3350 17 GM POWD.PACK PO ×2 (09:47→21:40)
[2022-01-31] MEDS: Ferrous Sulfate 300 MG/5 ML LIQUID PO ×2 (09:47→16:55)
[2022-01-31] MEDS: Insulin Glargine,Hum.rec.anlog 100 UNIT/ML 10 ML VIAL 20 UNIT SUBCUT (09:47)
[2022-01-31] MEDS: Cholecalciferol (Vitamin D3) 25 MCG TABLET PO (09:47)
[2022-01-31] MEDS: Apixaban 5 MG TABLET PO ×2 (09:48→16:56)
[2022-01-31] MEDS: QUEtiapine Fumarate 25 MG TABLET PO ×2 (09:48→21:40)
--- NOTE | 2022-01-31 10:48 | HO.PM.IMPN ---
Subjective Subjective Date of Service: 02/01/22 Interval History: F/u on hip fracture s/p surgery, confusion and agiation post. heel pressure ulcer Review of Systems denies any chest pain or sob denies any chest pain or sob heel pressure are seems same? Physical Exam Vital Signs: Vital Signs: Last Vital Signs Temp 96.8 F 01/31/22 07:27 Pulse 69 01/31/22 07:27 Resp 18 01/31/22 07:27 BP 148/67 H 01/31/22 07:27 Pulse Ox 97 01/31/22 07:27 O2 Del Method 01/31/22 07:27 O2 Flow Rate 2 01/10/22 16:34 FiO2 98 01/26/22 19:43 BMI result Body Mass Index 33.0 General: AO X 1, no acute distress Resp:? CTA bilateral CVS: S1,S2,RRR GI: +BS, NT, no distention Skin: No rash, hip wound is healing fine, right heel pressure injury-similar. Neuro:? motor grossly intact Psych: appropriate affect Objective Data Active Medications Amlodipine Besylate (Amlodipine Besylate 5 Mg Tablet) 5 mg PO DAILY [facility]; Protocol Last Admin: 01/12/22 08:14 Dose: 5 mg Documented By: IVA Apixaban (Apixaban 5 Mg Tablet) 5 mg PO BID@0900,1800 [facility] Last Admin: 01/31/22 09:48 Dose: 5 mg Documented By: JOHANNY Artificial Tears (Artificial Tears 15 Ml Drops) 2 drop EYE-BOTH Q4H PRN PRN Reason: Dry Eyes Atorvastatin Calcium (Atorvastatin Calcium 20 Mg Tablet) 20 mg PO BEDTIME [facility] Last Admin: 01/30/22 20:38 Dose: 20 mg Documented By: BURTON Dextrose (Dextrose 50 % 25 Gm/50 Ml Syringe) 25 gm IVPUSH Q15M PRN; Protocol PRN Reason: per Hypoglycemia Standing Ord. Docusate Sodium (Docusate Sodium 100 Mg Capsule) 100 mg PO BEDTIME [facility] Last Admin: 01/30/22 20:38 Dose: 100 mg Documented By: BURTON Donepezil HCl (Donepezil Hcl 10 Mg Tablet) 10 mg PO BEDTIME [facility] Last Admin: 01/30/22 20:38 Dose: 10 mg Documented By: BURTON Ferrous Sulfate (Ferrous Sulfate 300 Mg/5 Ml Liquid) 300 mg PO BIDWM [facility] Last Admin: 01/31/22 09:47 Dose: 300 mg Documented By: JOHANNY Glucose (Glucose Gel 15 Gm Gel..Gram.) 15 gm PO Q15M PRN; Protocol PRN Reason: per Hypoglycemia Standing Ord. Acetaminophen (Ofirmev) 1,000 mg in 100 mls @ 400 mls/hr IV Q6H PRN PRN Reason: Pain, Moderate (Pain Scale 4-6 Last Infusion: 01/28/22 12:23 Dose: 0 mls/hr Documented By: EMILY-RIVDUKE Insulin Glargine (Insulin Glargine,Hum.Rec.Anlog 100 Unit/Ml 10 Ml Vial) 20 unit SUBCUT DAILY@0730 [facility] Last Admin: 01/31/22 09:47 Dose: 20 unit Documented By: JOHANNY Insulin Human Lispro (Insulin Lispro 100 Unit/Ml 3 Ml Vial) 0 unit SUBCUT QIDACHS [facility]; Protocol Last Admin: 01/31/22 09:46 Dose: Not Given Documented By: JOHANNY Non-Admin Reason: No Insulin Coverage Omeprazole (Omeprazole 20 Mg Capsule.Dr) 20 mg PO BID@0630,1630 [facility] Last Admin: 01/31/22 05:52 Dose: 20 mg Documented By: BURTON Ondansetron HCl (Ondansetron Hcl 4 Mg/2 Ml Vial) 4 mg IVPUSH Q8H PRN PRN Reason: Nausea and Vomiting Oxybutynin Chloride (Oxybutynin Chloride Er 5 Mg Tab.Er.24) 10 mg PO DAILY [facility] Last Admin: 01/31/22 09:47 Dose: 10 mg Documented By: JOHANNY Oxycodone HCl (Oxycodone Hcl Immed Release 5 Mg Tablet) 5 mg PO Q6H PRN PRN Reason: Pain, Mild (Pain Scale 1-3) Last Admin: 01/31/22 00:25 Dose: 5 mg Documented By: BURTON Polyethylene Glycol (Polyethylene Glycol 3350 17 Gm Powd.Pack) 17 gm PO BID [facility] Last Admin: 01/31/22 09:47 Dose: 17 gm Documented By: JOHANNY Quetiapine Fumarate (Quetiapine Fumarate 25 Mg Tablet) 25 mg PO BID [facility] Last Admin: 01/31/22 09:48 Dose: 25 mg Documented By: JOHANNY Senna (Sennosides 8.6 Mg Tablet) 17.2 mg PO BEDTIME [facility] Last Admin: 01/30/22 20:37 Dose: 17.2 mg Documented By: BURTON Vitamin D (Cholecalciferol (Vitamin D3) 25 Mcg Tablet) 25 mcg PO DAILY [facility] Last Admin: 01/31/22 09:47 Dose: 25 mcg Documented By: JOHANNY Labs CBC & Chem 7: 01/27/22 09:02 01/28/22 08:47 Labs: Laboratory Results - last 24 hr 01/30/22 01/30/22 01/31/22 16:19 20:07 07:26 POC Glucose 132 H 157 H 149 H Assessment and Plan (1) Pressure ulcer, heel, right, unstageable: Status: Acute (2) Dementia: Status: Acute (3) Urinary retention: Status: Acute Plan 76-year-old female who is a resident of assisted living facility and with pertinent history of essential hypertension, mixed hyperlipidemia, insulin-dependent diabetes mellitus, urinary incontinence, dementia was brought to the emergency department for evaluation of right hip pain. #Right femoral head and neck fracture -s/p 1) ORIF right femur 2) right hip hemiarthroplasty 3) MIKE right hip on 01/10 -pain control with morphine, IV tyelenol, PT OT, Eliquis for DVT prophylaxis -have surgery look at drainage area # Insulin-dependent type 2 diabetes mellitus-insulin and monitor glucose #Essential hypertension--continue Norvasc #Urinary incontinence- oxybutynin #? Dementia with behavior disturbances-on continue donepezil,? Seroquel small dose prn ? ? Presently calm, cooperative, DC sitter # Chronic normocytic anemia: s/p 1unit of RBC 01/10 after surgery, h/h still drop in 8. ( possible postop anemia ): h/h flactuating most recent H/H stable continue iron supplements # History of pulmonary embolism--Eliquis #Possible malnutrition:? adeqauate weight and eating appropriately at this time #Frequent turning, incentive spirometry, #urinary retenion/vulvar area excoriation : off paula please check bladder scan q shift,pvr ,staright cath if Urinary retention greater than 350 mL Uro: recommended zinc barrier cream but if the superficial ulcerated skin is not improving, recommend evaluation by AGILE QA TESTER #+Screening covid on 01/21 -assymptomatic and covid repeat positive yesterday. mild hematuria possible? secondary to follow irritation:? monitor CBC and for the bleeding ?H&H stable around 9.9 range ? Right heel pressure injury:? discussed with staff in detail, frequent turning, below below the right heel ?seen by surgery Dr. Newman - continue wound care and supportive management currently does not need any debridement. d/w staff -freq turning , nutrition , keep pillow,betadine paint to heel and elevate?,change dressin,wound care DVT prophylaxis:? Eliquis Full code Above management discussed with patient's son in detail length.? He understand and in agreement the above plan. Need for inpatient: Patient was supposed to be discharged on 01/21 and repeat tested positive for covid screen -discharging plan for facility 01/31 but still no auth yet,dc when bed available. Quality Stroke Does the patient have a stroke diagnosis?: No VTE Prior VTE?: Yes VTE Risk Level:: Medical - moderate - high VTE Device Contraindication: Treatment Not Indicated VTE Drug Contraindication: Treatment Not Indicated
[2022-01-31 11:04] VITALS: BP 143/72; PULSE 72; RESP 18; TEMP 36.2; O2SAT 97
[2022-01-31 11:20] LABS: Glucose, Whole Blood 237 mg/dL (60-115)
[2022-01-31] MEDS: Insulin Lispro 100 UNIT/ML 3 ML VIAL SUBCUT ×2 (12:12→21:40)
[2022-01-31 15:38] VITALS: BP 128/56; PULSE 65; RESP 16; TEMP 36.7; O2SAT 100
[2022-01-31 16:43] LABS: Glucose, Whole Blood 131 mg/dL (60-115)
[2022-01-31 19:20] VITALS: BP 121/57; PULSE 73; RESP 13; TEMP 36.6; O2SAT 98
[2022-01-31 20:54] LABS: Glucose, Whole Blood 153 mg/dL (60-115)
[2022-01-31] MEDS: Docusate Sodium 100 MG CAPSULE PO (21:40)
[2022-01-31] MEDS: Sennosides 8.6 MG TABLET 17.2 MG PO (21:40)
[2022-01-31] MEDS: Atorvastatin Calcium 20 MG TABLET PO (21:40)
[2022-01-31] MEDS: Donepezil HCl 10 MG TABLET PO (21:49)
[2022-02-01 00:38] VITALS: BP 107/57; PULSE 73; RESP 16; TEMP 36.8; O2SAT 98
[2022-02-01 04:00] VITALS: BP 125/59; PULSE 66; RESP 16; TEMP 36.8; O2SAT 99
[2022-02-01] MEDS: Omeprazole 20 MG CAPSULE.DR PO ×2 (05:36→15:56)
[2022-02-01 08:00] VITALS: BP 105/51; PULSE 65; RESP 15; TEMP 36.4; O2SAT 98
[2022-02-01 08:05] LABS: Glucose, Whole Blood 153 mg/dL (60-115)
[2022-02-01] MEDS: Insulin Lispro 100 UNIT/ML 3 ML VIAL SUBCUT (08:56)
[2022-02-01] MEDS: Insulin Glargine,Hum.rec.anlog 100 UNIT/ML 10 ML VIAL 20 UNIT SUBCUT (08:56)
[2022-02-01] MEDS: polyethylene glycoL 3350 17 GM POWD.PACK PO ×2 (08:56→20:21)
[2022-02-01] MEDS: Cholecalciferol (Vitamin D3) 25 MCG TABLET PO (08:58)
[2022-02-01] MEDS: Ferrous Sulfate 300 MG/5 ML LIQUID PO ×2 (08:58→15:56)
[2022-02-01] MEDS: QUEtiapine Fumarate 25 MG TABLET PO ×2 (08:58→20:21)
[2022-02-01] MEDS: Apixaban 5 MG TABLET PO ×2 (08:58→16:43)
[2022-02-01 11:25] VITALS: BP 90/53; PULSE 75; RESP 17; TEMP 36.5; O2SAT 92
[2022-02-01 11:26] LABS: Glucose, Whole Blood 143 mg/dL (60-115)
[2022-02-01 12:05] VITALS: BMI 33.0
--- NOTE | 2022-02-01 12:10 | MHC.CLN ---
RE: CONSULT PT QUALIFIES FOR MODERATE MALNUTRITION ENERGY INTAKE LESS THAN 75% X GREATER THAN 7 DAYS; MILD DEPLETION OF MUSCLE MASS IN TEMPLES WITH INCREASED NUTRITION RISK R/T PRESSURE INJURIES PO INTAKE VARIABLE DIET RX: 1800DM-APPROPRIATE PT RECEIVING 8OZ GLUCERNA BID PROVIDES 474KCALS, 20G PROTEIN RECOMMEND SWITCHING TO ENSURE MAX BID TO PROVIDE 300KCALS, 60G PROTEIN TO PROMOTE WOUND HEALING MONITOR PO INTAKE CLOSELY SEE ALSO FULL CLINICAL NUTRITION ASSESSMENT DATED 02/01/22
--- NOTE | 2022-02-01 12:23 | MHC.CM.PN ---
CM CONTINUES TO AWAIT AUTH FROM [facility] FOR STR AT [facility]. LIAISON STATES THE CASE HAS GONE TO PHYSICIAN TO PHYSICIAN REVIEW, AWAITING OUTCOME.SPOKE WITH SON/HCP ALE AND UPDATED. CM CONTINUES TO FOLLOW.
[2022-02-01 15:45] VITALS: BP 99/57; PULSE 68; RESP 17; TEMP 36.6; O2SAT 96
[2022-02-01 16:19] LABS: Glucose, Whole Blood 144 mg/dL (60-115)
[2022-02-01 19:50] VITALS: BP 137/60; PULSE 65; RESP 17; TEMP 36.2; O2SAT 97
[2022-02-01 20:10] LABS: Glucose, Whole Blood 133 mg/dL (60-115)
[2022-02-01] MEDS: Docusate Sodium 100 MG CAPSULE PO (20:21)
[2022-02-01] MEDS: Sennosides 8.6 MG TABLET 17.2 MG PO (20:21)
[2022-02-01] MEDS: Atorvastatin Calcium 20 MG TABLET PO (20:22)
[2022-02-01] MEDS: Donepezil HCl 10 MG TABLET PO (20:22)
--- NOTE | 2022-02-01 21:45 | PC.NURSE ---
patient has not voided since 3 pm ,bladder scan 38 ml at present,encouraged po intake,Dr. Pearson made aware
[2022-02-02] VITALS: BP 153/69; PULSE 69; RESP 15; TEMP 36.1; O2SAT 99
[2022-02-02] MEDS: Omeprazole 20 MG CAPSULE.DR PO ×2 (05:36→17:50)
[2022-02-02 07:58] VITALS: BP 133/60; PULSE 67; RESP 20; TEMP 36.5; O2SAT 99
[2022-02-02 08:15] LABS: Glucose, Whole Blood 138 mg/dL (60-115)
[2022-02-02] MEDS: QUEtiapine Fumarate 25 MG TABLET PO ×2 (08:24→20:19)
[2022-02-02] MEDS: Apixaban 5 MG TABLET PO ×2 (08:24→17:50)
[2022-02-02] MEDS: Cholecalciferol (Vitamin D3) 25 MCG TABLET PO (08:24)
[2022-02-02] MEDS: Insulin Glargine,Hum.rec.anlog 100 UNIT/ML 10 ML VIAL 20 UNIT SUBCUT (08:24)
[2022-02-02] MEDS: Ferrous Sulfate 300 MG/5 ML LIQUID PO ×2 (08:24→17:50)
[2022-02-02] MEDS: polyethylene glycoL 3350 17 GM POWD.PACK PO ×2 (08:25→20:20)
[2022-02-02 11:31] VITALS: BP 122/58; PULSE 71; RESP 20; TEMP 36.8; O2SAT 98
[2022-02-02 11:55] LABS: Glucose, Whole Blood 162 mg/dL (60-115)
--- NOTE | 2022-02-02 12:06 | P.PNIM_ITS ---
Subjective Subjective Date of Service: 02/02/22 Interval History: F/u on hip fracture s/p surgery, confusion and agiation post interval history: No new issues, awaiting placement Review of Systems no fever some hip pain with movement Physical Exam Vital Signs: Vital Signs: Last Vital Signs Temp 98.2 F 02/02/22 11:31 Pulse 71 02/02/22 11:31 Resp 20 02/02/22 11:31 BP 122/58 L 02/02/22 11:31 Pulse Ox 98 02/02/22 11:31 O2 Del Method 02/02/22 11:31 O2 Flow Rate 2 01/10/22 16:34 FiO2 98 01/26/22 19:43 BMI result Body Mass Index 33.0 Const: Other: General: AO X 1, no acute distress Resp: CTA bilateral CVS: S1,S2,RRR GI: +BS, NT, no distention Skin: No rash, hip wound is healing fine, there is minimal drainage at a spot Neuro: motor grossly intact Psych: appropriate affect Objective Data Active Medications Amlodipine Besylate (Amlodipine Besylate 5 Mg Tablet) 5 mg PO DAILY [facility]; Protocol Last Admin: 01/12/22 08:14 Dose: 5 mg Documented By: IVA Apixaban (Apixaban 5 Mg Tablet) 5 mg PO BID@0900,1800 [facility] Last Admin: 02/02/22 08:24 Dose: 5 mg Documented By: LAURA Artificial Tears (Artificial Tears 15 Ml Drops) 2 drop EYE-BOTH Q4H PRN PRN Reason: Dry Eyes Atorvastatin Calcium (Atorvastatin Calcium 20 Mg Tablet) 20 mg PO BEDTIME [facility] Last Admin: 02/01/22 20:22 Dose: 20 mg Documented By: ELENO Dextrose (Dextrose 50 % 25 Gm/50 Ml Syringe) 25 gm IVPUSH Q15M PRN; Protocol PRN Reason: per Hypoglycemia Standing Ord. Docusate Sodium (Docusate Sodium 100 Mg Capsule) 100 mg PO BEDTIME [facility] Last Admin: 02/01/22 20:21 Dose: 100 mg Documented By: ELENO Donepezil HCl (Donepezil Hcl 10 Mg Tablet) 10 mg PO BEDTIME [facility] Last Admin: 02/01/22 20:22 Dose: 10 mg Documented By: ELENO Ferrous Sulfate (Ferrous Sulfate 300 Mg/5 Ml Liquid) 300 mg PO BIDWM [facility] Last Admin: 02/02/22 08:24 Dose: 300 mg Documented By: LAURA Glucose (Glucose Gel 15 Gm Gel..Gram.) 15 gm PO Q15M PRN; Protocol PRN Reason: per Hypoglycemia Standing Ord. Acetaminophen (Ofirmev) 1,000 mg in 100 mls @ 400 mls/hr IV Q6H PRN PRN Reason: Pain, Moderate (Pain Scale 4-6 Last Infusion: 01/28/22 12:23 Dose: 0 mls/hr Documented By: SHANE Insulin Glargine (Insulin Glargine,Hum.Rec.Anlog 100 Unit/Ml 10 Ml Vial) 20 unit SUBCUT DAILY@0730 [facility] Last Admin: 02/02/22 08:24 Dose: 20 unit Documented By: LAURA Insulin Human Lispro (Insulin Lispro 100 Unit/Ml 3 Ml Vial) 0 unit SUBCUT QIDACHS [facility]; Protocol Last Admin: 02/02/22 08:07 Dose: Not Given Documented By: LAURA Non-Admin Reason: No Insulin Coverage Omeprazole (Omeprazole 20 Mg Capsule.Dr) 20 mg PO BID@0630,1630 [facility] Last Admin: 02/02/22 05:36 Dose: 20 mg Documented By: BRUTON Ondansetron HCl (Ondansetron Hcl 4 Mg/2 Ml Vial) 4 mg IVPUSH Q8H PRN PRN Reason: Nausea and Vomiting Oxybutynin Chloride (Oxybutynin Chloride Er 5 Mg Tab.Er.24) 10 mg PO DAILY [facility] Last Admin: 02/02/22 08:24 Dose: 10 mg Documented By: LAURA Polyethylene Glycol (Polyethylene Glycol 3350 17 Gm Powd.Pack) 17 gm PO BID [facility] Last Admin: 02/02/22 08:25 Dose: 17 gm Documented By: LAURA Quetiapine Fumarate (Quetiapine Fumarate 25 Mg Tablet) 25 mg PO BID [facility] Last Admin: 02/02/22 08:24 Dose: 25 mg Documented By: LAURA Senna (Sennosides 8.6 Mg Tablet) 17.2 mg PO BEDTIME [facility] Last Admin: 02/01/22 20:21 Dose: 17.2 mg Documented By: ELENO Vitamin D (Cholecalciferol (Vitamin D3) 25 Mcg Tablet) 25 mcg PO DAILY [facility] Last Admin: 02/02/22 08:24 Dose: 25 mcg Documented By: LAURA Labs CBC & Chem 7: 01/27/22 09:02 01/28/22 08:47 Labs: Laboratory Results - last 24 hr 02/01/22 02/01/22 02/02/22 16:12 19:53 07:57 POC Glucose 144 H 133 H 138 H 02/02/22 11:34 POC Glucose 162 H Assessment and Plan (1) Pressure ulcer, heel, right, unstageable: Status: Acute (2) Dementia: Status: Acute (3) Urinary retention: Status: Acute Plan 76-year-old female who is a resident of assisted living facility and with pertinent history of essential hypertension, mixed hyperlipidemia, insulin- dependent diabetes mellitus, urinary incontinence, dementia was brought to the emergency department for evaluation of right hip pain. #Right femoral head and neck fracture -s/p 1) ORIF right femur 2) right hip hemiarthroplasty 3) MIKE right hip on 01/10 -pain control with morphine, IV tyelenol, PT OT, Eliquis for DVT prophylaxis -have surgery look at drainage area # Insulin-dependent type 2 diabetes mellitus-insulin and monitor glucose #Essential hypertension--continue Norvasc #Urinary incontinence- oxybutynin #? Dementia with behavior disturbances-on continue donepezil,? Seroquel small dose prn ? ? Presently calm, cooperative, DC sitter # Chronic normocytic anemia: s/p 1unit of RBC 01/10 after surgery, h/h still drop in 8. ( possible postop anemia ): h/h flactuating most recent H/H stable continue iron supplements # History of pulmonary embolism--Eliquis #Possible malnutrition:? adeqauate weight and eating appropriately at this time #Frequent turning, incentive spirometry, #urinary retenion/vulvar area excoriation : off paula please check bladder scan q shift,pvr ,staright cath if Urinary retention greater than 350 mL Uro: recommended zinc barrier cream but if the superficial ulcerated skin is not improving, recommend evaluation by DRILLING MACHINE RUNNER #+Screening covid on 01/21 -assymptomatic and covid repeat positive yesterday. mild hematuria possible? secondary to follow irritation:? monitor CBC and for the bleeding ?H&H stable around 9.9 range ? Right heel pressure injury:? discussed with staff in detail, frequent turning, below below the right heel ?seen by surgery Dr. Newman - continue wound care and supportive management currently does not need any debridement. d/w staff -freq turning , nutrition , keep pillow,betadine paint to heel and elevate?,change dressin,wound care DVT prophylaxis:? Jiequkassandra Full code Above management discussed with patient's son in detail length.? He understand and in agreement the above plan. Need for inpatient: Patient was supposed to be discharged on 01/21 and repeat tested positive for covid screen, at this point waiting on insurance authorization for [place] Quality Stroke Does the patient have a stroke diagnosis?: No VTE Prior VTE?: Yes VTE Risk Level:: Medical - moderate - high VTE Device Contraindication: Treatment Not Indicated VTE Drug Contraindication: Treatment Not Indicated
[2022-02-02] MEDS: Insulin Lispro 100 UNIT/ML 3 ML VIAL SUBCUT (12:40)
--- NOTE | 2022-02-02 14:05 | PC.NURSE ---
pt c/o worsening vulvar excoriation. area was tender to the touch and pt was barely able to spread legs. Some white discharge noted, but could also be zinc oxide cream. Dr. Ribeiro notified, he stated a ART DEPARTMENT HEAD would be notified and to not perform straight catheterization at the moment.
[2022-02-02 15:42] VITALS: BP 129/59; PULSE 67; RESP 18; TEMP 36.4; O2SAT 97
[2022-02-02 16:07] LABS: Glucose, Whole Blood 87 mg/dL (60-115)
[2022-02-02 20:00] VITALS: BP 147/67; PULSE 68; RESP 18; TEMP 36.4; O2SAT 99
[2022-02-02 20:14] LABS: Glucose, Whole Blood 99 mg/dL (60-115)
[2022-02-02] MEDS: Donepezil HCl 10 MG TABLET PO (20:19)
[2022-02-02] MEDS: Docusate Sodium 100 MG CAPSULE PO (20:20)
[2022-02-02] MEDS: Atorvastatin Calcium 20 MG TABLET PO (20:20)
[2022-02-02] MEDS: Sennosides 8.6 MG TABLET 17.2 MG PO (20:20)
[2022-02-02 23:20] VITALS: BP 130/58; PULSE 73; RESP 18; TEMP 36.7; O2SAT 100
[2022-02-03 03:06] VITALS: BP 130/62; PULSE 58; RESP 16; TEMP 36.4
[2022-02-03] MEDS: Omeprazole 20 MG CAPSULE.DR PO ×2 (05:37→16:37)
[2022-02-03 07:32] VITALS: BP 141/65; PULSE 65; RESP 18; TEMP 36.9; O2SAT 99
[2022-02-03 07:50] LABS: Glucose, Whole Blood 106 mg/dL (60-115)
[2022-02-03] MEDS: Ferrous Sulfate 300 MG/5 ML LIQUID PO ×2 (08:31→16:37)
[2022-02-03] MEDS: polyethylene glycoL 3350 17 GM POWD.PACK PO ×2 (08:31→20:37)
[2022-02-03] MEDS: Cholecalciferol (Vitamin D3) 25 MCG TABLET PO (08:31)
[2022-02-03] MEDS: QUEtiapine Fumarate 25 MG TABLET PO ×2 (08:31→20:38)
[2022-02-03] MEDS: Insulin Glargine,Hum.rec.anlog 100 UNIT/ML 10 ML VIAL 20 UNIT SUBCUT (08:31)
[2022-02-03] MEDS: Apixaban 5 MG TABLET PO ×2 (08:31→16:37)
--- NOTE | 2022-02-03 10:39 | HO.PM.IMPN ---
Subjective Subjective Date of Service: 02/03/22 Interval History: F/u on hip fracture s/p surgery, confusion and agiation post interval history: No new issues, awaiting placement Review of Systems no fever some hip pain with movement Physical Exam Vital Signs: Vital Signs: Last Vital Signs Temp 98.5 F 02/03/22 07:32 Pulse 65 02/03/22 07:32 Resp 18 02/03/22 07:32 BP 141/65 H 02/03/22 07:32 Pulse Ox 99 02/03/22 07:32 O2 Del Method 02/03/22 07:32 O2 Flow Rate 2 01/10/22 16:34 FiO2 98 01/26/22 19:43 BMI result Body Mass Index 33.0 Const: Other: General: AO X 1, no acute distress Resp: CTA bilateral CVS: S1,S2,RRR GI: +BS, NT, no distention Skin: No rash, hip wound is healing fine, there is minimal drainage at a spot, : vulvar iritation. Neuro: motor grossly intact Psych: appropriate affect Objective Data Active Medications Amlodipine Besylate (Amlodipine Besylate 5 Mg Tablet) 5 mg PO DAILY [facility]; Protocol Last Admin: 01/12/22 08:14 Dose: 5 mg Documented By: IVA Apixaban (Apixaban 5 Mg Tablet) 5 mg PO BID@0900,1800 [facility] Last Admin: 02/03/22 08:31 Dose: 5 mg Documented By: MELQUIADES Artificial Tears (Artificial Tears 15 Ml Drops) 2 drop EYE-BOTH Q4H PRN PRN Reason: Dry Eyes Atorvastatin Calcium (Atorvastatin Calcium 20 Mg Tablet) 20 mg PO BEDTIME [facility] Last Admin: 02/02/22 20:20 Dose: 20 mg Documented By: IDANIA Dextrose (Dextrose 50 % 25 Gm/50 Ml Syringe) 25 gm IVPUSH Q15M PRN; Protocol PRN Reason: per Hypoglycemia Standing Ord. Docusate Sodium (Docusate Sodium 100 Mg Capsule) 100 mg PO BEDTIME [facility] Last Admin: 02/02/22 20:20 Dose: 100 mg Documented By: IDANIA Donepezil HCl (Donepezil Hcl 10 Mg Tablet) 10 mg PO BEDTIME [facility] Last Admin: 02/02/22 20:19 Dose: 10 mg Documented By: IDANIA Ferrous Sulfate (Ferrous Sulfate 300 Mg/5 Ml Liquid) 300 mg PO BIDWM [facility] Last Admin: 02/03/22 08:31 Dose: 300 mg Documented By: MELQUIADES Glucose (Glucose Gel 15 Gm Gel..Gram.) 15 gm PO Q15M PRN; Protocol PRN Reason: per Hypoglycemia Standing Ord. Acetaminophen (Ofirmev) 1,000 mg in 100 mls @ 400 mls/hr IV Q6H PRN PRN Reason: Pain, Moderate (Pain Scale 4-6 Last Infusion: 01/28/22 12:23 Dose: 0 mls/hr Documented By: SHANE Insulin Glargine (Insulin Glargine,Hum.Rec.Anlog 100 Unit/Ml 10 Ml Vial) 20 unit SUBCUT DAILY@0730 [facility] Last Admin: 02/03/22 08:31 Dose: 20 unit Documented By: MELQUIADES Insulin Human Lispro (Insulin Lispro 100 Unit/Ml 3 Ml Vial) 0 unit SUBCUT QIDACHS [facility]; Protocol Last Admin: 02/03/22 08:28 Dose: Not Given Documented By: MELQUIADES Non-Admin Reason: No Insulin Coverage Omeprazole (Omeprazole 20 Mg Capsule.Dr) 20 mg PO BID@0630,1630 [facility] Last Admin: 02/03/22 05:37 Dose: 20 mg Documented By: IDANIA Ondansetron HCl (Ondansetron Hcl 4 Mg/2 Ml Vial) 4 mg IVPUSH Q8H PRN PRN Reason: Nausea and Vomiting Oxybutynin Chloride (Oxybutynin Chloride Er 5 Mg Tab.Er.24) 10 mg PO DAILY [facility] Last Admin: 02/03/22 08:31 Dose: 10 mg Documented By: MELQUIADES Polyethylene Glycol (Polyethylene Glycol 3350 17 Gm Powd.Pack) 17 gm PO BID [facility] Last Admin: 02/03/22 08:31 Dose: 17 gm Documented By: MELQUIADES Quetiapine Fumarate (Quetiapine Fumarate 25 Mg Tablet) 25 mg PO BID [facility] Last Admin: 02/03/22 08:31 Dose: 25 mg Documented By: MELQUIADES Senna (Sennosides 8.6 Mg Tablet) 17.2 mg PO BEDTIME [facility] Last Admin: 02/02/22 20:20 Dose: 17.2 mg Documented By: IDANIA Vitamin D (Cholecalciferol (Vitamin D3) 25 Mcg Tablet) 25 mcg PO DAILY [facility] Last Admin: 02/03/22 08:31 Dose: 25 mcg Documented By: MELQUIADES Labs CBC & Chem 7: 01/27/22 09:02 01/28/22 08:47 Labs: Laboratory Results - last 24 hr 02/02/22 02/02/22 02/02/22 11:34 15:44 20:02 POC Glucose 162 H 87 99 02/03/22 07:34 POC Glucose 106 Assessment and Plan (1) Pressure ulcer, heel, right, unstageable: Status: Acute (2) Dementia: Status: Acute (3) Urinary retention: Status: Acute Plan 76-year-old female who is a resident of assisted living facility and with pertinent history of essential hypertension, mixed hyperlipidemia, insulin-dependent diabetes mellitus, urinary incontinence, dementia was brought to the emergency department for evaluation of right hip pain. #Right femoral head and neck fracture -s/p 1) ORIF right femur 2) right hip hemiarthroplasty 3) MIKE right hip on 01/10 -pain control with morphine, IV tyelenol, PT OT, Eliquis for DVT prophylaxis -have surgery look at drainage area # Insulin-dependent type 2 diabetes mellitus-insulin and monitor glucose #Essential hypertension--continue Norvasc #Urinary incontinence- oxybutynin #? Dementia with behavior disturbances-on continue donepezil,? Seroquel small dose prn ? ? Presently calm, cooperative, DC sitter # Chronic normocytic anemia: s/p 1unit of RBC 01/10 after surgery, h/h still drop in 8. ( possible postop anemia ): h/h flactuating most recent H/H stable continue iron supplements # History of pulmonary embolism--Eliquis #Possible malnutrition:? adeqauate weight and eating appropriately at this time #Frequent turning, incentive spirometry, #urinary retenion/vulvar area excoriation : off paula please check bladder scan q shift,pvr ,staright cath if Urinary retention greater than 350 mL Uro: recommended zinc barrier cream but if the superficial ulcerated skin is not improving, INSPECTING AND TESTING LEAD HAND consult #+Screening covid on 01/21 -assymptomatic and covid repeat positive yesterday. mild hematuria possible? secondary to follow irritation:? monitor CBC and for the bleeding ?H&H stable around 9.9 range ? Right heel pressure injury:? discussed with staff in detail, frequent turning, below below the right heel ?seen by surgery Dr. Newman - continue wound care and supportive management currently does not need any debridement. d/w staff -freq turning , nutrition , keep pillow,betadine paint to heel and elevate?,change dressin,wound care DVT prophylaxis:? Eliquis Full code Above management discussed with patient's son in detail length.? He understand and in agreement the above plan. Need for inpatient: Patient was supposed to be discharged on 01/21 and repeat tested positive for covid screen, at this point waiting on insurance authorization for [place] Quality Stroke Does the patient have a stroke diagnosis?: No VTE Prior VTE?: Yes VTE Risk Level:: Medical - moderate - high VTE Device Contraindication: Treatment Not Indicated VTE Drug Contraindication: Treatment Not Indicated
--- NOTE | 2022-02-03 10:49 | PM.GYNCN ---
MDM SR - CN: HPI Data of Consult Consult date: 02/03/22 Requesting Physician: Amado Ribeiro MD Primary Care Provider: Ofelia Chen MD Consult Narrative Narrative: I was consulted on Sierra Smith who is a 76 year old female for vulvar itching and left vulvar lesion cc:: CC: Amado Ribeiro MD OB [facility] Past Medical History Medical History Dementia Fracture of distal end of femur HTN (hypertension) Overactive bladder Pulmonary embolism with acute cor pulmonale Social History Social History Household Members: None Housing: Assisted Living Facility Patient Tobacco Use Status: Former Tobacco user Tobacco use type: Cigar Second Hand Smoke Exposure: No Advance Directives Date on File: 10/12/20 service: No Current occupational status: retired Meds Allergies Allergy/AdvReac Type Severity Reaction Status Date / Time aluminum Allergy Unknown Verified 01/08/22 01:30 Active Medications: Current Medications Amlodipine Besylate (Amlodipine Besylate 5 Mg Tablet) 5 mg PO DAILY [facility]; Protocol Last Admin: 01/12/22 08:14 Dose: 5 mg Apixaban (Apixaban 5 Mg Tablet) 5 mg PO BID@0900,1800 [facility] Last Admin: 02/03/22 08:31 Dose: 5 mg Artificial Tears (Artificial Tears 15 Ml Drops) 2 drop EYE-BOTH Q4H PRN PRN Reason: Dry Eyes Atorvastatin Calcium (Atorvastatin Calcium 20 Mg Tablet) 20 mg PO BEDTIME [facility] Last Admin: 02/02/22 20:20 Dose: 20 mg Dextrose (Dextrose 50 % 25 Gm/50 Ml Syringe) 25 gm IVPUSH Q15M PRN; Protocol PRN Reason: per Hypoglycemia Standing Ord. Docusate Sodium (Docusate Sodium 100 Mg Capsule) 100 mg PO BEDTIME [facility] Last Admin: 02/02/22 20:20 Dose: 100 mg Donepezil HCl (Donepezil Hcl 10 Mg Tablet) 10 mg PO BEDTIME [facility] Last Admin: 02/02/22 20:19 Dose: 10 mg Ferrous Sulfate (Ferrous Sulfate 300 Mg/5 Ml Liquid) 300 mg PO BIDWM [facility] Last Admin: 02/03/22 08:31 Dose: 300 mg Glucose (Glucose Gel 15 Gm Gel..Gram.) 15 gm PO Q15M PRN; Protocol PRN Reason: per Hypoglycemia Standing Ord. Acetaminophen (Ofirmev) 1,000 mg in 100 mls @ 400 mls/hr IV Q6H PRN PRN Reason: Pain, Moderate (Pain Scale 4-6 Last Infusion: 01/28/22 12:23 Dose: Infused Insulin Glargine (Insulin Glargine,Hum.Rec.Anlog 100 Unit/Ml 10 Ml Vial) 20 unit SUBCUT DAILY@0730 [facility] Last Admin: 02/03/22 08:31 Dose: 20 unit Insulin Human Lispro (Insulin Lispro 100 Unit/Ml 3 Ml Vial) 0 unit SUBCUT QIDACHS [facility]; Protocol Last Admin: 02/03/22 08:28 Dose: Not Given Omeprazole (Omeprazole 20 Mg Capsule.Dr) 20 mg PO BID@0630,1630 [facility] Last Admin: 02/03/22 05:37 Dose: 20 mg Ondansetron HCl (Ondansetron Hcl 4 Mg/2 Ml Vial) 4 mg IVPUSH Q8H PRN PRN Reason: Nausea and Vomiting Oxybutynin Chloride (Oxybutynin Chloride Er 5 Mg Tab.Er.24) 10 mg PO DAILY [facility] Last Admin: 02/03/22 08:31 Dose: 10 mg Polyethylene Glycol (Polyethylene Glycol 3350 17 Gm Powd.Pack) 17 gm PO BID [facility] Last Admin: 02/03/22 08:31 Dose: 17 gm Quetiapine Fumarate (Quetiapine Fumarate 25 Mg Tablet) 25 mg PO BID [facility] Last Admin: 02/03/22 08:31 Dose: 25 mg Senna (Sennosides 8.6 Mg Tablet) 17.2 mg PO BEDTIME [facility] Last Admin: 02/02/22 20:20 Dose: 17.2 mg Vitamin D (Cholecalciferol (Vitamin D3) 25 Mcg Tablet) 25 mcg PO DAILY [facility] Last Admin: 02/03/22 08:31 Dose: 25 mcg Home Medications Medication Instructions Recorded Confirmed Last Taken Type acetaminophen 325 mg tablet 650 mg PO Q6H PRN Pain (Scale 10/12/20 01/08/22 Unknown History Score 1-3) apixaban 5 mg tablet (Eliquis) 5 mg PO BID@0900,1800 10/12/20 01/08/22 Unknown History atorvastatin 20 mg tablet 20 mg PO BEDTIME 10/12/20 01/08/22 Unknown History cholecalciferol (vitamin D3) 25 25 mcg PO DAILY 10/12/20 01/08/22 Unknown History mcg (1,000 unit) capsule (Vitamin D3) donepezil 10 mg tablet 10 mg PO BEDTIME 10/12/20 01/08/22 Unknown History gabapentin 100 mg capsule 100 mg PO BEDTIME 10/12/20 01/08/22 Unknown History oxybutynin chloride 10 mg 1 tab PO DAILY 10/12/20 01/08/22 Unknown History tablet,extended release 24 hr polyethylene glycol 3350 17 17 g PO DAILY 10/12/20 01/08/22 Unknown History gram/dose oral powder sennosides 8.6 mg tablet (senna) 17.2 mg PO BEDTIME 10/12/20 01/08/22 Unknown History amlodipine 5 mg tablet 1 tab PO DAILY 01/08/22 01/08/22 Unknown History ferrous gluconate 324 mg (37.5 mg 324 mg PO DAILY 01/08/22 01/08/22 Unknown History iron) tablet furosemide 20 mg tablet 1 tab PO DAILY 01/08/22 01/08/22 Unknown History insulin lispro 100 unit/mL See Protocol subcut TIDAC 01/08/22 01/08/22 Unknown History subcutaneous pen (Humalog KwikPen (U-100) Insulin) MDM SR Physical Exam Vitals Vital signs: Temp Pulse Resp BP Pulse Ox O2 Del Method O2 Flow Rate 98.5 F 65 18 141/65 H 99 2 02/03/22 07:32 02/03/22 07:32 02/03/22 07:32 02/03/22 07:32 02/03/22 07:32 02/03/22 07:32 01/10/22 16:34 FiO2 98 01/26/22 19:43 BMI result Body Mass Index 33.0 Female Genitalia (Pelvic) Bladder/Urethra: Normal meatus Additional Comments: Left labia majora 1 x 2 cm lesion, tender MDM SR - Results Labs CBC & Chem 7: 01/27/22 09:02 01/28/22 08:47 Labs: Urine 01/23/22 Range/Units 04:30 Urine Color Dark Yellow Urine Appearance Turbid Urine pH 5.5 (5.0-9.0) Ur Specific [place] 1.025 (1.005-1.025) Urine Protein 30 (1+) H (Neg-Trace) mg/dL Urine Glucose (UA) Negative (Negative) mg/dL Antibody Screen Antibody Screen NEGATIVE 01/14/22 13:12 Assessment and Plan (1) Labial lesion: Status: Acute Recommended vulvar biopsy to rule out CHIOMA/malignancy under local anesthetic. Discussed with the patient the indication for the vulvar biopsy, the patient declined, I then called her son, her healthcare proxy, Todd Smith, and explained the finding on physical exam left vulvar lesion and the need for vulvar biopsy under local anesthesia to rule out labia CHIOMA or malignancy and I explained to him that the patient is declining the procedure, he mentioned that he will talk to his mother, the patient, regarding the vulvar biopsy and will let us know if they will decide to proceed with it.
[2022-02-03 11:23] VITALS: BP 119/56; PULSE 73; RESP 18; TEMP 36.6; O2SAT 98
[2022-02-03 11:42] LABS: Glucose, Whole Blood 187 mg/dL (60-115)
--- NOTE | 2022-02-03 11:50 | MHC.CLN ---
F/U PT IS MODERATELY MALNOURISHED SEE FULL CLINICAL NUTRITION ASSESSMENT DATED 02/01/22 PO INTAKE VARIABLE BETWEEN 0-100% DIET RX: 1800DM-APPROPRIATE PT RECEIVING ENSURE MAX BID PROVIDES 300KCALS, 60G PROTEIN TO PROMOTE WOUND HEALING MONITOR PO INTAKE CLOSELY
[2022-02-03] MEDS: Insulin Lispro 100 UNIT/ML 3 ML VIAL SUBCUT (12:46)
--- NOTE | 2022-02-03 14:35 | MHC.CM.PN ---
[facility] has denied STR. CM spoke with Son/Fredi @ [phone], who requested that CM speak with Primary Contact/Friend who assists with financials/Jo Swift @ [phone]. Jo Swift will be providing [place] [facility] a private pay check for LTC tomorrow morning and Patient should then be able to dc to that facility as long as she remains medically cleared for dc. CM will follow.
[2022-02-03 15:54] VITALS: BP 137/62; PULSE 78; RESP 19; TEMP 36.4; O2SAT 97
[2022-02-03 16:19] LABS: Glucose, Whole Blood 73 mg/dL (60-115)
[2022-02-03 16:38] LABS: Glucose, Whole Blood 84 mg/dL (60-115)
[2022-02-03 19:35] VITALS: BP 117/56; PULSE 70; RESP 17; TEMP 36.4; O2SAT 98
[2022-02-03 20:32] LABS: Glucose, Whole Blood 134 mg/dL (60-115)
[2022-02-03] MEDS: Atorvastatin Calcium 20 MG TABLET PO (20:37)
[2022-02-03] MEDS: Docusate Sodium 100 MG CAPSULE PO (20:38)
[2022-02-03] MEDS: Donepezil HCl 10 MG TABLET PO (20:38)
[2022-02-03] MEDS: Sennosides 8.6 MG TABLET 17.2 MG PO (20:38)
[2022-02-03 23:35] VITALS: BP 118/58; PULSE 72; RESP 16; TEMP 36.8; O2SAT 97
[2022-02-04] MEDS: Omeprazole 20 MG CAPSULE.DR PO (05:49)
[2022-02-04 07:12] VITALS: BP 125/65; PULSE 72; RESP 17; TEMP 36.7; O2SAT 100
[2022-02-04 07:27] LABS: Glucose, Whole Blood 133 mg/dL (60-115)
--- NOTE | 2022-02-04 08:32 | MHC.CM.PN ---
Per MD, Patient will be medically cleared for dc to LTC/SNF today. Patient will dc to [place] [facility] today @ 11AM via [facility]. Both Son/Fredi & Friend/Jo Swift were informed yesterday and are in agreement with the dc plan and IMM was addressed yesterday with Jo Swift, at Fredi's request.
[2022-02-04] MEDS: Apixaban 5 MG TABLET PO (09:08)
[2022-02-04] MEDS: QUEtiapine Fumarate 25 MG TABLET PO (09:08)
[2022-02-04] MEDS: polyethylene glycoL 3350 17 GM POWD.PACK PO (09:08)
[2022-02-04] MEDS: Cholecalciferol (Vitamin D3) 25 MCG TABLET PO (09:08)
[2022-02-04] MEDS: Insulin Glargine,Hum.rec.anlog 100 UNIT/ML 10 ML VIAL 20 UNIT SUBCUT (09:09)
--- NOTE | 2022-02-04 10:44 | P.DS_ITS ---
DS: Providers Provider Date of Service: 02/04/22 Date of admission: 01/08/22 02:13 Primary care physician: Ofelia Chen MD Consults: 01/08/22 02:33 Consult to Orthopedics Routine Consulting Provider: Sangita Ibrahim Reason for consultation: neck fracture Has provider been notified: No 01/08/22 02:34 Consult to Orthopedics Routine Consulting Provider: Molina Singletary Reason for consultation: neck fracture Has provider been notified: No 01/14/22 08:40 Consult to Psychiatry Routine Consulting Provider: Psych Covering Reason for consultation: dementia with behavioural distubance Has provider been notified: No 01/16/22 14:24 Consult to Urology Routine Consulting Provider: [facility] [place] [facility] Reason for consultation: Urinary retention, vaginal iritation vs sloughing- bleedin 01/17/22 12:41 Consult for Sitter Routine Reason for consultation: dementia with behavioural disturbance Has provider been notified: No DS: Diagnosis Discharge Diagnosis (1) Dementia with behavioral disturbance: Status: Acute (2) Anemia: Status: Acute (3) Urinary retention: Status: Acute DS: Summary Hospital Course Hospital Course: Chief Complaint: Right hip pain This is a 76-year-old female who is a resident of assisted living facility and with pertinent history of essential hypertension, mixed hyperlipidemia, insulin- dependent diabetes mellitus,urinary incontinence, dementia was brought to the emergency department for evaluation of right hip pain.? Patient is a very poor historian and history was obtained from chart review.? Patient states that she has been having right hip pain but is unable to elaborate further.? On review of records, patient has been having pain for the last 3-4 months, progressive and worse with ambulation.? Patient is not able to provide any details and no family at bedside.? Unclear if patient had a fall. In the emergency department, CT scan revealed new right femoral neck and head fracture.? Orthopedic surgery was consulted from the ER who recommended admission by [facility] group and will evaluate the patient in a.m.. Hospital course: #Right femoral head and neck fracture -s/p 1) ORIF right femur 2) right hip hemiarthroplasty 3) MIKE right hip on 01/10, she is been making progress since surgery working PT and OT. Ortho recommendation is for PT /OT for Right hip hemir/ORIF distal femur--NWB of RLE. Tramadol for pain and outpatient follow up with ortho in 1 week or 2, ortho has been following during hospital stay # Insulin-dependent type 2 diabetes mellitus-insulin and monitor glucose--She was on Lantus 40, Sliding scale insulin, Metformin, and Pioglitazone. Her medication at presently Lantus 34 and Sliding scale insulin with sugar less than 200. Woud continue to avoid Pioglitazone and and metformin at this time and if needed increase Lantus or adjust sliding scale. #Essential hypertension--continue Norvasc 5 mg daily ? #Urinary incontinence- oxybutynin #? Dementia with behavior disturbances-on continue donepezil. To continue Seroquel low dose 25 mg twice daily # Chronic normocytic anemia: s/p 1unit of RBC 01/10 after surgery. H/H is been stable # History of pulmonary embolism--Eliquis #Mild protein calory malnutrition:? continue present diet Frequent turning, incentive spirometry, #Vulvar Lesion..This was assess by Dr. Chambers and recommended for biopsy but she declined , the son was to discuss and try to convince her but did not I suggest a follow up with [facility] on outpatient basis with Dr. Chambers Patient was supposed to have been discharged on 01/21/22 but tested positive for covid on routine check and therefore was kept and monitored since then and has not had any symptoms related to covid Time Spent with Patient Time attestation: Total time spent providing and/or coordinating discharge services: Discharge coordination time: Greater than 30 minutes Quality: Safe Use of Opioids Does Pt have an Active Cancer Diagnosis on the Problem List?: No Quality: Stroke Does the patient have a stroke diagnosis?: No Physical Exam Vital Signs: Vital Signs: Selected Entries 02/04/22 07:12 Temperature 98.0 F Pulse Rate 72 Respiratory Rate 17 Blood Pressure 125/65 Pulse Oximetry 100 Const: Other: General: AO X 1, no acute distress Resp: CTA bilateral CVS: S1,S2,RRR GI: +BS, NT, no distention Skin: No rash, hip wound is healing fine, there is minimal drainage at a spot, : vulvar iritation. Neuro: motor grossly intact Psych: appropriate affect DS: Data Data Completed and Pending Completed studies during hospitalization [Text1]: Pending at discharge 01/10/22 14:16 Surgical [PTH] Routine Labs on day of discharge: Laboratory Results - last 24 hr 01/20/22 01/20/22 01/21/22 15:12 19:28 07:22 POC Glucose 161 H 136 H 182 H 01/21/22 11:05 POC Glucose 180 H Discharge Plan Discharge Anticipated Discharge Date/Time: 02/04/22 09:27 Patient Disposition: Xfer [facility] Discharge Diagnosis: Hip fracture, dementia with behavior disturbance [facility] [Outside] - 1 Week Ofelia Chen MD [Primary Care Provider] - 1 Week Xiang Siddiqi PA-C [Physician Comparative Sociology Professor] - 1 Week Manny Chambers MD [Physician] - 1 Week Discharge Medications: New insulin glargine [Lantus U-100 Insulin] 100 unit/mL Solution 34 unit subcut DAILY@0730 Qty: 10 0RF quetiapine 25 mg Tablet 25 mg PO BID Qty: 60 0RF tramadol 50 mg Tablet 50 mg PO Q6H PRN (Reason: Pain, Moderate (Pain Scale 4-6) Qty: 20 0RF Continued atorvastatin 20 mg Tablet 20 mg PO BEDTIME oxybutynin chloride 10 mg tablet extended release 24hr 1 tab PO DAILY donepezil 10 mg Tablet 10 mg PO BEDTIME cholecalciferol (vitamin D3) [Vitamin D3] 25 mcg (1,000 unit) Capsule 25 mcg PO DAILY Eliquis 5 mg Tablet 5 mg PO BID@0900,1800 sennosides [senna] 8.6 mg Tablet 17.2 mg PO BEDTIME acetaminophen 325 mg Tablet 650 mg PO Q6H PRN (Reason: Pain (Scale Score 1-3)) gabapentin 100 mg Capsule 100 mg PO BEDTIME polyethylene glycol 3350 17 gram/dose Powder 17 g PO DAILY amlodipine 5 mg tablet 1 tab PO DAILY insulin lispro [Humalog KwikPen Insulin] 100 unit/mL insulin pen See Protocol subcut TIDA Protocol: Insulin Correction Scale Less than or equal to 110 ---- Give (units): 0 111 to 150 Give (units): 0 151 to 200 Give (units): 2 201 to 250 Give (units): 4 251 to 300 Give (units): 6 301 to 350 Give (units): 8 Greater than 350 Give (units): 10 Call MD if Blood Glucose > : 350 Rx Instructions: sliding scale furosemide 20 mg tablet 1 tab PO DAILY ferrous gluconate 324 mg (37.5 mg iron) Tablet 324 mg PO DAILY Discontinued pioglitazone 30 mg tablet 1 tab PO DAILY insulin glargine [Lantus Solostar U-100 Insulin] 100 unit/mL (3 mL) insulin pen 40 unit subcut DAILY bacitracin 500 unit/gram Ointment 1 appl TOPICAL DAILY@2020 metformin 500 mg Tablet Extended Release 24hr 1,000 mg PO DAILY@1700 Discharge Orders: Discharge Order (Routine); Ordered 02/04/22 Ordered By: Amado Ribeiro Diet: Diabetic diet Activity on Discharge: As tolerated Stand Alone Forms: Patient Portal Discharge page Care Plan Goals: Full recovery from hip fracture Health Concerns: Hip fracture covid labial lesion Plan of Treatment: * Physical Therapy for Total hip arthroplasty and ORIF right distal femur: NWB , STRICT posterior precautions, HIP ABduction pillow while sitting in bed * No showering, no tub bath-keep dressing clean, dry and intact--ok to change dressings as needed * Follow up with Orthopedics in [address] to [address] Singletary * Follow up with Dr. Chambers for vulvar lesion Assessment: as above
== END 2022-02-04 11:50 | DRG 521 ==
LOC: HO.ED 23:28 → HO.EDOVER 01-08 02:29 → HO.S3 01-08 02:36 → HO.IMC 01-21 16:09
PROVIDERS: Internal Medicine; Orthopaedic Surgery; Physician Assistant; Admitting Provider Student in an Organized Health Care Education/Training Program; Emergency Provider Internal Medicine; PCP Internal Medicine; Visit Provider Internal Medicine
PROC: 0SRR0JA Replacement of Right Hip Joint, Femoral Surface with Synthetic Substitute, Uncemented, Open Approach (ICD-10-PCS; CPT 27125; principal; 2022-01-10 09:00)
DX: S72.001A Fracture of unspecified part of neck of right femur, initial encounter for closed fracture (principal); U07.1 COVID-19; M97.01XA Periprosthetic fracture around internal prosthetic right hip joint, initial encounter; F05 Delirium due to known physiological condition; F03.911 Unspecified dementia, unspecified severity, with agitation; E44.1 Mild protein-calorie malnutrition; W19.XXXA Unspecified fall, initial encounter; N32.81 Overactive bladder; R29.6 Repeated falls; Z91.81 History of falling; D64.89 Other specified anemias; R33.9 Retention of urine, unspecified; R31.9 Hematuria, unspecified; N90.89 Other specified noninflammatory disorders of vulva and perineum; L89.610 Pressure ulcer of right heel, unstageable; E11.9 Type 2 diabetes mellitus without complications; E78.2 Mixed hyperlipidemia; Z86.711 Personal history of pulmonary embolism; Z79.4 Long term (current) use of insulin; Z79.01 Long term (current) use of anticoagulants; Z79.899 Other long term (current) drug therapy; Z68.33 Body mass index [BMI] 33.0-33.9, adult
CPT/HCPCS: 36415; 72170; 73502; 73552; 74176; 80048; 80053; 80076; 81001; 82306; 82607; 82728; 82746; 82947; 83036; 83540; 83605; 83735; 85014; 85018; 85025; 85027; 86850; 86900; 86901; 86923; 87040; 87086; 87635; 88304; 88305; 88311; 93005; 93971; 97162; 97166; 97530; 99285; C1713; C1758; C1776; J0131; J0690; J1100; J1170; J1650; J2270; J2370; J2405; J2795; J3010; P9016

== ENCOUNTER 2022-02-12 07:15 | Outpatient (REF) | payer MEDICARE, SELFPAY ==
--- NOTE | ~2022-02-12 | XR_ITS ---
EXAMINATION: RIGHT HIP WITH PELVIS AND RIGHT FEMUR X-RAYS CLINICAL INFORMATION: Fracture COMPARISON: Previous exam most recent 01/26/2022 TECHNIQUE: AP view of the pelvis, AP and shoot through lateral views of the right hip and AP and lateral views of the right femur FINDINGS: There is a right longstem right hip replacement unchanged in position. There is a plate and multiple screws and cerclage wires in the distal femur transfixing mid and distal femoral shaft fractures. Orthopedic hardware appears unchanged. No pelvic fracture. Arthritis at the left hip joint. Severe osteopenia. Atherosclerotic disease. XR/XR hip RT w PEL1V IMPRESSION: Stable appearance to orthopedic hardware. Right mid and distal femoral shaft fractures. Unchanged. Osteopenia.
--- NOTE | ~2022-02-12 | XR_ITS ---
EXAMINATION: RIGHT HIP WITH PELVIS AND RIGHT FEMUR X-RAYS CLINICAL INFORMATION: Fracture COMPARISON: Previous exam most recent 01/26/2022 TECHNIQUE: AP view of the pelvis, AP and shoot through lateral views of the right hip and AP and lateral views of the right femur FINDINGS: There is a right longstem right hip replacement unchanged in position. There is a plate and multiple screws and cerclage wires in the distal femur transfixing mid and distal femoral shaft fractures. Orthopedic hardware appears unchanged. No pelvic fracture. Arthritis at the left hip joint. Severe osteopenia. Atherosclerotic disease. XR/XR femur RT 2V IMPRESSION: Stable appearance to orthopedic hardware. Right mid and distal femoral shaft fractures. Unchanged. Osteopenia.
== END 2022-02-12 07:16 | disposition home or self-care (01) ==
LOC: HO.HOSX 07:15
PROVIDERS: Visit Provider Physician Assistant
DX: S72.401A Unspecified fracture of lower end of right femur, initial encounter for closed fracture (principal); M25.551 Pain in right hip
CPT/HCPCS: 73502; 73552

== ENCOUNTER 2022-04-01 17:17 | Outpatient (REF) | payer MEDICARE, SELFPAY ==
--- NOTE | ~2022-04-01 | XR_ITS ---
EXAMINATION: X-RAY RIGHT HIP X-RAY RIGHT FEMUR CLINICAL INFORMATION: Fracture COMPARISON: Prior imaging including 02/12/2022 TECHNIQUE: Pelvis one view. Right femur 4 views. FINDINGS: Right long stem hip replacement hardware is stable in position. Orthopedic hardware comprised of lateral plate, multiple screws and cerclage wires bridging a mid and distal femoral shaft fracture, similar in appearance. No shelby-hardware lucency to suggest loosening or infection. No new acute fractures seen. 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 No acute pelvic fractures seen. Extensive vascular calcification. XR/XR femur RT 2V IMPRESSION: Stable appearance of the orthopedic hardware. Decreased conspicuity of the femoral fracture as compared to the prior study. 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
--- NOTE | ~2022-04-01 | XR_ITS ---
EXAMINATION: X-RAY RIGHT HIP X-RAY RIGHT FEMUR CLINICAL INFORMATION: Fracture COMPARISON: Prior imaging including 02/12/2022 TECHNIQUE: Pelvis one view. Right femur 4 views. FINDINGS: Right long stem hip replacement hardware is stable in position. Orthopedic hardware comprised of lateral plate, multiple screws and cerclage wires bridging a mid and distal femoral shaft fracture, similar in appearance. No shelby-hardware lucency to suggest loosening or infection. No new acute fractures seen. 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 No acute pelvic fractures seen. Extensive vascular calcification. XR/XR hip RT w PEL1V IMPRESSION: Stable appearance of the orthopedic hardware. Decreased conspicuity of the femoral fracture as compared to the prior study. 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
== END 2022-04-01 17:18 | disposition home or self-care (01) ==
LOC: HO.HOSX 17:17
PROVIDERS: Visit Provider Physician Assistant
DX: S72.001D Fracture of unspecified part of neck of right femur, subsequent encounter for closed fracture with routine healing (principal); Z96.641 Presence of right artificial hip joint; Z98.890 Other specified postprocedural states; Z87.81 Personal history of (healed) traumatic fracture
CPT/HCPCS: 73502; 73552